=== PATIENT | male | born 1955 | race Caucasian/White ===

== ENCOUNTER 2016-06-08 21:14 | Emergency (ER) | payer OTHER ==
[2016-06-08 21:29] VITALS: BP 104/67; PULSE 98; TEMP 98; BMI 27.4
--- NOTE | 2016-06-08 21:52 | PDOC ---
History of Present Illness - History of Present Illness Initial Comments: 06/08/16 23:57 Patient is a 60 year old male with significant medical hx of alcoholism, alcohol liver disease, HTN, GERD and peripheral neuropathy who is presenting to the ED after recent admission discharge (06/08/16) who is presenting to the ED because he is unable to get his prescriptions for chronic neuropathic leg pain. The patient offers no complaints; his last drink was yesterday. The patient was discharged from the ED (approximately 15:00) for hyponatremia, alcohol withdrawal, fall and electrolyte imbalance. <Gracie Larson - Last Filed: 06/08/16 23:57> <Wendy Huddleston - Last Filed: 06/09/16 01:50> - General Chief Complaint: Alcohol intoxication Stated Complaint: PAIN Time Seen by Provider: 06/08/16 21:22 Past History <Gracie Larson - Last Filed: 06/08/16 23:57> - Past Medical History Anemia: No Asthma: No Cancer: No Cardiac Disorders: No CVA: No COPD: No CHF: No Dementia: No Diabetes: No GI Disorders: No Disorders: No HTN: No Hypercholesterolemia: No Kidney Stones: No Liver Disease: No (Pt. Denies.) Suicide Attempt (Hx): No Seizures: No Thyroid Disease: No - Surgical History Abdominal Surgery: No Appendectomy: No Cardiac Surgery: No Cholecystectomy: No Lung Surgery: No Neurologic Surgery: No Orthopedic Surgery: Yes (right 5th digit tendon repair 11/14/14) - Reproductive History Testicular Surgery: No - Psycho/Social/Smoking Cessation Hx Anxiety: No Suicidal Ideation: No Smoking Status: Yes Smoking History: Current some day smoker Have you smoked in the past 12 months: Yes Number of Cigarettes Smoked Daily: 5 If you are a former smoker, when did you quit?: 1 months Cigars Per Day: 0 Information on smoking cessation initiated: No 'Breaking Loose' booklet given: 05/04/16 Hx Alcohol Use: Yes Drug/Substance Use Hx: No Substance Use Type: Alcohol Hx Substance Use Treatment: Yes (5 previous inpt detox and 3 inpt rehab @ [facility]) <Wendy Huddleston - Last Filed: 06/09/16 01:50> - Past Medical History Allergies/Adverse Reactions: Allergies Allergy/AdvReac Type Severity Reaction Status Date / Time No Known Allergies Allergy Verified 06/03/16 18:26 Home Medications: Ambulatory Orders Gabapentin [Neurontin -] 400 mg PO TID #120 capsule 04/23/16 Review of Systems - Review of Systems Comments:: 06/08/16 23:58 CONSTITUTIONAL: Absent: fever, chills, diaphoresis, generalized weakness, malaise, loss of appetite HEENT: Absent: rhinorrhea, nasal congestion, throat pain, throat swelling, difficulty swallowing, mouth swelling, ear pain, eye pain, visual changes CARDIOVASCULAR: Absent: chest pain, syncope, palpitations, irregular heart rate, lightheadedness , peripheral edema RESPIRATORY: Absent: cough, shortness of breath, dyspnea with exertion, orthopnea, wheezing, stridor, hemoptysis GASTROINTESTINAL: Absent: abdominal pain, abdominal distension, nausea, vomiting, diarrhea, constipation, melena, hematochezia GENITOURINARY: Absent: dysuria, frequency, urgency, hesitancy, hematuria, flank pain, genital pain MUSCULOSKELETAL: Absent: myalgia, arthralgia, joint swelling SKIN: Absent: rash, itching, pallor HEMATOLOGIC/IMMUNOLOGIC: Absent: easy bleeding, easy bruising, lymphadenopathy, frequent infections ENDOCRINE: Absent: unexplained weight gain, unexplained weight loss, heat intolerance, cold intolerance NEUROLOGIC: Absent: headache, focal weakness or paresthesia, dizziness, unsteady gait, seizure, mental status changes, bladder or bowel incontinence. PSYCHIATRIC: Absent: anxiety, depression, suicidal or homicidal ideation, hallucinations <Marcus Larsona - Last Filed: 06/08/16 23:57> *Physical Exam - Vital Signs Last Vital Signs Temp Pulse Resp BP Pulse Ox 98 F 98 H 17 104/67 99 06/08/16 21:25 06/08/16 21:25 06/08/16 21:25 06/08/16 21:25 06/08/16 21:25 - Physical Exam Comments: 06/08/16 23:58 GENERAL: Well developed, well nourished. Awake and alert. No acute distress. HEENT: Normocephalic, atraumatic. PERRLA, EOMI. Injected eyes. No conjunctival pallor. Sclera are non-icteric. Moist mucous membranes. Oropharynx is clear. NECK: Supple. Full ROM. No JVD. Carotid pulses 2+ and symmetric, without bruits. No thyromegaly. No lymphadenopathy. CARDIOVASCULAR: Regular rate and rhythm. No murmurs, rubs, or gallops. Distal pulses are 2+ and symmetric. PULMONARY: No evidence of respiratory distress. Lungs clear to auscultation bilaterally. No wheezing, rales or rhonchi. ABDOMINAL: Reducible ventral hernia. Soft. Non-tender. No rebound or guarding. Normoactive bowel sounds. MUSCULOSKELETAL: Normal range of motion at all joints. No bony deformities or tenderness. No CVA tenderness. EXTREMITIES: No cyanosis. No clubbing. No edema. No calf tenderness. SKIN: Warm and dry. Normal capillary refill. No rashes. No jaundice. NEUROLOGICAL: Alert, awake, appropriate. Cranial nerves 2-12 intact. Normal speech. Gait is normal without ataxia. PSYCHIATRIC: Cooperative. Good eye contact. Appropriate mood and affect. <Gracie Larson - Last Filed: 06/08/16 23:57> - Vital Signs Last Vital Signs Temp Pulse Resp BP Pulse Ox 98 F 98 H 17 104/67 99 06/08/16 21:25 06/08/16 21:25 06/08/16 21:25 06/08/16 21:25 06/08/16 21:25 <Wendy Huddleston - Last Filed: 06/09/16 01:50> ED Treatment Course - Medications Given in the ED: ED Medications Discontinued Medications Generic Name Dose Route Start Last Admin Trade Name Freq PRN Reason Stop Dose Admin Gabapentin 400 mg 06/08/16 21:57 06/08/16 22:04 Neurontin - PO 06/08/16 21:58 400 mg ONCE ONE Administration <Gracie Larson - Last Filed: 06/08/16 23:57> Medical Decision Making - Medical Decision Making 06/08/16 23:25 60-year-old male brought in by ambulance for alcohol intox. He was just discharged from our facility at 3:30 in the afternoon. He was admitted to [facility] from June 03 to June 08 for alcohol withdrawal , a mechanical fall and he had electrolyte abnormalities. Mr. Batista is well known to our facility. Patient states he is here because he was not able to fill his gabapentin RX and now has leg pain -social history-non domiciled, alcoholism Pt is sl lethargic but able to participate in a simple interview -gabapentin given 06/09/16 01:44 discharge in am when safe and sober <Wendy Huddleston - Last Filed: 06/09/16 01:50> *DC/Admit/Observation/Transfer - Attestations Scribe Attestion: 06/09/16 00:00 Documentation prepared by Gracie Larson, acting as medical typist for Wendy Huddleston MD. <Gracie Larson - Last Filed: 06/08/16 23:57> <Wendy Huddleston - Last Filed: 06/09/16 01:50> Diagnosis at time of Disposition: Polyneuropathy Alcohol dependence syndrome Qualifiers: Substance use status: other alcohol-induced disorder Qualified Code(s): F10.288 - Alcohol dependence with other alcohol-induced disorder - Discharge Dispostion Condition at time of disposition: Stable - Referrals Referrals: Kyra Dahl [Primary Care Provider] - - Patient Instructions Printed Discharge Instructions: DI for Alcohol Abuse, Peripheral Neuropathy Additional Instructions: -please abstain from alcohol intoxication -take the medications prescribed to you by your physician
[2016-06-08] MEDS ORDERED: GABAPENTIN 400 MG CAPSULE (FP) PO ONE (21:57)
--- NOTE | 2016-06-09 06:21 | PDOC ---
*Physical Exam - Vital Signs Last Vital Signs Temp Pulse Resp BP Pulse Ox 98 F 98 H 17 104/67 99 06/08/16 21:25 06/08/16 21:25 06/08/16 21:25 06/08/16 21:25 06/08/16 21:25 ED Treatment Course - Medications Given in the ED: ED Medications Discontinued Medications Generic Name Dose Route Start Last Admin Trade Name Singh PRN Reason Stop Dose Admin Gabapentin 400 mg 06/08/16 21:57 06/08/16 22:04 Neurontin - PO 06/08/16 21:58 400 mg ONCE ONE Administration *DC/Admit/Observation/Transfer Diagnosis at time of Disposition: Polyneuropathy Alcohol dependence syndrome Qualifiers: Substance use status: other alcohol-induced disorder Qualified Code(s): F10.288 - Alcohol dependence with other alcohol-induced disorder - Discharge Dispostion Disposition: HOME Condition at time of disposition: Stable Admit: No - Referrals Referrals: Kyra Dahl [Primary Care Provider] - - Patient Instructions Printed Discharge Instructions: Peripheral Neuropathy, DI for Alcohol Abuse Additional Instructions: -please abstain from alcohol intoxication -take the medications prescribed to you by your physician - Post Discharge Activity
== END 2016-06-09 06:33 | disposition home or self-care (01) ==
LOC: JER 21:14
DX: F10.288 Alcohol dependence with other alcohol-induced disorder (principal); G62.1 Alcoholic polyneuropathy; I10 Essential (primary) hypertension; K70.9 Alcoholic liver disease, unspecified; Z76.0 Encounter for issue of repeat prescription; Z59.0 Homelessness; F17.210 Nicotine dependence, cigarettes, uncomplicated
CPT/HCPCS: 99281-25

== ENCOUNTER 2016-06-19 18:09 | Inpatient (IN) | payer OTHER ==
[2016-06-19 18:44] VITALS: BMI 29.3
--- NOTE | 2016-06-19 18:54 | HP ---
CIWA Score - CIWA Score Nausea/Vomitin Muscle Tremors: 2 Anxiety: 2 Agitation: 2 Paroxysmal Sweats: 2 Orientation: 0-Oriented Tacttile Disturbances: 1-Very Mild Itch/Numbness Auditory Disturbances: 0-None Visual Disturbances: 1-Very Mild Sensitivity Headache: 2-Mild CIWA-Ar Total Score: 14 Admission ROS BHS - HPI Chief Complaint: I'M HERE BECAUSE I DRINK TOO MUCH Allergies/Adverse Reactions: Allergies Allergy/AdvReac Type Severity Reaction Status Date / Time No Known Allergies Allergy Verified 06/19/16 18:18 History of Present Illness: 60 Y/O MALE WITH 45 Y/O ALCOHOLISM PRESENTS FOR DETOX. HIS LAST TREATMENT WAS A FEW MONTHS AGO AT [facility]. HE REPORTS NO SIGNIFICANT PERIODS OF SOBRIETY. Exam Limitations: No Limitations - Ebola screening Have you traveled outside of the country in the last 21 days: No Have you had contact with anyone from an Ebola affected area: No Have you been sick,other than usual withdrawal symptoms: No Do you have a fever: No - Review of Systems Constitutional: Loss of Appetite, Changes in sleep EENT: reports: Blurred Vision Respiratory: reports: Cough Cardiac: reports: No Symptoms Reported GI: reports: Poor Appetite : reports: No Symptoms Reported Musculoskeletal: reports: Muscle Pain Integumentary: reports: No Symptoms Reported Neuro: reports: No Symptoms reported Endocrine: reports: No Symptoms Reported Hematology: reports: No Symptoms Reported Psychiatric: reports: No Sypmtoms Reported Other Systems: Reviewed and Negative Patient History - Patient Medical History Hx Anemia: No Hx Asthma: No Hx Chronic Obstructive Pulmonary Disease (COPD): No Hx Cancer: No Hx Cardiac Disorders: No Hx Congestive Heart Failure: No Hx Hypertension: No Hx Hypercholesterolemia: No Hx Pacemaker: No HX Cerebrovascular Accident: No Hx Seizures: No Hx Dementia: No Hx Diabetes: No Hx Gastrointestinal Disorders: No Hx Liver Disease: Yes (cirrhosis - elevated ammonia levels) Hx Genitourinary Disorders: No Hx Sexually Transmitted Disorders: No Hx Renal Disease (ESRD): No Hx Thyroid Disease: No Hx Human Immunodeficiency Virus (HIV): No Hx Hepatitis C: No Hx Depression: No Hx Suicide Attempt: No Hx Bipolar Disorder: No Hx Schizophrenia: No - Patient Surgical History Past Surgical History: Yes Hx Neurologic Surgery: No Hx Cataract Extraction: No Hx Cardiac Surgery: No Hx Lung Surgery: No Hx Breast Surgery: No Hx Breast Biopsy: No Hx Abdominal Surgery: No Hx Appendectomy: No Hx Cholecystectomy: No Hx Genitourinary Surgery: No Hx Section: No Hx Orthopedic Surgery: Yes (right 5th digit tendon repair 11/14/14) Hx Hysterectomy: No Other Surgical History: Pt. fell down stairs face first, 23 sutures-removed already Anesthesia Reaction: No - PPD History Previous Implant?: Yes Documented Results: Negative w/proof Implanted On Prior [facility] Admission?: Yes Date: 07/14/15 Results: 0mm PPD to be Administered?: No - Smoking Cessation Smoking history: Current some day smoker Have you smoked in the past 12 months: Yes Aproximately how many cigarettes per day: 5 If you are a former smoker, when did you quit?: 1 months Cigars Per Day: 0 Hx Chewing Tobacco Use: No Initiated information on smoking cessation: Yes 'Breaking Loose' booklet given: 06/19/16 - Substances Abused Alcohol Route: Oral Frequency: Daily Amount used: BEER- 2 SIX PACK Age of first use: 17 Date of Last Use: 06/19/16 Family Disease History - Family Disease History Family Disease History: Other: Father (Uses Alcohol.), Mother (Uses Alcohol.), Brother (Uses Alcohol.), Sister (LSD related schizophrenia) Admission Physical Exam [facility] - Vital Signs Vital Signs: Vital Signs - 24 hr 06/19/16 06/19/16 18:12 18:43 Pulse Rate 95 H Respiratory 18 18 Rate Blood Pressure 119/71 - Physical General Appearance: Yes: Alcohol on Breath HEENTM: Yes: Within Normal Limits Respiratory: Yes: Chest Non-Tender, Lungs Clear, Normal Breath Sounds, No Respiratory Distress, No Accessory Muscle Use Neck: Yes: No masses,lesions,Nodules, Supple Breast: Yes: Breast Exam Deferred Cardiology: Yes: Regular Rhythm, Regular Rate, S1, S2 Abdominal: Yes: Normal Bowel Sounds, Soft Genitourinary: Yes: Within Normal Limits Back: Yes: Within Normal Limits Musculoskeletal: Yes: Muscle Pain Extremities: Yes: Pedal Edema 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, Fully Oriented, Alert Integumentary: Yes: Warm Lymphatic: Yes: Within Normal Limits - Diagnostic (1) Alcohol dependence with uncomplicated withdrawal Current Visit: Yes Status: Acute (2) Drug-induced mood disorder Current Visit: No Status: Acute (3) Neuropathy Current Visit: Yes Status: Chronic Cleared for Admission [facility] - Detox or Rehab [facility] Level of Care: Medically Managed Detox Regimen/Protocol: Librium [facility] Breath Alcohol Content Breath Alcohol Content: 0.271 Urine Drug Screen - Results Drug Screen Negative: No Urine Drug Screen Results: BZO-Benzodiazepines
[2016-06-19] MEDS ORDERED: IBUPROFEN 400 MG TABLET (FP) PO PRN (18:59)
[2016-06-19] MEDS ORDERED: MENTHOL/PHENOL 1 EACH UD MM PRN (18:59)
[2016-06-19] MEDS ORDERED: MAGNESIUM CITRATE 300 ML BOTTLE PO PRN (18:59)
[2016-06-19] MEDS ORDERED: chlordiazePOXIDE HCL 25 MG CAPSULE PO ONE (18:59)
[2016-06-19] MEDS ORDERED: guaiFENesin/D-METHORPHAN HB 10 ML UNIT-DOSE CUPS PO PRN (18:59)
[2016-06-19] MEDS ORDERED: ACETAMINOPHEN 325 MG TABLET (FP) PO PRN (18:59)
[2016-06-19] MEDS ORDERED: NICOTINE POLACRILEX 2 MG GUM BC PRN (18:59)
[2016-06-19] MEDS ORDERED: LOPERAMIDE HCL 2 MG CAPSULE PO PRN (18:59)
[2016-06-19] MEDS ORDERED: P-EPHED 60MG/TRIPROLIDI 2.5MG TABLET PO PRN (18:59)
[2016-06-19] MEDS ORDERED: MAGNESIUM HYDROX 2400MG/30ML ORAL SUSPENSION 30 ML CUP PO PRN (18:59)
[2016-06-19] MEDS ORDERED: hydrOXYzine PAMOATE 50 MG CAPSULE (FP) PO PRN (18:59)
[2016-06-19] MEDS: GABAPENTIN 400 MG CAPSULE (FP) PO SCH (22:11)
[2016-06-19] MEDS: chlordiazePOXIDE HCL 25 MG CAPSULE PO SCH (22:11)
[2016-06-19] MEDS: THIAMINE HCL 100 MG TABLET (FP) PO SCH (22:11)
[2016-06-20] MEDS: GABAPENTIN 400 MG CAPSULE (FP) PO SCH ×3 (05:46→22:01)
[2016-06-20] MEDS: chlordiazePOXIDE HCL 25 MG CAPSULE PO SCH ×4 (05:46→22:02)
[2016-06-20] MEDS: MAG HYDROX/AL HYDROX/SIMETH 30 ML UNIT-DOSE CUP PO PRN ×3 (05:48→18:38)
[2016-06-20 09:49] LABS: MCHC 33.6 g/dl (32.0-35.9); MEAN CELL VOLUME 97.9 fl (80-96); MEAN PLT VOLUME 9.9 fl (7.5-11.1); PLATELET COUNT 188 K/MM3 (134-434); RDW 17.4 % (11.9-15.9); WHITE BLOOD COUNT 8.1 K/mm3 (4.0-10.0)
[2016-06-20] MEDS: PRENATAL VITAMINS W/ FOLIC ACID TABLET (FP) PO SCH (10:49)
[2016-06-20 10:57] LABS: ALBUMIN 2.5 g/dl (3.4-5.0); ANION GAP 10 (8-16); CALCIUM 9.6 mg/dL (8.5-10.1); CO2 29 mmol/L (21-32); GLUCOSE,RANDOM 95 mg/dL (74-106); SGOT/AST 25 U/L (15-37)
[2016-06-20 10:59] LABS: ALK PHOS 169 U/L (45-117); BILIRUBIN,TOTAL 0.4 mg/dL (0.2-1.0); CREATININE 0.9 mg/dL (0.7-1.3); SGPT/ALT 21 U/L (12-78); TOT PROT 5.7 g/dl (6.4-8.2)
--- NOTE | 2016-06-20 11:09 | PN ---
S CIWA - CIWA Score Nausea/Vomitin Muscle Tremors: 3 Anxiety: 4-Mod. Anxious/Guarded Agitation: 4-Moderately Restless Paroxysmal Sweats: 3 Orientation: 0-Oriented Tacttile Disturbances: 2-Mild Itch/Numbness/Burn Auditory Disturbances: 0-None Visual Disturbances: 0-None Headache: 1-Very Mild CIWA-Ar Total Score: 20 BHS Progress Note (SOAP) Subjective: nausea, sweats, interrupted sleep, anxiety, tremors, peripheral neuropathy LE, requesting nicotine gum and cane Objective: 06/20/16 11:08 Vital Signs - 8 hr 06/20/16 06/20/16 06/20/16 03:30 06:00 10:56 Temperature 98.8 F 97.9 F Pulse Rate 114 H 83 Respiratory 18 18 16 Rate Blood Pressure 114/73 121/82 Laboratory Tests 06/20/16 06/20/16 07:45 07:45 WBC 8.1 D RBC 3.18 L Hgb 10.5 L Hct 31.1 L MCV 97.9 H MCHC 33.6 RDW 17.4 H Plt Count 188 MPV 9.9 D Sodium 140 Potassium 3.8 Chloride 101 Carbon Dioxide 29 Anion Gap 10 BUN 5 L D Creatinine 0.9 Creat Clearance w eGFR > 60 Random Glucose 95 Calcium 9.6 Total Bilirubin 0.4 D AST 25 ALT 21 Alkaline Phosphatase 169 H D Total Protein 5.7 L Albumin 2.5 L macrocytic anemia, hypoalbuminemia Assessment: 06/20/16 11:08 withdrawal sx, anemia, hypoalbuminemia, peripheral neuropathy Plan: cont detox, vitamins, cane and nicotien gum ordered as requested. fluids, encoruage ambulation
[2016-06-20] MEDS: NICOTINE 14 MG/24 HOURS TOPICAL PATCH TD SCH (13:49)
[2016-06-20 17:28] LABS: URINE APPEARANCE CLOUDY; URINE BILIRUBIN NEGATIVE (NEGATIVE); URINE COLOR STRAW; URINE GLUCOSE (UA) NEGATIVE (NEGATIVE); URINE KETONE NEGATIVE (NEGATIVE); URINE NITRITE NEGATIVE (NEGATIVE); URINE PROTEIN NEGATIVE (NEGATIVE); URINE UROBILINOGEN NEGATIVE E.U./dl (0.2-1.0)
[2016-06-20 17:29] LABS: URINE BLOOD 1+ (NEGATIVE); URINE LEUK ESTERASE 3+ (NEGATIVE)
[2016-06-20 17:37] LABS: URINE BACTERIA RARE /hpf (NONE SEEN); URINE RBC 164 /hpf (0-3); URINE WBC 365 /hpf (3-5)
[2016-06-20] MEDS: THIAMINE HCL 100 MG TABLET (FP) PO SCH (22:01)
[2016-06-20] MEDS: diphenhydrAMINE HCL 50 MG CAPSULE PO PRN (22:01)
--- NOTE | 2016-06-20 23:27 | EKG ---
Test Reason : Blood Pressure : / mmHG Vent. Rate : 099 BPM Atrial Rate : 099 BPM P-R Int : 206 ms QRS Dur : 084 ms QT Int : 334 ms P-R-T Axes : 056 012 055 degrees QTc Int : 428 ms SINUS RHYTHM WITH OCCASIONAL PREMATURE VENTRICULAR COMPLEXES OTHERWISE NORMAL ECG WHEN COMPARED WITH ECG OF 08-JUN-2016 11:14, PREMATURE VENTRICULAR COMPLEXES ARE NOW PRESENT VENT. RATE HAS INCREASED Confirmed by RUPINDER LR, KELSEY ([id number]) on 06/20/2016 11:26:36 PM Referred By: Confirmed By:KELSEY BUCIO MD
[2016-06-21] MEDS: chlordiazePOXIDE HCL 25 MG CAPSULE PO SCH ×3 (05:47→17:11)
[2016-06-21] MEDS: GABAPENTIN 400 MG CAPSULE (FP) PO SCH ×3 (05:47→22:11)
--- NOTE | 2016-06-21 09:38 | PN ---
S CIWA - CIWA Score Nausea/Vomitin-Mild Nausea/No Vomiting Muscle Tremors: 4-Moderate,w/Arms Extend Anxiety: 3 Agitation: 4-Moderately Restless Paroxysmal Sweats: 3 Orientation: 0-Oriented Tacttile Disturbances: 0-None Auditory Disturbances: 0-None Visual Disturbances: 0-None Headache: 1-Very Mild CIWA-Ar Total Score: 16 BHS Progress Note (SOAP) Subjective: shakes sweats interrupted sleep agitation indigestion headache insomnia Objective: 06/21/16 09:34 Vital Signs Temperature 97.9 F 06/21/16 06:00 Pulse Rate 89 06/21/16 06:00 Respiratory Rate 18 06/21/16 06:00 Blood Pressure 116/62 06/21/16 06:00 O2 Sat by Pulse Oximetry (%) Laboratory Tests 06/20/16 06/20/16 06/20/16 07:45 07:45 07:45 WBC 8.1 D RBC 3.18 L Hgb 10.5 L Hct 31.1 L MCV 97.9 H MCHC 33.6 RDW 17.4 H Plt Count 188 MPV 9.9 D Sodium 140 Potassium 3.8 Chloride 101 Carbon Dioxide 29 Anion Gap 10 BUN 5 L D Creatinine 0.9 Creat Clearance w eGFR > 60 Random Glucose 95 Calcium 9.6 Total Bilirubin 0.4 D AST 25 ALT 21 Alkaline Phosphatase 169 H D Total Protein 5.7 L Albumin 2.5 L Urine Color Urine Appearance Urine pH Ur Specific [place] Urine Protein Urine Glucose (UA) Urine Ketones Urine Blood Urine Nitrite Urine Bilirubin Urine Urobilinogen Ur Leukocyte Esterase Urine RBC Urine WBC Urine Bacteria RPR Titer Nonreactive 06/20/16 16:00 WBC RBC Hgb Hct MCV MCHC RDW Plt Count MPV Sodium Potassium Chloride Carbon Dioxide Anion Gap BUN Creatinine Creat Clearance w eGFR Random Glucose Calcium Total Bilirubin AST ALT Alkaline Phosphatase Total Protein Albumin Urine Color Straw Urine Appearance Cloudy Urine pH 9.0 H D Ur Specific [place] 1.004 Urine Protein Negative Urine Glucose (UA) Negative Urine Ketones Negative Urine Blood 1+ H Urine Nitrite Negative Urine Bilirubin Negative Urine Urobilinogen Negative Ur Leukocyte Esterase 3+ H Urine RBC 164 Urine WBC 365 Urine Bacteria Rare RPR Titer repeat u/a awake/alert ambulating no acute distress Assessment: 06/21/16 09:54 withdrawals sx Plan: continue detox increase fluids protonix 40mg daily psych ordered
[2016-06-21] MEDS: PRENATAL VITAMINS W/ FOLIC ACID TABLET (FP) PO SCH (10:18)
[2016-06-21] MEDS: PANTOPRAZOLE 40 MG TABLET (FP) PO SCH (10:19)
[2016-06-21] MEDS: NICOTINE 14 MG/24 HOURS TOPICAL PATCH TD SCH (10:19)
--- NOTE | 2016-06-21 13:06 | CONSULT ---
[facility] Psychiatric Consult - Data Date of interview: 06/21/16 Admission source: [facility] Identifying data: This is one of multiple admissions to [facility] for this 60 y/ o male seeking detox treatment on for alcohol dependence.Patient is single without children,homeless,unemployed and supported on [facility] benefits. Substance Abuse History: - Smoking Cessation. Smoking history: Current some day smoker. Have you smoked in the past 12 months: Yes. Aproximately how many cigarettes per day: 5. If you are a former smoker, when did you quit?: 1 months. Cigars Per Day: 0. Hx Chewing Tobacco Use: No. Initiated information on smoking cessation: Yes. 'Breaking Loose' booklet given: 06/19/16. - Substances Abused. Alcohol. Route: Oral. Frequency: Daily. Amount used: BEER- 2 SIX PACK. Age of first use: 17. Date of Last Use: 06/19/16. Confirmed by patient. Medical History: Consistent with a history of alcoholic peripheral neuropathy, GERD,HTN,hepatitis C,obesity,psoriasis,low back pain and cirrhosis of liver. Psychiatric History: Patient denies. Physical/Sexual Abuse/Trauma History: Patient denies. Mental Status Exam - Mental Status Exam Alert and Oriented to: Time, Place, Person Cognitive Function: Good Patient Appearance: Well Groomed Mood: Anxious, Apprehensive Affect: Mood Congruent Patient Behavior: Appropriate, Cooperative Speech Pattern: Clear Voice Loudness: Normal Thought Process: Goal Oriented Thought Disorder: Not Present Hallucinations: Denies Suicidal Ideation: Denies Homicidal Ideation: Denies Insight/Judgement: Poor Sleep: Poorly, Difficulty falling asleep (requests zolpidem) Appetite: Good Muscle strength/Tone: Normal Gait/Station: Other (walks with cane) Psychiatric Findings - Problem List ([place] 1, 2,3) (1) Alcohol dependence with uncomplicated withdrawal Current Visit: Yes Status: Acute (2) Nicotine dependence Current Visit: No Status: Chronic Qualifiers: Nicotine product type: cigarettes Substance use status: uncomplicated Qualified Code(s): F17.210 - Nicotine dependence, cigarettes, uncomplicated Comment: counseled cessation - not ready (3) Alcohol-induced anxiety disorder Current Visit: Yes Status: Acute (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 (5) Neuropathy Current Visit: Yes Status: Chronic (6) Cirrhosis of liver not due to alcohol Current Visit: Yes Status: Chronic Comment: encourage abstinence - seen by MAUDE raman and needs f/u (7) Psoriasis Current Visit: Yes Status: Chronic Comment: clobetisole oint, f/u with derm (8) Varicose veins Current Visit: Yes Status: Chronic Comment: does not like support stockings (too hot) but did see vascular re treatment and pending approval although now with insurance issues - Initial Treatment Plan Initial Treatment Plan: Psychoeducation.Detoxification.Zolpidem 5 mg po hs (no scripts at discharge;patient aware).Patient is made aware of risk of parasomnias.He agrees with this plan.Observation.
[2016-06-21] MEDS: chlordiazePOXIDE HCL 25 MG CAPSULE PO PRN (13:20)
[2016-06-21 15:46] LABS: URINE APPEARANCE CLOUDY; URINE BILIRUBIN NEGATIVE (NEGATIVE); URINE BLOOD NEGATIVE (NEGATIVE); URINE COLOR YELLOW; URINE GLUCOSE (UA) NEGATIVE (NEGATIVE); URINE KETONE NEGATIVE (NEGATIVE); URINE NITRITE NEGATIVE (NEGATIVE); URINE PROTEIN NEGATIVE (NEGATIVE); URINE UROBILINOGEN NEGATIVE E.U./dl (0.2-1.0)
[2016-06-21 15:51] LABS: URINE LEUK ESTERASE 3+ (NEGATIVE)
[2016-06-21 15:53] LABS: URINE RBC 16 /hpf (0-3); URINE WBC 1023 /hpf (3-5); YEAST FEW
[2016-06-21] MEDS: MAG HYDROX/AL HYDROX/SIMETH 30 ML UNIT-DOSE CUP PO PRN (18:41)
[2016-06-21] MEDS: ZOLPIDEM TARTRATE 5 MG TABLET PO PRN (22:11)
[2016-06-21] MEDS: THIAMINE HCL 100 MG TABLET (FP) PO SCH (22:11)
[2016-06-21] MEDS: chlordiazePOXIDE 5 MG CAPSULE PO SCH (22:11)
[2016-06-22] MEDS: chlordiazePOXIDE HCL 25 MG CAPSULE PO PRN ×2 (00:40→12:48)
[2016-06-22] MEDS: diphenhydrAMINE HCL 50 MG CAPSULE PO PRN (00:43)
[2016-06-22] MEDS: MAG HYDROX/AL HYDROX/SIMETH 30 ML UNIT-DOSE CUP PO PRN (03:35)
[2016-06-22] MEDS: chlordiazePOXIDE 5 MG CAPSULE PO SCH ×3 (05:03→17:14)
[2016-06-22] MEDS: GABAPENTIN 400 MG CAPSULE (FP) PO SCH ×3 (05:03→22:25)
--- NOTE | 2016-06-22 09:42 | PN ---
BHS Progress Note (SOAP) Subjective: interrupted sleep, neuropathy feet Objective: 06/22/16 09:41 Vital Signs Temperature 96.4 F L 06/22/16 09:36 Pulse Rate 100 H 06/22/16 09:36 Respiratory Rate 16 06/22/16 09:36 Blood Pressure 126/72 06/22/16 09:36 O2 Sat by Pulse Oximetry (%) Laboratory Tests 06/20/16 06/20/16 06/20/16 07:45 07:45 07:45 WBC 8.1 D RBC 3.18 L Hgb 10.5 L Hct 31.1 L MCV 97.9 H MCHC 33.6 RDW 17.4 H Plt Count 188 MPV 9.9 D Sodium 140 Potassium 3.8 Chloride 101 Carbon Dioxide 29 Anion Gap 10 BUN 5 L D Creatinine 0.9 Creat Clearance w eGFR > 60 Random Glucose 95 Calcium 9.6 Total Bilirubin 0.4 D AST 25 ALT 21 Alkaline Phosphatase 169 H D Total Protein 5.7 L Albumin 2.5 L Urine Color Urine Appearance Urine pH Ur Specific [place] Urine Protein Urine Glucose (UA) Urine Ketones Urine Blood Urine Nitrite Urine Bilirubin Urine Urobilinogen Ur Leukocyte Esterase Urine RBC Urine WBC Urine Bacteria Urine Yeast RPR Titer Nonreactive 06/20/16 06/21/16 16:00 13:40 WBC RBC Hgb Hct MCV MCHC RDW Plt Count MPV Sodium Potassium Chloride Carbon Dioxide Anion Gap BUN Creatinine Creat Clearance w eGFR Random Glucose Calcium Total Bilirubin AST ALT Alkaline Phosphatase Total Protein Albumin Urine Color Straw Yellow Urine Appearance Cloudy Cloudy Urine pH 9.0 H D 7.0 D Ur Specific [place] 1.004 1.012 Urine Protein Negative Negative Urine Glucose (UA) Negative Negative Urine Ketones Negative Negative Urine Blood 1+ H Negative Urine Nitrite Negative Negative Urine Bilirubin Negative Negative Urine Urobilinogen Negative Negative Ur Leukocyte Esterase 3+ H 3+ H Urine RBC 164 16 Urine WBC 365 1023 Urine Bacteria Rare Urine Yeast Few RPR Titer pt aox3 in nad ambulating Assessment: 06/22/16 09:41 withdrawl sx's neuropathy Plan: cont. detox increase fluids d/c in am
[2016-06-22] MEDS: PANTOPRAZOLE 40 MG TABLET (FP) PO SCH (10:32)
[2016-06-22] MEDS: NICOTINE 14 MG/24 HOURS TOPICAL PATCH TD SCH (10:32)
[2016-06-22] MEDS: PRENATAL VITAMINS W/ FOLIC ACID TABLET (FP) PO SCH (10:32)
[2016-06-22] MEDS: THIAMINE HCL 100 MG TABLET (FP) PO SCH (22:24)
[2016-06-22] MEDS: ZOLPIDEM TARTRATE 5 MG TABLET PO PRN (22:24)
[2016-06-22] MEDS: chlordiazePOXIDE HCL 10 MG CAPSULE PO SCH (22:25)
[2016-06-23] MEDS: GABAPENTIN 400 MG CAPSULE (FP) PO SCH (05:35)
[2016-06-23] MEDS: chlordiazePOXIDE HCL 10 MG CAPSULE PO SCH ×2 (05:35→10:25)
--- NOTE | 2016-06-23 08:23 | DS ---
[facility] Detox Discharge Summary Admission Date: 06/19/16 Discharge Date: 06/23/16 - History Present History: Alcohol Dependence - Physical Exam Results Vital Signs: Vital Signs Temperature 97.9 F 06/23/16 06:11 Pulse Rate 80 06/23/16 06:11 Respiratory Rate 16 06/23/16 06:11 Blood Pressure 112/67 06/23/16 06:11 O2 Sat by Pulse Oximetry (%) - Treatment Hospital Course: Detox Protocol Followed, Detoxed Safely, Responded well, Discharged Condition Good, Rehab Referral Accepted - Medication Discharge Medications: Ambulatory Orders Gabapentin [Neurontin -] 400 mg PO TID #120 capsule 04/23/16 - Diagnosis (1) Alcohol dependence with uncomplicated withdrawal Current Visit: Yes Status: Chronic (2) Alcohol-induced anxiety disorder Current Visit: Yes Status: Chronic (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 (4) Cirrhosis of liver not due to alcohol Current Visit: Yes Status: Chronic (5) Neuropathy Current Visit: Yes Status: Chronic (6) Psoriasis Current Visit: Yes Status: Chronic (7) Impaired memory Current Visit: No Status: Chronic (8) Nicotine dependence Current Visit: No Status: Chronic Qualifiers: Nicotine product type: cigarettes Substance use status: uncomplicated Qualified Code(s): F17.210 - Nicotine dependence, cigarettes, uncomplicated - AMA Did Patient Leave Against Medical Advice: No
[2016-06-23 09:35] VITALS: BP 124/75; PULSE 101; TEMP 96.6
[2016-06-23] MEDS: PANTOPRAZOLE 40 MG TABLET (FP) PO SCH (10:25)
[2016-06-23] MEDS: PRENATAL VITAMINS W/ FOLIC ACID TABLET (FP) PO SCH (10:25)
[2016-06-23] MEDS: NICOTINE 14 MG/24 HOURS TOPICAL PATCH TD SCH (10:26)
== END 2016-06-23 11:23 | disposition home or self-care (01) | DRG 775 ==
LOC: YASAS 18:09 → Y6N 18:48
PROVIDERS: ADMIT Internal Medicine; ATTEND Internal Medicine
PROC: HZ2ZZZZ Detoxification Services for Substance Abuse Treatment (ICD-10-PCS; principal; 2016-06-19)
DX: F10.230 Alcohol dependence with withdrawal, uncomplicated (principal); F10.280 Alcohol dependence with alcohol-induced anxiety disorder; F10.282 Alcohol dependence with alcohol-induced sleep disorder; F17.210 Nicotine dependence, cigarettes, uncomplicated; F19.24 Other psychoactive substance dependence with psychoactive substance-induced mood disorder; K74.60 Unspecified cirrhosis of liver; G62.9 Polyneuropathy, unspecified; L40.9 Psoriasis, unspecified; R41.3 Other amnesia; D53.9 Nutritional anemia, unspecified; E88.09 Other disorders of plasma-protein metabolism, not elsewhere classified; Z59.0 Homelessness
CPT/HCPCS: 36415; 80053; 81003; 81015; 85027; 86593; 93005; 93010

== ENCOUNTER 2016-07-26 19:03 | Inpatient (IN) | payer OTHER ==
[2016-07-26 19:35] VITALS: BMI 27.4
--- NOTE | 2016-07-26 19:44 | HP ---
CIWA Score - CIWA Score Nausea/Vomitin Muscle Tremors: 3 Anxiety: 4-Mod. Anxious/Guarded Agitation: 4-Moderately Restless Paroxysmal Sweats: 1-Minimal Palms Moist Orientation: 3-Disoriented Date>2 days Tacttile Disturbances: 0-None Auditory Disturbances: 0-None Visual Disturbances: 0-None Headache: 0-None Present CIWA-Ar Total Score: 17 Admission ROS BHS - HPI Chief Complaint: withdrawal sx Allergies/Adverse Reactions: Allergies Allergy/AdvReac Type Severity Reaction Status Date / Time No Known Allergies Allergy Verified 06/19/16 18:18 History of Present Illness: 60 years old male with long history of alcohol nicotine dependence, has gerd, neuropathy, and depression, longest sobriety 11 months is admitted to detox Exam Limitations: No Limitations - Ebola screening Have you traveled outside of the country in the last 21 days: No Have you had contact with anyone from an Ebola affected area: No Have you been sick,other than usual withdrawal symptoms: No Do you have a fever: No - Review of Systems Constitutional: Chills, Changes in sleep, Weight Stable EENT: reports: Dental Problems (left upper tooth cracked "weeks" ago), Other ( eye glasses) Respiratory: reports: No Symptoms reported Cardiac: reports: No Symptoms Reported GI: reports: Diarrhea, Nausea, Poor Fluid Intake, Vomiting, Indigestion, Abdominal cramping : reports: No Symptoms Reported Musculoskeletal: reports: Joint Pain, Muscle Pain, Muscle Weakness (left leg) Integumentary: reports: Dryness, Lesions Neuro: reports: Tremors Endocrine: reports: No Symptoms Reported Hematology: reports: No Symptoms Reported Psychiatric: reports: Judgement Intact, Anxious Other Systems: Reviewed and Negative Patient History - Patient Medical History Hx Anemia: No Hx Asthma: No Hx Chronic Obstructive Pulmonary Disease (COPD): No Hx Cancer: No Hx Cardiac Disorders: No Hx Congestive Heart Failure: No Hx Hypertension: No Hx Hypercholesterolemia: No Hx Pacemaker: No HX Cerebrovascular Accident: No Hx Seizures: No Hx Dementia: No Hx Diabetes: No Hx Gastrointestinal Disorders: Yes Hx Liver Disease: No (denies cirrhosis) Hx Genitourinary Disorders: No Hx Sexually Transmitted Disorders: No Hx Renal Disease (ESRD): No Hx Thyroid Disease: No Hx Human Immunodeficiency Virus (HIV): No Hx Hepatitis C: No Hx Depression: Yes Hx Suicide Attempt: No Hx Bipolar Disorder: No Hx Schizophrenia: No - Patient Surgical History Past Surgical History: Yes Hx Neurologic Surgery: No Hx Cataract Extraction: No Hx Cardiac Surgery: No Hx Lung Surgery: No Hx Breast Surgery: No Hx Breast Biopsy: No Hx Abdominal Surgery: No Hx Appendectomy: No Hx Cholecystectomy: No Hx Genitourinary Surgery: No Hx Orthopedic Surgery: Yes (right 5th digit tendon repair 11/14/14) Hx Hysterectomy: No Other Surgical History: Pt. fell down stairs face first, 23 sutures-removed already Anesthesia Reaction: No - PPD History Previous Implant?: Yes Documented Results: Negative w/proof Implanted On Prior [facility] Admission?: Yes Date: 07/14/15 Results: 0mm PPD to be Administered?: Yes - Smoking Cessation Smoking history: Current every day smoker Have you smoked in the past 12 months: Yes Aproximately how many cigarettes per day: 5 If you are a former smoker, when did you quit?: 1 months Cigars Per Day: 0 Hx Chewing Tobacco Use: No Initiated information on smoking cessation: Yes 'Breaking Loose' booklet given: 07/26/16 - Substance & Tx. History Hx Alcohol Use: Yes Hx Substance Use: No Substance Use Type: Alcohol Hx Substance Use Treatment: Yes - Substances Abused Alcohol Route: Oral Frequency: Daily Amount used: pint volka Age of first use: 16 Date of Last Use: 07/26/16 Family Disease History - Family Disease History Family Disease History: Other: Father (Uses Alcohol.), Mother (Uses Alcohol.), Brother (Uses Alcohol.), Sister (LSD related schizophrenia) Admission Physical Exam S - Vital Signs Vital Signs: Vital Signs - 24 hr 07/26/16 19:33 Temperature 96.6 F L Pulse Rate 105 H Respiratory 20 Rate Blood Pressure 133/76 - Physical General Appearance: Yes: Nourished, Appropriately Dressed, Moderate Distress, Tremorous, Irritable, Sweating, Anxious HEENTM: Yes: Hearing grossly Normal, Normal ENT Inspection, Normocephalic, Normal Voice Respiratory: Yes: Chest Non-Tender, Lungs Clear, Normal Breath Sounds, No Respiratory Distress, No Accessory Muscle Use Neck: Yes: Supple, Trachea in good position Breast: Yes: Breasts Symetrical Cardiology: Yes: Regular Rhythm, Regular Rate, S1, S2 Abdominal: Yes: Non Tender, Soft Genitourinary: Yes: Within Normal Limits Back: Yes: Normal Inspection Musculoskeletal: Yes: full range of Motion (free from gravity), Gait Steady ( cane), Muscle Pain, Muscle weakness (left leg) Extremities: Yes: Normal Range of Motion, Non-Tender, Tremors Neurological: Yes: Alert, Motor Strength 5/5, Normal Response, Depressed Affect Integumentary: Yes: Dry, Warm Lymphatic: Yes: Within Normal Limits - Diagnostic (1) Alcohol dependence with uncomplicated withdrawal Current Visit: Yes Status: Acute (2) Neuropathy Current Visit: Yes Status: Acute Comment: neurontine 400 mg bid (3) Nicotine dependence Current Visit: Yes Status: Acute Qualifiers: Nicotine product type: cigarettes Substance use status: in withdrawal Qualified Code(s): F17.213 - Nicotine dependence, cigarettes, with withdrawal Comment: counseled cessation - not ready (4) Psoriasis Current Visit: Yes Status: Acute Comment: clobetisole oint, f/u with derm (5) GERD (gastroesophageal reflux disease) Current Visit: Yes Status: Acute Qualifiers: Esophagitis presence: without esophagitis Qualified Code(s): K21.9 - Gastro-esophageal reflux disease without esophagitis (6) Use of cane as ambulatory aid Current Visit: Yes Status: Chronic Comment: x 2 years neuropathy related alcohol comsumption Cleared for Admission [facility] - Detox or Rehab [facility] Level of Care: Medically Managed Detox Regimen/Protocol: Librium [facility] Breath Alcohol Content Breath Alcohol Content: 0.123 Urine Drug Screen - Results Drug Screen Negative: No Urine Drug Screen Results: BZO-Benzodiazepines
[2016-07-26] MEDS ORDERED: ACETAMINOPHEN 325 MG TABLET (FP) PO PRN (19:54)
[2016-07-26] MEDS ORDERED: MENTHOL/PHENOL 1 EACH UD MM PRN (19:54)
[2016-07-26] MEDS ORDERED: MAG HYDROX/AL HYDROX/SIMETH 30 ML UNIT-DOSE CUP PO PRN (19:54)
[2016-07-26] MEDS ORDERED: chlordiazePOXIDE HCL 25 MG CAPSULE PO ONE (19:54)
[2016-07-26] MEDS ORDERED: MAGNESIUM HYDROX 2400MG/30ML ORAL SUSPENSION 30 ML CUP PO PRN (19:54)
[2016-07-26] MEDS ORDERED: NICOTINE POLACRILEX 2 MG GUM BC PRN (19:54)
[2016-07-26] MEDS ORDERED: MAGNESIUM CITRATE 300 ML BOTTLE PO PRN (19:54)
[2016-07-26] MEDS ORDERED: P-EPHED 60MG/TRIPROLIDI 2.5MG TABLET PO PRN (19:54)
[2016-07-26] MEDS ORDERED: LOPERAMIDE HCL 2 MG CAPSULE PO PRN (19:54)
[2016-07-26] MEDS ORDERED: hydrOXYzine PAMOATE 50 MG CAPSULE (FP) PO PRN (19:54)
[2016-07-26] MEDS ORDERED: guaiFENesin/D-METHORPHAN HB 10 ML UNIT-DOSE CUPS PO PRN (19:54)
[2016-07-26] MEDS ORDERED: COLLOIDAL OATMEAL 1 BAR EACH TP PRN (20:07)
[2016-07-26] MEDS: GABAPENTIN 400 MG CAPSULE (FP) PO SCH (21:20)
[2016-07-26] MEDS: RANITIDINE HCL 150 MG TABLET (FP) PO SCH (21:20)
[2016-07-26] MEDS: MINERAL OIL/PETROLAT/WATER TOPICAL CREAM 113 GM JAR TP SCH (21:27)
[2016-07-26] MEDS: chlordiazePOXIDE HCL 25 MG CAPSULE PO SCH (22:45)
[2016-07-26] MEDS: THIAMINE HCL 100 MG TABLET (FP) PO SCH (22:46)
[2016-07-26 23:13] LABS: URINE APPEARANCE CLEAR; URINE BILIRUBIN NEGATIVE (NEGATIVE); URINE BLOOD NEGATIVE (NEGATIVE); URINE COLOR YELLOW; URINE GLUCOSE (UA) NEGATIVE (NEGATIVE); URINE KETONE NEGATIVE (NEGATIVE); URINE LEUK ESTERASE NEGATIVE (NEGATIVE); URINE NITRITE NEGATIVE (NEGATIVE); URINE UROBILINOGEN NEGATIVE E.U./dl (0.2-1.0)
[2016-07-26 23:14] LABS: URINE PROTEIN 1+ (NEGATIVE)
[2016-07-26 23:17] LABS: URINE HYALINE CAST 11 /lpf; URINE MUCUS RARE; URINE RBC <1 /hpf (0-3); URINE WBC 1 /hpf (3-5)
[2016-07-27] MEDS: chlordiazePOXIDE HCL 25 MG CAPSULE PO SCH ×4 (04:30→22:21)
[2016-07-27] MEDS ORDERED: ONDANSETRON *ODT* 4 MG TABLET SL PRN (09:53)
--- NOTE | 2016-07-27 09:53 | PN ---
S CIWA - CIWA Score Nausea/Vomitin-Mild Nausea/No Vomiting Muscle Tremors: 4-Moderate,w/Arms Extend Anxiety: 3 Agitation: 4-Moderately Restless Paroxysmal Sweats: 3 Orientation: 0-Oriented Tacttile Disturbances: 0-None Auditory Disturbances: 0-None Visual Disturbances: 0-None Headache: 1-Very Mild CIWA-Ar Total Score: 16 BHS Progress Note (SOAP) Subjective: headache nausea sweats irritable interrupted sleep Objective: 07/27/16 09:52 Vital Signs Temperature 98.8 F 07/27/16 06:25 Pulse Rate 106 H 07/27/16 06:30 Respiratory Rate 20 07/27/16 06:25 Blood Pressure 132/83 07/27/16 06:25 O2 Sat by Pulse Oximetry (%) Laboratory Tests 07/26/16 23:00 Urine Color Yellow Urine Appearance Clear Urine pH 6.0 Ur Specific [place] 1.012 Urine Protein 1+ H Urine Glucose (UA) Negative Urine Ketones Negative Urine Blood Negative Urine Nitrite Negative Urine Bilirubin Negative Urine Urobilinogen Negative Ur Leukocyte Esterase Negative Urine RBC <1 Urine WBC 1 Ur Epithelial Cells Rare Hyaline Casts 11 Urine Mucus Rare labs pending awake/alert ambulating no acute distress Assessment: 07/27/16 09:52 withdrawal sx Plan: continue detox increase fluids zofran prn
[2016-07-27 09:55] LABS: MCH 33.1 pg (25.7-33.7); MCHC 33.7 g/dl (32.0-35.9); MEAN CELL VOLUME 98.2 fl (80-96); MEAN PLT VOLUME 11.7 fl (7.5-11.1); PLATELET COUNT 73 K/MM3 (134-434); WHITE BLOOD COUNT 10.8 K/mm3 (4.0-10.0)
[2016-07-27 10:24] LABS: ALBUMIN 3.2 g/dl (3.4-5.0); ALK PHOS 109 U/L (45-117); ANION GAP 12 (8-16); BILIRUBIN,TOTAL 1.4 mg/dL (0.2-1.0); CALCIUM 8.4 mg/dL (8.5-10.1); CO2 27 mmol/L (21-32); CREATININE 0.7 mg/dL (0.7-1.3); GLUCOSE,RANDOM 85 mg/dL (74-106); SGOT/AST 29 U/L (15-37); SGPT/ALT 26 U/L (12-78); TOT PROT 6.4 g/dl (6.4-8.2)
[2016-07-27] MEDS: PRENATAL VITAMINS W/ FOLIC ACID TABLET (FP) PO SCH (10:26)
[2016-07-27] MEDS: GABAPENTIN 400 MG CAPSULE (FP) PO SCH ×2 (10:27→22:21)
[2016-07-27] MEDS: RANITIDINE HCL 150 MG TABLET (FP) PO SCH ×2 (10:27→22:21)
[2016-07-27] MEDS: NICOTINE 14 MG/24 HOURS TOPICAL PATCH TD SCH (10:28)
[2016-07-27] MEDS: POTASSIUM CHLORIDE ORAL LIQUID 20 MEQ/15 ML PO SCH ×3 (12:00→20:23)
[2016-07-27] MEDS: chlordiazePOXIDE HCL 25 MG CAPSULE PO PRN ×2 (12:27→20:21)
--- NOTE | 2016-07-27 13:32 | CONSULT ---
[facility] Psych[facility] Consult - Data Date of interview: 07/27/16 [facility] Identifying data: Another admission to [facility] for this 60 y/o male seeking detox treatment on for alcohol dependence.Patient is single without children,homeless,unemployed and supported on [facility] benefits. Substance Abuse History: - Smoking Cessation. Smoking history: Current every day smoker. Have you smoked in the past 12 months: Yes. Aproximately how many cigarettes per day: 5. If you are a former smoker, when did you quit?: 1 months. Cigars Per Day: 0. Hx Chewing Tobacco Use: No. Initiated information on smoking cessation: Yes. 'Breaking Loose' booklet given: 07/26/16. - Substance & Tx. History. Hx Alcohol Use: Yes. Hx Substance Use: No. Substance Use Type: Alcohol. Hx Substance Use Treatment: Yes. - Substances Abused. Alcohol. Route: Oral. Frequency: Daily. Amount used: pint volka. Age of first use: 16. Date of Last Use: 07/26/16. Confirmed by the patient in this interview. Medical History: Alcoholic peripheral neuropathy,GERD,HTN,hepatitis C,obesity, psoriasis,low back pain and cirrhosis of liver.Noted history of orthosurgery for tendon repair (right 5th digit) in 2015 and recent surgical care (sutures) for facial lacerations sustained in an accidental fall at home. Psychiatric History: Patient denies. Physical/Sexual Abuse/Trauma History: Patient denies. Additional Comment: Urine Drug Screen Results: BZO-Benzodiazepines.Noted. Mental Status Exam - Mental Status Exam Alert and Oriented to: Time, Person Cognitive Function: Grossly Intact Patient Appearance: Disheveled (ture) Mood: Hopeful, Euthymic Affect: Appropriate, Normal Range Patient Behavior: Fatigued, Appropriate, Cooperative (well-mannered and friendly ) Speech Pattern: Clear Voice Loudness: Normal Thought Process: Goal Oriented Thought Disorder: Not Present Hallucinations: Denies Suicidal Ideation: Denies Homicidal Ideation: Denies Insight/Judgement: Poor Sleep: Poorly, Difficulty falling asleep Appetite: Good Muscle strength/Tone: Normal Gait/Station: Other (walks with cane) Psychiatric Findings - Problem List ([place] 1, 2,3) (1) Alcohol dependence with uncomplicated withdrawal Current Visit: Yes Status: Acute (2) Nicotine dependence Current Visit: Yes Status: Acute Qualifiers: Nicotine product type: cigarettes Substance use status: in withdrawal Qualified Code(s): F17.213 - Nicotine dependence, cigarettes, with withdrawal Comment: counseled cessation - not ready (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 (4) GERD (gastroesophageal reflux disease) Current Visit: Yes Status: Chronic Qualifiers: Esophagitis presence: without esophagitis Qualified Code(s): K21.9 - Gastro-esophageal reflux disease without esophagitis (5) Neuropathy Current Visit: Yes Status: Chronic Comment: neurontine 400 mg bid (6) Psoriasis Current Visit: Yes Status: Chronic Comment: clobetisole oint, f/u with derm (7) Use of cane as ambulatory aid Current Visit: Yes Status: Chronic Comment: x 2 years neuropathy related alcohol comsumption - Initial Treatment Plan Initial Treatment Plan: Psychoeducation.Detoxification.Insomnia is addressed with zoplidem 5 mg po hs prn.Patient is informed of the risk of parasomnias.He agrees with this careplan.Observation.
--- NOTE | 2016-07-27 15:33 | EKG ---
Test Reason : Blood Pressure : / mmHG Vent. Rate : 105 BPM Atrial Rate : 105 BPM P-R Int : 204 ms QRS Dur : 078 ms QT Int : 340 ms P-R-T Axes : 042 038 044 degrees QTc Int : 449 ms SINUS TACHYCARDIA CANNOT RULE OUT INFERIOR INFARCT WHEN COMPARED WITH ECG OF 26-JUL-2016 21:41, NO SIGNIFICANT CHANGE WAS FOUND Confirmed by KELSEY BUCIO MD ([id number]) on 07/27/2016 3:32:53 PM Referred By: Confirmed By:KELSEY BUCIO MD
--- NOTE | 2016-07-27 15:33 | EKG ---
Test Reason : Blood Pressure : / mmHG Vent. Rate : 107 BPM Atrial Rate : 107 BPM P-R Int : 196 ms QRS Dur : 082 ms QT Int : 322 ms P-R-T Axes : -06 022 042 degrees QTc Int : 429 ms SINUS TACHYCARDIA CANNOT RULE OUT INFERIOR INFARCT , AGE UNDETERMINED POOR R WAVE PROGRESSION ABNORMAL ECG WHEN COMPARED WITH ECG OF 19-JUN-2016 20:18, PREMATURE VENTRICULAR COMPLEXES ARE NO LONGER PRESENT T WAVE VARIATION Confirmed by RUPINDER LR, KELSEY ([id number]) on 07/27/2016 3:33:44 PM Referred By: Confirmed By:KELSEY BUCIO MD
[2016-07-27] MEDS: THIAMINE HCL 100 MG TABLET (FP) PO SCH (22:21)
[2016-07-27] MEDS: ZOLPIDEM TARTRATE 5 MG TABLET PO PRN (22:21)
[2016-07-27] MEDS: MINERAL OIL/PETROLAT/WATER TOPICAL CREAM 113 GM JAR TP SCH (22:22)
[2016-07-28] MEDS: diphenhydrAMINE HCL 50 MG CAPSULE PO PRN (02:40)
[2016-07-28] MEDS: chlordiazePOXIDE HCL 25 MG CAPSULE PO PRN ×2 (02:41→14:12)
[2016-07-28] MEDS: chlordiazePOXIDE HCL 25 MG CAPSULE PO SCH ×3 (06:30→17:15)
--- NOTE | 2016-07-28 10:01 | PN ---
[facility] CIWA - CIWA Score Nausea/Vomitin-Mild Nausea/No Vomiting Muscle Tremors: 2 Anxiety: 3 Agitation: 2 Paroxysmal Sweats: 2 Orientation: 0-Oriented Tacttile Disturbances: 2-Mild Itch/Numbness/Burn Auditory Disturbances: 0-None Visual Disturbances: 0-None Headache: 0-None Present CIWA-Ar Total Score: 12 S Progress Note (SOAP) Subjective: interrupted sleep, better but lle neuopathy Objective: 07/28/16 09:59 Vital Signs Temperature 98.3 F 07/28/16 06:24 Pulse Rate 88 07/28/16 06:24 Respiratory Rate 18 07/28/16 06:24 Blood Pressure 97/63 07/28/16 06:24 O2 Sat by Pulse Oximetry (%) Laboratory Tests 07/26/16 07/26/16 07/27/16 07:00 23:00 07:00 WBC 10.8 H D RBC 4.00 D Hgb 13.2 D Hct 39.2 D MCV 98.2 H MCHC 33.7 RDW 16.0 H Plt Count 73 L D MPV 11.7 H D Sodium Potassium Chloride Carbon Dioxide Anion Gap BUN Creatinine Creat Clearance w eGFR Random Glucose Calcium Total Bilirubin AST ALT Alkaline Phosphatase Total Protein Albumin Urine Color Yellow Urine Appearance Clear Urine pH 6.0 Ur Specific [place] 1.012 Urine Protein 1+ H Urine Glucose (UA) Negative Urine Ketones Negative Urine Blood Negative Urine Nitrite Negative Urine Bilirubin Negative Urine Urobilinogen Negative Ur Leukocyte Esterase Negative Urine RBC <1 Urine WBC 1 Ur Epithelial Cells Rare Hyaline Casts 11 Urine Mucus Rare RPR Titer Hepatitis C Antibody 9.5 H 07/27/16 07/27/16 07:00 07:00 WBC RBC Hgb Hct MCV MCHC RDW Plt Count MPV Sodium 141 Potassium 2.8 L* D Chloride 102 Carbon Dioxide 27 Anion Gap 12 BUN 4 L Creatinine 0.7 D Creat Clearance w eGFR > 60 Random Glucose 85 Calcium 8.4 L Total Bilirubin 1.4 H D AST 29 ALT 26 D Alkaline Phosphatase 109 D Total Protein 6.4 Albumin 3.2 L D Urine Color Urine Appearance Urine pH Ur Specific [place] Urine Protein Urine Glucose (UA) Urine Ketones Urine Blood Urine Nitrite Urine Bilirubin Urine Urobilinogen Ur Leukocyte Esterase Urine RBC Urine WBC Ur Epithelial Cells Hyaline Casts Urine Mucus RPR Titer Nonreactive Hepatitis C Antibody 07/28/16 12:28 pt aox3 in nad ambulating Assessment: 07/28/16 10:00 withdrawal sx;s 07/28/16 12:28 Plan: cont. detox increase fluids cont gabapentin
[2016-07-28 10:04] LABS: BASOPHIL 0.9 % (0-2.0); MCH 33.1 pg (25.7-33.7); MCHC 33.3 g/dl (32.0-35.9); MEAN CELL VOLUME 99.6 fl (80-96); MEAN PLT VOLUME 12.6 fl (7.5-11.1); NEUTROPHILS 51.3 % (42.8-82.8); PLATELET COUNT 62 K/MM3 (134-434); RDW 16.2 % (11.9-15.9); WHITE BLOOD COUNT 6.3 K/mm3 (4.0-10.0)
[2016-07-28] MEDS: RANITIDINE HCL 150 MG TABLET (FP) PO SCH ×2 (10:21→22:28)
[2016-07-28] MEDS: NICOTINE 14 MG/24 HOURS TOPICAL PATCH TD SCH (10:21)
[2016-07-28] MEDS: PRENATAL VITAMINS W/ FOLIC ACID TABLET (FP) PO SCH (10:21)
[2016-07-28] MEDS: GABAPENTIN 400 MG CAPSULE (FP) PO SCH ×2 (10:24→22:28)
[2016-07-28 11:12] LABS: ALBUMIN 3.1 g/dl (3.4-5.0); ALK PHOS 120 U/L (45-117); ANION GAP 11 (8-16); BILIRUBIN,TOTAL 0.7 mg/dL (0.2-1.0); CALCIUM 9.8 mg/dL (8.5-10.1); CO2 25 mmol/L (21-32); CREATININE 0.6 mg/dL (0.7-1.3); GLUCOSE,RANDOM 97 mg/dL (74-106); SGOT/AST 19 U/L (15-37); SGPT/ALT 18 U/L (12-78); TOT PROT 6.2 g/dl (6.4-8.2)
[2016-07-28] MEDS ORDERED: POTASSIUM CHLORIDE TABS 20 MEQ TABLET.ER (FP) PO ONE (12:27)
[2016-07-28] MEDS: THIAMINE HCL 100 MG TABLET (FP) PO SCH (22:28)
[2016-07-28] MEDS: MINERAL OIL/PETROLAT/WATER TOPICAL CREAM 113 GM JAR TP SCH (22:28)
[2016-07-28] MEDS: chlordiazePOXIDE 5 MG CAPSULE PO SCH (22:28)
[2016-07-28] MEDS: ZOLPIDEM TARTRATE 5 MG TABLET PO PRN (22:30)
[2016-07-29] MEDS: diphenhydrAMINE HCL 50 MG CAPSULE PO PRN (01:16)
[2016-07-29] MEDS: chlordiazePOXIDE 5 MG CAPSULE PO SCH ×3 (06:00→17:40)
[2016-07-29] MEDS: PRENATAL VITAMINS W/ FOLIC ACID TABLET (FP) PO SCH (10:31)
[2016-07-29] MEDS: GABAPENTIN 400 MG CAPSULE (FP) PO SCH ×2 (10:31→22:10)
--- NOTE | 2016-07-29 10:31 | PN ---
BHS Progress Note (SOAP) Subjective: feeling less sweats, but neuropathy persist Objective: 07/29/16 10:30 Vital Signs Temperature 97.7 F 07/29/16 09:45 Pulse Rate 96 H 07/29/16 09:45 Respiratory Rate 16 07/29/16 09:45 Blood Pressure 137/79 07/29/16 09:45 O2 Sat by Pulse Oximetry (%) Laboratory Tests 07/26/16 07/26/16 07/27/16 07:00 23:00 07:00 WBC 10.8 H D RBC 4.00 D Hgb 13.2 D Hct 39.2 D MCV 98.2 H MCHC 33.7 RDW 16.0 H Plt Count 73 L D MPV 11.7 H D Neutrophils % Lymphocytes % Monocytes % Eosinophils % Basophils % Sodium Potassium Chloride Carbon Dioxide Anion Gap BUN Creatinine Creat Clearance w eGFR POC Glucometer Random Glucose Calcium Total Bilirubin AST ALT Alkaline Phosphatase Total Protein Albumin Urine Color Yellow Urine Appearance Clear Urine pH 6.0 Ur Specific [place] 1.012 Urine Protein 1+ H Urine Glucose (UA) Negative Urine Ketones Negative Urine Blood Negative Urine Nitrite Negative Urine Bilirubin Negative Urine Urobilinogen Negative Ur Leukocyte Esterase Negative Urine RBC <1 Urine WBC 1 Ur Epithelial Cells Rare Hyaline Casts 11 Urine Mucus Rare RPR Titer Hepatitis C Antibody 9.5 H 07/27/16 07/27/16 07/28/16 07:00 07:00 07:00 WBC 6.3 D RBC 3.54 L Hgb 11.7 D Hct 35.3 L MCV 99.6 H MCHC 33.3 RDW 16.2 H Plt Count 62 L MPV 12.6 H Neutrophils % 51.3 Lymphocytes % 34.2 D Monocytes % 10.6 H Eosinophils % 3.0 D Basophils % 0.9 D Sodium 141 Potassium 2.8 L* D Chloride 102 Carbon Dioxide 27 Anion Gap 12 BUN 4 L Creatinine 0.7 D Creat Clearance w eGFR > 60 POC Glucometer Random Glucose 85 Calcium 8.4 L Total Bilirubin 1.4 H D AST 29 ALT 26 D Alkaline Phosphatase 109 D Total Protein 6.4 Albumin 3.2 L D Urine Color Urine Appearance Urine pH Ur Specific [place] Urine Protein Urine Glucose (UA) Urine Ketones Urine Blood Urine Nitrite Urine Bilirubin Urine Urobilinogen Ur Leukocyte Esterase Urine RBC Urine WBC Ur Epithelial Cells Hyaline Casts Urine Mucus RPR Titer Nonreactive Hepatitis C Antibody 07/28/16 07/29/16 07:00 05:58 WBC RBC Hgb Hct MCV MCHC RDW Plt Count MPV Neutrophils % Lymphocytes % Monocytes % Eosinophils % Basophils % Sodium 141 Potassium 3.4 L D Chloride 105 Carbon Dioxide 25 Anion Gap 11 BUN 10 D Creatinine 0.6 L Creat Clearance w eGFR > 60 POC Glucometer 99 Random Glucose 97 Calcium 9.8 Total Bilirubin 0.7 D AST 19 D ALT 18 D Alkaline Phosphatase 120 H Total Protein 6.2 L Albumin 3.1 L Urine Color Urine Appearance Urine pH Ur Specific [place] Urine Protein Urine Glucose (UA) Urine Ketones Urine Blood Urine Nitrite Urine Bilirubin Urine Urobilinogen Ur Leukocyte Esterase Urine RBC Urine WBC Ur Epithelial Cells Hyaline Casts Urine Mucus RPR Titer Hepatitis C Antibody pt aox3 in nad ambulating well Assessment: 07/29/16 10:30 withdrawal sx;s neuropathy Plan: cont. detox increase fluids d/c in am
[2016-07-29] MEDS: NICOTINE 14 MG/24 HOURS TOPICAL PATCH TD SCH (10:32)
[2016-07-29] MEDS: RANITIDINE HCL 150 MG TABLET (FP) PO SCH ×2 (10:33→22:10)
[2016-07-29] MEDS: THIAMINE HCL 100 MG TABLET (FP) PO SCH (22:10)
[2016-07-29] MEDS: chlordiazePOXIDE HCL 10 MG CAPSULE PO SCH (22:10)
[2016-07-29] MEDS: MINERAL OIL/PETROLAT/WATER TOPICAL CREAM 113 GM JAR TP SCH (22:11)
[2016-07-29] MEDS: ZOLPIDEM TARTRATE 5 MG TABLET PO PRN (22:13)
[2016-07-30] MEDS: chlordiazePOXIDE HCL 10 MG CAPSULE PO SCH (05:23)
--- NOTE | 2016-07-30 08:47 | PN ---
S Progress Note (SOAP) Subjective: alert,no complaint Objective: 07/30/16 08:40 07/30/16 08:40 Vital Signs Temperature 97.7 F 07/30/16 06:00 Pulse Rate 80 07/30/16 06:00 Respiratory Rate 18 07/30/16 06:00 Blood Pressure 121/77 07/30/16 06:00 O2 Sat by Pulse Oximetry (%) 07/30/16 08:42 Assessment: 07/30/16 08:42 detox completed,no i\withdrawal symptom Plan: discharge today,follow up with after care program as arrangement and pmd for medical problem
--- NOTE | 2016-07-30 08:52 | DS ---
[facility] Detox Discharge Summary Admission Date: 07/26/16 Discharge Date: 07/30/16 - History Present History: Alcohol Dependence Additional Comments: follow up with after [facility] program as arrangement and pmd for medical problem Pertinent Past History: neuropathy gerd proriasis hypokalemia hepatitis c - Physical Exam Results Vital Signs: Vital Signs Temperature 97.7 F 07/30/16 06:00 Pulse Rate 80 07/30/16 06:00 Respiratory Rate 18 07/30/16 06:00 Blood Pressure 121/77 07/30/16 06:00 O2 Sat by Pulse Oximetry (%) Pertinent Admission Physical Exam Findings: withdrawal symptom - Treatment Hospital Course: Detox Protocol Followed, Detoxed Safely, Responded well, Discharged Condition Good Patient has Accepted a Rehab Referral to: declined - Medication Discharge Medications: Ambulatory Orders Gabapentin [Neurontin -] 400 mg PO TID #120 capsule 04/23/16 Pantoprazole Sodium [Protonix -] 40 mg PO DAILY #30 tablet.ec 06/23/16 - Diagnosis (1) Alcohol dependence with uncomplicated withdrawal Current Visit: Yes Status: Acute (2) Nicotine dependence Current Visit: Yes Status: Acute Qualifiers: Nicotine product type: cigarettes Substance use status: in withdrawal Qualified Code(s): F17.213 - Nicotine dependence, cigarettes, with withdrawal (3) GERD (gastroesophageal reflux disease) Current Visit: Yes Status: Chronic Qualifiers: Esophagitis presence: without esophagitis Qualified Code(s): K21.9 - Gastro-esophageal reflux disease without esophagitis (4) Neuropathy Current Visit: Yes Status: Chronic (5) Psoriasis Current Visit: Yes Status: Chronic (6) Hypokalemia Current Visit: Yes Status: Acute (7) Hepatitis C Current Visit: Yes Status: Acute - AMA Did Patient Leave Against Medical Advice: No
[2016-07-30] MEDS: GABAPENTIN 400 MG CAPSULE (FP) PO SCH (09:46)
[2016-07-30] MEDS: RANITIDINE HCL 150 MG TABLET (FP) PO SCH (09:46)
[2016-07-30] MEDS: PRENATAL VITAMINS W/ FOLIC ACID TABLET (FP) PO SCH (09:50)
[2016-07-30] MEDS: NICOTINE 14 MG/24 HOURS TOPICAL PATCH TD SCH (09:50)
[2016-07-30] MEDS ORDERED: POTASSIUM CHLORIDE TABS 20 MEQ TABLET.ER (FP) PO SCH (10:00)
[2016-07-30 10:06] VITALS: BP 148/87; PULSE 90; TEMP 97.3
[2016-08-02] MEDS ORDERED: ERGOCALCIFEROL (VITAMIN D2) 50,000 UNIT CAPSULE (FP) PO SCH (10:00)
== END 2016-07-30 09:50 | disposition home or self-care (01) | DRG 775 ==
LOC: YASAS 19:03 → Y6N 20:02
PROVIDERS: ADMIT Internal Medicine Addiction Medicine; ATTEND Internal Medicine Addiction Medicine
PROC: HZ2ZZZZ Detoxification Services for Substance Abuse Treatment (ICD-10-PCS; principal; 2016-07-30)
DX: F10.230 Alcohol dependence with withdrawal, uncomplicated (principal); F17.213 Nicotine dependence, cigarettes, with withdrawal; F10.282 Alcohol dependence with alcohol-induced sleep disorder; K21.9 Gastro-esophageal reflux disease without esophagitis; L40.9 Psoriasis, unspecified; E87.6 Hypokalemia; B18.2 Chronic viral hepatitis C; R26.2 Difficulty in walking, not elsewhere classified; Z59.0 Homelessness
CPT/HCPCS: 36415; 80053; 81003; 81015; 85025; 85027; 86593; 87522; 93005; 93010

== ENCOUNTER 2016-09-25 14:03 | Inpatient (IN) | payer OTHER ==
[2016-09-25 14:46] VITALS: BMI 29.0
--- NOTE | 2016-09-25 16:39 | HP ---
CIWA Score - CIWA Score Nausea/Vomitin Muscle Tremors: 3 Anxiety: 3 Agitation: 3 Paroxysmal Sweats: 2 Orientation: 0-Oriented Tacttile Disturbances: 2-Mild Itch/Numbness/Burn Auditory Disturbances: 2-Mild Harshness/Frighten Visual Disturbances: 2-Mild Sensitivity Headache: 2-Mild CIWA-Ar Total Score: 22 Admission ROS [facility] - HPI Chief Complaint: i need help to stop drinking alcohol Allergies/Adverse Reactions: Allergies Allergy/AdvReac Type Severity Reaction Status Date / Time No Known Allergies Allergy Verified 06/19/16 18:18 History of Present Illness: this 60 years old male with alcohol dependence,withdrawal symptom,last detox to 07/30/16 [facility] 07/26/16 to 07/30/16 [facility] no med nicotine dependence injury to right 5th digit longest period of sobriety 10 months - Ebola screening Have you traveled outside of the country in the last 21 days: No Have you had contact with anyone from an Ebola affected area: No Have you been sick,other than usual withdrawal symptoms: No Do you have a fever: No - Review of Systems Constitutional: Malaise, Night Sweats, Changes in sleep, Weakness EENT: reports: Nose Congestion Respiratory: reports: No Symptoms reported Cardiac: reports: Palpitations GI: reports: Diarrhea, Nausea, Vomiting, Abdominal cramping : reports: No Symptoms Reported Musculoskeletal: reports: Back Pain, Muscle Pain Integumentary: reports: Dryness Neuro: reports: Headache, Tremors Endocrine: reports: No Symptoms Reported Hematology: reports: See HPI Psychiatric: reports: No Sypmtoms Reported Other Systems: Reviewed and Negative Patient History - Patient Medical History Hx Anemia: No Hx Asthma: No Hx Chronic Obstructive Pulmonary Disease (COPD): No Hx Cancer: No Hx Cardiac Disorders: No Hx Congestive Heart Failure: No Hx Hypertension: Yes (no med) Hx Hypercholesterolemia: No Hx Pacemaker: No HX Cerebrovascular Accident: No Hx Seizures: No Hx Dementia: No Hx Diabetes: No Hx Gastrointestinal Disorders: Yes Hx Liver Disease: No (denies cirrhosis) Hx Genitourinary Disorders: No Hx Sexually Transmitted Disorders: No Hx Renal Disease (ESRD): No Hx Thyroid Disease: No Hx Human Immunodeficiency Virus (HIV): No (last 2014 negative) Hx Hepatitis C: No Hx Depression: No Hx Suicide Attempt: No Hx Bipolar Disorder: No Hx Schizophrenia: No Other Medical History: no suicidal,no homicical - Patient Surgical History Past Surgical History: Yes Hx Neurologic Surgery: No Hx Cataract Extraction: No Hx Cardiac Surgery: No Hx Lung Surgery: No Hx Breast Surgery: No Hx Breast Biopsy: No Hx Abdominal Surgery: No Hx Appendectomy: No Hx Cholecystectomy: No Hx Genitourinary Surgery: No Hx Section: No Hx Orthopedic Surgery: Yes (right 5th digit tendon repair 11/14/14) Hx Hysterectomy: No Other Surgical History: Pt. fell down stairs face first, 23 sutures-removed already Anesthesia Reaction: No - PPD History Previous Implant?: Yes Documented Results: Negative w/proof Date: 07/28/16 Results: 0mm PPD to be Administered?: No - Smoking Cessation Smoking history: Current every day smoker Have you smoked in the past 12 months: Yes Aproximately how many cigarettes per day: 5 If you are a former smoker, when did you quit?: 1 months Cigars Per Day: 0 Hx Chewing Tobacco Use: No Initiated information on smoking cessation: Yes 'Breaking Loose' booklet given: 09/25/16 - Substance & Tx. History Hx Alcohol Use: Yes Hx Substance Use: No Substance Use Type: Alcohol Hx Substance Use Treatment: Yes ([facility] 07/26/16 to 07/30/16) - Substances Abused Alcohol Route: Oral Frequency: Daily Amount used: 4 of 25 ozs of wine/1 pint of vodka Age of first use: 17 Date of Last Use: 09/25/16 Family Disease History - Family Disease History Family Disease History: Other: Father (Uses Alcohol.), Mother (Uses Alcohol.), Brother (Uses Alcohol.), Sister (LSD related schizophrenia) Admission Physical Exam [facility] - Vital Signs Vital Signs: Vital Signs - 24 hr 09/25/16 14:39 Temperature 97 F L Pulse Rate 92 H Respiratory 19 Rate Blood Pressure 127/88 - Physical General Appearance: Yes: Moderate Distress, Tremorous, Irritable, Sweating, Anxious HEENTM: Yes: Hearing grossly Normal, Normal ENT Inspection, Pharynx Normal Respiratory: Yes: Lungs Clear, Normal Breath Sounds, No Respiratory Distress Neck: Yes: Within Normal Limits Breast: Yes: Within Normal Limits Cardiology: Yes: Within Normal Limits, Regular Rhythm, Regular Rate, S1, S2 Abdominal: Yes: Within Normal Limits, Normal Bowel Sounds, Non Tender, Flat, Soft Genitourinary: Yes: Within Normal Limits Back: Yes: Muscle Spasm Musculoskeletal: Yes: Back pain, Muscle Pain Extremities: Yes: Normal Range of Motion, Tremors, Other (pain in right 5th finger,unable to do flexion) Integumentary: Yes: Dry Lymphatic: Yes: Within Normal Limits - Diagnostic (1) Alcohol dependence with uncomplicated withdrawal Current Visit: No Status: Acute (2) Nicotine dependence Current Visit: No Status: Acute Qualifiers: Nicotine product type: cigarettes Substance use status: in withdrawal Qualified Code(s): F17.213 - Nicotine dependence, cigarettes, with withdrawal Comment: counseled cessation - not ready (3) Neuropathy Current Visit: No Status: Chronic Comment: neurontine 400 mg bid (4) Psoriasis Current Visit: No Status: Chronic Comment: clobetisole oint, f/u with derm Cleared for Admission [facility] - Detox or Rehab [facility] Level of Care: Medically Managed Detox Regimen/Protocol: Librium [facility] Breath Alcohol Content Breath Alcohol Content: 0.195 Urine Drug Screen - Results Drug Screen Negative: Yes
[2016-09-25] MEDS ORDERED: chlordiazePOXIDE HCL 25 MG CAPSULE PO ONE (17:08)
[2016-09-25] MEDS ORDERED: MAGNESIUM CITRATE 300 ML BOTTLE PO PRN (17:08)
[2016-09-25] MEDS ORDERED: MAG HYDROX/AL HYDROX/SIMETH 30 ML UNIT-DOSE CUP PO PRN (17:08)
[2016-09-25] MEDS ORDERED: IBUPROFEN 400 MG TABLET (FP) PO PRN (17:08)
[2016-09-25] MEDS ORDERED: LOPERAMIDE HCL 2 MG CAPSULE PO PRN (17:08)
[2016-09-25] MEDS ORDERED: MENTHOL/PHENOL 1 EACH UD MM PRN (17:08)
[2016-09-25] MEDS ORDERED: ACETAMINOPHEN 325 MG TABLET (FP) PO PRN (17:08)
[2016-09-25] MEDS ORDERED: guaiFENesin/D-METHORPHAN HB 10 ML UNIT-DOSE CUPS PO PRN (17:08)
[2016-09-25] MEDS ORDERED: hydrOXYzine PAMOATE 50 MG CAPSULE (FP) PO PRN (17:08)
[2016-09-25] MEDS ORDERED: chlordiazePOXIDE HCL 25 MG CAPSULE PO PRN (17:08)
[2016-09-25] MEDS ORDERED: P-EPHED 60MG/TRIPROLIDI 2.5MG TABLET PO PRN (17:08)
[2016-09-25] MEDS ORDERED: MAGNESIUM HYDROX 2400MG/30ML ORAL SUSPENSION 30 ML CUP PO PRN (17:08)
[2016-09-25] MEDS ORDERED: chlordiazePOXIDE HCL 25 MG CAPSULE ONE (19:34)
[2016-09-25] MEDS: chlordiazePOXIDE HCL 25 MG CAPSULE PO SCH (23:01)
[2016-09-25] MEDS: THIAMINE HCL 100 MG TABLET (FP) PO SCH (23:01)
[2016-09-25] MEDS: diphenhydrAMINE HCL 50 MG CAPSULE PO PRN (23:02)
[2016-09-26] MEDS: chlordiazePOXIDE HCL 25 MG CAPSULE PO SCH ×4 (06:27→22:47)
[2016-09-26 10:33] LABS: MCH 31.9 pg (25.7-33.7); MCHC 34.1 g/dl (32.0-35.9); MEAN CELL VOLUME 93.6 fl (80-96); MEAN PLT VOLUME 11.5 fl (7.5-11.1); PLATELET COUNT 175 K/MM3 (134-434); RDW 14.6 % (11.9-15.9); WHITE BLOOD COUNT 15.3 K/mm3 (4.0-10.0)
[2016-09-26 10:41] LABS: ALBUMIN 2.8 g/dl (3.4-5.0); ANION GAP 11 (8-16); CALCIUM 10.8 mg/dL (8.5-10.1); CO2 36 mmol/L (21-32); GLUCOSE,RANDOM 97 mg/dL (74-106)
[2016-09-26] MEDS: PRENATAL VITAMINS W/ FOLIC ACID TABLET (FP) PO SCH (10:42)
[2016-09-26] MEDS: NAPROXEN 500 MG TABLET (FP) PO SCH ×2 (10:43→22:48)
[2016-09-26 10:45] LABS: ALK PHOS 123 U/L (45-117); BILIRUBIN,TOTAL 0.3 mg/dL (0.2-1.0); COCKROFT - GAULT 84.53; CREATININE 1.1 mg/dL (0.7-1.3); SGOT/AST 25 U/L (15-37); SGPT/ALT 42 U/L (12-78); TOT PROT 5.9 g/dl (6.4-8.2)
[2016-09-26 11:30] LABS: URINE APPEARANCE CLEAR; URINE BILIRUBIN NEGATIVE (NEGATIVE); URINE BLOOD NEGATIVE (NEGATIVE); URINE COLOR STRAW; URINE GLUCOSE (UA) NEGATIVE (NEGATIVE); URINE KETONE NEGATIVE (NEGATIVE); URINE LEUK ESTERASE NEGATIVE (NEGATIVE); URINE NITRITE NEGATIVE (NEGATIVE); URINE PROTEIN NEGATIVE (NEGATIVE); URINE UROBILINOGEN NEGATIVE E.U./dl (0.2-1.0)
[2016-09-26] MEDS ORDERED: POTASSIUM CHLORIDE TABS 20 MEQ TABLET.ER (FP) PO ONE (11:51)
--- NOTE | 2016-09-26 12:49 | PN ---
S CIWA - CIWA Score Nausea/Vomitin Muscle Tremors: 3 Anxiety: 3 Agitation: 2 Paroxysmal Sweats: 1-Minimal Palms Moist Orientation: 0-Oriented Tacttile Disturbances: 1-Very Mild Itch/Numbness Auditory Disturbances: 1-Very Mild Visual Disturbances: 1-Very Mild Sensitivity Headache: 2-Mild CIWA-Ar Total Score: 17 B[facility] Progress Note (SOAP) Subjective: ALERT,IRRITABLE,ANXIOUS,INTERRUPTED SLEEP,TREMOR Objective: 09/26/16 12:44 Vital Signs Temperature 97.5 F L 09/26/16 10:12 Pulse Rate 98 H 09/26/16 10:12 Respiratory Rate 20 09/26/16 10:12 Blood Pressure 135/82 09/26/16 10:12 O2 Sat by Pulse Oximetry (%) EKG NSR Q IN 2,3 NO CHEST PAIN,NO SOB,NO DIZZINESS Laboratory Last Values WBC 15.3 K/mm3 (4.0-10.0) H D 09/26/16 07:50 RBC 3.98 M/mm3 (4.00-5.60) L 09/26/16 07:50 Hgb 12.7 GM/dL (11.7-16.9) 09/26/16 07:50 Hct 37.2 % (35.4-49) 09/26/16 07:50 MCV 93.6 fl (80-96) 09/26/16 07:50 MCHC 34.1 g/dl (32.0-35.9) 09/26/16 07:50 RDW 14.6 % (11.9-15.9) 09/26/16 07:50 Plt Count 175 K/MM3 (134-434) D 09/26/16 07:50 MPV 11.5 fl (7.5-11.1) H 09/26/16 07:50 Sodium 137 mmol/L (136-145) 09/26/16 07:50 Potassium 2.7 mmol/L (3.5-5.1) L* D 09/26/16 07:50 Chloride 90 mmol/L (98-107) L D 09/26/16 07:50 Carbon Dioxide 36 mmol/L (21-32) H D 09/26/16 07:50 Anion Gap 11 (8-16) 09/26/16 07:50 BUN 10 mg/dL (7-18) 09/26/16 07:50 Creatinine 1.1 mg/dL (0.7-1.3) D 09/26/16 07:50 Creat Clearance w eGFR > 60 (>60) 09/26/16 07:50 Random Glucose 97 mg/dL (74-106) 09/26/16 07:50 Calcium 10.8 mg/dL (8.5-10.1) H 09/26/16 07:50 Total Bilirubin 0.3 mg/dL (0.2-1.0) D 09/26/16 07:50 AST 25 U/L (15-37) D 09/26/16 07:50 ALT 42 U/L (12-78) D 09/26/16 07:50 Alkaline Phosphatase 123 U/L (45-117) H 09/26/16 07:50 Total Protein 5.9 g/dl (6.4-8.2) L 09/26/16 07:50 Albumin 2.8 g/dl (3.4-5.0) L 09/26/16 07:50 Urine Color Straw 09/26/16 09:00 Urine Appearance Clear 09/26/16 09:00 Urine pH 7.0 (5.0-8.0) 09/26/16 09:00 Ur Specific [place] 1.003 (1.001-1.035) 09/26/16 09:00 Urine Protein Negative (NEGATIVE) 09/26/16 09:00 Urine Glucose (UA) Negative (NEGATIVE) 09/26/16 09:00 Urine Ketones Negative (NEGATIVE) 09/26/16 09:00 Urine Blood Negative (NEGATIVE) 09/26/16 09:00 Urine Nitrite Negative (NEGATIVE) 09/26/16 09:00 Urine Bilirubin Negative (NEGATIVE) 09/26/16 09:00 Urine Urobilinogen Negative E.U./dl (0.2-1.0) 09/26/16 09:00 Ur Leukocyte Esterase Negative (NEGATIVE) 09/26/16 09:00 RPR Titer Nonreactive (NONREACTIVE) 09/26/16 07:50 Assessment: 09/26/16 12:47 WITHDRAWAL SYMPTOM Plan: CONTINUE DETOX,K IS 2.7,WBC IS 2700,CONTINUE DETOX,ENCOURAGE ORAL FLUID,K DUR 40 MEQ PO NOW THEN 20MEQ PO BID,REPEAT CBC AND CMP ON 09/28
--- NOTE | 2016-09-26 13:30 | PN ---
[facility] Progress Note Note: REPEAT EKG NSR,1ST DEGREE AV BLOCK,RATE 82/MIN NO CHEST PAIN,NO SOB,NO DIZZINESS
[2016-09-26] MEDS: GABAPENTIN 400 MG CAPSULE (FP) PO SCH ×2 (14:16→22:47)
[2016-09-26] MEDS: POTASSIUM CHLORIDE TABS 20 MEQ TABLET.ER (FP) PO SCH (22:47)
[2016-09-26] MEDS: THIAMINE HCL 100 MG TABLET (FP) PO SCH (22:48)
--- NOTE | 2016-09-27 00:15 | EKG ---
Test Reason : Blood Pressure : / mmHG Vent. Rate : 082 BPM Atrial Rate : 082 BPM P-R Int : 210 ms QRS Dur : 086 ms QT Int : 374 ms P-R-T Axes : 045 007 023 degrees QTc Int : 436 ms SINUS RHYTHM WITH 1ST DEGREE A-V BLOCK POSSIBLE INFERIOR INFARCT (CITED ON OR BEFORE 25-SEP-2016) ABNORMAL ECG WHEN COMPARED WITH ECG OF 25-SEP-2016 18:41, SERIAL CHANGES OF EVOLVING INFERIOR INFARCT PRESENT Confirmed by MARY CHENG MD ([id number]) on 09/27/2016 12:15:03 AM Referred By: Confirmed By:MARY CHENG MD
--- NOTE | 2016-09-27 00:16 | EKG ---
Test Reason : Blood Pressure : / mmHG Vent. Rate : 090 BPM Atrial Rate : 090 BPM P-R Int : 202 ms QRS Dur : 092 ms QT Int : 404 ms P-R-T Axes : -13 012 048 degrees QTc Int : 494 ms POOR DATA QUALITY, INTERPRETATION MAY BE ADVERSELY AFFECTED NORMAL SINUS RHYTHM INFERIOR INFARCT , AGE UNDETERMINED ABNORMAL ECG WHEN COMPARED WITH ECG OF 27-JUL-2016 06:02, INFERIOR INFARCT IS NOW PRESENT NONSPECIFIC T WAVE ABNORMALITY NOW EVIDENT IN LATERAL LEADS Confirmed by MARY CHENG MD ([id number]) on 09/27/2016 12:15:49 AM Referred By: Confirmed By:MARY CHENG MD
[2016-09-27] MEDS: chlordiazePOXIDE HCL 25 MG CAPSULE PO SCH ×3 (06:04→17:36)
[2016-09-27] MEDS: GABAPENTIN 400 MG CAPSULE (FP) PO SCH ×3 (06:04→22:42)
[2016-09-27] MEDS: PRENATAL VITAMINS W/ FOLIC ACID TABLET (FP) PO SCH (10:46)
[2016-09-27] MEDS: POTASSIUM CHLORIDE TABS 20 MEQ TABLET.ER (FP) PO SCH ×2 (10:47→22:42)
[2016-09-27] MEDS: NAPROXEN 500 MG TABLET (FP) PO SCH ×2 (10:47→22:42)
--- NOTE | 2016-09-27 11:42 | PN ---
S CIWA - CIWA Score Nausea/Vomitin Muscle Tremors: 2 Anxiety: 3 Agitation: 2 Paroxysmal Sweats: 3 Orientation: 0-Oriented Tacttile Disturbances: 1-Very Mild Itch/Numbness Auditory Disturbances: 0-None Visual Disturbances: 0-None Headache: 0-None Present CIWA-Ar Total Score: 14 [facility] Progress Note (SOAP) Subjective: interrupted sleep, nausea , no weaknesss Objective: 09/27/16 11:40 Vital Signs Temperature 97.1 F L 09/27/16 10:00 Pulse Rate 76 09/27/16 10:00 Respiratory Rate 18 09/27/16 10:00 Blood Pressure 134/76 09/27/16 10:00 O2 Sat by Pulse Oximetry (%) Laboratory Tests 09/26/16 09/26/16 09/26/16 07:50 07:50 07:50 WBC 15.3 H D RBC 3.98 L Hgb 12.7 Hct 37.2 MCV 93.6 MCHC 34.1 RDW 14.6 Plt Count 175 D MPV 11.5 H Sodium 137 Potassium 2.7 L* D Chloride 90 L D Carbon Dioxide 36 H D Anion Gap 11 BUN 10 Creatinine 1.1 D Creat Clearance w eGFR > 60 Random Glucose 97 Calcium 10.8 H Total Bilirubin 0.3 D AST 25 D ALT 42 D Alkaline Phosphatase 123 H Total Protein 5.9 L Albumin 2.8 L Urine Color Urine Appearance Urine pH Ur Specific [place] Urine Protein Urine Glucose (UA) Urine Ketones Urine Blood Urine Nitrite Urine Bilirubin Urine Urobilinogen Ur Leukocyte Esterase RPR Titer Nonreactive 09/26/16 09:00 WBC RBC Hgb Hct MCV MCHC RDW Plt Count MPV Sodium Potassium Chloride Carbon Dioxide Anion Gap BUN Creatinine Creat Clearance w eGFR Random Glucose Calcium Total Bilirubin AST ALT Alkaline Phosphatase Total Protein Albumin Urine Color Straw Urine Appearance Clear Urine pH 7.0 Ur Specific [place] 1.003 Urine Protein Negative Urine Glucose (UA) Negative Urine Ketones Negative Urine Blood Negative Urine Nitrite Negative Urine Bilirubin Negative Urine Urobilinogen Negative Ur Leukocyte Esterase Negative RPR Titer pt aox3 in nad ambulating Assessment: 09/27/16 11:40 withdrawal sx's hypokalemia elevated wbc 09/27/16 11:40 Plan: cont. detox increase fluids check repeat labs , K+, wbc #
[2016-09-27] MEDS: THIAMINE HCL 100 MG TABLET (FP) PO SCH (22:42)
[2016-09-27] MEDS: chlordiazePOXIDE 5 MG CAPSULE PO SCH (22:42)
[2016-09-27] MEDS: diphenhydrAMINE HCL 50 MG CAPSULE PO PRN (22:49)
[2016-09-28] MEDS: diphenhydrAMINE HCL 50 MG CAPSULE PO PRN (00:31)
[2016-09-28] MEDS: chlordiazePOXIDE 5 MG CAPSULE PO SCH ×3 (04:37→17:26)
[2016-09-28] MEDS: GABAPENTIN 400 MG CAPSULE (FP) PO SCH ×3 (06:07→22:50)
[2016-09-28 09:58] LABS: MCH 32.6 pg (25.7-33.7); MCHC 33.8 g/dl (32.0-35.9); MEAN CELL VOLUME 96.7 fl (80-96); PLATELET COUNT 167 K/MM3 (134-434); RDW 14.9 % (11.9-15.9); WHITE BLOOD COUNT 10.6 K/mm3 (4.0-10.0)
[2016-09-28 10:08] LABS: CALCIUM 9.1 mg/dL (8.5-10.1)
[2016-09-28 10:15] LABS: ALK PHOS 135 U/L (45-117); ANION GAP 8 (8-16); BILIRUBIN,TOTAL 0.3 mg/dL (0.2-1.0); CO2 29 mmol/L (21-32); COCKROFT - GAULT 84.53; CREATININE 1.1 mg/dL (0.7-1.3); GLUCOSE,RANDOM 96 mg/dL (74-106); SGOT/AST 30 U/L (15-37); SGPT/ALT 30 U/L (12-78); TOT PROT 5.9 g/dl (6.4-8.2)
[2016-09-28] MEDS: POTASSIUM CHLORIDE TABS 20 MEQ TABLET.ER (FP) PO SCH (10:33)
[2016-09-28] MEDS: PRENATAL VITAMINS W/ FOLIC ACID TABLET (FP) PO SCH (10:33)
[2016-09-28] MEDS: NAPROXEN 500 MG TABLET (FP) PO SCH ×2 (10:34→22:50)
--- NOTE | 2016-09-28 10:50 | PN ---
[facility] Progress Note (SOAP) Subjective: anxious sweats Objective: 09/28/16 10:49 Vital Signs Temperature 97.4 F L 09/28/16 09:42 Pulse Rate 82 09/28/16 09:42 Respiratory Rate 18 09/28/16 09:42 Blood Pressure 138/84 09/28/16 09:42 O2 Sat by Pulse Oximetry (%) Laboratory Tests 09/26/16 09/26/16 09/26/16 07:50 07:50 07:50 WBC 15.3 H D RBC 3.98 L Hgb 12.7 Hct 37.2 MCV 93.6 MCHC 34.1 RDW 14.6 Plt Count 175 D MPV 11.5 H Sodium 137 Potassium 2.7 L* D Chloride 90 L D Carbon Dioxide 36 H D Anion Gap 11 BUN 10 Creatinine 1.1 D Creat Clearance w eGFR > 60 Random Glucose 97 Calcium 10.8 H Total Bilirubin 0.3 D AST 25 D ALT 42 D Alkaline Phosphatase 123 H Total Protein 5.9 L Albumin 2.8 L Urine Color Urine Appearance Urine pH Ur Specific [place] Urine Protein Urine Glucose (UA) Urine Ketones Urine Blood Urine Nitrite Urine Bilirubin Urine Urobilinogen Ur Leukocyte Esterase RPR Titer Nonreactive 09/26/16 09/28/16 09/28/16 09:00 07:00 07:00 WBC 10.6 H D RBC 3.66 L Hgb 11.9 Hct 35.4 MCV 96.7 H MCHC 33.8 RDW 14.9 Plt Count 167 MPV 12.0 H Sodium 137 Potassium 5.2 H D Chloride 100 D Carbon Dioxide 29 Anion Gap 8 BUN 31 H D Creatinine 1.1 Creat Clearance w eGFR > 60 Random Glucose 96 Calcium 9.1 Total Bilirubin 0.3 AST 30 ALT 30 D Alkaline Phosphatase 135 H Total Protein 5.9 L Albumin 3.0 L Urine Color Straw Urine Appearance Clear Urine pH 7.0 Ur Specific [place] 1.003 Urine Protein Negative Urine Glucose (UA) Negative Urine Ketones Negative Urine Blood Negative Urine Nitrite Negative Urine Bilirubin Negative Urine Urobilinogen Negative Ur Leukocyte Esterase Negative RPR Titer awake/alert ambulating no acute distress k-dur d/c potassium is 5.2 Assessment: 09/28/16 10:50 withdrawal sx Plan: continue detox increase fluids d/c in am
[2016-09-28] MEDS: THIAMINE HCL 100 MG TABLET (FP) PO SCH (22:50)
[2016-09-28] MEDS: chlordiazePOXIDE HCL 10 MG CAPSULE PO SCH (22:50)
[2016-09-29] MEDS: diphenhydrAMINE HCL 50 MG CAPSULE PO PRN (01:47)
[2016-09-29] MEDS: chlordiazePOXIDE HCL 10 MG CAPSULE PO SCH ×2 (06:30→10:32)
[2016-09-29] MEDS: GABAPENTIN 400 MG CAPSULE (FP) PO SCH (06:30)
--- NOTE | 2016-09-29 09:01 | DS ---
[facility] Detox Discharge Summary Admission Date: 09/25/16 Discharge Date: 09/29/16 - History Present History: Alcohol Dependence - Physical Exam Results Vital Signs: Vital Signs Temperature 96.8 F L 09/29/16 06:33 Pulse Rate 80 09/29/16 06:33 Respiratory Rate 18 09/29/16 06:33 Blood Pressure 124/81 09/29/16 06:33 O2 Sat by Pulse Oximetry (%) - Treatment Hospital Course: Detox Protocol Followed, Detoxed Safely, Responded well, Discharged Condition Good - Medication Discharge Medications: Ambulatory Orders Gabapentin [Neurontin -] 400 mg PO TID #120 capsule 07/30/16 Pantoprazole Sodium [Protonix -] 40 mg PO DAILY #30 tablet.ec 07/30/16 Potassium Chloride [K-Dur -] 20 meq PO DAILY #7 tablet.er 07/30/16 - Diagnosis (1) Alcohol dependence with uncomplicated withdrawal Current Visit: Yes Status: Chronic (2) Hepatitis C Current Visit: Yes Status: Chronic Qualifiers: Hepatic coma status: without hepatic coma (3) Hypokalemia Current Visit: Yes Status: Acute (4) GERD (gastroesophageal reflux disease) Current Visit: Yes Status: Chronic Qualifiers: Esophagitis presence: without esophagitis Qualified Code(s): K21.9 - Gastro-esophageal reflux disease without esophagitis (5) Neuropathy Current Visit: Yes Status: Chronic (6) Psoriasis Current Visit: Yes Status: Chronic (7) Nicotine dependence Current Visit: Yes Status: Chronic Qualifiers: Nicotine product type: cigarettes Substance use status: in withdrawal Qualified Code(s): F17.213 - Nicotine dependence, cigarettes, with withdrawal - AMA Did Patient Leave Against Medical Advice: No
[2016-09-29 09:44] VITALS: BP 145/64; PULSE 89; TEMP 96.3
[2016-09-29] MEDS: NAPROXEN 500 MG TABLET (FP) PO SCH (10:32)
[2016-09-29] MEDS: PRENATAL VITAMINS W/ FOLIC ACID TABLET (FP) PO SCH (10:32)
== END 2016-09-29 11:25 | disposition home or self-care (01) | DRG 775 ==
LOC: YASAS 14:03 → Y6N 17:49 → Y3N 17:52 → Y6N 17:54
PROVIDERS: ADMIT Internal Medicine; ATTEND Internal Medicine Addiction Medicine
PROC: HZ2ZZZZ Detoxification Services for Substance Abuse Treatment (ICD-10-PCS; principal; 2016-09-25)
DX: F10.230 Alcohol dependence with withdrawal, uncomplicated (principal); F17.210 Nicotine dependence, cigarettes, uncomplicated; B18.2 Chronic viral hepatitis C; E87.6 Hypokalemia; K21.9 Gastro-esophageal reflux disease without esophagitis; G62.9 Polyneuropathy, unspecified; L40.9 Psoriasis, unspecified; D72.829 Elevated white blood cell count, unspecified; I44.0 Atrioventricular block, first degree
CPT/HCPCS: 36415; 80053; 81003; 85027; 86593; 93005; 93010

== ENCOUNTER 2016-10-11 00:52 | Emergency (ER) | payer OTHER ==
[2016-10-11 01:10] VITALS: BP 142/88; PULSE 90; TEMP 98; BMI 32.3
[2016-10-11] MEDS ORDERED: NAPROXEN 500 MG TABLET (FP) PO ONE (01:45)
--- NOTE | 2016-10-11 01:52 | PDOC ---
History of Present Illness - General Chief Complaint: Injury Stated Complaint: FALL Time Seen by Provider: 10/11/16 01:39 History Source: Patient Exam Limitations: No Limitations - History of Present Illness Initial Comments: 10/11/16 01:47 Patient is a 60 year old male with h/o neuropathy, etoh abuse, Hep C, GERD, cirrhosis, psoriasis, SARAH BIBA c/o fall POLISHER HAND. Patient states that he is homeless and has nowhere to go. He is looking to go into rehabilitation for 4 months and was on his [address] to [address] when fell because of his ambulatory issues and was unable to get up and so the ambulance brought him to the emergency room. States he does not want to be here, he requested of EMS to take him to [address] States he has completed detox 9 days ago and now just wants to be in rehabilitation. PMHX: as above PSocHX: (+) etoh all: NKDA GENERAL/CONSTITUTIONAL: [No fever or chills. No weakness. No weight change.] HEAD, EYES, EARS, NOSE AND THROAT: [No change in vision. No ear pain or discharge. No sore throat.] CARDIOVASCULAR: [No chest pain or shortness of breath.] RESPIRATORY: [No cough, wheezing, or hemoptysis.] GASTROINTESTINAL: [No nausea, vomiting, diarrhea or constipation. No rectal bleeding.] GENITOURINARY: [No dysuria, frequency, or change in urination.] MUSCULOSKELETAL: (+) joint or muscle swelling or pain. No neck or back pain.] SKIN AND BREASTS: [No rash or easy bruising.] NEUROLOGIC: [No headache, vertigo, loss of consciousness, or loss of sensation.] PSYCHIATRIC: [No depression or anxiety.] ENDOCRINE: [No increased thirst. No abnormal weight change.] HEMATOLOGIC/LYMPHATIC: [No anemia, easy bleeding, or history of blood clots.] ALLERGIC/IMMUNOLOGIC: [No hives or skin allergy. No latex allergy.] GENERAL: [The patient is awake, alert, and fully oriented, in no acute distress. ] HEAD: [Normal with no signs of trauma.] EYES: [Pupils equal, round and reactive to light, extraocular movements intact, sclera anicteric, conjunctiva clear.] ENT: [Ears normal, nares patent, oropharynx clear without exudates. Moist mucous membranes.] NECK: [Normal range of motion, supple without lymphadenopathy, JVD, or masses.] LUNGS: [Breath sounds equal, clear to auscultation bilaterally. No wheezes, and no crackles.] HEART: [Regular rate and rhythm, normal S1 and S2 without murmur, rub.] ABDOMEN: [Soft, nontender, normoactive bowel sounds. No guarding, no rebound. No masses.] EXTREMITIES: [Normal range of motion, no edema. No clubbing or cyanosis. No cords, erythema, or tenderness.] NEUROLOGICAL: [Cranial nerves II through XII grossly intact. Normal speech, normal gait, amublatory to the bathroom and to the nursing station.] PSYCH: [Normal mood, normal affect.] SKIN: [Warm, Dry, normal turgor, no rashes or lesions noted.] Lower Extremity Pain Location: bilateral: foot Past History - Past Medical History Allergies/Adverse Reactions: Allergies Allergy/AdvReac Type Severity Reaction Status Date / Time No Known Allergies Allergy Verified 06/19/16 18:18 Home Medications: Ambulatory Orders Gabapentin [Neurontin -] 400 mg PO TID #120 capsule 07/30/16 Potassium Chloride [K-Dur -] 20 meq PO DAILY #7 tablet.er 07/30/16 Gabapentin [Neurontin -] 400 mg PO TID #90 mg 09/29/16 Naproxen [Naprosyn -] 500 mg PO BID #60 tablet 09/29/16 Pantoprazole Sodium [Protonix -] 40 mg PO DAILY #30 tablet.ec 09/29/16 Anemia: No Asthma: No Cancer: No Cardiac Disorders: No CVA: No COPD: No CHF: No Dementia: No Diabetes: No GI Disorders: Yes Disorders: No HTN: Yes (no med) Hypercholesterolemia: No Kidney Stones: No Liver Disease: No (denies cirrhosis) Suicide Attempt (Hx): No Seizures: No Thyroid Disease: No - Surgical History Abdominal Surgery: No Appendectomy: No Cardiac Surgery: No Cholecystectomy: No Lung Surgery: No Neurologic Surgery: No Orthopedic Surgery: Yes (right 5th digit tendon repair 11/14/14) - Reproductive History Testicular Surgery: No - Psycho/Social/Smoking Cessation Hx Anxiety: No Suicidal Ideation: No Smoking Status: Yes Smoking History: Current every day smoker Have you smoked in the past 12 months: Yes Number of Cigarettes Smoked Daily: 5 If you are a former smoker, when did you quit?: 1 months Cigars Per Day: 0 Information on smoking cessation initiated: No 'Breaking Loose' booklet given: 09/25/16 Hx Alcohol Use: Yes Drug/Substance Use Hx: No Substance Use Type: Alcohol Hx Substance Use Treatment: Yes ([facility] 07/26/16 to 07/30/16) *Physical Exam - Vital Signs Last Vital Signs Temp Pulse Resp BP Pulse Ox 98 F 90 20 142/88 93 L 10/11/16 01:08 10/11/16 01:08 10/11/16 01:08 10/11/16 01:08 10/11/16 01:08 Medical Decision Making - Medical Decision Making 10/11/16 01:49 Patient is a 60 year old male with h/o neuropathy, etoh abuse, Hep C, GERD, cirrhosis, psoriasis, SARAH BIBA c/o fall POLISHER HAND. Patient states that he is homeless and has nowhere to go consistent with social issues. request naproxen of his neuropathy. will discharge. I discussed the physical exam findings, ancillary test results and final diagnoses with the patient. I answered all of the patient's questions. The patient was satisfied with the care received and felt comfortable with the discharge plan and treatment plan. The Patient agrees to follow up with the primary care physician within 24-72 hours. *DC/Admit/Observation/Transfer Diagnosis at time of Disposition: Peripheral neuropathy Qualifiers: Peripheral neuropathy type: polyneuropathy, unspecified Qualified Code(s): G62.9 - Polyneuropathy, unspecified - Discharge Dispostion Disposition: HOME - Referrals Referrals: Kyra Dahl [Primary Care Provider] - - Patient Instructions Printed Discharge Instructions: Peripheral Neuropathy Additional Instructions: Your Discharge Instructions: You must call primary care physician within 24 hours to arrange follow-up. Return to the Emergency Department with any new, persistent or worsening symptoms, for fever, chills, SOB, dizziness or any other concerning changes that may occur.
[2016-10-11] MEDS ORDERED: NAPROXEN 500 MG TABLET (FP) ONE (02:07)
== END 2016-10-11 03:17 | disposition home or self-care (01) ==
LOC: JER 00:52
DX: G62.9 Polyneuropathy, unspecified (principal); F10.10 Alcohol abuse, uncomplicated; B18.2 Chronic viral hepatitis C; L40.8 Other psoriasis; N17.9 Acute kidney failure, unspecified; Z59.0 Homelessness; W19.XXXA Unspecified fall, initial encounter; Y93.89 Activity, other specified; Y92.89 Other specified places as the place of occurrence of the external cause
CPT/HCPCS: 99281-25

== ENCOUNTER 2016-10-12 16:29 | Emergency (ER) | payer OTHER ==
[2016-10-12 16:55] VITALS: BP 131/68; PULSE 95; TEMP 98.5; BMI 29.0
--- NOTE | 2016-10-12 17:30 | PDOC ---
History of Present Illness - History of Present Illness Initial Comments: 10/12/16 17:33 Patient is a 60 year old male with significant medical hx of neuropathy, ETOH abuse, Hep C, GERD, liver cirrhosis, psoriasis who has been brought to the ED via EMS for public intoxication. Patient states that he was taken to the ED by a endoscopy specialty technician for public intoxication and that he does not need to be here. The patient wants to go to rehab but states that he needs to go back to the [facility] where he is staying. Patient is walking throughout the ED and speaking in clear sentences. He does not offer any complaints. Patient was seen in the ED last night requesting to go to [facility] detox. However by the end of his ED visit the patient wanted to go home. <Gracie Larson - Last Filed: 10/12/16 17:33> <Wendy Huddleston - Last Filed: 10/13/16 02:34> - General Chief Complaint: Alcohol intoxication Stated Complaint: INTOX Time Seen by Provider: 10/12/16 16:59 Past History <Gracie Larson - Last Filed: 10/12/16 17:33> - Past Medical History Anemia: No Asthma: No Cancer: No Cardiac Disorders: No CVA: No COPD: No CHF: No Dementia: No Diabetes: No GI Disorders: Yes Disorders: No HTN: Yes (no med) Hypercholesterolemia: No Kidney Stones: No Liver Disease: No (denies cirrhosis HEP C) Suicide Attempt (Hx): No Seizures: No Thyroid Disease: No Other medical history: NEUROPATHY - Surgical History Abdominal Surgery: No Appendectomy: No Cardiac Surgery: No Cholecystectomy: No Lung Surgery: No Neurologic Surgery: No Orthopedic Surgery: Yes (right 5th digit tendon repair 11/14/14) - Reproductive History Testicular Surgery: No - Psycho/Social/Smoking Cessation Hx Anxiety: No Suicidal Ideation: No Smoking Status: Yes Smoking History: Current every day smoker Have you smoked in the past 12 months: Yes Number of Cigarettes Smoked Daily: 4 If you are a former smoker, when did you quit?: 1 months Cigars Per Day: 0 Information on smoking cessation initiated: No 'Breaking Loose' booklet given: 09/25/16 Hx Alcohol Use: Yes Drug/Substance Use Hx: No Substance Use Type: Alcohol Hx Substance Use Treatment: Yes ([facility] 07/26/16 to 07/30/16) <Wendy Huddlestonh - Last Filed: 10/13/16 02:34> - Past Medical History Allergies/Adverse Reactions: Allergies Allergy/AdvReac Type Severity Reaction Status Date / Time No Known Allergies Allergy Verified 06/19/16 18:18 Home Medications: Ambulatory Orders Gabapentin [Neurontin -] 400 mg PO TID #120 capsule 07/30/16 Potassium Chloride [K-Dur -] 20 meq PO DAILY #7 tablet.er 07/30/16 Gabapentin [Neurontin -] 400 mg PO TID #90 mg 09/29/16 Naproxen [Naprosyn -] 500 mg PO BID #60 tablet 09/29/16 Pantoprazole Sodium [Protonix -] 40 mg PO DAILY #30 tablet.ec 09/29/16 Review of Systems - Review of Systems Comments:: 10/12/16 17:34 CONSTITUTIONAL: Absent: fever, no chills, no fatigue EYES: Absent: visual changes ENT: Absent: ear pain, no sore throat CARDIOVASCULAR: Absent: chest pain, no palpitations RESPIRATORY: Absent: cough, no SOB GI: Absent: abdominal pain, no nausea, no vomiting, no constipation, no diarrhea GENITOURINARY: Absent: dysuria, no frequency, no hematuria MUSKULOSKELETAL: Absent: back pain, no arthralgia, no myalgia SKIN: Absent: rash NEURO: Absent: headache <Gracie Larson - Last Filed: 10/12/16 17:33> *Physical Exam - Vital Signs Last Vital Signs Temp Pulse Resp BP Pulse Ox 98.5 F 95 H 20 131/68 95 10/12/16 16:41 10/12/16 16:41 10/12/16 16:41 10/12/16 16:41 10/12/16 16:41 - Physical Exam Comments: 10/12/16 17:35 GENERAL: Well-appearing, well-nourished. No apparent distress. Speaking in clear sentences. HEENT: Normocephalic. No obvious head trauma. PERRL, EOM intact. ABDOMEN: Protuberant abdomen. Soft, non-distended, non-tender. EXTREMITIES: Normal ROM in all four extremities. No gross deformities. SKIN: Warm, dry. No rash NEUROLOGICAL: No ataxia. No focal neurological deficits. <Gracie Larson - Last Filed: 10/12/16 17:33> - Vital Signs Last Vital Signs Temp Pulse Resp BP Pulse Ox 98.5 F 95 H 20 131/68 95 10/12/16 16:41 10/12/16 16:41 10/12/16 16:41 10/12/16 16:41 10/12/16 16:41 <Wendy Huddleston - Last Filed: 10/13/16 02:34> Medical Decision Making - Medical Decision Making 10/13/16 02:32 This 61-year-old male was brought in by ambulance for public intoxication. However, he was alert and oriented and ambulatory. He was quite annoyed that the police picked him up for public intoxication. He stated that he was staying at her mother and anyone to go back there. He had no ataxia. He had a steady gait. He had alcohol on breath, but was not somnolent or lethargic. Patient discharged home . Transportation was found for this patient to return home <Wendy Huddleston - Last Filed: 10/13/16 02:34> *DC/Admit/Observation/Transfer - Attestations Scribe Attestion: 10/12/16 17:36 Documentation prepared by Gracie Larson, acting as director biomedical engineering for Wendy Huddleston MD. <Gracie Larson - Last Filed: 10/12/16 17:33> <Wendy Huddleston - Last Filed: 10/13/16 02:34> Diagnosis at time of Disposition: Alcohol dependence Qualifiers: Substance use status: uncomplicated Qualified Code(s): F10.20 - Alcohol dependence, uncomplicated - Discharge Dispostion Disposition: HOME Condition at time of disposition: Stable - Patient Instructions Printed Discharge Instructions: DI for Alcohol Abuse Additional Instructions: please followup with your alcohol detox program
== END 2016-10-12 17:55 | disposition home or self-care (01) ==
LOC: JER 16:29
DX: F10.20 Alcohol dependence, uncomplicated (principal); G62.9 Polyneuropathy, unspecified; B19.20 Unspecified viral hepatitis C without hepatic coma; K21.9 Gastro-esophageal reflux disease without esophagitis; K74.60 Unspecified cirrhosis of liver; F17.210 Nicotine dependence, cigarettes, uncomplicated
CPT/HCPCS: 99282-25

== ENCOUNTER 2016-10-14 14:46 | Inpatient (IN) | payer OTHER ==
[2016-10-14 18:09] VITALS: BMI 29.0
--- NOTE | 2016-10-14 18:12 | HP ---
Admission ROS [facility] - HPI Allergies/Adverse Reactions: Allergies Allergy/AdvReac Type Severity Reaction Status Date / Time No Known Allergies Allergy Verified 06/19/16 18:18 - Ebola screening Have you traveled outside of the country in the last 21 days: No Have you had contact with anyone from an Ebola affected area: No Patient History - Patient Medical History Hx Anemia: No Hx Asthma: No Hx Chronic Obstructive Pulmonary Disease (COPD): No Hx Cancer: No Hx Cardiac Disorders: No Hx Congestive Heart Failure: No Hx Hypertension: Yes (no med) Hx Hypercholesterolemia: No Hx Pacemaker: No HX Cerebrovascular Accident: No Hx Seizures: No Hx Dementia: No Hx Diabetes: No Hx Gastrointestinal Disorders: Yes Hx Liver Disease: No (denies cirrhosis HEP C) Hx Genitourinary Disorders: No Hx Sexually Transmitted Disorders: No Hx Renal Disease (ESRD): No Hx Thyroid Disease: No Hx Human Immunodeficiency Virus (HIV): No (last 2014 negative) Hx Hepatitis C: No Hx Depression: No Hx Suicide Attempt: No Hx Bipolar Disorder: No Hx Schizophrenia: No - Patient Surgical History Past Surgical History: Yes Hx Neurologic Surgery: No Hx Cataract Extraction: No Hx Cardiac Surgery: No Hx Lung Surgery: No Hx Breast Surgery: No Hx Breast Biopsy: No Hx Abdominal Surgery: No Hx Appendectomy: No Hx Cholecystectomy: No Hx Genitourinary Surgery: No Hx Section: No Hx Orthopedic Surgery: Yes (right 5th digit tendon repair 11/14/14) Hx Hysterectomy: No Other Surgical History: Pt. fell down stairs face first, 23 sutures-removed already Anesthesia Reaction: No - PPD History Date: 07/28/16 Results: 0mm - Smoking Cessation Smoking history: Current every day smoker Have you smoked in the past 12 months: Yes Aproximately how many cigarettes per day: 4 If you are a former smoker, when did you quit?: 1 months Cigars Per Day: 0 Hx Chewing Tobacco Use: No Family Disease History - Family Disease History Family Disease History: Other: Father (Uses Alcohol.), Mother (Uses Alcohol.), Brother (Uses Alcohol.), Sister (LSD related schizophrenia) [facility] Breath Alcohol Content Breath Alcohol Content: 0.195
--- NOTE | 2016-10-14 20:11 | HP ---
Admission ROS [facility] Chief Complaint: Requesting rehab services for alcohol dependence. Allergies/Adverse Reactions: Allergies Allergy/AdvReac Type Severity Reaction Status Date / Time No Known Allergies Allergy Verified 06/19/16 18:18 History of Present Illness: 61 y.o. man with an extensive history of alcohol dependence is here seeking rehab. He has had multiple detox and rehab admissions. His last admission here for detox was on 09/25/16. He also has frequent ER visits related to intoxication. Exam Limitations: Intoxication - Ebola screening Have you traveled outside of the country in the last 21 days: No Have you had contact with anyone from an Ebola affected area: No Have you been sick,other than usual withdrawal symptoms: No - Review of Systems Constitutional: Loss of Appetite EENT: reports: No Symptoms Reported, Difficulty Swallowing Respiratory: reports: No Symptoms reported Cardiac: reports: No Symptoms Reported GI: reports: Poor Appetite : reports: No Symptoms Reported Musculoskeletal: reports: Back Pain Integumentary: reports: Other (B/L LE edema) Neuro: reports: Numbness (B/L LE h/o neuropathy), Tingling (B/L LE h/o neuropathy) Endocrine: reports: No Symptoms Reported Hematology: reports: No Symptoms Reported Psychiatric: reports: Orientated x3, Anxious Other Systems: Reviewed and Negative Patient History - Patient Medical History Hx Anemia: No Hx Asthma: No Hx Chronic Obstructive Pulmonary Disease (COPD): No Hx Cancer: No Hx Cardiac Disorders: No Hx Congestive Heart Failure: No Hx Hypertension: No Hx Hypercholesterolemia: No Hx Pacemaker: No HX Cerebrovascular Accident: No Hx Seizures: No Hx Dementia: No Hx Diabetes: No Hx Gastrointestinal Disorders: Yes (Dypepsia ) Hx Liver Disease: Yes (Reports recently being diagnosed with hep. C and cirrhosis ) Hx Genitourinary Disorders: No Hx Sexually Transmitted Disorders: No Hx Renal Disease (ESRD): No Hx Thyroid Disease: No Hx Human Immunodeficiency Virus (HIV): No (last 2014 negative) Hx Hepatitis C: Yes (Not treated ) Hx Depression: No Hx Suicide Attempt: No Hx Bipolar Disorder: No Hx Schizophrenia: No - Patient Surgical History Past Surgical History: Yes Hx Neurologic Surgery: No Hx Cataract Extraction: No Hx Cardiac Surgery: No Hx Lung Surgery: No Hx Breast Surgery: No Hx Breast Biopsy: No Hx Abdominal Surgery: No Hx Appendectomy: No Hx Cholecystectomy: No Hx Genitourinary Surgery: No Hx Section: No Hx Orthopedic Surgery: Yes (right 5th digit tendon repair 11/14/14) Hx Hysterectomy: No Other Surgical History: Pt. fell down stairs face first, 23 sutures-removed already Anesthesia Reaction: No - PPD History Previous Implant?: Yes Documented Results: Negative w/proof Implanted On Prior [facility] Admission?: Yes Date: 07/28/16 Results: 0mm PPD to be Administered?: No - Smoking Cessation Smoking history: Current every day smoker Have you smoked in the past 12 months: Yes Aproximately how many cigarettes per day: 5 Cigars Per Day: 0 Hx Chewing Tobacco Use: No Initiated information on smoking cessation: Yes 'Breaking Loose' booklet given: 10/14/16 - Substance & Tx. History Hx Alcohol Use: Yes Hx Substance Use: No Substance Use Type: Alcohol Hx Substance Use Treatment: Yes (Detox and rehab ) - Substances Abused Alcohol Route: Oral Frequency: Daily Amount used: 4-5 25oz cans of wine coolers Age of first use: 18 Date of Last Use: 10/14/16 Family Disease History - Family Disease History Family Disease History: Other: Father (Uses Alcohol.), Mother (Uses Alcohol.), Brother (Uses Alcohol.), Sister (LSD related schizophrenia) Admission Physical Exam S - Vital Signs Vital Signs: Vital Signs - 24 hr 10/14/16 17:53 Temperature 97.8 F Pulse Rate 114 H Respiratory 20 Rate Blood Pressure 112/66 - Physical General Appearance: Yes: Intoxicated, Anxious HEENTM: Yes: Hearing grossly Normal, Normocephalic, Normal Voice Respiratory: Yes: Chest Non-Tender, Lungs Clear, Normal Breath Sounds, No Respiratory Distress, No Accessory Muscle Use Neck: Yes: No masses,lesions,Nodules, Trachea in good position Breast: Yes: Breast Exam Deferred Cardiology: Yes: Regular Rhythm, S1, S2, Tachycardia Abdominal: Yes: Flat, Soft Genitourinary: Yes: Other (No complaints reported) Back: Yes: Normal Inspection Musculoskeletal: Yes: Other (Unsteady gait) Extremities: Yes: Pedal Edema (+3 Pitting edema to b/l le) Neurological: Yes: Alert, Normal Mood/Affect, Normal Response Integumentary: Yes: Pitting Edema (+3 b/l le) Lymphatic: Yes: Within Normal Limits - Diagnostic (1) Peripheral neuropathy Current Visit: Yes Status: Chronic Qualifiers: Peripheral neuropathy type: polyneuropathy, unspecified Qualified Code( s): G62.9 - Polyneuropathy, unspecified (2) Cirrhosis of liver not due to alcohol Current Visit: Yes Status: Chronic Comment: encourage abstinence - seen by MAUDE raman and needs f/u (3) GERD (gastroesophageal reflux disease) Current Visit: Yes Status: Chronic Qualifiers: Esophagitis presence: without esophagitis Qualified Code(s): K21.9 - Gastro-esophageal reflux disease without esophagitis (4) Hepatitis C Current Visit: Yes Status: Chronic Qualifiers: Hepatic coma status: without hepatic coma (5) Use of cane as ambulatory aid Current Visit: Yes Status: Chronic Comment: x 2 years neuropathy related alcohol comsumption (6) Alcohol dependence Current Visit: Yes Status: Chronic Qualifiers: Substance use status: uncomplicated Qualified Code(s): F10.20 - Alcohol dependence, uncomplicated (7) History of recent fall Current Visit: Yes Status: Chronic Cleared for Admission [facility] - Detox or Rehab [facility] Level of Care: Observation Bed Claeared for Rehab Admission: Yes [facility] Breath Alcohol Content Breath Alcohol Content: 0.195 Urine Drug Screen - Results Urine Drug Screen Results: BZO-Benzodiazepines
[2016-10-14] MEDS ORDERED: MAGNESIUM HYDROX 2400MG/30ML ORAL SUSPENSION 30 ML CUP PO PRN (20:38)
[2016-10-14] MEDS ORDERED: NICOTINE POLACRILEX 2 MG GUM BC PRN (20:38)
[2016-10-14] MEDS ORDERED: hydrOXYzine PAMOATE 50 MG CAPSULE (FP) PO PRN (20:38)
[2016-10-14] MEDS ORDERED: ACETAMINOPHEN 325 MG TABLET (FP) PO PRN (20:38)
[2016-10-14] MEDS ORDERED: IBUPROFEN 400 MG TABLET (FP) PO PRN (20:38)
[2016-10-14] MEDS ORDERED: guaiFENesin/D-METHORPHAN HB 10 ML UNIT-DOSE CUPS PO PRN (20:38)
[2016-10-14] MEDS ORDERED: diphenhydrAMINE HCL 50 MG CAPSULE PO PRN (20:38)
[2016-10-14] MEDS ORDERED: MAG HYDROX/AL HYDROX/SIMETH 30 ML UNIT-DOSE CUP PO PRN (20:38)
[2016-10-14] MEDS ORDERED: MAGNESIUM CITRATE 300 ML BOTTLE PO PRN (20:38)
[2016-10-14] MEDS ORDERED: LOPERAMIDE HCL 2 MG CAPSULE PO PRN (20:38)
[2016-10-14] MEDS ORDERED: P-EPHED 60MG/TRIPROLIDI 2.5MG TABLET PO PRN (20:38)
[2016-10-14 23:14] LABS: URINE APPEARANCE CLEAR; URINE BILIRUBIN NEGATIVE (NEGATIVE); URINE BLOOD NEGATIVE (NEGATIVE); URINE COLOR LTYELLOW; URINE GLUCOSE (UA) NEGATIVE (NEGATIVE); URINE KETONE NEGATIVE (NEGATIVE); URINE LEUK ESTERASE NEGATIVE (NEGATIVE); URINE NITRITE NEGATIVE (NEGATIVE); URINE PROTEIN NEGATIVE (NEGATIVE); URINE UROBILINOGEN NEGATIVE E.U./dl (0.2-1.0)
[2016-10-14] MEDS: THIAMINE HCL 100 MG TABLET (FP) PO SCH (23:47)
[2016-10-14] MEDS: GABAPENTIN 400 MG CAPSULE (FP) PO SCH (23:48)
[2016-10-14] MEDS: NAPROXEN 500 MG TABLET (FP) PO SCH (23:48)
[2016-10-15] MEDS: GABAPENTIN 400 MG CAPSULE (FP) PO SCH ×3 (06:43→21:23)
[2016-10-15] MEDS: NICOTINE 14 MG/24 HOURS TOPICAL PATCH TD SCH (09:59)
[2016-10-15] MEDS: NAPROXEN 500 MG TABLET (FP) PO SCH ×2 (09:59→21:23)
[2016-10-15] MEDS: PRENATAL VITAMINS W/ FOLIC ACID TABLET (FP) PO SCH (09:59)
[2016-10-15] MEDS: PANTOPRAZOLE 40 MG TABLET (FP) PO SCH (10:00)
[2016-10-15 10:19] LABS: MCH 32.3 pg (25.7-33.7); MCHC 33.6 g/dl (32.0-35.9); MEAN CELL VOLUME 96.2 fl (80-96); PLATELET COUNT 155 K/MM3 (134-434); RDW 15.7 % (11.9-15.9); WHITE BLOOD COUNT 7.4 K/mm3 (4.0-10.0)
--- NOTE | 2016-10-15 10:46 | EKG ---
Test Reason : Blood Pressure : / mmHG Vent. Rate : 096 BPM Atrial Rate : 096 BPM P-R Int : 188 ms QRS Dur : 084 ms QT Int : 334 ms P-R-T Axes : 037 041 059 degrees QTc Int : 421 ms NORMAL SINUS RHYTHM NORMAL ECG WHEN COMPARED WITH ECG OF 26-SEP-2016 12:21, BORDERLINE CRITERIA FOR INFERIOR INFARCT ARE NO LONGER PRESENT Confirmed by RUCHI LR, MARCO A ([id number]) on 10/15/2016 10:46:18 AM Referred By: Kayce Adame Confirmed By:MARCO A HOPPER MD
[2016-10-15 11:00] LABS: ALBUMIN 3.2 g/dl (3.4-5.0); ALK PHOS 125 U/L (45-117); ANION GAP 12 (8-16); BILIRUBIN,TOTAL 0.6 mg/dL (0.2-1.0); CALCIUM 9.1 mg/dL (8.5-10.1); CO2 25 mmol/L (21-32); COCKROFT - GAULT 76.54; CREATININE 1.2 mg/dL (0.7-1.3); GLUCOSE,RANDOM 105 mg/dL (74-106); SGOT/AST 18 U/L (15-37); SGPT/ALT 21 U/L (12-78); TOT PROT 6.1 g/dl (6.4-8.2)
[2016-10-15 11:17] LABS: HIV 1 & 2 AB NEGATIVE; HIV 1 AGp24 NEGATIVE
--- NOTE | 2016-10-15 12:16 | PN ---
[facility] Progress Note Note: EDEMA BOTH LEGS USED TO TAKE LASIX,NON COMPLIANCE,HISTORY OF NEUROPATHY, LASIX 40 MGS PO DAILY X 3 DAYS,FLEXERIL 10 MGS PO TID PRN CLOSE MONITORING
--- NOTE | 2016-10-15 13:52 | HP ---
Psychiatrist Admission - Data Date of interview: 10/15/16 Admission source: Self-referred Identifying data: This is one of the multiple [facility] admission for this 61 years old single male, unemployed on SSD, homeless Medical History: Significant for history of GERD, Hep C, Polyneuropath(alcoholic ), Chronic arthritis,Varicose vein, LBP with radiculopathy. Psychiatric History: Reports that he saw Dr Dolan in September [address] [facility] and was prescribed an antidepressant medication which he took only once due to adverse-effects. Besides that he has seen psychiatrist whenever he was admitted to inpt detox or rehab in this facility. At present, reports feeling mildly anxious and experiencing difficulty to sleep Physical/Sexual Abuse/Trauma History: Denies physical, sexual abuse as well as DV relationship Additional Comment: No criminal history Vital Signs: Vital Signs - 24 hr 10/14/16 10/14/16 10/15/16 17:53 22:24 03:30 Temperature 97.8 F 97.9 F Pulse Rate 114 H 86 Respiratory 20 18 18 Rate Blood Pressure 112/66 138/89 10/15/16 07:11 Temperature 97.8 F Pulse Rate 90 Respiratory 18 Rate Blood Pressure 147/95 Allergies/Adverse Reactions: Allergies Allergy/AdvReac Type Severity Reaction Status Date / Time No Known Allergies Allergy Verified 06/19/16 18:18 Date of last physical exam: 10/14/16 Concur with the findings of this exam: Yes - Substance Abuse/Tx History Hx Alcohol Use: Yes Hx Substance Use: No Substance Use Type: Alcohol (Started drinking alcohol at age 18, consumes 4-5x 25oz of wine coolers daily. Last drink on 10/14/16) Hx Substance Use Treatment: Yes (8 pevious inpt detox & 3 inpt rehab @ [facility]) - Admission Criteria Previous failed treatment: Yes Poor recovery environment: Yes Comorbidities: Yes Lacks judgement: Yes Mental Status Exam - Mental Status Exam Alert and Oriented to: Time, Place, Person Cognitive Function: Fair Patient Appearance: Well Groomed Mood: Anxious Affect: Appropriate Patient Behavior: Uncooperative Speech Pattern: Clear Voice Loudness: Normal Thought Process: Intact Thought Disorder: Not Present Hallucinations: Denies Suicidal Ideation: Denies Homicidal Ideation: Denies Insight/Judgement: Poor Sleep: Poorly Appetite: Good Muscle strength/Tone: Normal Gait/Station: Normal Psychiatric Findings - Problem List ([place] 1, 2,3) (1) Alcohol dependence Current Visit: Yes Status: Chronic Qualifiers: Substance use status: uncomplicated Qualified Code(s): F10.20 - Alcohol dependence, uncomplicated (2) Nicotine dependence Current Visit: No Status: Chronic Qualifiers: Nicotine product type: cigarettes Substance use status: in withdrawal Qualified Code(s): F17.213 - Nicotine dependence, cigarettes, with withdrawal Comment: counseled cessation - not ready (3) Alcohol-induced anxiety disorder Current Visit: No Status: Chronic (4) Alcohol-induced sleep disorder Current Visit: No Status: Chronic (5) GERD (gastroesophageal reflux disease) Current Visit: Yes Status: Chronic Qualifiers: Esophagitis presence: without esophagitis Qualified Code(s): K21.9 - Gastro-esophageal reflux disease without esophagitis (6) Hepatitis C Current Visit: Yes Status: Chronic Qualifiers: Hepatic coma status: without hepatic coma (7) Peripheral neuropathy Current Visit: Yes Status: Chronic Qualifiers: Peripheral neuropathy type: polyneuropathy, unspecified Qualified Code( s): G62.9 - Polyneuropathy, unspecified - Initial Treatment Plan Initial Treatment Plan: 1) Start Trazadone 100 mg po HS for insomnia. 2) Monitor progress
[2016-10-15] MEDS: FUROSEMIDE 40 MG TABLET (FP) PO SCH (14:25)
[2016-10-15] MEDS: CYCLOBENZAPRINE HCL 10 MG TABLET (FP) PO PRN (16:52)
[2016-10-15] MEDS: THIAMINE HCL 100 MG TABLET (FP) PO SCH (21:23)
[2016-10-16] MEDS: GABAPENTIN 400 MG CAPSULE (FP) PO SCH ×3 (06:11→21:28)
[2016-10-16] MEDS: CYCLOBENZAPRINE HCL 10 MG TABLET (FP) PO PRN ×3 (06:11→21:28)
[2016-10-16] MEDS: FUROSEMIDE 40 MG TABLET (FP) PO SCH (09:57)
[2016-10-16] MEDS: PANTOPRAZOLE 40 MG TABLET (FP) PO SCH (09:57)
[2016-10-16] MEDS: PRENATAL VITAMINS W/ FOLIC ACID TABLET (FP) PO SCH (09:57)
[2016-10-16] MEDS: NAPROXEN 500 MG TABLET (FP) PO SCH ×2 (09:57→21:28)
[2016-10-16] MEDS: NICOTINE 14 MG/24 HOURS TOPICAL PATCH TD SCH (09:58)
[2016-10-16] MEDS: THIAMINE HCL 100 MG TABLET (FP) PO SCH (21:28)
[2016-10-16] MEDS: traZODone HCL 50 MG TABLET (FP) PO SCH (21:28)
[2016-10-17] MEDS: CYCLOBENZAPRINE HCL 10 MG TABLET (FP) PO PRN ×2 (06:11→17:47)
[2016-10-17] MEDS: GABAPENTIN 400 MG CAPSULE (FP) PO SCH ×3 (06:11→21:28)
[2016-10-17] MEDS: FUROSEMIDE 40 MG TABLET (FP) PO SCH (10:07)
[2016-10-17] MEDS: NAPROXEN 500 MG TABLET (FP) PO SCH ×2 (10:07→21:28)
[2016-10-17] MEDS: PRENATAL VITAMINS W/ FOLIC ACID TABLET (FP) PO SCH (10:07)
[2016-10-17] MEDS: PANTOPRAZOLE 40 MG TABLET (FP) PO SCH (10:07)
[2016-10-17] MEDS: NICOTINE 14 MG/24 HOURS TOPICAL PATCH TD SCH (10:07)
[2016-10-17] MEDS: traZODone HCL 50 MG TABLET (FP) PO SCH (21:28)
[2016-10-17] MEDS: THIAMINE HCL 100 MG TABLET (FP) PO SCH (21:28)
[2016-10-18] MEDS: GABAPENTIN 400 MG CAPSULE (FP) PO SCH ×3 (06:31→21:33)
[2016-10-18] MEDS: CYCLOBENZAPRINE HCL 10 MG TABLET (FP) PO PRN ×3 (06:32→21:33)
[2016-10-18] MEDS: FUROSEMIDE 40 MG TABLET (FP) PO SCH (10:06)
[2016-10-18] MEDS: PRENATAL VITAMINS W/ FOLIC ACID TABLET (FP) PO SCH (10:06)
[2016-10-18] MEDS: NICOTINE 14 MG/24 HOURS TOPICAL PATCH TD SCH (10:06)
[2016-10-18] MEDS: PANTOPRAZOLE 40 MG TABLET (FP) PO SCH (10:06)
[2016-10-18] MEDS: NAPROXEN 500 MG TABLET (FP) PO SCH ×2 (10:06→21:33)
[2016-10-18] MEDS: MENTHOL/PHENOL 1 EACH UD MM PRN (11:32)
[2016-10-18] MEDS: traZODone HCL 50 MG TABLET (FP) PO SCH (21:33)
[2016-10-18] MEDS: THIAMINE HCL 100 MG TABLET (FP) PO SCH (21:33)
[2016-10-19] MEDS: GABAPENTIN 400 MG CAPSULE (FP) PO SCH ×3 (06:09→21:20)
[2016-10-19] MEDS: CYCLOBENZAPRINE HCL 10 MG TABLET (FP) PO PRN ×3 (06:10→21:21)
[2016-10-19] MEDS: PANTOPRAZOLE 40 MG TABLET (FP) PO SCH (10:03)
[2016-10-19] MEDS: PRENATAL VITAMINS W/ FOLIC ACID TABLET (FP) PO SCH (10:03)
[2016-10-19] MEDS: NICOTINE 14 MG/24 HOURS TOPICAL PATCH TD SCH (10:03)
[2016-10-19] MEDS: NAPROXEN 500 MG TABLET (FP) PO SCH ×2 (10:03→21:21)
[2016-10-19] MEDS: THIAMINE HCL 100 MG TABLET (FP) PO SCH (21:20)
[2016-10-19] MEDS: traZODone HCL 50 MG TABLET (FP) PO SCH (21:20)
[2016-10-20] MEDS: GABAPENTIN 400 MG CAPSULE (FP) PO SCH ×3 (06:11→21:21)
[2016-10-20] MEDS: CYCLOBENZAPRINE HCL 10 MG TABLET (FP) PO PRN ×3 (06:12→21:21)
[2016-10-20] MEDS: NICOTINE 14 MG/24 HOURS TOPICAL PATCH TD SCH (10:12)
[2016-10-20] MEDS: PRENATAL VITAMINS W/ FOLIC ACID TABLET (FP) PO SCH (10:12)
[2016-10-20] MEDS: NAPROXEN 500 MG TABLET (FP) PO SCH ×2 (10:12→21:21)
[2016-10-20] MEDS: PANTOPRAZOLE 40 MG TABLET (FP) PO SCH (10:12)
[2016-10-20] MEDS: FUROSEMIDE 40 MG TABLET (FP) PO SCH (10:12)
[2016-10-20] MEDS: THIAMINE HCL 100 MG TABLET (FP) PO SCH (21:21)
[2016-10-20] MEDS: traZODone HCL 50 MG TABLET (FP) PO SCH (21:21)
[2016-10-20] MEDS: HYDROCORTISONE 1% TOPICAL CREAM 30 GM TUBE TP PRN (21:22)
[2016-10-21] MEDS: CYCLOBENZAPRINE HCL 10 MG TABLET (FP) PO PRN ×3 (06:25→21:24)
[2016-10-21] MEDS: GABAPENTIN 400 MG CAPSULE (FP) PO SCH ×3 (06:25→21:25)
[2016-10-21] MEDS: HYDROCORTISONE 1% TOPICAL CREAM 30 GM TUBE TP PRN (07:10)
[2016-10-21] MEDS: PANTOPRAZOLE 40 MG TABLET (FP) PO SCH (09:55)
[2016-10-21] MEDS: FUROSEMIDE 40 MG TABLET (FP) PO SCH (09:55)
[2016-10-21] MEDS: NICOTINE 14 MG/24 HOURS TOPICAL PATCH TD SCH (09:55)
[2016-10-21] MEDS: PRENATAL VITAMINS W/ FOLIC ACID TABLET (FP) PO SCH (09:55)
[2016-10-21] MEDS: NAPROXEN 500 MG TABLET (FP) PO SCH ×2 (09:55→21:25)
[2016-10-21] MEDS: THIAMINE HCL 100 MG TABLET (FP) PO SCH (21:24)
[2016-10-21] MEDS: traZODone HCL 50 MG TABLET (FP) PO SCH (21:24)
[2016-10-22] MEDS: GABAPENTIN 400 MG CAPSULE (FP) PO SCH ×3 (06:15→21:30)
[2016-10-22] MEDS: HYDROCORTISONE 1% TOPICAL CREAM 30 GM TUBE TP PRN (06:16)
[2016-10-22] MEDS: CYCLOBENZAPRINE HCL 10 MG TABLET (FP) PO PRN ×3 (06:16→21:30)
[2016-10-22] MEDS: FUROSEMIDE 40 MG TABLET (FP) PO SCH (10:16)
[2016-10-22] MEDS: PANTOPRAZOLE 40 MG TABLET (FP) PO SCH (10:16)
[2016-10-22] MEDS: NAPROXEN 500 MG TABLET (FP) PO SCH ×2 (10:16→21:30)
[2016-10-22] MEDS: PRENATAL VITAMINS W/ FOLIC ACID TABLET (FP) PO SCH (10:16)
[2016-10-22] MEDS: NICOTINE 14 MG/24 HOURS TOPICAL PATCH TD SCH (10:16)
[2016-10-22] MEDS: THIAMINE HCL 100 MG TABLET (FP) PO SCH (21:30)
[2016-10-22] MEDS: traZODone HCL 50 MG TABLET (FP) PO SCH (21:30)
[2016-10-23] MEDS: GABAPENTIN 400 MG CAPSULE (FP) PO SCH ×3 (06:24→21:20)
[2016-10-23] MEDS: CYCLOBENZAPRINE HCL 10 MG TABLET (FP) PO PRN ×2 (06:24→13:01)
[2016-10-23] MEDS: HYDROCORTISONE 1% TOPICAL CREAM 30 GM TUBE TP PRN (06:56)
[2016-10-23] MEDS: NAPROXEN 500 MG TABLET (FP) PO SCH ×2 (09:51→21:20)
[2016-10-23] MEDS: PRENATAL VITAMINS W/ FOLIC ACID TABLET (FP) PO SCH (09:51)
[2016-10-23] MEDS: NICOTINE 14 MG/24 HOURS TOPICAL PATCH TD SCH (09:51)
[2016-10-23] MEDS: PANTOPRAZOLE 40 MG TABLET (FP) PO SCH (09:52)
[2016-10-23] MEDS: FUROSEMIDE 40 MG TABLET (FP) PO SCH (09:52)
[2016-10-23] MEDS: THIAMINE HCL 100 MG TABLET (FP) PO SCH (21:20)
[2016-10-23] MEDS: traZODone HCL 50 MG TABLET (FP) PO SCH (21:20)
[2016-10-24] MEDS: GABAPENTIN 400 MG CAPSULE (FP) PO SCH ×3 (06:51→21:24)
[2016-10-24] MEDS: CYCLOBENZAPRINE HCL 10 MG TABLET (FP) PO PRN ×3 (06:51→21:25)
[2016-10-24] MEDS: PRENATAL VITAMINS W/ FOLIC ACID TABLET (FP) PO SCH (10:00)
[2016-10-24] MEDS: FUROSEMIDE 40 MG TABLET (FP) PO SCH (10:00)
[2016-10-24] MEDS: NAPROXEN 500 MG TABLET (FP) PO SCH ×2 (10:00→21:24)
[2016-10-24] MEDS: PANTOPRAZOLE 40 MG TABLET (FP) PO SCH (10:00)
[2016-10-24] MEDS: NICOTINE 14 MG/24 HOURS TOPICAL PATCH TD SCH (10:00)
[2016-10-24] MEDS: HYDROCORTISONE 1% TOPICAL CREAM 30 GM TUBE TP PRN ×2 (15:37→21:25)
[2016-10-24] MEDS: traZODone HCL 50 MG TABLET (FP) PO SCH (21:24)
[2016-10-24] MEDS: THIAMINE HCL 100 MG TABLET (FP) PO SCH (21:24)
[2016-10-25] MEDS: GABAPENTIN 400 MG CAPSULE (FP) PO SCH ×3 (06:33→21:41)
[2016-10-25] MEDS: CYCLOBENZAPRINE HCL 10 MG TABLET (FP) PO PRN ×3 (06:34→21:41)
[2016-10-25] MEDS: PANTOPRAZOLE 40 MG TABLET (FP) PO SCH (09:59)
[2016-10-25] MEDS: NAPROXEN 500 MG TABLET (FP) PO SCH ×2 (09:59→21:41)
[2016-10-25] MEDS: HYDROCORTISONE 1% TOPICAL CREAM 30 GM TUBE TP PRN ×2 (09:59→14:34)
[2016-10-25] MEDS: FUROSEMIDE 40 MG TABLET (FP) PO SCH (09:59)
[2016-10-25] MEDS: PRENATAL VITAMINS W/ FOLIC ACID TABLET (FP) PO SCH (09:59)
[2016-10-25] MEDS: NICOTINE 14 MG/24 HOURS TOPICAL PATCH TD SCH (09:59)
[2016-10-25] MEDS: traZODone HCL 50 MG TABLET (FP) PO SCH (21:41)
[2016-10-25] MEDS: THIAMINE HCL 100 MG TABLET (FP) PO SCH (21:41)
[2016-10-26] MEDS: GABAPENTIN 400 MG CAPSULE (FP) PO SCH ×3 (06:07→21:30)
[2016-10-26] MEDS: CYCLOBENZAPRINE HCL 10 MG TABLET (FP) PO PRN ×3 (06:07→21:30)
[2016-10-26] MEDS: PANTOPRAZOLE 40 MG TABLET (FP) PO SCH (10:04)
[2016-10-26] MEDS: NAPROXEN 500 MG TABLET (FP) PO SCH ×2 (10:04→21:30)
[2016-10-26] MEDS: FUROSEMIDE 40 MG TABLET (FP) PO SCH (10:04)
[2016-10-26] MEDS: NICOTINE 14 MG/24 HOURS TOPICAL PATCH TD SCH (10:04)
[2016-10-26] MEDS: PRENATAL VITAMINS W/ FOLIC ACID TABLET (FP) PO SCH (10:04)
[2016-10-26] MEDS: THIAMINE HCL 100 MG TABLET (FP) PO SCH (21:30)
[2016-10-26] MEDS: traZODone HCL 50 MG TABLET (FP) PO SCH (21:30)
[2016-10-27] MEDS: GABAPENTIN 400 MG CAPSULE (FP) PO SCH ×3 (06:20→21:22)
[2016-10-27] MEDS: CYCLOBENZAPRINE HCL 10 MG TABLET (FP) PO PRN ×3 (06:20→21:22)
[2016-10-27] MEDS: HYDROCORTISONE 1% TOPICAL CREAM 30 GM TUBE TP PRN (06:35)
[2016-10-27] MEDS: FUROSEMIDE 40 MG TABLET (FP) PO SCH (09:58)
[2016-10-27] MEDS: PRENATAL VITAMINS W/ FOLIC ACID TABLET (FP) PO SCH (09:58)
[2016-10-27] MEDS: NAPROXEN 500 MG TABLET (FP) PO SCH ×2 (09:58→21:23)
[2016-10-27] MEDS: PANTOPRAZOLE 40 MG TABLET (FP) PO SCH (09:58)
[2016-10-27] MEDS: NICOTINE 14 MG/24 HOURS TOPICAL PATCH TD SCH (09:58)
[2016-10-27] MEDS: THIAMINE HCL 100 MG TABLET (FP) PO SCH (21:22)
[2016-10-27] MEDS: traZODone HCL 50 MG TABLET (FP) PO SCH (21:22)
[2016-10-28] MEDS: CYCLOBENZAPRINE HCL 10 MG TABLET (FP) PO PRN ×3 (06:18→21:24)
[2016-10-28] MEDS: GABAPENTIN 400 MG CAPSULE (FP) PO SCH ×3 (06:18→21:25)
[2016-10-28] MEDS: PRENATAL VITAMINS W/ FOLIC ACID TABLET (FP) PO SCH (09:52)
[2016-10-28] MEDS: PANTOPRAZOLE 40 MG TABLET (FP) PO SCH (09:52)
[2016-10-28] MEDS: FUROSEMIDE 40 MG TABLET (FP) PO SCH (09:52)
[2016-10-28] MEDS: NICOTINE 14 MG/24 HOURS TOPICAL PATCH TD SCH (09:53)
[2016-10-28] MEDS: NAPROXEN 500 MG TABLET (FP) PO SCH ×2 (09:53→21:24)
[2016-10-28] MEDS: TOLNAFTATE 1% CREAM 15 GM TUBE TP SCH ×2 (14:25→21:25)
[2016-10-28] MEDS: traZODone HCL 50 MG TABLET (FP) PO SCH (21:25)
[2016-10-28] MEDS: THIAMINE HCL 100 MG TABLET (FP) PO SCH (21:25)
[2016-10-28] MEDS: HYDROCORTISONE 1% TOPICAL CREAM 30 GM TUBE TP PRN (21:27)
[2016-10-29] MEDS: GABAPENTIN 400 MG CAPSULE (FP) PO SCH ×3 (06:15→21:20)
[2016-10-29] MEDS: CYCLOBENZAPRINE HCL 10 MG TABLET (FP) PO PRN ×3 (06:15→21:20)
[2016-10-29] MEDS: FUROSEMIDE 40 MG TABLET (FP) PO SCH (09:55)
[2016-10-29] MEDS: PRENATAL VITAMINS W/ FOLIC ACID TABLET (FP) PO SCH (09:55)
[2016-10-29] MEDS: NAPROXEN 500 MG TABLET (FP) PO SCH ×2 (09:55→21:20)
[2016-10-29] MEDS: TOLNAFTATE 1% CREAM 15 GM TUBE TP SCH ×2 (09:55→21:21)
[2016-10-29] MEDS: PANTOPRAZOLE 40 MG TABLET (FP) PO SCH (09:55)
[2016-10-29] MEDS: NICOTINE 14 MG/24 HOURS TOPICAL PATCH TD SCH (09:56)
--- NOTE | 2016-10-29 15:41 | PN ---
Psychiatric Progress Note Vital Signs: Vital Signs Period Temp Pulse Resp BP Sys/Haney Pulse Ox Last 24 Hr 97.3 F 73 18-18 133/82 Date of Session: 10/29/16 Chief Complaint:: "I need to talk to you" HPI: Patient is addresing alcohol, nicotine dependence comorbid alcohol induced sleep and anxiety disorder. ROS: GERD, Hep C, Polyneuropath(alcoholic), Chronic arthritis,Varicose vein, LBP with radiculopathy. Current Medications: Active Medications Generic Name Dose Route Start Last Admin Trade Name Freq PRN Reason Stop Dose Admin Al Hydroxide/Mg Hydroxide 30 ml 10/14/16 20:38 Mylanta Oral Suspension - PO Q6H PRN DYSPEPSIA Cyclobenzaprine HCl 10 mg 10/15/16 12:17 10/29/16 14:30 Flexeril - PO 10 mg TID PRN Administration MUSCLE SPASMS Diphenhydramine HCl 50 mg 10/14/16 20:38 10/14/16 23:49 Benadryl - PO 50 mg HSMR1 PRN Administration INSOMNIA Eucalyptus/Menthol/Phenol/Sorbitol 1 each 10/14/16 20:38 10/18/16 11:32 Cepastat Lozenge - MM 1 each Q4H PRN Administration SORE THROAT Furosemide 40 mg 10/20/16 10:00 10/29/16 09:55 Lasix - PO 40 mg DAILY POLO Administration Gabapentin 400 mg 10/14/16 22:00 10/29/16 14:30 Neurontin - PO 400 mg TID POLO Administration Guaifenesin 10 ml 10/14/16 20:38 Robitussin Dm - PO Q6H PRN COUGH Hydrocortisone 1 applic 10/19/16 11:29 10/28/16 21:27 Hytone 1% Cream - TP 1 applic BID PRN Administration DRY SKIN Hydroxyzine Pamoate 50 mg 10/14/16 20:38 Vistaril - PO Q4H PRN AGITATION Ibuprofen 400 mg 10/14/16 20:38 Motrin - PO Q6H PRN SEVERE PAIN Loperamide HCl 4 mg 10/14/16 20:38 Imodium - PO Q6H PRN DIARRHEA Magnesium Citrate 300 ml 10/14/16 20:38 Citroma - PO Q48H PRN CONSTIPATION Magnesium Hydroxide 30 ml 10/14/16 20:38 Milk Of Magnesia - PO DAILY PRN CONSTIPATION Naproxen 500 mg 10/14/16 22:00 10/29/16 09:55 Naprosyn - PO 500 mg BID POLO Administration Nicotine 14 mg 10/15/16 10:00 10/29/16 09:56 Nicoderm Patch - TD 14 mg DAILY POLO Administration Nicotine Polacrilex 2 mg 10/14/16 20:38 Nicorette Gum - BC Q2H PRN NICOTINE REPLACEMENT RX Pantoprazole Sodium 40 mg 10/15/16 10:00 10/29/16 09:55 Protonix - PO 40 mg DAILY POLO Administration Multivit/Folic Acid/Iron 1 tab 10/15/16 10:00 10/29/16 09:55 Vitamins (Sjr) - PO 1 tab DAILY POLO Administration Pseudoephedrine/Triprolidine 1 combo 10/14/16 20:38 Actifed - PO TID PRN NASAL CONGESTION Thiamine HCl 100 mg 10/14/16 22:00 10/28/16 21:25 Vitamin B1 - PO 100 mg HS POLO Administration Tolnaftate 1 applic 10/28/16 14:20 10/29/16 09:55 Tinactin 1% Cream - TP 1 applic BID POLO Administration Trazodone HCl 50 mg 10/16/16 22:00 10/28/16 21:25 Desyrel - PO 50 mg HS POLO Administration Current Side Effect: No Lab tests ordered: No Lab tests reviewed: Yes Provider note:: Reviewed the chart, admission note approciated, met with the patient. Patient focused on his past history of drug use, LSD about 30 years ago, states his sister became psychotic for the rest of her life following LSD use. Patient focused on his aftercare plans, medical appointment he needs to follow, he was asking to call his [employer] to make appoinment for the next week, patient wa recomended to discuss this issues with his primary conselor. Supportive therapy provided, continue to monitor progress. Mental Status Exam - Mental Status Exam Alert and Oriented to: Time, Place, Person Cognitive Function: Grossly Intact Patient Appearance: Well Groomed Mood: Anxious Affect: Mood Congruent, Constricted Patient Behavior: Talkative, Cooperative Speech Pattern: Rambling Voice Loudness: Normal Thought Process: Tangential Thought Disorder: Not Present Hallucinations: Denies Suicidal Ideation: Denies Homicidal Ideation: Denies Insight/Judgement: Fair Sleep: Fair Appetite: Fair Muscle strength/Tone: Normal Gait/Station: Normal Psychiatric Treatment Plan - Problem List (1) Alcohol dependence Current Visit: Yes Qualifiers: Substance use status: uncomplicated Qualified Code(s): F10.20 - Alcohol dependence, uncomplicated (2) Cirrhosis of liver not due to alcohol Current Visit: Yes Comment: encourage abstinence - seen by MAUDE arman and needs f/u (3) GERD (gastroesophageal reflux disease) Current Visit: Yes Qualifiers: Esophagitis presence: without esophagitis Qualified Code(s): K21.9 - Gastro-esophageal reflux disease without esophagitis (4) Hepatitis C Current Visit: Yes Qualifiers: Hepatic coma status: without hepatic coma (5) History of recent fall Current Visit: Yes (6) Peripheral neuropathy Current Visit: Yes Qualifiers: Peripheral neuropathy type: polyneuropathy, unspecified Qualified Code( s): G62.9 - Polyneuropathy, unspecified (7) Use of cane as ambulatory aid Current Visit: Yes Comment: x 2 years neuropathy related alcohol comsumption (8) Alcohol-induced anxiety disorder Current Visit: No (9) Alcohol-induced sleep disorder Current Visit: No (10) Neuropathy Current Visit: No Comment: neurontine 400 mg bid (11) Nicotine dependence Current Visit: No Qualifiers: Nicotine product type: cigarettes Substance use status: in withdrawal Qualified Code(s): F17.213 - Nicotine dependence, cigarettes, with withdrawal Comment: counseled cessation - not ready
[2016-10-29] MEDS: THIAMINE HCL 100 MG TABLET (FP) PO SCH (21:20)
[2016-10-29] MEDS: traZODone HCL 50 MG TABLET (FP) PO SCH (21:20)
[2016-10-30] MEDS: CYCLOBENZAPRINE HCL 10 MG TABLET (FP) PO PRN ×3 (06:15→21:21)
[2016-10-30] MEDS: GABAPENTIN 400 MG CAPSULE (FP) PO SCH ×3 (06:15→21:21)
[2016-10-30] MEDS: NAPROXEN 500 MG TABLET (FP) PO SCH ×2 (09:51→21:21)
[2016-10-30] MEDS: FUROSEMIDE 40 MG TABLET (FP) PO SCH (09:51)
[2016-10-30] MEDS: NICOTINE 14 MG/24 HOURS TOPICAL PATCH TD SCH (09:51)
[2016-10-30] MEDS: PRENATAL VITAMINS W/ FOLIC ACID TABLET (FP) PO SCH (09:51)
[2016-10-30] MEDS: PANTOPRAZOLE 40 MG TABLET (FP) PO SCH (09:51)
[2016-10-30] MEDS: TOLNAFTATE 1% CREAM 15 GM TUBE TP SCH ×2 (09:53→21:22)
[2016-10-30] MEDS: MENTHOL/PHENOL 1 EACH UD MM PRN (10:51)
[2016-10-30] MEDS: traZODone HCL 50 MG TABLET (FP) PO SCH (21:21)
[2016-10-30] MEDS: THIAMINE HCL 100 MG TABLET (FP) PO SCH (21:22)
[2016-10-31] MEDS: GABAPENTIN 400 MG CAPSULE (FP) PO SCH ×3 (06:05→21:20)
[2016-10-31] MEDS: CYCLOBENZAPRINE HCL 10 MG TABLET (FP) PO PRN ×3 (06:06→21:20)
[2016-10-31] MEDS: NICOTINE 14 MG/24 HOURS TOPICAL PATCH TD SCH (09:54)
[2016-10-31] MEDS: NAPROXEN 500 MG TABLET (FP) PO SCH ×2 (09:54→21:20)
[2016-10-31] MEDS: PANTOPRAZOLE 40 MG TABLET (FP) PO SCH (09:54)
[2016-10-31] MEDS: FUROSEMIDE 40 MG TABLET (FP) PO SCH (09:54)
[2016-10-31] MEDS: PRENATAL VITAMINS W/ FOLIC ACID TABLET (FP) PO SCH (09:54)
[2016-10-31] MEDS: TOLNAFTATE 1% CREAM 15 GM TUBE TP SCH ×2 (09:55→21:21)
[2016-10-31] MEDS: THIAMINE HCL 100 MG TABLET (FP) PO SCH (21:20)
[2016-10-31] MEDS: traZODone HCL 50 MG TABLET (FP) PO SCH (21:20)
[2016-11-01] MEDS: CYCLOBENZAPRINE HCL 10 MG TABLET (FP) PO PRN ×3 (06:24→18:26)
[2016-11-01] MEDS: GABAPENTIN 400 MG CAPSULE (FP) PO SCH ×3 (06:24→21:17)
[2016-11-01] MEDS: NICOTINE 14 MG/24 HOURS TOPICAL PATCH TD SCH (09:53)
[2016-11-01] MEDS: NAPROXEN 500 MG TABLET (FP) PO SCH ×2 (09:53→21:18)
[2016-11-01] MEDS: PANTOPRAZOLE 40 MG TABLET (FP) PO SCH (09:53)
[2016-11-01] MEDS: FUROSEMIDE 40 MG TABLET (FP) PO SCH (09:53)
[2016-11-01] MEDS: PRENATAL VITAMINS W/ FOLIC ACID TABLET (FP) PO SCH (09:53)
[2016-11-01] MEDS: TOLNAFTATE 1% CREAM 15 GM TUBE TP SCH ×2 (09:54→21:18)
[2016-11-01] MEDS: THIAMINE HCL 100 MG TABLET (FP) PO SCH (21:17)
[2016-11-01] MEDS: traZODone HCL 50 MG TABLET (FP) PO SCH (21:17)
[2016-11-02] MEDS: CYCLOBENZAPRINE HCL 10 MG TABLET (FP) PO PRN ×3 (06:24→21:16)
[2016-11-02] MEDS: GABAPENTIN 400 MG CAPSULE (FP) PO SCH ×3 (06:24→21:17)
[2016-11-02] MEDS: NAPROXEN 500 MG TABLET (FP) PO SCH ×2 (09:42→21:16)
[2016-11-02] MEDS: FUROSEMIDE 40 MG TABLET (FP) PO SCH (09:42)
[2016-11-02] MEDS: PRENATAL VITAMINS W/ FOLIC ACID TABLET (FP) PO SCH (09:43)
[2016-11-02] MEDS: PANTOPRAZOLE 40 MG TABLET (FP) PO SCH (09:43)
[2016-11-02] MEDS: NICOTINE 14 MG/24 HOURS TOPICAL PATCH TD SCH (09:43)
[2016-11-02] MEDS: TOLNAFTATE 1% CREAM 15 GM TUBE TP SCH ×2 (09:44→21:16)
[2016-11-02] MEDS: traZODone HCL 50 MG TABLET (FP) PO SCH (21:16)
[2016-11-02] MEDS: THIAMINE HCL 100 MG TABLET (FP) PO SCH (21:17)
[2016-11-03] MEDS: CYCLOBENZAPRINE HCL 10 MG TABLET (FP) PO PRN ×3 (06:15→21:14)
[2016-11-03] MEDS: GABAPENTIN 400 MG CAPSULE (FP) PO SCH ×3 (06:15→21:14)
[2016-11-03] MEDS: PRENATAL VITAMINS W/ FOLIC ACID TABLET (FP) PO SCH (10:12)
[2016-11-03] MEDS: PANTOPRAZOLE 40 MG TABLET (FP) PO SCH (10:12)
[2016-11-03] MEDS: NAPROXEN 500 MG TABLET (FP) PO SCH ×2 (10:12→21:14)
[2016-11-03] MEDS: FUROSEMIDE 40 MG TABLET (FP) PO SCH (10:12)
[2016-11-03] MEDS: NICOTINE 14 MG/24 HOURS TOPICAL PATCH TD SCH (10:13)
[2016-11-03] MEDS: HYDROCORTISONE 1% TOPICAL CREAM 30 GM TUBE TP PRN (10:14)
[2016-11-03] MEDS: TOLNAFTATE 1% CREAM 15 GM TUBE TP SCH ×2 (10:14→21:16)
[2016-11-03] MEDS: THIAMINE HCL 100 MG TABLET (FP) PO SCH (21:14)
[2016-11-03] MEDS: traZODone HCL 50 MG TABLET (FP) PO SCH (21:14)
[2016-11-04] MEDS: CYCLOBENZAPRINE HCL 10 MG TABLET (FP) PO PRN (06:17)
[2016-11-04] MEDS: GABAPENTIN 400 MG CAPSULE (FP) PO SCH (06:17)
[2016-11-04 06:42] VITALS: BP 115/70; PULSE 91; TEMP 97.4
[2016-11-04] MEDS: NICOTINE 14 MG/24 HOURS TOPICAL PATCH TD SCH (10:10)
[2016-11-04] MEDS: NAPROXEN 500 MG TABLET (FP) PO SCH (10:10)
[2016-11-04] MEDS: FUROSEMIDE 40 MG TABLET (FP) PO SCH (10:10)
[2016-11-04] MEDS: PANTOPRAZOLE 40 MG TABLET (FP) PO SCH (10:10)
[2016-11-04] MEDS: PRENATAL VITAMINS W/ FOLIC ACID TABLET (FP) PO SCH (10:10)
[2016-11-04] MEDS: HYDROCORTISONE 1% TOPICAL CREAM 30 GM TUBE TP PRN (10:11)
[2016-11-04] MEDS: TOLNAFTATE 1% CREAM 15 GM TUBE TP SCH (10:11)
--- NOTE | 2016-11-04 10:25 | PN ---
Psychiatric Progress Note Vital Signs: Vital Signs Period Temp Pulse Resp BP Sys/Haney Pulse Ox Last 24 Hr 97.4 F 91 18-20 115/70 Date of Session: 11/04/16 Chief Complaint:: discharge visit HPI: Patient is addresing alcohol, nicotine dependence comorbid alcohol induced sleep and anxiety disorder. ROS: GERD, Hep C, Polyneuropath(alcoholic), Chronic arthritis,Varicose vein, LBP with radiculopathy medically managed. Current Medications: Active Medications Generic Name Dose Route Start Last Admin Trade Name Freq PRN Reason Stop Dose Admin Al Hydroxide/Mg Hydroxide 30 ml 10/14/16 20:38 Mylanta Oral Suspension - PO Q6H PRN DYSPEPSIA Cyclobenzaprine HCl 10 mg 10/15/16 12:17 11/04/16 06:17 Flexeril - PO 10 mg TID PRN Administration MUSCLE SPASMS Diphenhydramine HCl 50 mg 10/14/16 20:38 10/14/16 23:49 Benadryl - PO 50 mg HSMR1 PRN Administration INSOMNIA Eucalyptus/Menthol/Phenol/Sorbitol 1 each 10/14/16 20:38 10/30/16 10:51 Cepastat Lozenge - MM 1 each Q4H PRN Administration SORE THROAT Furosemide 40 mg 10/20/16 10:00 11/04/16 10:10 Lasix - PO 40 mg DAILY POLO Administration Gabapentin 400 mg 10/14/16 22:00 11/04/16 06:17 Neurontin - PO 400 mg TID POLO Administration Guaifenesin 10 ml 10/14/16 20:38 11/02/16 06:24 Robitussin Dm - PO 10 ml Q6H PRN Administration COUGH Hydrocortisone 1 applic 10/19/16 11:29 11/04/16 10:11 Hytone 1% Cream - TP 1 applic BID PRN Administration DRY SKIN Hydroxyzine Pamoate 50 mg 10/14/16 20:38 Vistaril - PO Q4H PRN AGITATION Ibuprofen 400 mg 10/14/16 20:38 Motrin - PO Q6H PRN SEVERE PAIN Loperamide HCl 4 mg 10/14/16 20:38 Imodium - PO Q6H PRN DIARRHEA Magnesium Citrate 300 ml 10/14/16 20:38 Citroma - PO Q48H PRN CONSTIPATION Magnesium Hydroxide 30 ml 10/14/16 20:38 Milk Of Magnesia - PO DAILY PRN CONSTIPATION Naproxen 500 mg 10/14/16 22:00 11/04/16 10:10 Naprosyn - PO 500 mg BID POLO Administration Nicotine 14 mg 10/15/16 10:00 11/04/16 10:10 Nicoderm Patch - TD Not Given DAILY POLO Nicotine Polacrilex 2 mg 10/14/16 20:38 Nicorette Gum - BC Q2H PRN NICOTINE REPLACEMENT RX Pantoprazole Sodium 40 mg 10/15/16 10:00 11/04/16 10:10 Protonix - PO 40 mg DAILY POLO Administration Multivit/Folic Acid/Iron 1 tab 10/15/16 10:00 11/04/16 10:10 Vitamins (Sjr) - PO 1 tab DAILY POLO Administration Pseudoephedrine/Triprolidine 1 combo 10/14/16 20:38 Actifed - PO TID PRN NASAL CONGESTION Thiamine HCl 100 mg 10/14/16 22:00 11/03/16 21:14 Vitamin B1 - PO 100 mg HS POLO Administration Tolnaftate 1 applic 10/28/16 14:20 11/04/16 10:11 Tinactin 1% Cream - TP 1 applic BID POLO Administration Trazodone HCl 50 mg 10/16/16 22:00 11/03/16 21:14 Desyrel - PO 50 mg HS POLO Administration Current Side Effect: No Lab tests ordered: No Lab tests reviewed: Yes Provider note:: Patient has completed today his treatment and met his goals, will continue to address his issues at the next level of care. Patient gained insights into his addiction and motivated to continue maintain abstinence. Medications well tolerated, Gabapentin and Trazodone well tolerated, scripts provided, patient is stable for discharge today. Total face to face time:: 30 Mental Status Exam - Mental Status Exam Alert and Oriented to: Time, Place, Person Cognitive Function: Good Patient Appearance: Well Groomed Mood: Hopeful Affect: Appropriate, Mood Congruent Patient Behavior: Appropriate, Cooperative Speech Pattern: Clear, Appropriate Voice Loudness: Normal Thought Process: Intact, Goal Oriented Thought Disorder: Not Present Hallucinations: Denies Suicidal Ideation: Denies Homicidal Ideation: Denies Insight/Judgement: Fair Sleep: Fair Appetite: Good Muscle strength/Tone: Normal Gait/Station: Normal Psychiatric Treatment Plan - Problem List (1) Alcohol dependence Current Visit: Yes Qualifiers: Substance use status: uncomplicated Qualified Code(s): F10.20 - Alcohol dependence, uncomplicated (2) Cirrhosis of liver not due to alcohol Current Visit: Yes Comment: encourage abstinence - seen by MAUDE raman and lala f/u (3) GERD (gastroesophageal reflux disease) Current Visit: Yes Qualifiers: Esophagitis presence: without esophagitis Qualified Code(s): K21.9 - Gastro-esophageal reflux disease without esophagitis (4) Hepatitis C Current Visit: Yes Qualifiers: Hepatic coma status: without hepatic coma (5) History of recent fall Current Visit: Yes (6) Peripheral neuropathy Current Visit: Yes Qualifiers: Peripheral neuropathy type: polyneuropathy, unspecified Qualified Code( s): G62.9 - Polyneuropathy, unspecified (7) Use of cane as ambulatory aid Current Visit: Yes Comment: x 2 years neuropathy related alcohol comsumption (8) Alcohol-induced anxiety disorder Current Visit: No (9) Alcohol-induced sleep disorder Current Visit: No (10) Neuropathy Current Visit: No Comment: neurontine 400 mg bid (11) Nicotine dependence Current Visit: No Qualifiers: Nicotine product type: cigarettes Substance use status: in withdrawal Qualified Code(s): F17.213 - Nicotine dependence, cigarettes, with withdrawal Comment: counseled cessation - not ready
== END 2016-11-04 11:35 | disposition home or self-care (01) | DRG 772 ==
LOC: YASAS 14:46 → Y5N 21:04
PROVIDERS: ADMIT Psychiatry & Neurology Psychiatry; ATTEND Psychiatry & Neurology Psychiatry
PROC: HZ42ZZZ Group Counseling for Substance Abuse Treatment, Cognitive-Behavioral (ICD-10-PCS; principal; 2016-11-04)
DX: F10.230 Alcohol dependence with withdrawal, uncomplicated (principal); F17.213 Nicotine dependence, cigarettes, with withdrawal; F10.24 Alcohol dependence with alcohol-induced mood disorder; F10.282 Alcohol dependence with alcohol-induced sleep disorder; B18.2 Chronic viral hepatitis C; K21.9 Gastro-esophageal reflux disease without esophagitis; G62.9 Polyneuropathy, unspecified; K74.60 Unspecified cirrhosis of liver; R26.89 Other abnormalities of gait and mobility; Z99.89 Dependence on other enabling machines and devices
CPT/HCPCS: 36415; 80053; 81003; 85027; 86593; 87389; 93005; 93010

== ENCOUNTER 2016-12-25 13:58 | Emergency (ER) | payer OTHER ==
[2016-12-25 14:27] VITALS: BMI 29.0
[2016-12-25 14:51] LABS: BASOPHIL 0.8 % (0-2.0); EOSINOPHIL 0.3 % (0-4.5); MCH 32.3 pg (25.7-33.7); MCHC 34.1 g/dl (32.0-35.9); MEAN CELL VOLUME 94.9 fl (80-96); MEAN PLT VOLUME 10.5 fl (7.5-11.1); NEUTROPHILS 54.4 % (42.8-82.8); PLATELET COUNT 165 K/MM3 (134-434); RDW 16.2 % (11.9-15.9); WHITE BLOOD COUNT 5.5 K/mm3 (4.0-10.0)
[2016-12-25 15:22] LABS: ALBUMIN 2.8 g/dl (3.4-5.0); ANION GAP 15 (8-16); BILIRUBIN,TOTAL 0.1 mg/dL (0.2-1.0); CALCIUM 8.4 mg/dL (8.5-10.1); CO2 31 mmol/L (21-32); CREATININE 0.8 mg/dL (0.7-1.3); GLUCOSE,RANDOM 107 mg/dL (74-106); SGOT/AST 136 U/L (15-37); SGPT/ALT 65 U/L (12-78); TOT PROT 6.2 g/dl (6.4-8.2)
[2016-12-25 15:25] LABS: ALK PHOS 155 U/L (45-117); CPK 88 IU/L (39-308); TROPONIN I 0.02 ng/ml (0.00-0.05)
[2016-12-25] MEDS ORDERED: KCL 10 MEQ IVPB 100 ML IVPB ONE ×3 (15:38→18:54)
[2016-12-25] MEDS ORDERED: POTASSIUM CHLORIDE TABS 10 MEQ TABLET.ER (FP) ONE (15:38)
[2016-12-25] MEDS ORDERED: POTASSIUM CHLORIDE ORAL LIQUID 20 MEQ/15 ML PO ONE (15:43)
[2016-12-25 15:44] LABS: URINE APPEARANCE CLEAR; URINE BILIRUBIN NEGATIVE (NEGATIVE); URINE BLOOD NEGATIVE (NEGATIVE); URINE COLOR COLORLESS; URINE GLUCOSE (UA) NEGATIVE (NEGATIVE); URINE KETONE NEGATIVE (NEGATIVE); URINE LEUK ESTERASE NEGATIVE (NEGATIVE); URINE NITRITE NEGATIVE (NEGATIVE); URINE PROTEIN NEGATIVE (NEGATIVE); URINE UROBILINOGEN NEGATIVE mg/dL (0.2-1.0)
[2016-12-25] MEDS: KCL 10 MEQ IVPB 100 ML IVPB SCH ×3 (15:49→19:07)
[2016-12-25] MEDS ORDERED: SODIUM CHLORIDE 1,000 ML IV STA (15:52)
--- NOTE | 2016-12-25 15:58 | PDOC ---
History of Present Illness - General History Source: Patient - History of Present Illness Presenting Symptoms: Chest Pain Beta Halina Contraindications (Core Measure): Yes: Not Prescribed <Susana Gonzales - Last Filed: 12/25/16 18:56> <Alfred Ramirez - Last Filed: 12/26/16 06:53> - General Chief Complaint: Chest Pain Stated Complaint: CHEST DISCOMFORT Time Seen by Provider: 12/25/16 14:02 Past History - Past Medical History Anemia: No Asthma: No Cancer: No Cardiac Disorders: No CVA: No COPD: No CHF: No Dementia: No Diabetes: No GI Disorders: No Disorders: No HTN: No Hypercholesterolemia: No Kidney Stones: No Liver Disease: Yes (Reports recently being diagnosed with hep. C and cirrhosis ) Suicide Attempt (Hx): No Seizures: No Thyroid Disease: No Other medical history: h/o alcohol abuse - Surgical History Abdominal Surgery: No Appendectomy: No Cardiac Surgery: No Cholecystectomy: No Lung Surgery: No Neurologic Surgery: No Orthopedic Surgery: Yes (right 5th digit tendon repair 11/14/14) - Reproductive History Testicular Surgery: No - Psycho/Social/Smoking Cessation Hx Anxiety: Yes Suicidal Ideation: No Smoking Status: Yes Smoking History: Current every day smoker Have you smoked in the past 12 months: Yes Number of Cigarettes Smoked Daily: 5 If you are a former smoker, when did you quit?: 1 months Cigars Per Day: 0 Information on smoking cessation initiated: No 'Breaking Loose' booklet given: 10/14/16 Hx Alcohol Use: Yes (drinks everyday) Drug/Substance Use Hx: No Substance Use Type: Alcohol (Started drinking alcohol at age 18, consumes 4-5x 25oz of wine coolers daily. Last drink on 10/14/16) Hx Substance Use Treatment: Yes (8 pevious inpt detox & 3 inpt rehab @ [facility]) <Susana Gonzales - Last Filed: 12/25/16 18:56> <Alfred Ramirez - Last Filed: 12/26/16 06:53> - Past Medical History Allergies/Adverse Reactions: Allergies Allergy/AdvReac Type Severity Reaction Status Date / Time No Known Allergies Allergy Verified 12/25/16 14:10 Home Medications: Ambulatory Orders Gabapentin [Neurontin -] 400 mg PO TID #90 tab 11/18/16 Cardiac Specific PMH - Complaint Specific PMHX Pacemaker: No <Susana Gonzales - Last Filed: 12/25/16 18:56> - Vital Signs Last Vital Signs Temp Pulse Resp BP Pulse Ox 98.5 F 66 19 128/70 99 12/26/16 05:31 12/26/16 05:31 12/26/16 05:31 12/26/16 05:31 12/26/16 05:31 Heart Score/ECG Review - History History: Slightly suspicious - Electrocardiogram EKG: Normal - Age Age: 45-65 - Risk Factors Based on the list above the patient has:: 1-2 risk factors - Troponin Troponin: </= normal limit - Score Heart Score - Total: 2 <Susana Gonzales - Last Filed: 12/25/16 18:56> ED Treatment Course - LABORATORY CBC & Chemistry Diagram: 12/25/16 14:44 12/25/16 14:44 <Susana Gonzales - Last Filed: 12/25/16 18:56> - LABORATORY CBC & Chemistry Diagram: 12/25/16 14:44 12/26/16 00:26 <Alfred Ramirez - Last Filed: 12/26/16 06:53> - ADDITIONAL ORDERS Additional order review: Laboratory Results 12/26/16 12/25/16 12/25/16 00:26 21:10 15:37 Sodium 138 130 L Potassium 3.1 L 2.8 L* D Chloride 94 L 88 L Carbon Dioxide 35 H 32 Anion Gap 9 10 BUN 5 L 6 L D Creatinine 0.9 0.9 Creat Clearance w eGFR > 60 > 60 Random Glucose 89 92 Calcium 7.7 L 7.9 L Total Bilirubin 0.7 D 0.2 D AST 148 H 155 H ALT 66 65 Alkaline Phosphatase 166 H 153 H Total Protein 5.8 L 6.0 L Albumin 2.8 L 2.8 L Urine Color Colorless Urine Appearance Clear Urine pH 6.0 Ur Specific Ruston <= 1.005 Urine Protein Negative Urine Glucose (UA) Negative Urine Ketones Negative Urine Blood Negative Urine Nitrite Negative Urine Bilirubin Negative Urine Urobilinogen Negative Ur Leukocyte Esterase Negative 12/25/16 14:44 RBC 3.33 L MCV 94.9 MCHC 34.1 RDW 16.2 H MPV 10.5 Neutrophils % 54.4 Lymphocytes % 26.3 D Monocytes % 18.2 H Eosinophils % 0.3 D Basophils % 0.8 - Medications Given in the ED: ED Medications Discontinued Medications Generic Name Dose Route Start Last Admin Trade Name Singh PRN Reason Stop Dose Admin Gabapentin 400 mg 12/25/16 18:57 12/25/16 19:07 Neurontin - PO 12/25/16 18:58 400 mg ONCE ONE Administration Potassium Chloride 100 mls @ 100 mls/hr 12/25/16 15:45 12/25/16 19:07 Potassium Chloride 10 Meq Premix Ivpb - IVPB 12/25/16 18:44 100 mls/hr Q60M POLO Administration Sodium Chloride 1,000 mls @ 1,000 mls/hr 12/25/16 15:52 12/25/16 17:36 Normal Saline - IV 12/25/16 16:51 1,000 mls/hr ASDIR STA Administration Potassium Chloride 40 meq 12/25/16 15:43 12/25/16 15:49 Potassium Chloride Oral Liquid PO 12/25/16 15:44 40 meq ONCE ONE Administration Potassium Chloride 20 meq 12/25/16 22:14 12/25/16 22:44 Potassium Chloride 20 Meq Premix Ivpb - IVPB 12/25/16 22:15 20 meq ONCE ONE Administration Potassium Chloride 40 meq 12/26/16 02:17 12/26/16 02:27 K-Dur - PO 12/26/16 02:18 40 meq ONCE ONE Administration Medical Decision Making <Susana Gonzales - Last Filed: 12/25/16 18:56> <Alfred Ramirez - Last Filed: 12/26/16 06:53> - Medical Decision Making 12/25/16 15:53 61-year-old male history of alcohol abuse, hep C cirrhosis, GERD, presenting with chest pain. Patient reports diffuse chest pain x several days that feels like "regular pain" as per patient, unable to tell me intensity w/ no exacerbating or alleviating factors. Denies shortness of breath, diaphoresis, nausea, vomiting, palpitations, leg pain or swelling. Admits he has had similar pain in the past that usually self resolves. No known history of CAD, MT or CVA. No recent cardiac workup as per patient. Admits that he continues to drink alcohol and requesting detox today See exam CP Recurrent Poor story for ACS, less likely PE, dissection or PNA -ekg -cxr -labs -anticipate discha 12/25/16 16:15 12/25/16 16:15 Low heart score so most likely will not need admission. K currently being repleted, will rpt labs after. Regarding detox, patient has been admitted to 2 [facility] within the last 3 months, so facility will be unable to accept patient at this time. Patient aware. Upon discharge, will give list of detox facilities for patient to follow up with 12/25/16 18:56 Pt signed out to SANJIV Ramirez pending potassium repletion and rpt K. (Alexis Gonzales) *DC/Admit/Observation/Transfer <Susana Gonzales - Last Filed: 12/25/16 18:56> - Discharge Dispostion Admit: No <Alfred Ramirez - Last Filed: 12/26/16 06:53> Diagnosis at time of Disposition: Hypokalemia Alcohol dependence Qualifiers: Substance use status: unspecified alcohol-induced disorder Qualified Code(s): F10.29 - Alcohol dependence with unspecified alcohol-induced disorder - Discharge Dispostion Disposition: HOME Condition at time of disposition: Improved - Patient Instructions Printed Discharge Instructions: DI for Hypokalemia, DI for Alcohol Abuse Additional Instructions: Follow up with local shelters for placement. Stop drinking. Try entering rehab for alcoholism. Return if any concerns for further evaluation. Print Language: CAPE VERDEAN
[2016-12-25] MEDS ORDERED: GABAPENTIN 400 MG CAPSULE (FP) PO ONE (18:57)
[2016-12-25] MEDS ORDERED: GABAPENTIN 100 MG CAPSULE (FP) ONE (18:58)
[2016-12-25 21:46] LABS: ALBUMIN 2.8 g/dl (3.4-5.0); ANION GAP 10 (8-16); BILIRUBIN,TOTAL 0.2 mg/dL (0.2-1.0); CALCIUM 7.9 mg/dL (8.5-10.1); CO2 32 mmol/L (21-32); CREATININE 0.9 mg/dL (0.7-1.3); GLUCOSE,RANDOM 92 mg/dL (74-106); SGOT/AST 155 U/L (15-37); SGPT/ALT 65 U/L (12-78)
[2016-12-25 21:47] LABS: ALK PHOS 153 U/L (45-117)
[2016-12-25] MEDS ORDERED: POTASSIUM CHLORIDE 20 MEQ PREMIX IVPB 100 ML IVPB ONE (22:14)
[2016-12-26 00:54] LABS: ALBUMIN 2.8 g/dl (3.4-5.0); ANION GAP 9 (8-16); CALCIUM 7.7 mg/dL (8.5-10.1); CO2 35 mmol/L (21-32); CREATININE 0.9 mg/dL (0.7-1.3); GLUCOSE,RANDOM 89 mg/dL (74-106); SGOT/AST 148 U/L (15-37); SGPT/ALT 66 U/L (12-78)
[2016-12-26 00:56] LABS: ALK PHOS 166 U/L (45-117); BILIRUBIN,TOTAL 0.7 mg/dL (0.2-1.0); TOT PROT 5.8 g/dl (6.4-8.2)
[2016-12-26] MEDS ORDERED: POTASSIUM CHLORIDE TABS 20 MEQ TABLET.ER (FP) PO ONE ×2 (02:17→02:21)
[2016-12-26 05:32] VITALS: TEMP 98.5
[2016-12-26 07:21] VITALS: BP 128/76; PULSE 62
--- NOTE | 2016-12-26 17:54 | EKG ---
Test Reason : Blood Pressure : / mmHG Vent. Rate : 087 BPM Atrial Rate : 087 BPM P-R Int : 218 ms QRS Dur : 092 ms QT Int : 360 ms P-R-T Axes : 021 000 033 degrees QTc Int : 433 ms SINUS RHYTHM WITH 1ST DEGREE A-V BLOCK PROLONGATION OF QTc INTERVAL WHEN COMPARED WITH ECG OF 14-OCT-2016 22:56, OR INTERVAL HAS INCREASED CORELATE CLINICALLY Confirmed by MESERET NICHOLAS MD ([id number]) on 12/26/2016 5:53:48 PM Referred By: Confirmed By:MESERET NICHOLAS MD
== END 2016-12-26 07:17 | disposition home or self-care (01) ==
LOC: JER 13:58
PROC: 3E0337Z Introduction of Electrolytic and Water Balance Substance into Peripheral Vein, Percutaneous Approach (ICD-10-PCS; principal; 2016-12-25)
PROC: 3E0337Z Introduction of Electrolytic and Water Balance Substance into Peripheral Vein, Percutaneous Approach (ICD-10-PCS; 2016-12-25)
DX: R07.89 Other chest pain (principal); E87.6 Hypokalemia; F10.29 Alcohol dependence with unspecified alcohol-induced disorder; K74.69 Other cirrhosis of liver; B18.2 Chronic viral hepatitis C
CPT/HCPCS: 36415; 71010-TC; 80053; 81003; 83880; 84484; 85025; 93005; 93010; 96361; 96365; 96375; 99285-25

== ENCOUNTER 2017-01-02 16:22 | Emergency (ER) | payer OTHER ==
[2017-01-02 16:41] VITALS: BMI 29.0
--- NOTE | 2017-01-02 17:03 | PDOC ---
History of Present Illness <Jayce Morales - Last Filed: 01/02/17 17:02> - General History Source: Patient Exam Limitations: No Limitations - History of Present Illness Initial Comments: 01/02/17 17:44 The patient is a 61 year old male, with a significant past medical history of Hepatitis C, Liver Cirrhosis, who presents to the emergency department with alcohol intoxication. Patient requests alcohol detox and states he is homeless for the past week. Patient reports leg pain secondary to his neuropathy. Patients presents to the ED for further evaluation. He denies chest pain, headache or dizziness. He denies fever, chills, abdominal pain, nausea, vomit, diarrhea or constipation. He denies dysuria, frequency, urgency or hematuria. Allergies: NKA Past surgical history: No Social history: Alcohol abuse. Current everyday smoker PCP: None <Afshan Hargrove - Last Filed: 01/02/17 18:24> - General Chief Complaint: Alcohol intoxication Stated Complaint: ALCOHOL INTOXICATION Time Seen by Provider: 01/02/17 17:02 Past History - Past Medical History Anemia: No Asthma: No Cancer: No Cardiac Disorders: No CVA: No COPD: No CHF: No Dementia: No Diabetes: No GI Disorders: No Disorders: No HTN: No Hypercholesterolemia: No Kidney Stones: No Liver Disease: Yes (Reports recently being diagnosed with hep. C and cirrhosis ) Suicide Attempt (Hx): No Seizures: No Thyroid Disease: No - Surgical History Abdominal Surgery: No Appendectomy: No Cardiac Surgery: No Cholecystectomy: No Lung Surgery: No Neurologic Surgery: No Orthopedic Surgery: Yes (right 5th digit tendon repair 11/14/14) - Reproductive History Testicular Surgery: No - Psycho/Social/Smoking Cessation Hx Anxiety: Yes Suicidal Ideation: No Smoking Status: Yes Smoking History: Current every day smoker Have you smoked in the past 12 months: Yes Number of Cigarettes Smoked Daily: 5 If you are a former smoker, when did you quit?: 1 months Cigars Per Day: 0 Information on smoking cessation initiated: No 'Breaking Loose' booklet given: 10/14/16 Hx Alcohol Use: Yes (:"10 BEERS A DAY") Drug/Substance Use Hx: No Substance Use Type: Alcohol Hx Substance Use Treatment: Yes (8 pevious inpt detox & 3 inpt rehab @ [facility]) <Jayce Morales - Last Filed: 01/02/17 17:02> <DelvinAfshan - Last Filed: 01/02/17 18:24> - Past Medical History Allergies/Adverse Reactions: Allergies Allergy/AdvReac Type Severity Reaction Status Date / Time No Known Allergies Allergy Verified 12/25/16 14:10 Home Medications: Ambulatory Orders Gabapentin [Neurontin -] 400 mg PO TID #90 tab 11/18/16 Review of Systems - Review of Systems Able to Perform ROS?: Yes Comments:: 01/02/17 17:44 GENERAL/CONSTITUTIONAL: No fever or chills. No weakness. HEAD, EYES, EARS, NOSE AND THROAT: No change in vision. No ear pain or discharge. No sore throat. CARDIOVASCULAR: No chest pain or shortness of breath. RESPIRATORY: No cough, wheezing, or hemoptysis. GASTROINTESTINAL: No nausea, vomiting, diarrhea or constipation. GENITOURINARY: No dysuria, frequency, or change in urination. MUSCULOSKELETAL: No joint or muscle swelling or pain. No neck or back pain. SKIN: No rash NEUROLOGIC: No headache, vertigo, loss of consciousness, or change in strength/ sensation. ENDOCRINE: No increased thirst. No abnormal weight change. HEMATOLOGIC/LYMPHATIC: No anemia, easy bleeding, or history of blood clots. ALLERGIC/IMMUNOLOGIC: No hives or skin allergy. <Afshan Hargrove - Last Filed: 01/02/17 18:24> *Physical Exam - Vital Signs Last Vital Signs Temp Pulse Resp BP Pulse Ox 97.8 F 109 H 17 111/70 95 01/02/17 16:36 01/02/17 16:36 01/02/17 16:36 01/02/17 16:36 01/02/17 16:36 <Jayce Morales - Last Filed: 01/02/17 17:02> - Vital Signs Last Vital Signs Temp Pulse Resp BP Pulse Ox 97.8 F 109 H 17 111/70 95 01/02/17 16:36 01/02/17 16:36 01/02/17 16:36 01/02/17 16:36 01/02/17 16:36 - Physical Exam Comments: 01/02/17 17:44 GENERAL: Awake, alert, and fully oriented, in no acute distress. HEAD: No signs of trauma EYES: PERRLA, EOMI, sclera anicteric, conjunctiva clear ENT: Auricles normal inspection, hearing grossly normal, nares patent, oropharynx clear without exudates. Moist mucosa. +Alcohol on breath. NECK: Normal ROM, supple, no lymphadenopathy, JVD, or masses LUNGS: Breath sounds equal, clear to auscultation bilaterally. No wheezes, and no crackles HEART: Regular rate and rhythm, normal S1 and S2, no murmurs, rubs or gallops ABDOMEN: Soft, nontender, normoactive bowel sounds. No guarding, no rebound. No masses EXTREMITIES: Normal range of motion, no edema. No clubbing or cyanosis. No cords, erythema, or tenderness NEUROLOGICAL: Cranial nerves II through XII grossly intact. Normal speech, normal gait SKIN: Warm, Dry, normal turgor, no rashes or lesions noted <Afshan Hargrove - Last Filed: 01/02/17 18:24> ED Treatment Course - LABORATORY CBC & Chemistry Diagram: 01/02/17 17:45 01/02/17 17:45 <Afshan Hargrove - Last Filed: 01/02/17 18:24> Medical Decision Making - Medical Decision Making 01/02/17 18:20 Not forthcoming about why he is here. Homeless Wants detox. <Afshan Hargrove - Last Filed: 01/02/17 18:24> *DC/Admit/Observation/Transfer - Attestations Physician Attestion: 01/02/17 17:02 I, Dr. Jayce Morales, attest that this document has been prepared under my direction and personally reviewed by me in its entirety. I further attest, that it accurately reflects all work, treatment, procedures and medical decision -making performed by me. <Jayce Morales - Last Filed: 01/02/17 17:02> - Attestations Scribe Attestion: 01/02/17 17:44 Documentation prepared by Afshan Hargrove, acting as medical center director for Jayce Morales MD <Afshan Hargrove - Last Filed: 01/02/17 18:24>
[2017-01-02 17:56] LABS: EOSINOPHIL 0.1 % (0-4.5); MCH 31.8 pg (25.7-33.7); MCHC 33.3 g/dl (32.0-35.9); MEAN CELL VOLUME 95.4 fl (80-96); MEAN PLT VOLUME 9.8 fl (7.5-11.1); NEUTROPHILS 45.1 % (42.8-82.8); PLATELET COUNT 172 K/MM3 (134-434); RDW 16.5 % (11.9-15.9)
[2017-01-02 18:23] LABS: ALBUMIN 3.1 g/dl (3.4-5.0); ANION GAP 14 (8-16); BILIRUBIN,TOTAL 0.3 mg/dL (0.2-1.0); CALCIUM 8.4 mg/dL (8.5-10.1); CO2 25 mmol/L (21-32); GLUCOSE,RANDOM 121 mg/dL (74-106); SGOT/AST 62 U/L (15-37); SGPT/ALT 42 U/L (12-78); TOT PROT 6.7 g/dl (6.4-8.2)
[2017-01-02 18:24] LABS: ALK PHOS 145 U/L (45-117)
[2017-01-02 18:32] LABS: BILIRUBIN,DIRECT 0.2 mg/dL (0.0-0.2)
[2017-01-02] MEDS ORDERED: POTASSIUM CHLORIDE TABS 20 MEQ TABLET.ER (FP) PO ONE ×2 (18:32→18:46)
[2017-01-02] MEDS ORDERED: FOLIC ACID INJECTION - 1 MG, THIAMINE HCL 100 MG, MULTIVIT INJECTION ADULT 10 ML in SOD... IVPB ONE (18:34)
[2017-01-02 22:14] LABS: URINE APPEARANCE CLEAR; URINE BILIRUBIN NEGATIVE (NEGATIVE); URINE BLOOD NEGATIVE (NEGATIVE); URINE COLOR LTYELLOW; URINE GLUCOSE (UA) NEGATIVE (NEGATIVE); URINE KETONE NEGATIVE (NEGATIVE); URINE LEUK ESTERASE NEGATIVE (NEGATIVE); URINE NITRITE NEGATIVE (NEGATIVE); URINE UROBILINOGEN NEGATIVE mg/dL (0.2-1.0)
[2017-01-02 22:18] LABS: URINE PROTEIN 1+ (NEGATIVE)
[2017-01-02 22:20] LABS: URINE MUCUS RARE; URINE WBC <1 /hpf (3-5)
[2017-01-02 22:23] LABS: URINE MARIJUANA THC NEGATIVE ng/ml (CUTOFF=50)
[2017-01-03 03:20] VITALS: TEMP 98.3
[2017-01-03] MEDS ORDERED: POTASSIUM CHLORIDE ORAL LIQUID 20 MEQ/15 ML PO ONE (04:03)
[2017-01-03] MEDS ORDERED: POTASSIUM CHLORIDE ORAL LIQUID 20 MEQ/15 ML ONE (06:01)
--- NOTE | 2017-01-03 06:22 | PDOC ---
*Physical Exam - Vital Signs Last Vital Signs Temp Pulse Resp BP Pulse Ox 98.3 F 66 16 104/66 94 L 01/03/17 03:19 01/03/17 03:19 01/03/17 03:19 01/03/17 03:19 01/03/17 03:19 <Jay Smith - Last Filed: 01/03/17 06:19> - Vital Signs Last Vital Signs Temp Pulse Resp BP Pulse Ox 98.3 F 66 16 104/66 94 L 01/03/17 03:19 01/03/17 03:19 01/03/17 03:19 01/03/17 03:19 01/03/17 03:19 <Farhat Epps - Last Filed: 01/03/17 07:09> Heart Score/ECG Review #1 01/03/17 07:08 Sinus tachycardia at rate of 102 Normal axis QT interval decreased from 507 to 487 TV inversion from v2-v6 that are stable compared to ECG from earlier tonight No ST elevations Reported by: Dr. Smith <Farhat Epps - Last Filed: 01/03/17 07:09> ED Treatment Course - LABORATORY CBC & Chemistry Diagram: 01/02/17 17:45 01/02/17 17:45 - ADDITIONAL ORDERS Additional order review: Laboratory Results 01/02/17 01/02/17 01/02/17 21:50 21:50 17:45 Sodium Potassium Chloride Carbon Dioxide Anion Gap BUN Creatinine Creat Clearance w eGFR Random Glucose Calcium Total Bilirubin Cancelled Direct Bilirubin Cancelled AST Cancelled ALT Cancelled Alkaline Phosphatase Cancelled Total Protein Cancelled Albumin Cancelled Urine Color Ltyellow Urine Appearance Clear Urine pH 6.0 Urine Protein 1+ H Urine Glucose (UA) Negative Urine Ketones Negative Urine Blood Negative Urine Nitrite Negative Urine Bilirubin Negative Urine Urobilinogen Negative Ur Leukocyte Esterase Negative Urine RBC None Urine WBC <1 Urine Mucus Rare Opiates Screen Negative Methadone Screen Negative Barbiturate Screen Negative Phencyclidine Screen Negative Ur Amphetamines Screen Negative MDMA (Ecstasy) Screen Negative Benzodiazepines Screen Negative Cocaine Screen Negative U Marijuana (THC) Screen Negative Alcohol, Quantitative 01/02/17 01/02/17 17:45 17:45 Sodium 131 L Potassium 2.4 L* D Chloride 92 L Carbon Dioxide 25 D Anion Gap 14 BUN 7 D Creatinine 1.0 Creat Clearance w eGFR > 60 Random Glucose 121 H D Calcium 8.4 L Total Bilirubin 0.3 D Direct Bilirubin 0.2 AST 62 H D ALT 42 D Alkaline Phosphatase 145 H Total Protein 6.7 Albumin 3.1 L Urine Color Urine Appearance Urine pH Urine Protein Urine Glucose (UA) Urine Ketones Urine Blood Urine Nitrite Urine Bilirubin Urine Urobilinogen Ur Leukocyte Esterase Urine RBC Urine WBC Urine Mucus Opiates Screen Methadone Screen Barbiturate Screen Phencyclidine Screen Ur Amphetamines Screen MDMA (Ecstasy) Screen Benzodiazepines Screen Cocaine Screen U Marijuana (THC) Screen Alcohol, Quantitative 364.5 H* 01/02/17 17:45 RBC 3.61 L MCV 95.4 MCHC 33.3 RDW 16.5 H MPV 9.8 Neutrophils % 45.1 Lymphocytes % 42.6 H D Monocytes % 11.2 H Eosinophils % 0.1 Basophils % 1.0 - Medications Given in the ED: ED Medications Discontinued Medications Generic Name Dose Route Start Last Admin Trade Name Freq PRN Reason Stop Dose Admin Folic Acid 1 mg/ Thiamine HCl 1,000 mls @ 125 mls/hr 01/02/17 18:34 01/02/17 18 :55 100 mg/ Multivitamins/Minerals IVPB 01/03/17 02:33 125 mls/hr 10 ml/ Sodium Chloride ONCE ONE Administration Potassium Chloride 40 meq 01/02/17 18:32 01/02/17 18:49 K-Dur - PO 01/02/17 18:33 40 meq ONCE ONE Administration Potassium Chloride 40 meq 01/03/17 04:03 01/03/17 05:00 Potassium Chloride Oral Liquid PO 01/03/17 04:04 40 meq ONCE ONE Administration <Nassef,Yoroseya - Last Filed: 01/03/17 06:19> - LABORATORY CBC & Chemistry Diagram: 01/02/17 17:45 01/02/17 17:45 - ADDITIONAL ORDERS Additional order review: Laboratory Results 01/02/17 01/02/17 21:50 21:50 Urine Color Ltyellow Urine Appearance Clear Urine pH 6.0 Urine Protein 1+ H Urine Glucose (UA) Negative Urine Ketones Negative Urine Blood Negative Urine Nitrite Negative Urine Bilirubin Negative Urine Urobilinogen Negative Ur Leukocyte Esterase Negative Urine RBC None Urine WBC <1 Urine Mucus Rare Opiates Screen Negative Methadone Screen Negative Barbiturate Screen Negative Phencyclidine Screen Negative Ur Amphetamines Screen Negative MDMA (Ecstasy) Screen Negative Benzodiazepines Screen Negative Cocaine Screen Negative U Marijuana (THC) Screen Negative 01/02/17 17:45 RBC 3.61 L MCV 95.4 MCHC 33.3 RDW 16.5 H MPV 9.8 Neutrophils % 45.1 Lymphocytes % 42.6 H D Monocytes % 11.2 H Eosinophils % 0.1 Basophils % 1.0 - Medications Given in the ED: ED Medications Discontinued Medications Generic Name Dose Route Start Last Admin Trade Name Singh PRN Reason Stop Dose Admin Folic Acid 1 mg/ Thiamine HCl 1,000 mls @ 125 mls/hr 01/02/17 18:34 01/02/17 18 :55 100 mg/ Multivitamins/Minerals IVPB 01/03/17 02:33 125 mls/hr 10 ml/ Sodium Chloride ONCE ONE Administration Potassium Chloride 40 meq 01/02/17 18:32 01/02/17 18:49 K-Dur - PO 01/02/17 18:33 40 meq ONCE ONE Administration Potassium Chloride 40 meq 01/03/17 04:03 01/03/17 05:00 Potassium Chloride Oral Liquid PO 01/03/17 04:04 40 meq ONCE ONE Administration <Farhat Epps - Last Filed: 01/03/17 07:09> Medical Decision Making - Medical Decision Making 01/03/17 06:[address] Morales as etoh intoxication, found to be hypokalemic to 2.4 and repleted with PO KCl and also given banana bag. On my assessment, pt reports he has no where to go, is homeless, and requesting to speak with a caseworker protective services. He is currently clinically sober. Will observe until he can be see a caseworker protective services in the morning. <Jay Smith - Last Filed: 01/03/17 06:19>
--- NOTE | 2017-01-03 07:45 | PDOC ---
*Physical Exam - Vital Signs Last Vital Signs Temp Pulse Resp BP Pulse Ox 98.3 F 66 16 104/66 94 L 01/03/17 03:19 01/03/17 03:19 01/03/17 03:19 01/03/17 03:19 01/03/17 03:19 ED Treatment Course - LABORATORY CBC & Chemistry Diagram: 01/02/17 17:45 01/02/17 17:45 - ADDITIONAL ORDERS Additional order review: Laboratory Results 01/02/17 01/02/17 21:50 21:50 Urine Color Ltyellow Urine Appearance Clear Urine pH 6.0 Urine Protein 1+ H Urine Glucose (UA) Negative Urine Ketones Negative Urine Blood Negative Urine Nitrite Negative Urine Bilirubin Negative Urine Urobilinogen Negative Ur Leukocyte Esterase Negative Urine RBC None Urine WBC <1 Urine Mucus Rare Opiates Screen Negative Methadone Screen Negative Barbiturate Screen Negative Phencyclidine Screen Negative Ur Amphetamines Screen Negative MDMA (Ecstasy) Screen Negative Benzodiazepines Screen Negative Cocaine Screen Negative U Marijuana (THC) Screen Negative 01/02/17 17:45 RBC 3.61 L MCV 95.4 MCHC 33.3 RDW 16.5 H MPV 9.8 Neutrophils % 45.1 Lymphocytes % 42.6 H D Monocytes % 11.2 H Eosinophils % 0.1 Basophils % 1.0 - Medications Given in the ED: ED Medications Discontinued Medications Generic Name Dose Route Start Last Admin Trade Name Singh PRN Reason Stop Dose Admin Folic Acid 1 mg/ Thiamine HCl 1,000 mls @ 125 mls/hr 01/02/17 18:34 01/02/17 18 :55 100 mg/ Multivitamins/Minerals IVPB 01/03/17 02:33 125 mls/hr 10 ml/ Sodium Chloride ONCE ONE Administration Potassium Chloride 40 meq 01/02/17 18:32 01/02/17 18:49 K-Dur - PO 01/02/17 18:33 40 meq ONCE ONE Administration Potassium Chloride 40 meq 01/03/17 04:03 01/03/17 05:00 Potassium Chloride Oral Liquid PO 01/03/17 04:04 40 meq ONCE ONE Administration Medical Decision Making - Medical Decision Making 01/03/17 07:45 Pt received at 7am signout. Pending case management for dispo. 01/03/17 08:16 Patient with tremors in the hands, will give valium and librium. He initially refused to leave ED, was requesting detox, but then refused detox. He was given senior living information by case management. *DC/Admit/Observation/Transfer Diagnosis at time of Disposition: Alcohol intoxication Qualifiers: Complication of substance-induced condition: uncomplicated Qualified Code(s): F10.920 - Alcohol use, unspecified with intoxication, uncomplicated - Discharge Dispostion Disposition: HOME Condition at time of disposition: Stable Admit: No - Patient Instructions Printed Discharge Instructions: DI for Alcohol Abuse
[2017-01-03] MEDS ORDERED: chlordiazePOXIDE HCL 25 MG CAPSULE PO ONE (08:11)
[2017-01-03] MEDS ORDERED: diazePAM 5 MG TABLET PO ONE (08:13)
[2017-01-03] MEDS ORDERED: diazePAM 5 MG TABLET ONE (08:16)
[2017-01-03] MEDS ORDERED: chlordiazePOXIDE HCL 25 MG CAPSULE ONE (08:16)
[2017-01-03 08:27] VITALS: BP 137/73; PULSE 115
--- NOTE | 2017-01-03 13:34 | EKG ---
Test Reason : Blood Pressure : / mmHG Vent. Rate : 102 BPM Atrial Rate : 102 BPM P-R Int : 192 ms QRS Dur : 080 ms QT Int : 374 ms P-R-T Axes : 062 071 090 degrees QTc Int : 487 ms SINUS TACHYCARDIA ANTERIOR INFARCT , AGE UNDETERMINED T WAVE ABNORMALITY, CONSIDER LATERAL ISCHEMIA ABNORMAL ECG WHEN COMPARED WITH ECG OF 02-JAN-2017 18:55, T WAVE VARIATION Confirmed by KELSEY BUCIO MD ([id number]) on 01/03/2017 1:34:15 PM Referred By: Confirmed By:KELSEY BUCIO MD
--- NOTE | 2017-01-03 13:37 | EKG ---
Test Reason : Blood Pressure : / mmHG Vent. Rate : 104 BPM Atrial Rate : 104 BPM P-R Int : 000 ms QRS Dur : 096 ms QT Int : 386 ms P-R-T Axes : 002 053 086 degrees QTc Int : 507 ms SINUS TACHYCARDIA POSSIBLE INFERIOR INFARCT , AGE UNDETERMINED ABNORMAL ECG WHEN COMPARED WITH ECG OF 25-DEC-2016 14:13, SD INTERVAL HAS DECREASED QT HAS LENGTHENED T WAVE VARIATION Confirmed by KELSEY BUCIO MD ([id number]) on 01/03/2017 1:36:53 PM Referred By: Confirmed By:KELSEY BUCIO MD
== END 2017-01-03 08:30 | disposition home or self-care (01) ==
LOC: JER 16:22
PROC: 3E033GC Introduction of Other Therapeutic Substance into Peripheral Vein, Percutaneous Approach (ICD-10-PCS; principal; 2017-01-02)
DX: F10.120 Alcohol abuse with intoxication, uncomplicated (principal)
CPT/HCPCS: 36415; 80053; 80307; 81003; 81015; 82140; 82248; 85025; 93005; 93010; 96365; 99284-25

== ENCOUNTER 2017-01-10 16:20 | Emergency (ER) | payer OTHER ==
[2017-01-10 16:37] VITALS: BP 112/74; PULSE 89; TEMP 98; BMI 29.8
--- NOTE | 2017-01-10 16:38 | PDOC ---
History of Present Illness - General History Source: Patient Exam Limitations: No Limitations - History of Present Illness Initial Comments: The patient is a 61 yo M with a PMHx of Hep C and ETOH abuse who presents with c /o generalized weakness. The patient states he wants to go to detox. The patient states he has lessened his drinking. He reports he only drinks wine coolers and not hard liquor. The patient states his last drink was after noon today. The patient denies nausea, vomiting, diarrhea and abdominal pain. <Kyra Chandler - Last Filed: 01/10/17 19:44> <Jayce Morales - Last Filed: 01/10/17 20:55> - General Chief Complaint: Alcohol intoxication Stated Complaint: INTOX Time Seen by Provider: 01/10/17 16:37 Past History <Kyra Chandler - Last Filed: 01/10/17 19:44> - Past Medical History Anemia: No Asthma: No Cancer: No Cardiac Disorders: No CVA: No COPD: No CHF: No Dementia: No Diabetes: No GI Disorders: No Disorders: No HTN: No Hypercholesterolemia: No Kidney Stones: No Liver Disease: Yes (Reports recently being diagnosed with hep. C and cirrhosis ) Suicide Attempt (Hx): No Seizures: No Thyroid Disease: No Other medical history: alcoholism - Surgical History Abdominal Surgery: No Appendectomy: No Cardiac Surgery: No Cholecystectomy: No Lung Surgery: No Neurologic Surgery: No Orthopedic Surgery: Yes (right 5th digit tendon repair 11/14/14) - Reproductive History Testicular Surgery: No - Psycho/Social/Smoking Cessation Hx Anxiety: Yes Suicidal Ideation: No Smoking Status: Yes Smoking History: Current every day smoker Have you smoked in the past 12 months: Yes Number of Cigarettes Smoked Daily: 5 If you are a former smoker, when did you quit?: 1 months Cigars Per Day: 0 Information on smoking cessation initiated: No 'Breaking Loose' booklet given: 10/14/16 Hx Alcohol Use: Yes Drug/Substance Use Hx: No Substance Use Type: Alcohol Hx Substance Use Treatment: Yes (8 pevious inpt detox & 3 inpt rehab @ [facility]) <Jayce Morales - Last Filed: 01/10/17 20:55> - Past Medical History Allergies/Adverse Reactions: Allergies Allergy/AdvReac Type Severity Reaction Status Date / Time No Known Allergies Allergy Verified 01/10/17 16:37 Home Medications: Ambulatory Orders Gabapentin [Neurontin -] 400 mg PO BID 01/10/17 Review of Systems - Review of Systems Able to Perform ROS?: Yes Comments:: GENERAL/CONSTITUTIONAL: +generalized weakness No fever or chills. HEAD, EYES, EARS, NOSE AND THROAT: No change in vision. No ear pain or discharge. No sore throat. CARDIOVASCULAR: No chest pain or shortness of breath. RESPIRATORY: No cough, wheezing, or hemoptysis. GASTROINTESTINAL: No nausea, vomiting, diarrhea or constipation. GENITOURINARY: No dysuria, frequency, or change in urination. MUSCULOSKELETAL: No joint or muscle swelling or pain. No neck or back pain. SKIN: No rash NEUROLOGIC: No headache, vertigo, loss of consciousness, or change in strength/ sensation. ENDOCRINE: No increased thirst. No abnormal weight change. HEMATOLOGIC/LYMPHATIC: No anemia, easy bleeding, or history of blood clots. ALLERGIC/IMMUNOLOGIC: No hives or skin allergy. <Kyra Chandler - Last Filed: 01/10/17 19:44> *Physical Exam - Vital Signs Last Vital Signs Temp Pulse Resp BP Pulse Ox 98.0 F 89 18 112/74 100 01/10/17 16:20 01/10/17 16:20 01/10/17 16:20 01/10/17 16:20 01/10/17 16:20 - Physical Exam Comments: GENERAL: Awake, alert, and fully oriented. Not traumulus, speech is not slurred , admits to being homeless living at a assisted, last drink was after noon today. HEAD: No signs of trauma EYES: PERRLA, EOMI, sclera anicteric, conjunctiva clear ENT: Auricles normal inspection, hearing grossly normal, nares patent, oropharynx clear without exudates. Moist mucosa NECK: Normal ROM, supple, no lymphadenopathy, JVD, or masses LUNGS: Breath sounds equal, clear to auscultation bilaterally. No wheezes, and no crackles HEART: Regular rate and rhythm, normal S1 and S2, no murmurs, rubs or gallops ABDOMEN: Soft, nontender, normoactive bowel sounds. No guarding, no rebound. No masses EXTREMITIES: Normal range of motion, no edema. No clubbing or cyanosis. No cords, erythema, or tenderness NEUROLOGICAL: Cranial nerves II through XII grossly intact. Normal speech, gait not assessed SKIN: Warm, Dry, normal turgor, no rashes or lesions noted. <Kyra Chandler - Last Filed: 01/10/17 19:44> - Vital Signs Last Vital Signs Temp Pulse Resp BP Pulse Ox 98.0 F 89 18 112/74 100 01/10/17 16:20 01/10/17 16:20 01/10/17 16:20 01/10/17 16:20 01/10/17 16:20 <Jayce Morales - Last Filed: 01/10/17 20:55> Heart Score/ECG Review #1 NSR @ 96 bpm. Nonspecific T wave abnormality. <ShadjoseKyra decker - Last Filed: 01/10/17 19:44> ED Treatment Course - LABORATORY CBC & Chemistry Diagram: 01/10/17 17:00 01/10/17 17:00 <ShadlydiaKyra - Last Filed: 01/10/17 19:44> - LABORATORY CBC & Chemistry Diagram: 01/10/17 17:00 01/10/17 17:00 <Jayce Morales - Last Filed: 01/10/17 20:55> Medical Decision Making - Medical Decision Making Will obtain labs. Will call [facility]. Will reassess. <Kyra Chandler - Last Filed: 01/10/17 19:44> - Medical Decision Making 01/10/17 20:49 Patient was here a week ago and although we worked very hard to get detox for him...... in the end he refused to go. Today he presents with the same complaints...... His exam is unchanged, he is not tremulous and/or anxious. He ate well here and his potassium was once again very low. I worked to supplement his potassium orally along with multivitamins, thiamine and folic acid. We were waiting to redraw his potassium so that we could once again try to get detox for him and he eloped with his suitcase. He did tell me that he was living in the assisted and he felt safe there. <Jayce Morales - Last Filed: 01/10/17 20:55> *DC/Admit/Observation/Transfer - Attestations Scribe Attestion: Documentation prepared by Kyra Chandler, acting as medical equipment technician for Jayce Morales MD/DO. <Kyra Chandler - Last Filed: 01/10/17 19:44> - Attestations Physician Attestion: 01/10/17 16:37 I, Dr. Jayce Morales, attest that this document has been prepared under my direction and personally reviewed by me in its entirety. I further attest, that it accurately reflects all work, treatment, procedures and medical decision -making performed by me. <Jayce Morales - Last Filed: 01/10/17 20:55> Diagnosis at time of Disposition: Patient left before treatment completed, Alcoholism, Hypokalemia Cirrhosis of liver Qualifiers: Hepatic cirrhosis type: alcoholic cirrhosis Ascites presence: without ascites Qualified Code(s): K70.30 - Alcoholic cirrhosis of liver without ascites Hepatitis C Qualifiers: Viral hepatitis chronicity: chronic Hepatic coma status: without hepatic coma Qualified Code(s): B18.2 - Chronic viral hepatitis C - Discharge Dispostion Disposition: ELOPED Condition at time of disposition: Unchanged/Unknown
[2017-01-10] MEDS ORDERED: THIAMINE HCL 100 MG TABLET (FP) PO ONE (16:49)
[2017-01-10] MEDS ORDERED: FOLIC ACID 1 MG TABLET (FP) PO ONE (16:49)
[2017-01-10] MEDS ORDERED: PRENATAL VITAMINS W/ FOLIC ACID TABLET (FP) PO ONE (16:50)
[2017-01-10 17:15] LABS: MCH 31.6 pg (25.7-33.7); MCHC 33.1 g/dl (32.0-35.9); MEAN CELL VOLUME 95.5 fl (80-96); MEAN PLT VOLUME 10.4 fl (7.5-11.1); PLATELET COUNT 146 K/MM3 (134-434); RDW 17.2 % (11.9-15.9); WHITE BLOOD COUNT 5.3 K/mm3 (4.0-10.0)
[2017-01-10 17:18] LABS: URINE APPEARANCE CLEAR; URINE BILIRUBIN NEGATIVE (NEGATIVE); URINE BLOOD NEGATIVE (NEGATIVE); URINE COLOR LTYELLOW; URINE GLUCOSE (UA) NEGATIVE (NEGATIVE); URINE KETONE NEGATIVE (NEGATIVE); URINE LEUK ESTERASE NEGATIVE (NEGATIVE); URINE NITRITE NEGATIVE (NEGATIVE); URINE PROTEIN NEGATIVE (NEGATIVE); URINE UROBILINOGEN NEGATIVE mg/dL (0.2-1.0)
[2017-01-10] MEDS ORDERED: FOLIC ACID 1 MG TABLET (FP) ONE (17:19)
[2017-01-10] MEDS ORDERED: MULTIVITAMINS (DAILY MVI) TABLET (FP) PO ONE (17:20)
[2017-01-10 17:27] LABS: INR 1.03 (0.82-1.09); PROTHROMBIN TIME (PATIENT) 11.3 SEC (9.98-11.88)
[2017-01-10 17:39] LABS: ALBUMIN 3.1 g/dl (3.4-5.0); ANION GAP 13 (8-16); BILIRUBIN,TOTAL 0.4 mg/dL (0.2-1.0); CALCIUM 7.9 mg/dL (8.5-10.1); CO2 32 mmol/L (21-32); CREATININE 0.8 mg/dL (0.7-1.3); GLUCOSE,RANDOM 100 mg/dL (74-106); SGOT/AST 134 U/L (15-37); SGPT/ALT 65 U/L (12-78); TOT PROT 6.6 g/dl (6.4-8.2)
[2017-01-10 17:40] LABS: ALK PHOS 231 U/L (45-117)
[2017-01-10 17:44] LABS: URINE MARIJUANA THC NEGATIVE ng/ml (CUTOFF=50)
[2017-01-10] MEDS ORDERED: POTASSIUM CHLORIDE TABS 20 MEQ TABLET.ER (FP) PO ONE ×2 (18:21→18:28)
[2017-01-10] MEDS ORDERED: POTASSIUM CITRATE/CITRIC ACID 2 MEQ/ML ML PO ONE (18:22)
[2017-01-10] MEDS ORDERED: POTASSIUM CHLORIDE ORAL LIQUID 20 MEQ/15 ML ONE (18:43)
--- NOTE | 2017-01-12 16:46 | EKG ---
Test Reason : Blood Pressure : / mmHG Vent. Rate : 096 BPM Atrial Rate : 096 BPM P-R Int : 190 ms QRS Dur : 074 ms QT Int : 352 ms P-R-T Axes : 050 049 067 degrees QTc Int : 444 ms NORMAL SINUS RHYTHM NONSPECIFIC T WAVE ABNORMALITY ABNORMAL ECG WHEN COMPARED WITH ECG OF 03-JAN-2017 06:53, T WAVE INVERSION LESS EVIDENT IN ANTEROLATERAL LEADS Confirmed by MESERET NICHOLAS MD ([id number]) on 01/12/2017 4:45:54 PM Referred By: Confirmed By:MESERET NICHOLAS MD
== END 2017-01-10 21:14 | disposition left against medical advice (07) ==
LOC: JER 16:20
DX: Z53.21 Procedure and treatment not carried out due to patient leaving prior to being seen by health care provider (principal); K70.30 Alcoholic cirrhosis of liver without ascites; B18.2 Chronic viral hepatitis C
CPT/HCPCS: 36415; 80053; 80307; 81003; 82140; 85027; 85610; 93005; 93010; 99283-25

== ENCOUNTER 2017-01-11 16:04 | Inpatient (IN) | payer OTHER ==
[2017-01-11 16:21] VITALS: BMI 29.0
--- NOTE | 2017-01-11 16:29 | PDOC ---
History of Present Illness <Alexandr Lane - Last Filed: 01/11/17 22:48> - General History Source: Patient Exam Limitations: No Limitations - History of Present Illness Initial Comments: 01/11/17 16:29 Patient is a 61 year old male with medical history significant for hepatitis C, chronic hypokalemia and a long history of alcohol abuse with numerous visits to the emergency department who presents with a chief complaint of weakness. The patient states he has been feeling very tired and nauseous recently and also states his desire to go to rehab to detox. The patient was seen in this ED yesterday with an identical complaint. During that visit, and several previous visits, the patient was found to have electrolyte abnormalities, most concerning for hypokalemia, and either refused potassium repletion or absconded after eating and sleeping off the alcohol and prior to completing treatment. Thiamine, oral potassium, folic acid and multivitamins were given yesterday. Patient endorses being homeless and wanted something to eat. He states that he is cutting back on his drinking and only drinks wine coolers now, no longer vodka. His last drink was a 24 oz wine cooler just prior to coming to the emergency department. Endorses drinking 5-6 x per day on average, history of numerous LOC but not recently, denies ever having seizures or tremors. <Derek Covington - Last Filed: 01/12/17 07:42> - General Chief Complaint: Alcohol intoxication Stated Complaint: INTOX Time Seen by Provider: 01/11/17 16:17 Past History <Alexandr Lane - Last Filed: 01/11/17 22:48> - Past Medical History Anemia: No Asthma: No Cancer: No Cardiac Disorders: No CVA: No COPD: No CHF: No Dementia: No Diabetes: No GI Disorders: No Disorders: No HTN: No Hypercholesterolemia: No Kidney Stones: No Liver Disease: Yes (Reports recently being diagnosed with hep. C and cirrhosis ) Suicide Attempt (Hx): No Seizures: No Thyroid Disease: No - Surgical History Abdominal Surgery: No Appendectomy: No Cardiac Surgery: No Cholecystectomy: No Lung Surgery: No Neurologic Surgery: No Orthopedic Surgery: Yes (right 5th digit tendon repair 11/14/14) - Reproductive History Testicular Surgery: No - Psycho/Social/Smoking Cessation Hx Anxiety: Yes Suicidal Ideation: No Smoking Status: Yes Smoking History: Unknown if ever smoked Have you smoked in the past 12 months: Yes Number of Cigarettes Smoked Daily: 5 If you are a former smoker, when did you quit?: 1 months Cigars Per Day: 0 Information on smoking cessation initiated: No 'Breaking Loose' booklet given: 10/14/16 Hx Alcohol Use: Yes (:"10 BEERS A DAY") Drug/Substance Use Hx: No Substance Use Type: Alcohol Hx Substance Use Treatment: Yes (8 pevious inpt detox & 3 inpt rehab @ [facility]) <Derek Covington - Last Filed: 01/12/17 07:42> - Past Medical History Allergies/Adverse Reactions: Allergies Allergy/AdvReac Type Severity Reaction Status Date / Time No Known Allergies Allergy Verified 01/10/17 16:37 Home Medications: Ambulatory Orders Gabapentin [Neurontin -] 400 mg PO BID 01/10/17 Review of Systems - Review of Systems Able to Perform ROS?: Yes Comments:: 01/12/17 07:05 Patient is a poor historian and appears to answer ROS questions in a manner consistent with what will allow him to stay in the ED. Is the patient limited Frisian proficient: No Constitutional: Yes: Chills, Malaise, Weakness, Other (General fatigue). No: Diaphoresis, Fever HEENTM: Yes: Blurred Vision. No: Nose Bleeding Respiratory: Yes: Cough, Shortness of Breath, SOB with Exertion, Other (Denied recent illness) Cardiac (ROS): Yes: Chest Pain (Vague and diffuse). No: Syncope ABD/GI: Yes: Diarrhea (Green), Nausea, Vomiting (Green). No: Abdominal Distended, Blood Streaked Bowels, Constipated, Rectal Bleeding, Tarry Stools Musculoskeletal: Yes: Muscle Pain Integumentary: No: Bruising, Rash Neurological: Yes: Weakness, Unsteady Gait, Dizziness. No: Seizure, Tremors <Derek Covington - Last Filed: 01/12/17 07:42> *Physical Exam - Vital Signs Last Vital Signs Temp Pulse Resp BP Pulse Ox 97.9 F 118 H 20 111/58 89 L 01/11/17 16:13 01/11/17 22:46 01/11/17 22:46 01/11/17 21:47 01/11/17 22:46 <Alex[address]r Lane - Last Filed: 01/11/17 22:48> - Vital Signs Last Vital Signs Temp Pulse Resp BP Pulse Ox 97.9 F 89 18 105/76 93 L 01/11/17 16:13 01/11/17 16:13 01/11/17 16:13 01/11/17 16:13 01/11/17 16:13 - Physical Exam General Appearance: Yes: Nourished, Disheveled, Alcohol on Breath, Intoxicated ( Mildly), Obese. No: Apparent Distress HEENT: positive: EOMI, YESSENIA, Normal ENT Inspection, Normal Voice, Other (Mild slurring of words). negative: Scleral Icterus (R), Scleral Icterus (L) Respiratory/Chest: positive: Lungs Clear, Normal Breath Sounds. negative: Chest Tender, Respiratory Distress Cardiovascular: positive: Regular Rhythm, Regular Rate. negative: Murmur Gastrointestinal/Abdominal: positive: Normal Bowel Sounds (x4), Soft, Protuberent. negative: Distended, Guarding, Rebound, Tenderness, Mass Musculoskeletal: positive: Normal Inspection Extremity: positive: Pedal Edema (1+ at ankles b/l), Other (No asterixis, no tremors) Integumentary: positive: Normal Color, Dry, Warm. negative: Jaundice, Diaphoresis, Rash, Ecchymosis Neurologic: positive: pneumatic drum sander II-XII NML intact, Fully Oriented, Alert, Normal Mood/ Affect, Motor Strength 5/5, Other (Wide based gait w/o ataxia). negative: Confused, Disoriented <Derek Covington - Last Filed: 01/12/17 07:42> ED Treatment Course - LABORATORY CBC & Chemistry Diagram: 01/11/17 17:40 01/11/17 17:40 - ADDITIONAL ORDERS Additional order review: Laboratory Results 01/11/17 01/11/17 17:40 17:40 Sodium 138 Potassium 2.5 L* Chloride 93 L Carbon Dioxide 28 Anion Gap 17 H BUN 4 L D Creatinine 0.8 Creat Clearance w eGFR > 60 Random Glucose 99 Calcium 7.7 L Magnesium 1.3 L D Total Bilirubin 0.3 D AST 118 H ALT 60 Alkaline Phosphatase 238 H Total Protein 6.3 L Albumin 2.9 L 01/11/17 17:40 RBC 3.93 L MCV 94.2 MCHC 33.8 RDW 17.3 H MPV 10.5 Neutrophils % 37.9 L Lymphocytes % 48.7 H Monocytes % 11.2 H Eosinophils % 1.0 D Basophils % 1.2 - Medications Given in the ED: ED Medications Discontinued Medications Generic Name Dose Route Start Last Admin Trade Name Singh PRN Reason Stop Dose Admin Lorazepam 2 mg 01/11/17 21:46 01/11/17 21:54 Ativan Injection - IVPUSH 01/11/17 21:47 2 mg ONCE ONE Administration Magnesium Sulfate 2 gm 01/11/17 18:46 01/11/17 19:00 Magnesium Sulfate IVPB 01/11/17 18:47 2 gm ONCE ONE Administration Ondansetron HCl 8 mg 01/11/17 21:46 01/11/17 21:54 Zofran Injection IVPB 01/11/17 21:47 8 mg ONCE ONE Administration Potassium Chloride 40 meq 01/11/17 18:13 01/11/17 18:19 K-Dur - PO 01/11/17 18:14 40 meq ONCE ONE Administration <Alexandr Lane - Last Filed: 01/11/17 22:48> - LABORATORY CBC & Chemistry Diagram: 01/11/17 17:40 01/11/17 22:06 <Derek Covington - Last Filed: 01/12/17 07:42> Medical Decision Making - Medical Decision Making 01/11/17 16:29 61 year old male with history of alcohol abuse presents to the ER for the second time in two days with suspected alcohol intoxication, significant electrolyte abnormalities, and a stated desire to get help for his alcohol abuse. Patient has history of leaving after sleeping and eating without completing completing treatment. Ddx includes but is not limited to acute alcohol intoxication, chronic alcohol abuse, hypokalcemia, hypomagnesemia, other electrolyte and nutritional deficiences. Basic blood chemistries Fluids Electrolyte replacement Provide food and sleep in exchange for compliance with treatment Monitor for signs of withdrawal, reassess 01/11/17 18:04 CBC WBC 6.0 K/mm3 (4.0-10.0) 01/11/17 17:40 RBC 3.93 M/mm3 (4.00-5.60) L 01/11/17 17:40 Hgb 12.5 GM/dL (11.7-16.9) 01/11/17 17:40 Hct 37.0 % (35.4-49) 01/11/17 17:40 MCV 94.2 fl (80-96) 01/11/17 17:40 MCH 31.8 pg (25.7-33.7) 01/11/17 17:40 MCHC 33.8 g/dl (32.0-35.9) 01/11/17 17:40 RDW 17.3 % (11.9-15.9) H 01/11/17 17:40 Plt Count 141 K/MM3 (134-434) 01/11/17 17:40 MPV 10.5 fl (7.5-11.1) 01/11/17 17:40 Neutrophils % 37.9 % (42.8-82.8) L 01/11/17 17:40 Lymphocytes % 48.7 % (8-40) H 01/11/17 17:40 Monocytes % 11.2 % (3.8-10.2) H 01/11/17 17:40 Eosinophils % 1.0 % (0-4.5) D 01/11/17 17:40 Basophils % 1.2 % (0-2.0) 01/11/17 17:40 Grossly the same or better than the patient's baseline. Patient given oral K-Dur 40mg in exchange for receiving a hot meal. 01/11/17 18:32 CMP Sodium 138 mmol/L (136-145) 01/11/17 17:40 Potassium 2.5 mmol/L (3.5-5.1) L* 01/11/17 17:40 Chloride 93 mmol/L (98-107) L 01/11/17 17:40 Carbon Dioxide 28 mmol/L (21-32) 01/11/17 17:40 Anion Gap 17 (8-16) H 01/11/17 17:40 BUN 4 mg/dL (7-18) L D 01/11/17 17:40 Creatinine 0.8 mg/dL (0.7-1.3) 01/11/17 17:40 Creat Clearance w eGFR > 60 (>60) 01/11/17 17:40 Random Glucose 99 mg/dL (74-106) 01/11/17 17:40 Calcium 7.7 mg/dL (8.5-10.1) L 01/11/17 17:40 Total Bilirubin 0.3 mg/dL (0.2-1.0) D 01/11/17 17:40 AST 118 U/L (15-37) H 01/11/17 17:40 ALT 60 U/L (12-78) 01/11/17 17:40 Alkaline Phosphatase 238 U/L (45-117) H 01/11/17 17:40 Total Protein 6.3 g/dl (6.4-8.2) L 01/11/17 17:40 Albumin 2.9 g/dl (3.4-5.0) L 01/11/17 17:40 Potassium still at 2.5, waiting Mg, attempt to get patient to accept additional K and Mg (if necessary) before leaving. 01/11/17 19:02 Patient care signed over to Dr. Lane. <Derek Covington - Last Filed: 01/12/17 07:42> *DC/Admit/Observation/Transfer - Discharge Dispostion Admit: Yes <Alexandr Lane - Last Filed: 01/11/17 22:48> <Derek Covington - Last Filed: 01/12/17 07:42> Diagnosis at time of Disposition: Hypokalemia, Hypomagnesemia Alcohol intoxication Qualifiers: Complication of substance-induced condition: uncomplicated Qualified Code(s): F10.920 - Alcohol use, unspecified with intoxication, uncomplicated
[2017-01-11 17:52] LABS: BASOPHIL 1.2 % (0-2.0); MCH 31.8 pg (25.7-33.7); MCHC 33.8 g/dl (32.0-35.9); MEAN CELL VOLUME 94.2 fl (80-96); MEAN PLT VOLUME 10.5 fl (7.5-11.1); NEUTROPHILS 37.9 % (42.8-82.8); PLATELET COUNT 141 K/MM3 (134-434); RDW 17.3 % (11.9-15.9)
[2017-01-11] MEDS ORDERED: POTASSIUM CHLORIDE TABS 20 MEQ TABLET.ER (FP) PO ONE ×2 (18:13→18:14)
[2017-01-11 18:27] LABS: ALBUMIN 2.9 g/dl (3.4-5.0); ANION GAP 17 (8-16); BILIRUBIN,TOTAL 0.3 mg/dL (0.2-1.0); CALCIUM 7.7 mg/dL (8.5-10.1); CO2 28 mmol/L (21-32); CREATININE 0.8 mg/dL (0.7-1.3); GLUCOSE,RANDOM 99 mg/dL (74-106); SGOT/AST 118 U/L (15-37); SGPT/ALT 60 U/L (12-78)
[2017-01-11 18:28] LABS: ALK PHOS 238 U/L (45-117); TOT PROT 6.3 g/dl (6.4-8.2)
[2017-01-11] MEDS ORDERED: MAGNESIUM SULF 50% (8.12 MEQ/2 ML-1 GM VIAL) IVPB ONE (18:46)
[2017-01-11] MEDS ORDERED: MAGNESIUM SULF 50% (8.12 MEQ/2 ML-1 GM VIAL) ONE (18:53)
[2017-01-11] MEDS: D5-1/2NS+40 MEQ KCL - 1,000 ML IV SCH (19:29)
[2017-01-11] MEDS ORDERED: ONDANSETRON 4 MG/2 ML VIAL IVPB ONE (21:46)
[2017-01-11] MEDS ORDERED: ONDANSETRON 4 MG/2 ML VIAL ONE (21:49)
[2017-01-11] MEDS ORDERED: LORazepam 2 MG/ML SDV VIAL ONE (21:49)
[2017-01-11] MEDS ORDERED: FOLIC ACID INJECTION - 1 MG, THIAMINE HCL 100 MG, MULTIVIT INJECTION ADULT 10 ML in SOD... IVPB ONE (22:02)
[2017-01-11] MEDS ORDERED: LORazepam 2 MG/ML SDV VIAL IVPUSH PRN (22:05)
--- NOTE | 2017-01-11 22:06 | PN ---
Teaching Attending Note Name of Resident: Evelin Webster ATTENDING PHYSICIAN STATEMENT I saw and evaluated the patient. I reviewed the resident's note and discussed the case with the resident. I agree with the resident's findings and plan as documented. SUBJECTIVE: 61 yo M with pmhx significant for Hep.C, Hypokalemia, ETOH abuse, who presents with weakness. Was here yesterday with same complaint, but eloped, Notes he feels more fatigued. States he would like Detox. States he has been more short of breath recently, in the past he used to be able to walk a half marathon, but he gets short of breath with a few feet. Denies any chest pain or pressure. OBJECTIVE: Physical: VS: Vital Signs Period Temp Pulse Resp BP Sys/Haney Pulse Ox Last 24 Hr 97.9 F 89-122 18-20 105-111/58-76 93 GEN: NAD, resting in bed HEENT: NCAT, PERRL CARD: RRR S1, S2 RESP: CTAB ABD: BS X4, NTD to palpation EXT: LLE +1 pitting edema >RLE no edema, No cyanosis or clubbing CBCD WBC 6.0 K/mm3 (4.0-10.0) 01/11/17 17:40 RBC 3.93 M/mm3 (4.00-5.60) L 01/11/17 17:40 Hgb 12.5 GM/dL (11.7-16.9) 01/11/17 17:40 Hct 37.0 % (35.4-49) 01/11/17 17:40 MCV 94.2 fl (80-96) 01/11/17 17:40 MCHC 33.8 g/dl (32.0-35.9) 01/11/17 17:40 RDW 17.3 % (11.9-15.9) H 01/11/17 17:40 Plt Count 141 K/MM3 (134-434) 01/11/17 17:40 MPV 10.5 fl (7.5-11.1) 01/11/17 17:40 CMP Sodium 138 mmol/L (136-145) 01/11/17 17:40 Potassium 2.5 mmol/L (3.5-5.1) L* 01/11/17 17:40 Chloride 93 mmol/L (98-107) L 01/11/17 17:40 Carbon Dioxide 28 mmol/L (21-32) 01/11/17 17:40 Anion Gap 17 (8-16) H 01/11/17 17:40 BUN 4 mg/dL (7-18) L D 01/11/17 17:40 Creatinine 0.8 mg/dL (0.7-1.3) 01/11/17 17:40 Creat Clearance w eGFR > 60 (>60) 01/11/17 17:40 Random Glucose 99 mg/dL (74-106) 01/11/17 17:40 Calcium 7.7 mg/dL (8.5-10.1) L 01/11/17 17:40 Total Bilirubin 0.3 mg/dL (0.2-1.0) D 01/11/17 17:40 AST 118 U/L (15-37) H 01/11/17 17:40 ALT 60 U/L (12-78) 01/11/17 17:40 Alkaline Phosphatase 238 U/L (45-117) H 01/11/17 17:40 Total Protein 6.3 g/dl (6.4-8.2) L 01/11/17 17:40 Albumin 2.9 g/dl (3.4-5.0) L 01/11/17 17:40 CXR:Pending EKG: NSR, no acute ST-T changes ASSESSMENT AND PLAN: 61 yo M with hx. of ETOH abuse who presents with weakness, found to be have electrolyte abnormalities 1.) WEAKNESS - Most Likely due to electrolyte abnomalities - Hypokalemia/Hypomagnesemia - Replete, Keep K>4.0, Mg2+>2.0 2.) ETOH Abuse - Chk. Level - [facility] protocol - Detox consult - Banana Bag - Thiamine and Folic A 3.) Shortness of Breath/LE edema - Wells Score 4.5 - CTA stat - ABG 3.) Hep. C - Monitor 4.) Transaminits - Follow - Liver US - Hep C. + , Chk. VL 5.) Dvt Ppx - Heparin [address] [place]
[2017-01-11] MEDS ORDERED: ONDANSETRON *ODT* 4 MG TABLET SL PRN (22:09)
--- NOTE | 2017-01-11 22:48 | PDOC ---
Attending Attestation - Resident Resident Name: Derek Covington - ED Attending Attestation I have performed the following: I have examined & evaluated the patient, The case was reviewed & discussed with the resident, I agree w/resident's findings & plan, Exceptions are as noted - HPI HPI: 01/11/17 22:44 61-year-old male with history of alcohol abuse presented to the ER by EMS for acute alcohol intoxication as well as several episodes of what he describes as bilious vomiting and loose stools shortly prior to arrival. Patient denies abdominal pain, complains of intermittent chest burning that is exacerbated after - Physicial Exam PE: 01/11/17 22:44 Patient is awake and alert, there is alcohol on breath; cranial nerves II through XII grossly intact; motor is 5 of 54; gait is ataxic. Lungs are clear to auscultation; abdomen is soft and non-tender to palpation; bowel sounds are present in all 4 quadrants; there is no lower extremity edema. - Medical Decision Making 01/11/17 22:45 Patient's 61-year-old male with history of alcohol abuse presents to the ER with acute alcohol intoxication and significant electrolyte abnormalities. Patient is noted to be hypokalemic and hypomagnesemic. EKG reveals no evidence of QTC prolongation. Patient has received 2 g of magnesium sulfate. 40 mg once of here by mouth as well as KCl IV along with D5 half-normal or 125 mL an hour. On reassessment, patient noted to be mildly tremulous and tachycardic. I suspect acute alcohol withdrawal. We'll administer Ativan. Will place patient in observation further electrolyte replenishment and treatment of alcohol withdrawal.
[2017-01-11] MEDS ORDERED: chlordiazePOXIDE HCL 25 MG CAPSULE ONE (22:49)
[2017-01-11] MEDS: chlordiazePOXIDE HCL 25 MG CAPSULE PO SCH (22:52)
--- NOTE | 2017-01-11 23:32 | MSN ---
Admitting History and Physical - Admission Chief Complaint: Nausea, bad balance and weakness History of Present Illness: Mr. Schroeder is a 61 yo man with a past medical history of alcohol abuse, hypokalemia and hepatitis C who presented to the emergency department complaining of weakness, bad balance and nausea. Patient was admitted to telemetry for electrolyte imbalance. He stated that his weakness, bad balance and nausea started 2 weeks ago, while drinking a wine cooler. Drinking alcohol exacerbates the symptoms, while sitting down relieves them. Complained that over the past 2-3 days he has been having billous, blood tinged emesis and billous soft stools. He also stated that he has had a cold for the past few days , where he has been coughing up green phlem. States that he has headaches, throat pain, chest discomfort (which started a few weeks ago) and SOB. Patient denies fevers, chills, sweats, abdominal pain. Patient's last drink was yesterday. ED placed patient on banana bag and started librium protocol for alcohol withdrawal (CIWA score of 10). History Source: Patient Limitations to Obtaining History: No Limitations - Past Medical History TEXTILE ARTIST: Yes: Peripheral Neuropathy (numbness in feet), Other (hx of ETOH use, possible abuse). No: Alzheimer's, CVA, Dementia, Migraine, Multiple Sclerosis, Parkinson's, Seizure, Syncope, TIA, Vertigo Cardiovascular: No: AFIB, Aneurysm, Aortic Insufficiency, Aortic Stenosis, CAD, CHF, Deep Vein Thrombosis, HTN, Hyperlipdemia, NC, Mitral Insufficiency, Mitral Stenosis, Murmur, Pulmonary Hypertension, Other Pulmonary: No: Asthma, Bronchitis, Cancer, COPD, O2 Dependent, Pneumonia, Previously Intubated, Pulmonary Embolus, Pulmonary Fibrosis, Sleep Apnea, Other Gastrointestinal: No: Ascites, Cancer, Constipation, Crohn's Disease, Diverticulitis, Diverticulosis, Esophageal Varices, Gastritis, GERD, GI Bleed, Hemorrhoids, Hiatal Hernia, Inflamatory Bowel Disease, Irritable Bowel Disease, Pancreatitis, Peptic Ulcer Disease, Ulcerative Colitis, Other Hepatobiliary: Yes: Cirrhosis, Hepatitis C. No: Cholelithiasis, Cholecystitis, Choledocholithiasis, Hepatitis A, Hepatitis B, Other Renal/: No: Renal Failure, Renal Inusuff, BPH, Cancer, Hematuria, Hemodialysis , Neurogenic Bladder, Renal Calculi, UTI, Other Heme/Onc: No: Anemia, B12 Deficiency, Bleeding Disorder, Cancer, Current Chemotherapy, Current Radiation Therapy, Hemochromatosis, Hypercoaguable State, Myeloproliferative Synd, Sickle Cell Disease, Sickle Cell Trait, Thrombocytopenia, Other Infectious Disease: No: AIDS, C-Diff, Herpes Zoster, HIV, MRSA, STD's, Tuberculosis, VREF, Other Psych: Yes: Addictions (drinks "heavy" alcohol at times, states last was 2 months ago drinks 8 12oz wine coolers every day. last drink was yesterday), Other (stated that he has been anxious). No: Anxiety, Bipolar, Depression, Panic, Psychosis, Schizophrenia Musculoskeletal: Yes: Other (slight loss of sensation in both feet) Rheumatology: No: Fibromyalgia, Gout, Lupus, Rheumatoid Arthritis, Sarcoidosis, Vasculitis, Other ENT: Yes: Other (complains of a cold for the past few days. Has a cough, brings up green phlem). No: Allergic Rhinitis, Sinusitis Endocrine: No: [place]'s Disease, [place]'s Disease, Diabetes Insipidus, Diabetes Mellitus, Hyperparathyroidism, Hyperthyroidism, Hypothyroidism, Osteopenia, SIADH, Other Dermatology: No: Basal Cell, Cellulitis, Eczema, Melanoma, Psoriasis, Squamous Cell, Other - Past Surgical History Past Surgical History: No: None, AAA Repair, AICD, Amputation, Appendectomy, Arthrosocopy, AV Fistula/Graft, Bariatric Surgery, Breast Biopsy, Bypass, CABG, Carotid Endarterectomy, Cataract Removal, Cholecystectomy, Colectomy, Colonoscopy, Colostomy, Craniotomy, , Cystectomy, Hernia Repair, Hysterectomy, Ileal Conduit, Ileosotomy, Joint Replacement, Kidney Transplant, Laminectomy, Liver Transplant, Mastectomy, Nephrectomy, Oopherectomy, Orchiectomy, Permanent Pacemaker, Prostatectomy, Splenectomy, Stent, Thoracotomy , TURP, Tonsillectomy, Tubal Ligation, Upper Endoscopy, Valve Replacement, Vasectomy, Vein Stripping/Ligation - Smoking History Smoking history: Current every day smoker (states that he smokes 3-4 cigarettes every day since high school.) Have you smoked in the past 12 months: Yes Aproximately how many cigarettes per day: 5 If you are a former smoker, when did you quit?: 1 months - Alcohol/Substance Use Hx Alcohol Use: Yes (:"10 BEERS A DAY" "8 12oz wine coolers a day") Number of Drinks Daily: 8 (has been drinking since high school) History of Substance Use: denies: None, Cocaine, Heroin, Marijuana, Prescription , Tranquilizers - Social History Usual Living Arrangement: Yes: Other (homeless) ADL: Independent History of Recent Travel: No Home Medications - Allergies Allergies/Adverse Reactions: Allergies Allergy/AdvReac Type Severity Reaction Status Date / Time No Known Allergies Allergy Verified 01/10/17 16:37 - Home Medications Home Medications: Ambulatory Orders Gabapentin [Neurontin -] 400 mg PO BID 01/10/17 Family Disease History - Family Disease History Family Disease History: Other: Father (Uses Alcohol.), Mother (Uses Alcohol.), Brother (Uses Alcohol.), Sister (LSD related schizophrenia) Review of Systems - Review of Systems Constitutional: reports: Weakness (generalized weakness and tiredness for the past two weeks). denies: No Symptoms, Chills, Diaphoresis, Fever, Lethargy, Loss of Appetite, Malaise, Night Sweats, Unintentional Wgt. Loss, Other Eyes: reports: No Symptoms. denies: Blind Spots, Blurred Vision, Double Vision , Eye Pain, Floaters, Photophobia, Recent Change in Vision, Other HENT: reports: Throat Pain (states he has had a cold for the past few days, coughing up green phlem). denies: No Symptoms, Difficult Swallowing, Ear Discharge, Ear Pain, Epistaxis, Gingival Bleeding, Hearing Loss, Mouth Swelling , Nasal Congestion, Ocular Prosthesis, Toothache, Ringing in Ears, Other Neck: reports: No Symptoms. denies: Decreased ROM, Lumps, Pain on Movement, Stiffness, Swollen Glands, Tenderness, Other Cardiovascular: reports: Chest Pain (stated he has diffuse chest tightness. Started a few weeks ago, hurts when he takes a deep breath), Edema (slight edema in the left lower extremity), Shortness of Breath (complains of exertional shortness of breath for the past few weeks.) Respiratory: reports: Cough (cough from cold.), SOB on Exertion (complains of SOB on exertion for the past few weeks). denies: No Symptoms, Exercise Intolerance, Hemoptysis, Orthopnea, PND, Snoring, SOB, Wheezing, Other Gastrointestinal: reports: Vomiting (complains of bilious and bloody emesis for the past few days. stated he has vomited 6 times in the last 3 days), Other ( green soft stool for the past few days). denies: No Symptoms, Abdominal Pain, Bloating, Constipation, Diarrhea, Dysphagia, Indigestion, Melena, Nausea, Rectal Bleeding, Vomiting Blood Genitourinary: denies: No Symptoms, Burning, Discharge, Dysuria, Flank Pain, Frequency, Hematuria, Incontinence, Lesions, Menses, Pain, Testicular Mass, Testicular Pain, Testicular Swelling, Urgency, Vaginal Bleeding, Other Breasts: denies: No Symptoms Reported, See HPI, Breast Implants, Discharge from Nipple, Lumps, Pain, Skin Changes, Other Musculoskeletal: reports: Muscle Weakness (he complains of fatigue and weakness) . denies: No Symptoms, Back Pain, Crepitus, Decreased ROM, Extremity Pain, Joint Pain, Joint Swelling, Muscle Pain, Muscle Cramps, Other Integumentary: denies: No Symptoms, Blister, Bruising, Change in Color, Eczema, Erythema, Incision, Lesions, Lump, Pallor, Pruritis, Rash, Wound, Other Neurological: reports: Headache, Unsteady Gait (complains that he has not been able to walk as well as normal for the past few weeks), Weakness. denies: No Symptoms, Change in LOC, Change in Speech, Confusion, Dizziness, Incoordination , Numbness, Parasthesia, Pre-Existing Deficit, Seizure, Syncope, Tremors, Other Endocrine: denies: No Symptoms, Excessive Sweating, Flushing, Increased Hunger, Increased Thirst, Intolerance to Cold, Intolerance to Heat, Unexplained Weight Gain, Unexplained Weight Loss, Other Hematology/Lymphatic: denies: No Symptoms, Easily Bruised, Excessive Bleeding, Swollen Glands, Other Psychiatric: denies: No Symptoms, Altered Sleep Pattern, Anxiety, Depression, Hallucinations, Panic, Paranoia, Suicidal, Other Physical Examination Vital Signs: Vital Signs Temperature 97.9 F 01/11/17 16:13 Pulse Rate 118 H 01/11/17 22:46 Respiratory Rate 20 01/11/17 22:46 Blood Pressure 111/58 01/11/17 21:47 O2 Sat by Pulse Oximetry (%) 89 L 01/11/17 22:46 Findings/Remarks: Patient was alert and oriented X 3, in no acute distress. Constitutional: Yes: Anxious (patient stated he was slightly anxious) Eyes: Yes: WNL, Conjunctiva Clear, EOM Intact HENT: Yes: WNL, Atraumatic, Normocephalic Neck: Yes: WNL, Supple, Trachea Midline Cardiovascular: Yes: Tachycardia Respiratory: Yes: WNL, Regular, CTA Bilaterally Gastrointestinal: Yes: WNL, Normal Bowel Sounds, Soft Musculoskeletal: Yes: WNL Extremities: Yes: WNL Edema: No Peripheral Pulses WNL: Yes Integumentary: Yes: WNL Neurological: Yes: WNL, Alert, Oriented ...Motor Strength: WNL Psychiatric: Yes: WNL Imaging - Results Chest X-ray: Pending Problem List - Problems (1) Alcohol intoxication Code(s): F10.929 - ALCOHOL USE, UNSPECIFIED WITH INTOXICATION, UNSPECIFIED Qualifiers: Complication of substance-induced condition: uncomplicated Qualified Code(s): F10.920 - Alcohol use, unspecified with intoxication, uncomplicated (2) Hypokalemia Code(s): E87.6 - HYPOKALEMIA (3) Hypomagnesemia Code(s): E83.42 - HYPOMAGNESEMIA Assessment/Plan Patient is a 61 yo male with past medical history of alcohol abuse, hepatitis C and hypokalemia, who presented to the ED complaining of nausea, bad balance and weakness. Patient was admitted for alcohol detoxification and electrolyte disturbances. #weakness secondary to electrolyte disturbances -K 2.5, magnesium 1.3 -given Kdur 40 meq PO and magnesium sulfate 2 gm IVPB -fluids Dextrose/NaCl 1000ml -continue to monitor #nausea -patient complained of billous vomiting for the past few days -likely due to alcohol withdrawal -given Zofran 8 mg IVPB #alcohol withdrawal -CIWA score of 10 -started protocol -receiving Librium PO Q6H -received thiamine 100mg PO, Folic acid 1 mg PO, banana bag -continue thiamine 100mg PO and folic acid 1mg PO #dispo -telemetry
[2017-01-11 23:58] LABS: ANION GAP 12 (8-16); CALCIUM 8.1 mg/dL (8.5-10.1); CO2 31 mmol/L (21-32); CREATININE 0.9 mg/dL (0.7-1.3); GLUCOSE,RANDOM 128 mg/dL (74-106)
--- NOTE | 2017-01-12 00:04 | HP ---
CHIEF COMPLAINT: weakness HISTORY OF PRESENT ILLNESS: 61yo M with PMH of hepatitis C, chronic hypokalemia, ETOH abuse presents c/o weakness x 2 weeks. Last drink was yesterday morning. Pt was in ER yesterday with same complaints, he eloped. Pt reports he wants to stay for detox now. Today he reports several episodes of bilious vomiting and green stool. Pt reports headache, mild chest "discomfort", SOB with exertion, and fatigue. ER course was notable for: (1) K+ 2.5, Mg 1.3 (2) Magnesium Sulfate, K-Dur, Zofran, Librium protocol initiated, Ativan (3) CXR, CTA stat, Duplex U/S Left LE stat all pending PAST MEDICAL HISTORY: hepatitis C cirrhosis ETOH abuse neuropathy PAST SURGICAL HISTORY: Right 5th digit tendon repair 10/2014 Social History: Smokin-4 cigarettes/day x 40 yrs Alcohol: 8 12oz wine coolers/day x 40 yrs Drugs: none Allergies No Known Allergies Allergy (Verified 01/10/17 16:37) HOME MEDICATIONS: Home Medications Medication Instructions Recorded Gabapentin [Neurontin -] 400 mg PO BID 01/10/17 REVIEW OF SYSTEMS CONSTITUTIONAL: Present: generalized weakness Absent: fever, chills, loss of appetite, weight change HEENT: Absent: rhinorrhea, nasal congestion, throat pain, throat swelling, difficulty swallowing, mouth swelling, ear pain, eye pain, visual changes CARDIOVASCULAR: Present: chest pain Absent: palpitations, irregular heart rate, lightheadedness, peripheral edema RESPIRATORY: Present: SOB with exertion Absent: orthopnea, wheezing, stridor, hemoptysis GASTROINTESTINAL: Present: nausea/vomiting Absent: abdominal pain, abdominal distension, diarrhea, constipation, melena, hematochezia GENITOURINARY: Absent: dysuria, frequency, urgency, hesitancy, hematuria, flank pain, genital pain MUSCULOSKELETAL: Absent: myalgia, arthralgia, joint swelling, back pain, neck pain SKIN: Absent: rash, itching, pallor HEMATOLOGIC/IMMUNOLOGIC: Absent: easy bleeding, easy bruising, lymphadenopathy, frequent infections ENDOCRINE: Absent: unexplained weight gain, unexplained weight loss, heat intolerance, cold intolerance NEUROLOGIC: Present: headache, unsteady gait, numbness to rut feet Absent: dizziness PHYSICAL EXAMINATION Last Vital Signs Temp Pulse Resp BP Pulse Ox 98 F 112 H 20 123/72 92 L 01/12/17 01:15 01/12/17 01:15 01/12/17 04:09 01/12/17 01:15 01/12/17 04:09 GENERAL: Awake, alert, and fully oriented, in no acute distress. HEAD: Normal with no signs of trauma. EYES: Extraocular movements intact, sclera anicteric, conjunctiva clear. No lid lag. EARS, NOSE, THROAT: Moist mucous membranes. NECK: Supple, trachea midline. LUNGS: Breath sounds equal, clear to auscultation bilaterally. No wheezes, and no crackles. No accessory muscle use. HEART: Regular rate and rhythm, normal S1 and S2 without murmur, rub or gallop. ABDOMEN: Soft, nontender, not distended, normoactive bowel sounds, no guarding, no rebound, no masses. No hepatomegaly or splenomegaly. LOWER EXTREMITIES: Left LE +1 pitting edema. NEUROLOGICAL: CNormal speech. PSYCHIATRIC: Cooperative. Good eye contact. Appropriate mood and affect. SKIN: Warm, dry, normal turgor, no rashes or lesions noted. Laboratory Last Values WBC 6.0 K/mm3 (4.0-10.0) 01/11/17 17:40 RBC 3.93 M/mm3 (4.00-5.60) L 01/11/17 17:40 Hgb 12.5 GM/dL (11.7-16.9) 01/11/17 17:40 Hct 37.0 % (35.4-49) 01/11/17 17:40 MCV 94.2 fl (80-96) 01/11/17 17:40 MCH 31.8 pg (25.7-33.7) 01/11/17 17:40 MCHC 33.8 g/dl (32.0-35.9) 01/11/17 17:40 RDW 17.3 % (11.9-15.9) H 01/11/17 17:40 Plt Count 141 K/MM3 (134-434) 01/11/17 17:40 MPV 10.5 fl (7.5-11.1) 01/11/17 17:40 Neutrophils % 37.9 % (42.8-82.8) L 01/11/17 17:40 Lymphocytes % 48.7 % (8-40) H 01/11/17 17:40 Monocytes % 11.2 % (3.8-10.2) H 01/11/17 17:40 Eosinophils % 1.0 % (0-4.5) D 01/11/17 17:40 Basophils % 1.2 % (0-2.0) 01/11/17 17:40 Sodium 140 mmol/L (136-145) 01/11/17 22:06 Potassium 3.5 mmol/L (3.5-5.1) D 01/11/17 22:06 Chloride 97 mmol/L (98-107) L 01/11/17 22:06 Carbon Dioxide 31 mmol/L (21-32) 01/11/17 22:06 Anion Gap 12 (8-16) 01/11/17 22:06 BUN 6 mg/dL (7-18) L D 01/11/17 22:06 Creatinine 0.9 mg/dL (0.7-1.3) 01/11/17 22:06 Creat Clearance w eGFR > 60 (>60) 01/11/17 17:40 Random Glucose 128 mg/dL (74-106) H D 01/11/17 22:06 Calcium 8.1 mg/dL (8.5-10.1) L 01/11/17 22:06 Magnesium 1.7 mg/dL (1.8-2.4) L D 01/11/17 22:47 Total Bilirubin 0.3 mg/dL (0.2-1.0) D 01/11/17 17:40 AST 118 U/L (15-37) H 01/11/17 17:40 ALT 60 U/L (12-78) 01/11/17 17:40 Alkaline Phosphatase 238 U/L (45-117) H 01/11/17 17:40 Troponin I 0.11 ng/ml (0.00-0.05) H D 01/11/17 23:13 Total Protein 6.3 g/dl (6.4-8.2) L 01/11/17 17:40 Albumin 2.9 g/dl (3.4-5.0) L 01/11/17 17:40 Alcohol, Quantitative 114.5 mg/dl (0-5) H* 01/11/17 22:06 IMAGIN01/11/17 CXR: pending 01/11/17 EKG: NSR 01/12/17 Chest CTA: pending 01/12/17 Left LE Duplex U/S: pending ASSESSMENT/PLAN: 61yo M with PMH of hepatitis C, chronic hypokalemia, ETOH abuse presents c/o weakness x 2 weeks, admitted to Telemetry for electrolyte abnormalities and detox. 1) weakness - likely 2/2 electrolyte abnormalities (likely 2/2 vomiting/withdrawal) -> hypokalemia, hypomagnesemia - replete with 40mg K-dur and 2g Magnesium Sulfate 2) ETOH abuse - CIWA: 10 - initiate Librium protocol - Detox Consult - thiamine HCl 100mg PO HS - folic acid 1mg PO daily - Zofran 8mg SL prn for nausea/vomiting 3) SOB/chest discomfort/Left LE edema - Wells score: 4.5 - tachycardia and hypoxia noted - f/u CTA - f/u Left LE Duplex U/S - f/u ABG 4) Transaminitis/Hepatitis C - f/u Liver U/S - cont. to monitor AST/ALT, and f/u hcv quant level 5) neuropathy - cont. home med of neurontin - f/u vitamin B12 6) FEN - Fluids: banana bag - Electrolytes: cont. to monitor - Nutrition: Regular diet 7) Prophylaxis - Heparin 5000U SQ TID for DVT prophylaxis Visit type - Emergency Visit Emergency Visit: Yes ED Registration Date: 01/11/17 Care time: The patient presented to the Emergency Department on the above date and was hospitalized for further evaluation of their emergent condition. - New Patient This patient is new to me today: Yes Date on this admission: 01/12/17 - Critical Care Critical Care patient: No
[2017-01-12] MEDS ORDERED: MAGNESIUM SULF 50% (8.12 MEQ/2 ML-1 GM VIAL) IVPB ONE (03:52)
[2017-01-12] MEDS ORDERED: POTASSIUM CHLORIDE TABS 20 MEQ TABLET.ER (FP) PO ONE (03:54)
[2017-01-12] MEDS: chlordiazePOXIDE HCL 25 MG CAPSULE PO SCH ×5 (04:55→22:27)
[2017-01-12] MEDS ORDERED: HEPARIN NA (PORCINE) 5,000 UNITS/ML 1ML VIAL SQ SCH (06:00)
[2017-01-12] MEDS ORDERED: HEPARIN NA (PORCINE) 5,000 UNITS/ML 1ML VIAL IVPUSH PRN ×2 (06:48)
[2017-01-12] MEDS: HEPARIN INFUSION - 500 ML IVPB SCH (07:14)
[2017-01-12 07:23] LABS: ARTERIAL BLD GAS O2 SATURATION 95.4 % (90-98.9); ARTERIAL BLOOD GAS BASE EXCESS 6.4 meq/l (-2-2); ARTERIAL BLOOD GAS HCO3 29.6 meq/L (22-26); ARTERIAL BLOOD GAS PO2 74.9 mmHg (80-100); ARTERIAL BLOOD GAS pH 7.51 (7.35-7.45)
[2017-01-12 07:28] LABS: ALLENS TEST POSITIVE; ART PUNCT SITE RIGHT BRACHIAL; LPM/O2% 40%; PT. ON O2? YES; TYPE OF O2 VENTIMASK
[2017-01-12 08:02] LABS: MCH 31.4 pg (25.7-33.7); MCHC 33.2 g/dl (32.0-35.9); MEAN CELL VOLUME 94.6 fl (80-96); MEAN PLT VOLUME 10.5 fl (7.5-11.1); PLATELET COUNT 110 K/MM3 (134-434); RDW 17.3 % (11.9-15.9); WHITE BLOOD COUNT 6.6 K/mm3 (4.0-10.0)
[2017-01-12 08:21] LABS: INR 1.04 (0.82-1.09); PROTHROMBIN TIME (PATIENT) 11.4 SEC (9.98-11.88)
[2017-01-12 08:24] LABS: ACTIVATED PTT 26.5 SECONDS (26.9-34.4)
[2017-01-12 08:48] LABS: ALBUMIN 2.6 g/dl (3.4-5.0); ALK PHOS 250 U/L (45-117); ANION GAP 11 (8-16); BILIRUBIN,TOTAL 0.8 mg/dL (0.2-1.0); CALCIUM 7.3 mg/dL (8.5-10.1); CO2 29 mmol/L (21-32); CREATININE 0.9 mg/dL (0.7-1.3); GLUCOSE,RANDOM 102 mg/dL (74-106); MAGNESIUM 2.1 mg/dL (1.8-2.4); SGOT/AST 151 U/L (15-37); SGPT/ALT 64 U/L (12-78); TOT PROT 5.8 g/dl (6.4-8.2)
[2017-01-12 08:55] LABS: TROPONIN I 0.17 ng/ml (0.00-0.05)
[2017-01-12] MEDS ORDERED: LOPERAMIDE HCL 2 MG CAPSULE PO ONE (09:18)
[2017-01-12] MEDS: FOLIC ACID 1 MG TABLET (FP) PO SCH (09:45)
[2017-01-12] MEDS ORDERED: GABAPENTIN 400 MG CAPSULE (FP) PO SCH ×2 (10:00→22:00)
--- NOTE | 2017-01-12 10:26 | PN ---
Physical Exam: SUBJECTIVE: Patient seen and examined Patient feeling SOB and nauseous. Patient has history of hepatitis C. Patient agreeable to inpatient detox. OBJECTIVE: Vital Signs Period Temp Pulse Resp BP Sys/Haney Pulse Ox Last 24 Hr 98 F-98 F 112-120 20-20 123-123/72-78 92 GENERAL: The patient is awake, alert, and fully oriented, in no acute distress. HEAD: Normal with no signs of trauma. EYES: PERRL, extraocular movements intact, sclera anicteric, conjunctiva clear. No ptosis. ENT: Ears normal, nares patent, oropharynx clear without exudates, moist mucous membranes. NECK: Trachea midline, full range of motion, supple. LUNGS: Breath sounds equal, clear to auscultation bilaterally, no wheezes, no crackles, no accessory muscle use. HEART: Tachycardic, S1, S2 without murmur, rub or gallop. ABDOMEN: Soft, nontender, nondistended, normoactive bowel sounds, no guarding, no rebound, no hepatosplenomegaly, no masses. EXTREMITIES: 2+ pulses, warm, well-perfused, no edema, RESTING TREMOR NEUROLOGICAL: Cranial nerves II through XII grossly intact. Normal speech, gait not observed. PSYCH: Normal mood, normal affect. SKIN: Warm, dry, normal turgor, no rashes or lesions noted Laboratory Results - last 24 hr 01/11/17 01/12/17 01/12/17 23:13 06:00 06:00 WBC 6.6 RBC 3.53 L Hgb 11.1 L D Hct 33.4 L MCV 94.6 MCH 31.4 MCHC 33.2 RDW 17.3 H Plt Count 110 L D MPV 10.5 INR 1.04 PTT (Actin FS) 26.5 L Puncture Site ABG pH ABG pCO2 at Pt Temp ABG pO2 at Pt Temp ABG HCO3 ABG O2 Sat (Measured) ABG O2 Content ABG Base Excess Carlos Test O2 Delivery Device Oxygen Flow Rate PEEP Sodium Potassium Chloride Carbon Dioxide Anion Gap BUN Creatinine Creat Clearance w eGFR Random Glucose Calcium Magnesium Total Bilirubin AST ALT Alkaline Phosphatase Troponin I 0.11 H D Total Protein Albumin Vitamin B12 01/12/17 01/12/17 01/12/17 06:00 06:00 07:15 WBC RBC Hgb Hct MCV MCH MCHC RDW Plt Count MPV INR PTT (Actin FS) Puncture Site Right brachial ABG pH 7.51 H ABG pCO2 at Pt Temp 37.6 ABG pO2 at Pt Temp 74.9 L ABG HCO3 29.6 H ABG O2 Sat (Measured) 95.4 ABG O2 Content 14.3 L ABG Base Excess 6.4 H Carlos Test Positive O2 Delivery Device Ventimask Oxygen Flow Rate 40% PEEP 0.0 Sodium 140 Potassium 3.5 Chloride 100 Carbon Dioxide 29 Anion Gap 11 BUN 5 L Creatinine 0.9 Creat Clearance w eGFR > 60 Random Glucose 102 D Calcium 7.3 L Magnesium 2.1 D Total Bilirubin 0.8 D AST 151 H D ALT 64 Alkaline Phosphatase 250 H Troponin I 0.17 H D Total Protein 5.8 L Albumin 2.6 L Vitamin B12 687 Active Medications Generic Name Dose Route Start Last Admin Trade Name Freq PRN Reason Stop Dose Admin Chlordiazepoxide HCl 25 mg 01/11/17 22:04 Librium - PO 01/14/17 22:03 Q4H PRN WITHDRAWAL(CONT SUBST) Chlordiazepoxide HCl 50 mg 01/11/17 23:00 01/12/17 04:55 Librium - PO 01/12/17 17:01 50 mg [id number] POLO Administration Chlordiazepoxide HCl 25 mg 01/12/17 23:00 Librium - PO 01/13/17 17:01 [id number] POLO Chlordiazepoxide HCl 15 mg 01/13/17 23:00 Librium - PO 01/14/17 17:01 [id number] POLO Folic Acid 1 mg 01/12/17 10:00 01/12/17 09:45 Folic Acid - PO 1 mg DAILY POLO Administration Gabapentin 400 mg 01/12/17 10:00 01/12/17 09:46 Neurontin - PO 400 mg BID POLO Administration Heparin Sodium (Porcine) 1,000 unit 01/12/17 06:48 Heparin - IVPUSH PRN PRN Heparin Heparin Sodium (Porcine) 5,000 unit 01/12/17 06:48 Heparin - IVPUSH PRN PRN Heparin Dextrose/Sodium Chloride 1,000 mls @ 125 mls/hr 01/11/17 19:15 01/11/17 19:29 D5-1/2ns+40 Meq Kcl - IV 125 mls/hr ASDIR POLO Administration Heparin Sodium/Dextrose 500 mls @ 20 mls/hr 01/12/17 07:00 01/12/17 07:14 Heparin Infusion - IVPB 20 mls/hr TITR POLO Administration Protocol 1,000 UNITS/HR Lorazepam 2 mg 01/11/17 22:05 Ativan Injection - IVPUSH PRN PRN AGITATION Ondansetron HCl 8 mg 01/11/17 22:09 Zofran Odt - SL Q6H PRN NAUSEA Thiamine HCl 100 mg 01/12/17 22:00 Vitamin B1 - PO HS [facility] ASSESSMENT/PLAN: 61yo M with PMH of hepatitis C, chronic hypokalemia, ETOH abuse presents c/o weakness x 2 weeks, admitted to Telemetry for electrolyte abnormalities and detox. #Bilateral pulmonary embolus with saddle embolus -Elevated troponins likely 2/2 to heart strain, downtrending -F/u Echocardiogram looking for right heart strain -IR does not believe patient needs procedure at this time. -Cardiology consulted, Dr. Orozco -Continue Heparin drip -LLE duplex negative #EtOH Abuse -CIWA 10 this am -Continue librium protocol -Detox consult, Dr. Goodson -Nicotine patch -Continue thiamine 100 mg PO hs, Folic acid 1 mg po daily, and zofran 8mg sl prn for nausea #Cirrhosis 2/2 to etoh vs hepatitis c -F/u liver us -PCP states patient was told to f/u with Dr. Butler outpatient, but never did. Patient's HCV viral load was previously undetectable -HCV labs pending #neuropathy -cont. home med of neurontin -B12 normal #Hypokalemia, hypomagnesiemia -resolved -continue to monitor #FEN - Fluids: banana bag - Electrolytes: cont. to monitor - Nutrition: Regular diet #Prophylaxis - Heparin 5000U SQ TID for DVT prophylaxis Visit type - Emergency Visit Emergency Visit: Yes ED Registration Date: 01/11/17 Care time: The patient presented to the Emergency Department on the above date and was hospitalized for further evaluation of their emergent condition. - New Patient This patient is new to me today: Yes Date on this admission: 01/12/17 - Critical Care Critical Care patient: No
--- NOTE | 2017-01-12 11:31 | PN ---
Teaching Attending Note Name of Resident: Rey Sutherland ATTENDING PHYSICIAN STATEMENT I saw and evaluated the patient. I reviewed the resident's note and discussed the case with the resident. I agree with the resident's findings and plan as documented. SUBJECTIVE:continues to feel hypoxic with nausea but no vomiting. admits to hemoptysis intermittently over the past few weeks. no cough or recent travel. was recently diagnosed with cirrhosis but does not know cause but contributes to his drinking was +HCV in the past never treated. denies CP, hemoptysis, palpitations, V/C/D, auditory/visual hallucinations. last drink wine cooler 2 days ago (does not contribute to drinking issue states well at least is not hard liquor) no family hx of bleeding/clotting disorders, no hx of CVA OBJECTIVE: Last Vital Signs Temp Pulse Resp BP Pulse Ox 98 F 120 H 20 123/78 92 L 01/12/17 04:57 01/12/17 04:57 01/12/17 04:57 01/12/17 04:57 01/12/17 04:09 General NAD CV S1 S2 tachycardic Lungs CTA B/L no wheezing/rales/rhonchi Abdomen soft NT/ND obese extremities +tremor at rest ASSESSMENT AND PLAN: 61yo M with PMH continuous polysubstance abuse (EOTH and nicotine), HTN and recently diagnosed cirrhosis presented to the ER with weakness for 2 weeks 1. B/L PE with saddle embolus- currently more hemodynamically stabllized. saturating 97% on 4L NC and less tachycardic (HR 105 during my exam). elevated troponin. spoke with IR (Dr Hutchinson) who evaluated the images. moderate sized saddle embolus. since pt is hemodynamically stable will f/u on echo for heart strain if there is significant strain will go for catheter directed TPA. at this time will continue to treat with heparin ggt. will need hypercoagability workup as outpatient. (risk factors obesity and smoking) will need anticoagulation for 3-6months 2. Continuous ETOH depedence- CIWA 7. on librium protocol. nicotine patch. thiamine/folate/MVI. desires inpatient rehab. detox consult. counseled on risks of continued drinking including risk factors. verbalized understanding 3. Cirrhosis- likely due to ETOH and possible HCV. will place call to PMD for reports of workup done. cirrhosis seen on CT here. HCV viral load pending. 4. Hypokalemia- resolved 5. hypomagnesemia- resolved 6. elevated troponin-likley demand ischemia due to tachycardia vs heart strain from saddle PE. echo pending. trend tropinins. no events on diagnostic cardiac sonographer
[2017-01-12] MEDS: chlordiazePOXIDE HCL 25 MG CAPSULE PO PRN ×2 (13:24→20:27)
[2017-01-12] MEDS: NICOTINE 14 MG/24 HOURS TOPICAL PATCH TD SCH (14:08)
--- NOTE | 2017-01-12 16:34 | CONSULT ---
Consult Detox [facility] Reason for Current Admission/Consult: alcohol withdrawal symptoms Referred by:: dennise Castro res - History History of Present Illness: 61 yo m with h/o polysubstance use and chronic alcoholism, hep c+, liver cirrhosis, untreated htn now admitted s/p saddle embolus c/o weakness, SOB, tremors, anxiety, Patient [facility] to [facility]. last visit 09/13 - History Source History Provided By: Patient, Medical Record Limitations to Obtaining History: No Limitations - Alcohol/Substance Use Hx Alcohol Use: Yes Hx Substance Use: Yes Hx Substance Use Treatment: Yes - Current Drug/Alcohol Use Alcohol Route: Oral Frequency: Daily Amount used: wine collers + 1 1/2 6 pack daily Age of first use: 19 Date of Last Use: 01/11/17 - Past Medical History SUPERVISOR HEADING: Yes: Peripheral Neuropathy (numbness in feet), Other (hx of ETOH use, possible abuse). No: Alzheimer's, CVA, Dementia, Migraine, Multiple Sclerosis, Parkinson's, Seizure, Syncope, TIA, Vertigo Cardio/Vascular: No: AFIB, Aneurysm, Aortic Insufficiency, Aortic Stenosis, CAD , CHF, Deep Vein Thrombosis, HTN, Hyperlipdemia, [place], Mitral Insufficiency, Mitral Stenosis, Murmur, Pulmonary Hypertension, Other Pulmonary: No: Asthma, Bronchitis, Cancer, COPD, O2 Dependent, Pneumonia, Previously Intubated, Pulmonary Embolus, Pulmonary Fibrosis, Sleep Apnea, Other Gastrointestinal: No: Ascites, Cancer, Constipation, Crohn's Disease, Diverticulitis, Diverticulosis, Esophageal Varices, Gastritis, GERD, GI Bleed, Hemorrhoids, Hiatal Hernia, Inflamatory Bowel Disease, Irritable Bowel Disease, Pancreatitis, Peptic Ulcer Disease, Ulcerative Colitis, Other Hepatobiliary: Yes: Cirrhosis, Hepatitis C. No: Cholelithiasis, Cholecystitis, Choledocholithiasis, Hepatitis A, Hepatitis B, Other Renal/: No: Renal Failure, Renal Inusuff, BPH, Cancer, Hematuria, Hemodialysis , Neurogenic Bladder, Renal Calculi, UTI, Other Heme/Onc: Yes: Anemia Infectious Disease: No: AIDS, C-Diff, Herpes Zoster, HIV, MRSA, STD's, Tuberculosis, VREF, Other Psych: Yes: Addictions (drinks "heavy" alcohol at times, states last was 2 months ago drinks 8 12oz wine coolers every day. last drink was yesterday), Other (stated that he has been anxious). No: Anxiety, Bipolar, Depression, Panic, Psychosis, Schizophrenia Musculoskeletal: Yes: Other (slight loss of sensation in both feet) Rheumatology: No: Fibromyalgia, Gout, Lupus, Rheumatoid Arthritis, Sarcoidosis, Vasculitis, Other ENT: Yes: Other (complains of a cold for the past few days. Has a cough, brings up green phlem). No: Allergic Rhinitis, Sinusitis Endocrine: No: [place]'s Disease, Brody's Disease, Diabetes Insipidus, Diabetes Mellitus, Hyperparathyroidism, Hyperthyroidism, Hypothyroidism, Osteopenia, SIADH, Other Dermatology: No: Basal Cell, Cellulitis, Eczema, Melanoma, Psoriasis, Squamous Cell, Other Additional Medical History: Patient admits to periods of heavy ETOH abuse. Smokes several cigarettes per day; less than one pack - Past Surgical History Past Surgical History: No: None, AAA Repair, AICD, Amputation, Appendectomy, Arthrosocopy, AV Fistula/Graft, Bariatric Surgery, Breast Biopsy, Bypass, CABG, Carotid Endarterectomy, Cataract Removal, Cholecystectomy, Colectomy, Colonoscopy, Colostomy, Craniotomy, , Cystectomy, Hernia Repair, Hysterectomy, Ileal Conduit, Ileosotomy, Joint Replacement, Kidney Transplant, Laminectomy, Liver Transplant, Mastectomy, Nephrectomy, Oopherectomy, Orchiectomy, Permanent Pacemaker, Prostatectomy, Splenectomy, Stent, Thoracotomy , TURP, Tonsillectomy, Tubal Ligation, Upper Endoscopy, Valve Replacement, Vasectomy, Vein Stripping/Ligation - Significant Medical Findings: Laboratory Last Values WBC 6.6 K/mm3 (4.0-10.0) 01/12/17 06:00 RBC 3.53 M/mm3 (4.00-5.60) L 01/12/17 06:00 Hgb 11.1 GM/dL (11.7-16.9) L D 01/12/17 06:00 Hct 33.4 % (35.4-49) L 01/12/17 06:00 MCV 94.6 fl (80-96) 01/12/17 06:00 MCH 31.4 pg (25.7-33.7) 01/12/17 06:00 MCHC 33.2 g/dl (32.0-35.9) 01/12/17 06:00 RDW 17.3 % (11.9-15.9) H 01/12/17 06:00 Plt Count 110 K/MM3 (134-434) L D 01/12/17 06:00 MPV 10.5 fl (7.5-11.1) 01/12/17 06:00 Neutrophils % 37.9 % (42.8-82.8) L 01/11/17 17:40 Lymphocytes % 48.7 % (8-40) H 01/11/17 17:40 Monocytes % 11.2 % (3.8-10.2) H 01/11/17 17:40 Eosinophils % 1.0 % (0-4.5) D 01/11/17 17:40 Basophils % 1.2 % (0-2.0) 01/11/17 17:40 INR 1.04 (0.82-1.09) 01/12/17 06:00 PTT (Actin FS) 60.1 SECONDS (26.9-34.4) H D 01/12/17 13:45 Puncture Site Right brachial 01/12/17 07:15 ABG pH 7.51 (7.35-7.45) H 01/12/17 07:15 ABG pCO2 at Pt Temp 37.6 mmHg (35-45) 01/12/17 07:15 ABG pO2 at Pt Temp 74.9 mmHg (80-100) L 01/12/17 07:15 ABG HCO3 29.6 meq/L (22-26) H 01/12/17 07:15 ABG O2 Sat (Measured) 95.4 % (90-98.9) 01/12/17 07:15 ABG O2 Content 14.3 % vol (15-22) L 01/12/17 07:15 ABG Base Excess 6.4 meq/l (-2-2) H 01/12/17 07:15 Carlos Test Positive 01/12/17 07:15 O2 Delivery Device Ventimask 01/12/17 07:15 Oxygen Flow Rate 40% 01/12/17 07:15 PEEP 0.0 cmH2O 01/12/17 07:15 Sodium 140 mmol/L (136-145) 01/12/17 06:00 Potassium 3.5 mmol/L (3.5-5.1) 01/12/17 06:00 Chloride 100 mmol/L (98-107) 01/12/17 06:00 Carbon Dioxide 29 mmol/L (21-32) 01/12/17 06:00 Anion Gap 11 (8-16) 01/12/17 06:00 BUN 5 mg/dL (7-18) L 01/12/17 06:00 Creatinine 0.9 mg/dL (0.7-1.3) 01/12/17 06:00 Creat Clearance w eGFR > 60 (>60) 01/12/17 06:00 Random Glucose 102 mg/dL (74-106) D 01/12/17 06:00 Calcium 7.3 mg/dL (8.5-10.1) L 01/12/17 06:00 Magnesium 2.1 mg/dL (1.8-2.4) D 01/12/17 06:00 Total Bilirubin 0.8 mg/dL (0.2-1.0) D 01/12/17 06:00 AST 151 U/L (15-37) H D 01/12/17 06:00 ALT 64 U/L (12-78) 01/12/17 06:00 Alkaline Phosphatase 250 U/L (45-117) H 01/12/17 06:00 Troponin I 0.11 ng/ml (0.00-0.05) H D 01/12/17 11:47 Total Protein 5.8 g/dl (6.4-8.2) L 01/12/17 06:00 Albumin 2.6 g/dl (3.4-5.0) L 01/12/17 06:00 Vitamin B12 687 pg/ml (180-914) 01/12/17 06:00 Alcohol, Quantitative 114.5 mg/dl (0-5) H* 01/11/17 22:06 labs noted, elevated alcohol level on admission CIWA Score - CIWA Score Nausea/Vomitin-Mild Nausea/No Vomiting Muscle Tremors: 4-Moderate,w/Arms Extend Anxiety: 4-Mod. Anxious/Guarded Agitation: 4-Moderately Restless Paroxysmal Sweats: 3 Orientation: 0-Oriented Tacttile Disturbances: 0-None Auditory Disturbances: 0-None Visual Disturbances: 0-None Headache: 0-None Present CIWA-Ar Total Score: 16 Assessment Plan - Diagnosis (1) Hypomagnesemia Status: Acute (2) Alcohol dependence with uncomplicated withdrawal Status: Chronic (3) Hepatitis C Status: Chronic Qualifiers: Viral hepatitis chronicity: chronic Hepatic coma status: without hepatic coma Qualified Code(s): B18.2 - Chronic viral hepatitis C (4) Pulmonary embolism Status: Acute Qualifiers: Pulmonary embolism type: saddle Chronicity: acute Acute cor pulmonale presence: without acute cor pulmonale Qualified Code(s): I26.92 - Saddle embolus of pulmonary artery without acute cor pulmonale (5) Neuropathy Status: Chronic Comment: neurontine 400 mg bid (6) Nicotine dependence Status: Chronic Qualifiers: Nicotine product type: cigarettes Substance use status: in withdrawal Qualified Code(s): F17.213 - Nicotine dependence, cigarettes, with withdrawal Comment: counseled cessation - not ready - Plan Plan: complete detox and medical treatment, recommend prn medications be utilized as needed, refer to innpatient rehab when discharged - Medication Detox Regimen/Protocol: Librium
--- NOTE | 2017-01-12 16:41 | EKG ---
Test Reason : Blood Pressure : / mmHG Vent. Rate : 120 BPM Atrial Rate : 120 BPM P-R Int : 168 ms QRS Dur : 076 ms QT Int : 312 ms P-R-T Axes : 038 070 074 degrees QTc Int : 440 ms SINUS TACHYCARDIA CANNOT RULE OUT ANTERIOR INFARCT , AGE UNDETERMINED ABNORMAL ECG WHEN COMPARED WITH ECG OF 10-JAN-2017 19:37, NO SIGNIFICANT CHANGE WAS FOUND Confirmed by MESERET NICHOLAS MD ([id number]) on 01/12/2017 4:40:45 PM Referred By: Confirmed By:MESERET NICHOLAS MD
--- NOTE | 2017-01-12 16:59 | CON.CARD ---
Consult Consult Specialty:: Cardiology Referred by:: Dr. Broussard Reason for Consultation:: Acute PE with mild RV dilatation and dysfunction. - History of Present Illness Chief Complaint: Weakness. History of Present Illness: 61 year-old man with a PMHx of HTN, polysubstance abuse, chronic alcoholism, Hep C, liver cirrhosis admitted 01/11/2017 with weakness, chest pain and SOB with decreased exercise tolerance. The patient has been experiencing exertional shortness of breath and chest pain with markedly decreased exercise tolerance of nearly 10 days. He has no palpitation, syncope or near syncope. No edema, orthopnea or PND. No recent travel history. He was found to have extensive bilateral PE with saddle embolus. His troponin is mildly elevated. Echo 01/12/2017 revealed mild RV dilatation with mild to moderate hypokinesis. Normal LV size and systolic function. No significant valvular abnormalities. He has been treated with IV heparin. - History Source History Provided By: Patient Limitations to Obtaining History: No Limitations - Past Medical History SAFETY ENGINEER: Yes: Peripheral Neuropathy (numbness in feet), Other (hx of ETOH use, possible abuse). No: Alzheimer's, CVA, Dementia, Migraine, Multiple Sclerosis, Parkinson's, Seizure, Syncope, TIA, Vertigo Cardio/Vascular: No: AFIB, Aneurysm, Aortic Insufficiency, Aortic Stenosis, CAD , CHF, Deep Vein Thrombosis, HTN, Hyperlipdemia, [place], Mitral Insufficiency, Mitral Stenosis, Murmur, Pulmonary Hypertension, Other Pulmonary: No: Asthma, Bronchitis, Cancer, COPD, O2 Dependent, Pneumonia, Previously Intubated, Pulmonary Embolus, Pulmonary Fibrosis, Sleep Apnea, Other Gastrointestinal: No: Ascites, Cancer, Constipation, Crohn's Disease, Diverticulitis, Diverticulosis, Esophageal Varices, Gastritis, GERD, GI Bleed, Hemorrhoids, Hiatal Hernia, Inflamatory Bowel Disease, Irritable Bowel Disease, Pancreatitis, Peptic Ulcer Disease, Ulcerative Colitis, Other Hepatobiliary: Yes: Cirrhosis, Hepatitis C. No: Cholelithiasis, Cholecystitis, Choledocholithiasis, Hepatitis A, Hepatitis B, Other Renal/: No: Renal Failure, Renal Inusuff, BPH, Cancer, Hematuria, Hemodialysis , Neurogenic Bladder, Renal Calculi, UTI, Other Infectious Disease: No: AIDS, C-Diff, Herpes Zoster, HIV, MRSA, STD's, Tuberculosis, VREF, Other Psych: Yes: Addictions (drinks "heavy" alcohol at times, states last was 2 months ago drinks 8 12oz wine coolers every day. last drink was yesterday), Other (stated that he has been anxious). No: Anxiety, Bipolar, Depression, Panic, Psychosis, Schizophrenia Musculoskeletal: Yes: Other (slight loss of sensation in both feet) Rheumatology: No: Fibromyalgia, Gout, Lupus, Rheumatoid Arthritis, Sarcoidosis, Vasculitis, Other ENT: Yes: Other (complains of a cold for the past few days. Has a cough, brings up green phlem). No: Allergic Rhinitis, Sinusitis Endocrine: No: [place]'s Disease, Brody's Disease, Diabetes Insipidus, Diabetes Mellitus, Hyperparathyroidism, Hyperthyroidism, Hypothyroidism, Osteopenia, SIADH, Other Dermatology: No: Basal Cell, Cellulitis, Eczema, Melanoma, Psoriasis, Squamous Cell, Other Additional Medical History: Patient admits to periods of heavy ETOH abuse. Smokes several cigarettes per day; less than one pack - Past Surgical History Past Surgical History: No: None, AAA Repair, AICD, Amputation, Appendectomy, Arthrosocopy, AV Fistula/Graft, Bariatric Surgery, Breast Biopsy, Bypass, CABG, Carotid Endarterectomy, Cataract Removal, Cholecystectomy, Colectomy, Colonoscopy, Colostomy, Craniotomy, , Cystectomy, Hernia Repair, Hysterectomy, Ileal Conduit, Ileosotomy, Joint Replacement, Kidney Transplant, Laminectomy, Liver Transplant, Mastectomy, Nephrectomy, Oopherectomy, Orchiectomy, Permanent Pacemaker, Prostatectomy, Splenectomy, Stent, Thoracotomy , TURP, Tonsillectomy, Tubal Ligation, Upper Endoscopy, Valve Replacement, Vasectomy, Vein Stripping/Ligation - Alcohol/Substance Use Hx Alcohol Use: Yes Number of Drinks Daily: 8 (has been drinking since high school) History of Substance Use: denies: None, Cocaine, Heroin, Marijuana, Prescription , Tranquilizers - Smoking History Smoking history: Unknown if ever smoked Have you smoked in the past 12 months: Yes Aproximately how many cigarettes per day: 5 If you are a former smoker, when did you quit?: 1 months - Social History Usual Living Arrangement: Alone (States he has no family nearby; says he has a brother in [place]) ADL: Independent History of Recent Travel: No Home Medications - Allergies Allergies/Adverse Reactions: Allergies Allergy/AdvReac Type Severity Reaction Status Date / Time No Known Allergies Allergy Verified 01/10/17 16:37 - Home Medications Home Medications: Ambulatory Orders Gabapentin [Neurontin -] 400 mg PO BID 01/10/17 Family Disease History - Family Disease History Family Disease History: Other: Father (Uses Alcohol.), Mother (Uses Alcohol.), Brother (Uses Alcohol.), Sister (LSD related schizophrenia) Review of Systems - Review of Systems Constitutional: reports: Malaise, Weakness Eyes: reports: No Symptoms HENT: reports: No Symptoms Neck: reports: No Symptoms, Decreased ROM Cardiovascular: reports: Chest Pain, Palpitations, Shortness of Breath Respiratory: reports: Exercise Intolerance, SOB, SOB on Exertion Gastrointestinal: reports: Bloating Genitourinary: reports: No Symptoms Neurological: reports: No Symptoms Hematology/Lymphatic: reports: Easily Bruised Vital Signs: Vital Signs Temperature 98.4 F 01/12/17 14:33 Pulse Rate 108 H 01/12/17 14:33 Respiratory Rate 18 01/12/17 14:33 Blood Pressure 106/73 01/12/17 14:33 O2 Sat by Pulse Oximetry (%) 98 01/12/17 10:00 Constitutional: Yes: Well Nourished, Poor Hygeine Eyes: Yes: WNL, Conjunctiva Clear HENT: Yes: Atraumatic, Normocephalic Neck: Yes: Supple, Trachea Midline Respiratory: Yes: Regular, CTA Bilaterally Gastrointestinal: Yes: Normal Bowel Sounds, Soft, Ascites, Distention Renal/: Yes: WNL Cardiovascular: Yes: Regular Rate and Rhythm, Tachycardia JVD: No Carotid Bruit: No PMI: Non-Displaced Heart Sounds: Yes: S1, S2 Extremities: Yes: Other (varicose veins) Edema: No Peripheral Pulses WNL: Yes Neurological: Yes: Alert, Oriented - Other Data Labs, Other Data: CBC, BMP 01/12/17 06:00 01/12/17 06:00 INR, PTT INR 1.04 (0.82-1.09) 01/12/17 06:00 Troponin, BNP 01/11/17 01/12/17 01/12/17 23:13 06:00 11:47 Troponin I 0.11 H D 0.17 H D 0.11 H D Troponin, BNP 01/11/17 01/12/17 01/12/17 23:13 06:00 11:47 Troponin I 0.11 H D 0.17 H D 0.11 H D Sinus tachycardia at 120 BPM. Normal axis. No significant ST-T abnormalities. Echo: Report Reviewed (Echo 01/12/2017 revealed mild RV dilatation with mild to moderate hypokinesis. Normal LV size and systolic function. No significant valvular abnormalities.), Image Reviewed Assessment/Plan 61 year-old man with a PMHx of HTN, polysubstance abuse, chronic alcoholism, Hep C, liver cirrhosis admitted 01/11/2017 with weakness, chest pain and SOB with decreased exercise tolerance. He was found to have extensive bilateral PE with saddle embolus. His troponin is mildly elevated. Echo 01/12/2017 revealed mild RV dilatation with mild to moderate hypokinesis. Normal LV size and systolic function. No significant valvular abnormalities. He has been treated with IV heparin. 1) Acute PE with mild to moderate RV dilatation and dysfunction. Continue IV heparin to keep aPTT 50-70. Long-term anticoagulation with Warfarin, Xarelto or Eliquis. He has high riks of bleeding due to alcoholism. 2) Mildly elevated troponin is due to RV strain in the setting of large PE. No further cardiac test recommended at this time.
[2017-01-12] MEDS: GABAPENTIN 400 MG CAPSULE (FP) PO SCH ×2 (17:28→22:24)
[2017-01-12] MEDS: THIAMINE HCL 100 MG TABLET (FP) PO SCH (22:22)
[2017-01-12] MEDS: D5-1/2NS+40 MEQ KCL - 1,000 ML IV SCH (22:23)
[2017-01-13] MEDS: chlordiazePOXIDE HCL 25 MG CAPSULE PO SCH ×3 (06:12→16:50)
[2017-01-13] MEDS: GABAPENTIN 400 MG CAPSULE (FP) PO SCH ×4 (06:12→22:21)
[2017-01-13] MEDS: HEPARIN INFUSION - 500 ML IVPB SCH (07:10)
[2017-01-13 08:21] LABS: BASOPHIL 0.8 % (0-2.0); EOSINOPHIL 1.7 % (0-4.5); MCHC 33.2 g/dl (32.0-35.9); MEAN CELL VOLUME 96.3 fl (80-96); MEAN PLT VOLUME 11.9 fl (7.5-11.1); NEUTROPHILS 46.5 % (42.8-82.8); PLATELET COUNT 115 K/MM3 (134-434); RDW 17.9 % (11.9-15.9); WHITE BLOOD COUNT 5.6 K/mm3 (4.0-10.0)
[2017-01-13 08:25] LABS: ALBUMIN 2.5 g/dl (3.4-5.0); ALK PHOS 232 U/L (45-117); ANION GAP 8 (8-16); BILIRUBIN,TOTAL 0.6 mg/dL (0.2-1.0); CALCIUM 7.2 mg/dL (8.5-10.1); CO2 26 mmol/L (21-32); CREATININE 0.8 mg/dL (0.7-1.3); GLUCOSE,RANDOM 86 mg/dL (74-106); MAGNESIUM 1.5 mg/dL (1.8-2.4); PHOSPHOROUS 2.5 mg/dL (2.5-4.9); SGOT/AST 95 U/L (15-37); SGPT/ALT 51 U/L (12-78); TOT PROT 5.8 g/dl (6.4-8.2)
[2017-01-13 09:05] LABS: INR 1.04 (0.82-1.09); PROTHROMBIN TIME (PATIENT) 11.4 SEC (9.98-11.88)
[2017-01-13] MEDS: FOLIC ACID 1 MG TABLET (FP) PO SCH (10:08)
[2017-01-13] MEDS: NICOTINE 14 MG/24 HOURS TOPICAL PATCH TD SCH (10:08)
[2017-01-13] MEDS ORDERED: MAGNESIUM SULF 50% (8.12 MEQ/2 ML-1 GM VIAL) IVPB ONE (12:45)
[2017-01-13 14:07] LABS: MCH 31.2 pg (25.7-33.7); MCHC 32.3 g/dl (32.0-35.9); MEAN CELL VOLUME 96.6 fl (80-96); MEAN PLT VOLUME 11.4 fl (7.5-11.1); PLATELET COUNT 106 K/MM3 (134-434); RDW 17.8 % (11.9-15.9); WHITE BLOOD COUNT 6.9 K/mm3 (4.0-10.0)
--- NOTE | 2017-01-13 14:32 | PN ---
Teaching Attending Note Name of Resident: Rey Sutherland ATTENDING PHYSICIAN STATEMENT I saw and evaluated the patient. I reviewed the resident's note and discussed the case with the resident. I agree with the resident's findings and plan as documented. SUBJECTIVE:continues to have chest discomfort worse on deep inspiration. feels a lil unstable but improved since yesterday. denies SOB, fever, chills, cough, N /V/C/D, auditory/visual hallucinations. denies hemoptysis, melena or BRBPR OBJECTIVE: Last Vital Signs Temp Pulse Resp BP Pulse Ox 98.3 F 100 H 19 123/86 99 01/13/17 10:00 01/13/17 10:00 01/13/17 10:00 01/13/17 10:00 01/13/17 10:00 General NAD CV S1 S2 RRR no murmur/rub/gallop Lungs CTA B/L no wheezing/rales/rhonchi Abdomen soft NT/ND obese extremities +tremor at rest ASSESSMENT AND PLAN: 61yo M with PMH continuous polysubstance abuse (EOTH and nicotine), HTN and recently diagnosed cirrhosis presented to the ER with weakness for 2 weeks 1. B/L PE with saddle embolus-hemodynamically stable. mild heart strain seen on echo. cardio consulted. not candidate for TPA at this time as he is hemodynamically stable. on hep ggt. will convert to eliquis. will need 10mg BID x7 days and then 5mg BID for 3-6months. will need outpatient workup for etiology of hypercoaguble workup. careful being on NOAC given thrombocytopenia 2. Continuous ETOH depedence- CIWA 4. on librium protocol. nicotine patch. thiamine/folate/MVI. desires inpatient rehab. detox consult. counseled on risks of continued drinking including risk factors. verbalized understanding 3. Macrocyctic anemia-mild trend down. no signs of bleeding. repeat Hgb in evening prior to initiaion of NOAC. no indication for transfusion. 4. Cirrhosis- likely due to ETOH and possible HCV. will place call to PMD for reports of workup done. cirrhosis seen on CT here. HCV viral load pending. 5. Hypokalemia- resolved 6. hypomagnesemia-Mg po 7. elevated troponin-likley demand ischemia due to tachycardia vs heart strain from saddle PE. 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 thrombocytopenia- platelet count stable. likely due to liver disease. monitor 9. no beds available at [facility] for detox. will continue to complete detox here and then will go for inpatient rehab. PT melinda
--- NOTE | 2017-01-13 14:45 | PN ---
Progress Note, Physician Chief Complaint: Patient has pleuritic chest pain. He has no SOB at rest. Tele shows sinus rhythm with improved sinus tachycardia. History of Present Illness: 61 year-old man with a PMHx of HTN, polysubstance abuse, chronic alcoholism, Hep C, liver cirrhosis admitted 01/11/2017 with weakness, chest pain and SOB with decreased exercise tolerance. The patient has been experiencing exertional shortness of breath and chest pain with markedly decreased exercise tolerance of nearly 10 days. He has no palpitation, syncope or near syncope. No edema, orthopnea or PND. No recent travel history. He was found to have extensive bilateral PE with saddle embolus. His troponin is mildly elevated. Echo 01/12/2017 revealed mild RV dilatation with mild to moderate hypokinesis. Normal LV size and systolic function. No significant valvular abnormalities. He has been treated with IV heparin. - Current Medication List Current Medications: Active Medications Chlordiazepoxide HCl (Librium -) 25 mg PO Q4H PRN PRN Reason: WITHDRAWAL(CONT SUBST) Stop: 01/14/17 22:03 Last Admin: 01/12/17 20:27 Dose: 25 mg Chlordiazepoxide HCl (Librium -) 25 mg PO [id number] [facility] Stop: 01/13/17 17:01 Last Admin: 01/13/17 10:08 Dose: 25 mg Chlordiazepoxide HCl (Librium -) 15 mg PO [id number] [facility] Stop: 01/14/17 17:01 Folic Acid (Folic Acid -) 1 mg PO DAILY [facility] Last Admin: 01/13/17 10:08 Dose: 1 mg Gabapentin (Neurontin -) 400 mg PO TID [facility] Last Admin: 01/13/17 10:16 Dose: 400 mg Heparin Sodium (Porcine) (Heparin -) 1,000 unit IVPUSH PRN PRN PRN Reason: Heparin Heparin Sodium (Porcine) (Heparin -) 5,000 unit IVPUSH PRN PRN PRN Reason: Heparin Heparin Sodium/Dextrose (Heparin Infusion -) 500 mls @ 20 mls/hr IVPB TITR POLO ; 1,000 UNITS/HR PRN Reason: Protocol Last Admin: 01/13/17 07:10 Dose: 20 mls/hr Lorazepam (Ativan Injection -) 2 mg IVPUSH Q8H PRN PRN Reason: AGITATION Last Admin: 01/12/17 22:21 Dose: 2 mg Nicotine (Nicoderm Patch -) 14 mg TD DAILY [facility] Last Admin: 01/13/17 10:08 Dose: 14 mg Ondansetron HCl (Zofran Odt -) 8 mg SL Q6H PRN PRN Reason: NAUSEA Thiamine HCl (Vitamin B1 -) 100 mg PO HS [facility] Last Admin: 01/12/17 22:22 Dose: 100 mg - Objective Vital Signs: Vital Signs Temperature 98.4 F 01/13/17 14:00 Pulse Rate 99 H 01/13/17 14:00 Respiratory Rate 20 01/13/17 14:00 Blood Pressure 119/75 01/13/17 14:00 O2 Sat by Pulse Oximetry (%) 99 01/13/17 10:00 Constitutional: Yes: Well Nourished, No Distress Eyes: Yes: WNL HENT: Yes: Atraumatic, Normocephalic Neck: Yes: Supple Cardiovascular: Yes: Regular Rate and Rhythm, Tachycardia Respiratory: Yes: Regular, CTA Bilaterally Gastrointestinal: Yes: Normal Bowel Sounds, Soft, Ascites, Distention ...Rectal Exam: Yes: Deferred Extremities: Yes: WNL Edema: No Peripheral Pulses WNL: Yes Neurological: Yes: Alert, Oriented Labs: CBC, BMP 01/13/17 13:15 01/13/17 05:35 INR, PTT INR 1.04 (0.82-1.09) 01/13/17 05:35 Assessment/Plan 61 year-old man with a PMHx of HTN, polysubstance abuse, chronic alcoholism, Hep C, liver cirrhosis admitted 01/11/2017 with weakness, chest pain and SOB with decreased exercise tolerance. He was found to have extensive bilateral PE with saddle embolus. His troponin is mildly elevated. Echo 01/12/2017 revealed mild RV dilatation with mild to moderate hypokinesis. Normal LV size and systolic function. No significant valvular abnormalities. He has been treated with IV heparin. 1) Acute PE with mild to moderate RV dilatation and dysfunction. Continue IV heparin to keep aPTT 50-70. Long-term anticoagulation with Warfarin, Xarelto or Eliquis. He has high riks of bleeding due to alcoholism. Hematology evaluation for the etiology of hypercoagulable workup. 2) Mildly elevated troponin is due to RV strain in the setting of large PE. No further cardiac test recommended at this time.
--- NOTE | 2017-01-13 14:48 | PN ---
Physical Exam: SUBJECTIVE: Patient seen and examined No acute events overnight. Patient still complaining of chest pain. Agreeable to inpatient detox. OBJECTIVE: Vital Signs Period Temp Pulse Resp BP Sys/Haney Pulse Ox Last 24 Hr 98.2 F-100.0 F 98-109 19-20 102-123/61-86 96-99 GENERAL: The patient is awake, alert, and fully oriented, in no acute distress. HEAD: Normal with no signs of trauma. EYES: PERRL, extraocular movements intact, sclera anicteric, conjunctiva clear. No ptosis. ENT: Ears normal, nares patent, oropharynx clear without exudates, moist mucous membranes. NECK: Trachea midline, full range of motion, supple. LUNGS: Breath sounds equal, clear to auscultation bilaterally, no wheezes, no crackles, no accessory muscle use. HEART: Tachycardic, S1, S2 without murmur, rub or gallop. ABDOMEN: Soft, nontender, nondistended, normoactive bowel sounds, no guarding, no rebound, no hepatosplenomegaly, no masses. EXTREMITIES: 2+ pulses, warm, well-perfused, no edema, RESTING TREMOR NEUROLOGICAL: Cranial nerves II through XII grossly intact. Normal speech, gait not observed. PSYCH: Normal mood, normal affect. SKIN: Warm, dry, normal turgor, no rashes or lesions noted Laboratory Results - last 24 hr 01/12/17 01/13/17 01/13/17 13:45 05:35 05:35 WBC 5.6 RBC 3.38 L Hgb 10.8 L Hct 32.6 L MCV 96.3 H MCH 32.0 MCHC 33.2 RDW 17.9 H Plt Count 115 L MPV 11.9 H D Neutrophils % 46.5 D Lymphocytes % 42.1 H Monocytes % 8.9 Eosinophils % 1.7 Basophils % 0.8 INR 1.04 PTT (Actin FS) 60.1 H D 54.0 H Sodium Potassium Chloride Carbon Dioxide Anion Gap BUN Creatinine Creat Clearance w eGFR Random Glucose Calcium Phosphorus Magnesium Total Bilirubin AST ALT Alkaline Phosphatase Total Protein Albumin 01/13/17 01/13/17 05:35 13:15 WBC 6.9 RBC 3.68 L Hgb 11.5 L Hct 35.5 MCV 96.6 H MCH 31.2 MCHC 32.3 RDW 17.8 H Plt Count 106 L MPV 11.4 H Neutrophils % Lymphocytes % Monocytes % Eosinophils % Basophils % INR PTT (Actin FS) Sodium 138 Potassium 4.1 Chloride 104 Carbon Dioxide 26 Anion Gap 8 BUN 5 L Creatinine 0.8 Creat Clearance w eGFR > 60 Random Glucose 86 Calcium 7.2 L Phosphorus 2.5 D Magnesium 1.5 L D Total Bilirubin 0.6 D AST 95 H D ALT 51 D Alkaline Phosphatase 232 H Total Protein 5.8 L Albumin 2.5 L Active Medications Generic Name Dose Route Start Last Admin Trade Name Freq PRN Reason Stop Dose Admin Apixaban 10 mg 01/13/17 22:00 Eliquis - PO BID KIM Chlordiazepoxide HCl 25 mg 01/11/17 22:04 01/12/17 20:27 Librium - PO 01/14/17 22:03 25 mg Q4H PRN Administration WITHDRAWAL(CONT SUBST) Chlordiazepoxide HCl 25 mg 01/12/17 23:00 01/13/17 10:08 Librium - PO 01/13/17 17:01 25 mg [id number] KIM Administration Chlordiazepoxide HCl 15 mg 01/13/17 23:00 Librium - PO 01/14/17 17:01 [id number] KIM Folic Acid 1 mg 01/12/17 10:00 01/13/17 10:08 Folic Acid - PO 1 mg DAILY KIM Administration Gabapentin 400 mg 01/12/17 16:15 01/13/17 14:42 Neurontin - PO 400 mg TID KIM Administration Heparin Sodium (Porcine) 1,000 unit 01/12/17 06:48 Heparin - IVPUSH PRN PRN Heparin Heparin Sodium (Porcine) 5,000 unit 01/12/17 06:48 Heparin - IVPUSH PRN PRN Heparin Heparin Sodium/Dextrose 500 mls @ 20 mls/hr 01/12/17 07:00 01/13/17 07:10 Heparin Infusion - IVPB 01/13/17 18:00 20 mls/hr TITR KIM Administration Protocol 1,000 UNITS/HR Lorazepam 2 mg 01/12/17 21:54 01/12/17 22:21 Ativan Injection - IVPUSH 2 mg Q8H PRN Administration AGITATION Nicotine 14 mg 01/12/17 11:30 01/13/17 10:08 Nicoderm Patch - TD 14 mg DAILY KIM Administration Ondansetron HCl 8 mg 01/11/17 22:09 Zofran Odt - SL Q6H PRN NAUSEA Thiamine HCl 100 mg 01/12/17 22:00 01/12/17 22:22 Vitamin B1 - PO 100 mg HS KIM Administration ASSESSMENT/PLAN: 61yo M with PMH of hepatitis C, chronic hypokalemia, ETOH abuse presents c/o weakness x 2 weeks, admitted to Telemetry for electrolyte abnormalities and detox. #Bilateral pulmonary embolus with saddle embolus -Elevated troponins likely 2/2 to heart strain, downtrending -Echo shows mild right heart strain -IR does not believe patient needs procedure -Cardiology consulted -Continue Heparin drip. Will stop drip at 18:00 and Start Eliquis 10 mg BID @ 22 :00 for 1 week and then 5 mg bid -LLE duplex negative #EtOH Abuse -CIWA 2 this am -Continue librium protocol 25 mg q6 kim -Detox consult, Dr. Goodson -Nicotine patch -Continue thiamine 100 mg PO hs, Folic acid 1 mg po daily, and zofran 8mg sl prn for nausea #Cirrhosis 2/2 to etoh vs hepatitis c -Liver u/s shows cholelithiasis, hepatomegaly, and diffuse fatty infiltration. -PCP states patient was told to f/u with Dr. Butler outpatient, but never did. Patient's HCV viral load was previously undetectable -HCV labs pending #neuropathy -cont. home med of neurontin -B12 normal #Hypokalemia, hypomagnesiemia -resolved -Will replete magnesium -continue to monitor #FEN - Fluids: banana bag - Electrolytes: Mg given - Nutrition: Regular diet #Prophylaxis - Heparin 5000U SQ TID for DVT prophylaxis Visit type - Emergency Visit Emergency Visit: Yes ED Registration Date: 01/11/17 Care time: The patient presented to the Emergency Department on the above date and was hospitalized for further evaluation of their emergent condition. - New Patient This patient is new to me today: No - Critical Care Critical Care patient: No
[2017-01-13] MEDS ORDERED: PT OWN MED DRAWER 7, Y5N ONE (17:41)
[2017-01-13] MEDS: chlordiazePOXIDE 5 MG CAPSULE PO SCH ×2 (18:31→22:21)
[2017-01-13] MEDS: THIAMINE HCL 100 MG TABLET (FP) PO SCH (22:20)
[2017-01-13] MEDS: APIXABAN 5 MG TABLET PO SCH (22:20)
[2017-01-14] MEDS: chlordiazePOXIDE 5 MG CAPSULE PO SCH ×2 (05:40→11:59)
[2017-01-14] MEDS: GABAPENTIN 400 MG CAPSULE (FP) PO SCH ×3 (05:41→21:05)
[2017-01-14 08:10] LABS: BASOPHIL 0.8 % (0-2.0); EOSINOPHIL 1.4 % (0-4.5); MCH 30.9 pg (25.7-33.7); MCHC 32.3 g/dl (32.0-35.9); MEAN CELL VOLUME 95.6 fl (80-96); MEAN PLT VOLUME 10.8 fl (7.5-11.1); NEUTROPHILS 69.1 % (42.8-82.8); PLATELET COUNT 99 K/MM3 (134-434); RDW 17.4 % (11.9-15.9)
--- NOTE | 2017-01-14 08:11 | PN ---
Teaching Attending Note Name of Resident: Rey Sutherland ATTENDING PHYSICIAN STATEMENT I saw and evaluated the patient. I reviewed the resident's note and discussed the case with the resident. I agree with the resident's findings and plan as documented. SUBJECTIVE: No specific complaints He is walking the floors and looks very well OBJECTIVE: Vitals noted He does get slightly tachycardic after ambulating ASSESSMENT AND PLAN: He remains stable Continue Eliquis Await [facility] placement Anticipate discharge later today See resident note for full details
[2017-01-14 08:47] LABS: ALBUMIN 2.7 g/dl (3.4-5.0); ANION GAP 11 (8-16); CALCIUM 7.7 mg/dL (8.5-10.1); CO2 23 mmol/L (21-32); GLUCOSE,RANDOM 89 mg/dL (74-106); MAGNESIUM 1.9 mg/dL (1.8-2.4)
[2017-01-14 08:51] LABS: ALK PHOS 208 U/L (45-117); BILIRUBIN,TOTAL 0.9 mg/dL (0.2-1.0); CREATININE 0.9 mg/dL (0.7-1.3); PHOSPHOROUS 2.4 mg/dL (2.5-4.9); SGOT/AST 110 U/L (15-37); SGPT/ALT 54 U/L (12-78)
[2017-01-14] MEDS ORDERED: PT OWN MED DRAWER 7, Y5N ONE (08:58)
[2017-01-14] MEDS: NICOTINE 14 MG/24 HOURS TOPICAL PATCH TD SCH (10:40)
[2017-01-14] MEDS: FOLIC ACID 1 MG TABLET (FP) PO SCH (10:40)
[2017-01-14] MEDS: APIXABAN 5 MG TABLET PO SCH ×2 (10:40→21:05)
[2017-01-14] MEDS ORDERED: NAPH,MB-DB/K PH,MBDB POWDER PACKET PO ONE (11:00)
--- NOTE | 2017-01-14 13:52 | PN ---
Progress Note, Physician Chief Complaint: SOB and pleuritic pain is improving History of Present Illness: 61 year-old man with a PMHx of HTN, polysubstance abuse, chronic alcoholism, Hep C, liver cirrhosis admitted 01/11/2017 with weakness, chest pain and SOB with decreased exercise tolerance. He was found to have extensive bilateral PE with saddle embolus. His troponin is mildly elevated. Echo 01/12/2017 revealed mild RV dilatation with mild to moderate hypokinesis. Normal LV size and systolic function. No significant valvular abnormalities. He has been treated with IV heparin. - Current Medication List Current Medications: Active Medications Apixaban (Eliquis -) 10 mg PO BID [facility] Last Admin: 01/14/17 10:40 Dose: 10 mg Chlordiazepoxide HCl (Librium -) 25 mg PO Q4H PRN PRN Reason: WITHDRAWAL(CONT SUBST) Stop: 01/14/17 22:03 Last Admin: 01/12/17 20:27 Dose: 25 mg Chlordiazepoxide HCl (Librium -) 15 mg PO [id number] [facility] Stop: 01/14/17 17:01 Last Admin: 01/14/17 11:59 Dose: 15 mg Folic Acid (Folic Acid -) 1 mg PO DAILY [facility] Last Admin: 01/14/17 10:40 Dose: 1 mg Gabapentin (Neurontin -) 400 mg PO TID [facility] Last Admin: 01/14/17 05:41 Dose: 400 mg Lorazepam (Ativan Injection -) 2 mg IVPUSH Q8H PRN PRN Reason: AGITATION Last Admin: 01/13/17 17:42 Dose: 2 mg Nicotine (Nicoderm Patch -) 14 mg TD DAILY [facility] Last Admin: 01/14/17 10:40 Dose: 14 mg Thiamine HCl (Vitamin B1 -) 100 mg PO HS [facility] Last Admin: 01/13/17 22:20 Dose: 100 mg - Objective Vital Signs: Vital Signs Temperature 97.9 F 01/14/17 12:09 Pulse Rate 88 01/14/17 12:09 Respiratory Rate 20 01/14/17 12:09 Blood Pressure 134/68 01/14/17 12:09 O2 Sat by Pulse Oximetry (%) 96 01/14/17 09:00 Constitutional: Yes: No Distress Neck: Yes: WNL Cardiovascular: Yes: Regular Rate and Rhythm, Tachycardia, S1, S2. No: JVD, Murmur Respiratory: Yes: CTA Bilaterally Gastrointestinal: Yes: WNL Edema: LLE: Trace, RLE: Trace Labs: CBC, BMP 01/14/17 05:35 01/14/17 05:35 INR, PTT INR 1.04 (0.82-1.09) 01/13/17 05:35 Problem List - Problems (1) Pulmonary embolism Code(s): I26.99 - OTHER PULMONARY EMBOLISM WITHOUT ACUTE COR PULMONALE Qualifiers: Pulmonary embolism type: saddle Chronicity: acute Acute cor pulmonale presence: without acute cor pulmonale Qualified Code(s): I26.92 - Saddle embolus of pulmonary artery without acute cor pulmonale Assessment/Plan 61 year-old man with a PMHx of HTN, polysubstance abuse, chronic alcoholism, Hep C, liver cirrhosis admitted 01/11/2017 with weakness, chest pain and SOB with decreased exercise tolerance. He was found to have extensive bilateral PE with saddle embolus. His troponin is mildly elevated. Echo 01/12/2017 revealed mild RV dilatation with mild to moderate hypokinesis. Normal LV size and systolic function. No significant valvular abnormalities. 1) Acute PE with mild to moderate RV dilatation and dysfunction. Long-term anticoagulation. Being treated now with apixaban. He has high risk of bleeding due to alcoholism. Hematology follow up for etiology of hypercoagulable workup. 2) Mildly elevated troponin is due to RV strain in the setting of large PE. No further cardiac test recommended at this time.
--- NOTE | 2017-01-14 15:19 | PN ---
Physical Exam: SUBJECTIVE: Patient seen and examined No acute events overnight. Patient has no complaints this morning. He is walking up down the halls OBJECTIVE: Vital Signs Period Temp Pulse Resp BP Sys/Haney Pulse Ox Last 24 Hr 97.4 F-98.6 F 88-112 18-20 122-151/58-84 95-96 GENERAL: The patient is awake, alert, and fully oriented, in no acute distress. HEAD: Normal with no signs of trauma. EYES: PERRL, extraocular movements intact, sclera anicteric, conjunctiva clear. No ptosis. ENT: Ears normal, nares patent, oropharynx clear without exudates, moist mucous membranes. NECK: Trachea midline, full range of motion, supple. LUNGS: Breath sounds equal, clear to auscultation bilaterally, no wheezes, no crackles, no accessory muscle use. HEART: Tachycardic, S1, S2 without murmur, rub or gallop. ABDOMEN: Soft, nontender, nondistended, normoactive bowel sounds, no guarding, no rebound, no hepatosplenomegaly, no masses. EXTREMITIES: 2+ pulses, warm, well-perfused, no edema, NEUROLOGICAL: Cranial nerves II through XII grossly intact. Normal speech, gait not observed. PSYCH: Normal mood, normal affect. SKIN: Warm, dry, normal turgor, no rashes or lesions noted Laboratory Results - last 24 hr 01/12/17 01/14/17 01/14/17 06:00 05:35 05:35 WBC 8.0 RBC 3.39 L Hgb 10.5 L Hct 32.4 L MCV 95.6 MCH 30.9 MCHC 32.3 RDW 17.4 H Plt Count 99 L MPV 10.8 Neutrophils % 69.1 D Lymphocytes % 20.1 D Monocytes % 8.6 Eosinophils % 1.4 Basophils % 0.8 PTT (Actin FS) 30.1 D Sodium Potassium Chloride Carbon Dioxide Anion Gap BUN Creatinine Creat Clearance w eGFR Random Glucose Calcium Phosphorus Magnesium Total Bilirubin AST ALT Alkaline Phosphatase Total Protein Albumin HCV Quantitation Hcv not detected HCV RNA PCR log helicopter specialist/ml TNP 01/14/17 05:35 WBC RBC Hgb Hct MCV MCH MCHC RDW Plt Count MPV Neutrophils % Lymphocytes % Monocytes % Eosinophils % Basophils % PTT (Actin FS) Sodium 138 Potassium 4.5 Chloride 104 Carbon Dioxide 23 Anion Gap 11 BUN 9 D Creatinine 0.9 Creat Clearance w eGFR > 60 Random Glucose 89 Calcium 7.7 L Phosphorus 2.4 L Magnesium 1.9 D Total Bilirubin 0.9 D AST 110 H ALT 54 Alkaline Phosphatase 208 H Total Protein 6.0 L Albumin 2.7 L HCV Quantitation HCV RNA PCR log helicopter specialist/ml Active Medications Generic Name Dose Route Start Last Admin Trade Name Freq PRN Reason Stop Dose Admin Apixaban 10 mg 01/13/17 22:00 01/14/17 10:40 Eliquis - PO 10 mg BID POLO Administration Chlordiazepoxide HCl 25 mg 01/11/17 22:04 01/12/17 20:27 Librium - PO 01/14/17 22:03 25 mg Q4H PRN Administration WITHDRAWAL(CONT SUBST) Chlordiazepoxide HCl 15 mg 01/13/17 23:00 01/14/17 11:59 Librium - PO 01/14/17 17:01 15 mg [id number] POLO Administration Folic Acid 1 mg 01/12/17 10:00 01/14/17 10:40 Folic Acid - PO 1 mg DAILY POLO Administration Gabapentin 400 mg 01/12/17 16:15 01/14/17 14:27 Neurontin - PO 400 mg TID POLO Administration Lorazepam 2 mg 01/12/17 21:54 01/13/17 17:42 Ativan Injection - IVPUSH 2 mg Q8H PRN Administration AGITATION Nicotine 14 mg 01/12/17 11:30 01/14/17 10:40 Nicoderm Patch - TD 14 mg DAILY [facility]O Administration Thiamine HCl 100 mg 01/12/17 22:00 01/13/17 22:20 Vitamin B1 - PO 100 mg HS POLO Administration ASSESSMENT/PLAN: 61yo M with PMH of hepatitis C, chronic hypokalemia, ETOH abuse presents c/o weakness x 2 weeks, admitted to Telemetry for electrolyte abnormalities and detox. #Bilateral pulmonary embolus with saddle embolus -Elevated troponins likely 2/2 to heart strain, downtrending -Echo shows mild right heart strain -IR does not believe patient needs procedure -Cardiology consulted -Continue Eliquis 10 mg BID for 1 week. Switch to 5 mg bid for 3-6 months after -LLE duplex negative #EtOH Abuse -Continue librium protocol -Detox consult, Dr. Goodson -Nicotine patch -Continue thiamine 100 mg PO hs, Folic acid 1 mg po daily, and zofran 8mg sl prn for nausea #Cirrhosis 2/2 to etoh vs hepatitis c -Liver u/s shows cholelithiasis, hepatomegaly, and diffuse fatty infiltration. -PCP states patient was told to f/u with Dr. Butler outpatient, but never did. Patient's HCV viral load was previously undetectable -HCV not detected #neuropathy -cont. home med of neurontin -B12 normal #Hypokalemia, hypomagnesiemia -resolved -Will replete magnesium -continue to monitor #FEN - Fluids: - Electrolytes: phos given - Nutrition: Regular diet #Prophylaxis - Heparin 5000U SQ TID for DVT prophylaxis Dispo: patient was scheduled to go to [facility], cannot go due to insurance reasons. Will touch base with sw regarding placement. Visit type - Emergency Visit Emergency Visit: Yes ED Registration Date: 01/11/17 Care time: The patient presented to the Emergency Department on the above date and was hospitalized for further evaluation of their emergent condition. - New Patient This patient is new to me today: No - Critical Care Critical Care patient: No
[2017-01-14] MEDS ORDERED: LORazepam 2 MG/ML SDV VIAL IVPUSH PRN (20:17)
[2017-01-14] MEDS ORDERED: LORazepam 2 MG/ML SDV VIAL ONE (20:21)
[2017-01-14] MEDS: THIAMINE HCL 100 MG TABLET (FP) PO SCH (21:05)
[2017-01-15] MEDS: GABAPENTIN 400 MG CAPSULE (FP) PO SCH ×3 (06:00→21:01)
--- NOTE | 2017-01-15 08:10 | PN ---
Physical Exam: SUBJECTIVE: Patient seen and examined He states that he feels better. OBJECTIVE: Vital Signs Period Temp Pulse Resp BP Sys/Haney Pulse Ox Last 24 Hr 97.9 F-99.3 F 81-104 18-20 106-151/52-84 95-96 GEN: Awake, alert, NAD PULM: CTAB CVS: RRR ABD: Soft, NT/ND, NABS EXTREM: Warm, well perfused Laboratory Results - last 24 hr 01/14/17 01/14/17 01/14/17 05:35 05:35 05:35 WBC 8.0 RBC 3.39 L Hgb 10.5 L Hct 32.4 L MCV 95.6 MCH 30.9 MCHC 32.3 RDW 17.4 H Plt Count 99 L MPV 10.8 Neutrophils % 69.1 D Lymphocytes % 20.1 D Monocytes % 8.6 Eosinophils % 1.4 Basophils % 0.8 PTT (Actin FS) 30.1 D Sodium 138 Potassium 4.5 Chloride 104 Carbon Dioxide 23 Anion Gap 11 BUN 9 D Creatinine 0.9 Creat Clearance w eGFR > 60 Random Glucose 89 Calcium 7.7 L Phosphorus 2.4 L Magnesium 1.9 D Total Bilirubin 0.9 D AST 110 H ALT 54 Alkaline Phosphatase 208 H Total Protein 6.0 L Albumin 2.7 L Active Medications Generic Name Dose Route Start Last Admin Trade Name Freq PRN Reason Stop Dose Admin Apixaban 10 mg 01/13/17 22:00 01/14/17 21:05 Eliquis - PO 10 mg BID POLO Administration Folic Acid 1 mg 01/12/17 10:00 01/14/17 10:40 Folic Acid - PO 1 mg DAILY POLO Administration Gabapentin 400 mg 01/12/17 16:15 01/15/17 06:00 Neurontin - PO 400 mg TID POLO Administration Lorazepam 2 mg 01/14/17 20:17 01/14/17 20:24 Ativan Injection - IVPUSH 2 mg Q8H PRN Administration AGITATION Nicotine 14 mg 01/12/17 11:30 01/14/17 10:40 Nicoderm Patch - TD 14 mg DAILY POLO Administration Thiamine HCl 100 mg 01/12/17 22:00 01/14/17 21:05 Vitamin B1 - PO 100 mg HS POLO Administration ASSESSMENT/PLAN: The patient is a 61 year old male with a significant past medical history of chronic EToH abuse, hepatitis C and Cirrhosis who is now HD#4 with bilateral PE. #PULM/CVS Bilateral pulmonary embolus with saddle embolus, elevated troponin and right heart strain BBLE US were negative He is clinically improved He continues to get slightly tachycardic when he ambulates Continue Eliquis 10 mg BID for 1 week. Switch to 5 mg bid for 3-6 months after #EtOH Abuse / Nicoteine dependence Librium 5mg TID Detox consult, Dr. Goodson Nicotine patch Continue Thiamine, Folic acid #GI Fatty liver on US Lively alcohol related HCV viral load was undetectable #NEURO Peripheral neuropathy Continue neurontin B12 was normal #FEN Replete lytes prn Regular diet Thiamine and Folate as above #PROPHYLAXIS Heparin TID DISPO He wants inpatient detox at [facility] due to insurance issues SW / Case management is involved Visit type - Emergency Visit Emergency Visit: Yes ED Registration Date: 01/11/17 Care time: The patient presented to the Emergency Department on the above date and was hospitalized for further evaluation of their emergent condition. - New Patient This patient is new to me today: No - Critical Care Critical Care patient: No
[2017-01-15 08:13] LABS: BASOPHIL 0.7 % (0-2.0); EOSINOPHIL 2.1 % (0-4.5); MCH 31.4 pg (25.7-33.7); MCHC 32.7 g/dl (32.0-35.9); MEAN CELL VOLUME 96.2 fl (80-96); MEAN PLT VOLUME 12.3 fl (7.5-11.1); NEUTROPHILS 67.4 % (42.8-82.8); PLATELET COUNT 120 K/MM3 (134-434); RDW 17.4 % (11.9-15.9); WHITE BLOOD COUNT 7.4 K/mm3 (4.0-10.0)
[2017-01-15 08:30] LABS: ALBUMIN 2.8 g/dl (3.4-5.0); ANION GAP 10 (8-16); BILIRUBIN,TOTAL 0.4 mg/dL (0.2-1.0); CALCIUM 9.6 mg/dL (8.5-10.1); CO2 19 mmol/L (21-32); GLUCOSE,RANDOM 92 mg/dL (74-106); MAGNESIUM 1.6 mg/dL (1.8-2.4); SGOT/AST 69 U/L (15-37); SGPT/ALT 45 U/L (12-78); TOT PROT 6.3 g/dl (6.4-8.2)
[2017-01-15 08:31] LABS: ALK PHOS 197 U/L (45-117)
[2017-01-15] MEDS: NICOTINE 14 MG/24 HOURS TOPICAL PATCH TD SCH (09:22)
[2017-01-15] MEDS: APIXABAN 5 MG TABLET PO SCH ×2 (09:22→21:01)
[2017-01-15] MEDS: FOLIC ACID 1 MG TABLET (FP) PO SCH (09:22)
[2017-01-15] MEDS ORDERED: MAGNESIUM SULFATE 2 GM in SODIUM CHLORIDE 100 ML IVPB ONE (09:41)
[2017-01-15] MEDS ORDERED: MAGNESIUM SULF 50% (8.12 MEQ/2 ML-1 GM VIAL) IVPB ONE (10:45)
[2017-01-15] MEDS: chlordiazePOXIDE 5 MG CAPSULE PO SCH ×2 (13:17→21:01)
--- NOTE | 2017-01-15 13:26 | PN ---
Progress Note, Physician Chief Complaint: Patient has pleuritic chest pain. He has no SOB at rest. Tele shows sinus rhythm with improved sinus tachycardia. History of Present Illness: 61 year-old man with a PMHx of HTN, polysubstance abuse, chronic alcoholism, Hep C, liver cirrhosis admitted 01/11/2017 with weakness, chest pain and SOB with decreased exercise tolerance. The patient has been experiencing exertional shortness of breath and chest pain with markedly decreased exercise tolerance of nearly 10 days. He has no palpitation, syncope or near syncope. No edema, orthopnea or PND. No recent travel history. He was found to have extensive bilateral PE with saddle embolus. His troponin is mildly elevated. Echo 01/12/2017 revealed mild RV dilatation with mild to moderate hypokinesis. Normal LV size and systolic function. No significant valvular abnormalities. He has been treated with IV heparin and changed to Eliquis. - Current Medication List Current Medications: Active Medications Apixaban (Eliquis -) 10 mg PO BID [facility] Last Admin: 01/15/17 09:22 Dose: 10 mg Chlordiazepoxide HCl (Librium -) 5 mg PO TID [facility] Last Admin: 01/15/17 13:17 Dose: 5 mg Folic Acid (Folic Acid -) 1 mg PO DAILY [facility] Last Admin: 01/15/17 09:22 Dose: 1 mg Gabapentin (Neurontin -) 400 mg PO TID [facility] Last Admin: 01/15/17 13:16 Dose: 400 mg Nicotine (Nicoderm Patch -) 14 mg TD DAILY [facility] Last Admin: 01/15/17 09:22 Dose: 14 mg Thiamine HCl (Vitamin B1 -) 100 mg PO HS [facility] Last Admin: 01/14/17 21:05 Dose: 100 mg - Objective Vital Signs: Vital Signs Temperature 97.5 F L 01/15/17 10:04 Pulse Rate 97 H 01/15/17 10:04 Respiratory Rate 20 01/15/17 10:04 Blood Pressure 123/82 01/15/17 10:04 O2 Sat by Pulse Oximetry (%) 95 01/15/17 09:00 Constitutional: Yes: Well Nourished, No Distress Eyes: Yes: WNL, Conjunctiva Clear, EOM Intact HENT: Yes: WNL, Atraumatic, Normocephalic Neck: Yes: WNL, Supple, Trachea Midline Cardiovascular: Yes: Regular Rate and Rhythm, Tachycardia Respiratory: Yes: Regular, CTA Bilaterally Gastrointestinal: Yes: Normal Bowel Sounds, Soft, Distention ...Rectal Exam: Yes: Deferred Musculoskeletal: Yes: WNL Extremities: Yes: WNL Edema: No Peripheral Pulses WNL: Yes Labs: CBC, BMP 01/15/17 06:05 01/15/17 06:05 INR, PTT INR 1.04 (0.82-1.09) 01/13/17 05:35 Assessment/Plan 61 year-old man with a PMHx of HTN, polysubstance abuse, chronic alcoholism, Hep C, liver cirrhosis admitted 01/11/2017 with weakness, chest pain and SOB with decreased exercise tolerance. He was found to have extensive bilateral PE with saddle embolus. His troponin is mildly elevated. Echo 01/12/2017 revealed mild RV dilatation with mild to moderate hypokinesis. Normal LV size and systolic function. No significant valvular abnormalities. He has been treated with IV heparin. 1) Acute PE with mild to moderate RV dilatation and dysfunction. Continue Eliquis 10 mg BID for 7 days and decrease to 5 mg BID He has high riks of bleeding due to alcoholism. Hematology evaluation for the etiology of hypercoagulable workup. 2) Mildly elevated troponin is due to RV strain in the setting of large PE. No further cardiac test recommended at this time. May d/c tele. Please call us for reconsult as needed.
[2017-01-15] MEDS: THIAMINE HCL 100 MG TABLET (FP) PO SCH (21:01)
[2017-01-15] MEDS ORDERED: guaiFENesin 200 MG/10 ML 10 ML UNIT-DOSE CUPS PO ONE (22:16)
[2017-01-16] MEDS: chlordiazePOXIDE 5 MG CAPSULE PO SCH ×3 (06:50→21:08)
[2017-01-16] MEDS: GABAPENTIN 400 MG CAPSULE (FP) PO SCH ×3 (06:50→21:08)
[2017-01-16 08:06] LABS: BASOPHIL 1.1 % (0-2.0); EOSINOPHIL 2.7 % (0-4.5); MCH 32.1 pg (25.7-33.7); MCHC 32.9 g/dl (32.0-35.9); MEAN CELL VOLUME 97.5 fl (80-96); MEAN PLT VOLUME 12.5 fl (7.5-11.1); NEUTROPHILS 62.3 % (42.8-82.8); PLATELET COUNT 121 K/MM3 (134-434); RDW 18.6 % (11.9-15.9)
[2017-01-16 08:27] LABS: ALBUMIN 2.6 g/dl (3.4-5.0)
[2017-01-16 08:33] LABS: ALK PHOS 157 U/L (45-117); ANION GAP 8 (8-16); BILIRUBIN,TOTAL 0.5 mg/dL (0.2-1.0); CALCIUM 9.1 mg/dL (8.5-10.1); CO2 23 mmol/L (21-32); CREATININE 0.9 mg/dL (0.7-1.3); GLUCOSE,RANDOM 99 mg/dL (74-106); MAGNESIUM 1.8 mg/dL (1.8-2.4); SGOT/AST 43 U/L (15-37); SGPT/ALT 34 U/L (12-78); TOT PROT 5.8 g/dl (6.4-8.2)
[2017-01-16] MEDS: NICOTINE 14 MG/24 HOURS TOPICAL PATCH TD SCH (09:58)
[2017-01-16] MEDS: APIXABAN 5 MG TABLET PO SCH ×2 (09:58→21:08)
[2017-01-16] MEDS: FOLIC ACID 1 MG TABLET (FP) PO SCH (09:58)
--- NOTE | 2017-01-16 09:58 | PN ---
Physical Exam: SUBJECTIVE: Patient seen and examined He continues to complain of a racing heart and dyspnea when he ambulates and he adamantly feels that he is not ready to leave the hospital. He reports that he is homeless and will not be able to care for himself. He says that his neuropathic pain continues and that he takes Neurontin 400mg TID and Tramadol prn for it. OBJECTIVE: Vital Signs Period Temp Pulse Resp BP Sys/Haney Pulse Ox Last 24 Hr 97.5 F-98.5 F 89-97 18-20 111-132/72-82 95 GEN: Awake, alert CVS: RRR PULM: CTAB ABD: soft, NT/ND, NABS EXTREM: warm ,well perfused Laboratory Results - last 24 hr 01/16/17 01/16/17 01/16/17 05:42 05:42 05:42 WBC 6.0 RBC 3.04 L Hgb 9.8 L Hct 29.6 L MCV 97.5 H MCH 32.1 MCHC 32.9 RDW 18.6 H Plt Count 121 L MPV 12.5 H Neutrophils % 62.3 Lymphocytes % 20.2 Monocytes % 13.7 H Eosinophils % 2.7 Basophils % 1.1 PTT (Actin FS) 29.4 Sodium 137 Potassium 5.0 Chloride 106 Carbon Dioxide 23 D Anion Gap 8 BUN 13 Creatinine 0.9 Creat Clearance w eGFR > 60 Random Glucose 99 Calcium 9.1 Phosphorus 6.0 H Magnesium 1.8 Total Bilirubin 0.5 D AST 43 H D ALT 34 D Alkaline Phosphatase 157 H D Total Protein 5.8 L Albumin 2.6 L Active Medications Generic Name Dose Route Start Last Admin Trade Name Singh PRN Reason Stop Dose Admin Apixaban 10 mg 01/13/17 22:00 01/15/17 21:01 Eliquis - PO 10 mg BID POLO Administration Chlordiazepoxide HCl 5 mg 01/15/17 14:00 01/16/17 06:50 Librium - PO 5 mg TID POLO Administration Folic Acid 1 mg 01/12/17 10:00 01/15/17 09:22 Folic Acid - PO 1 mg DAILY POLO Administration Gabapentin 400 mg 01/12/17 16:15 01/16/17 06:50 Neurontin - PO 400 mg TID POLO Administration Nicotine 14 mg 01/12/17 11:30 01/15/17 09:22 Nicoderm Patch - TD 14 mg DAILY POLO Administration Thiamine HCl 100 mg 01/12/17 22:00 01/15/17 21:01 Vitamin B1 - PO 100 mg HS POLO Administration ASSESSMENT/PLAN: The patient is a 61 year old male with a significant past medical history of chronic EToH abuse, hepatitis C and Cirrhosis who is now HD#5 with bilateral PE. #PULM/CVS Bilateral pulmonary embolus with saddle embolus, elevated troponin and right heart strain BBLE US were negative He does seem clinically improved He continues to report exertional dyspnea and tachycardia I do not see the tachycardia reflected in the vital signs, whereas I did yesterday, though he states that they have been taken at rest recently Continue Eliquis 10 mg BID for 1 week. Switch to 5 mg bid for 3-6 months after #EtOH Abuse / Nicoteine dependence Librium 5mg TID Detox consult, Dr. Goodson Nicotine patch Continue Thiamine, Folic acid #GI Fatty liver on US Lively alcohol related HCV viral load was undetectable #NEURO Peripheral neuropathy Continue neurontin Add Tramadol prn B12 was normal #FEN Hyperphosphatemia, uptrending noted Will repeat in am Regular diet Thiamine and Folate as above #PROPHYLAXIS Heparin TID DISPO He wants inpatient detox at [facility] but was not accepted as an inpatient Given his recent submassive PE and his ongoing exertional symptoms, in conjunction with his homeless status, will continue hospitalization Social work to assist He will likely be mediclaly stable for discharge tomorrow morning Visit type - Emergency Visit Emergency Visit: Yes ED Registration Date: 01/11/17 Care time: The patient presented to the Emergency Department on the above date and was hospitalized for further evaluation of their emergent condition. - New Patient This patient is new to me today: No - Critical Care Critical Care patient: No
[2017-01-16] MEDS: traMADol HCL 50 MG TABLET PO PRN ×2 (14:26→21:08)
[2017-01-16] MEDS ORDERED: PT OWN MED DRAWER 7, Y5N ONE (21:01)
[2017-01-16] MEDS: THIAMINE HCL 100 MG TABLET (FP) PO SCH (21:08)
[2017-01-17] MEDS: traMADol HCL 50 MG TABLET PO PRN ×3 (06:26→21:50)
[2017-01-17] MEDS: chlordiazePOXIDE 5 MG CAPSULE PO SCH ×2 (06:26→13:05)
[2017-01-17] MEDS: GABAPENTIN 400 MG CAPSULE (FP) PO SCH ×3 (06:26→21:49)
[2017-01-17] MEDS: APIXABAN 5 MG TABLET PO SCH ×2 (09:08→21:49)
[2017-01-17] MEDS: NICOTINE 14 MG/24 HOURS TOPICAL PATCH TD SCH (09:08)
[2017-01-17] MEDS: FOLIC ACID 1 MG TABLET (FP) PO SCH (09:08)
[2017-01-17 09:19] LABS: MCH 31.6 pg (25.7-33.7); MCHC 32.6 g/dl (32.0-35.9); MEAN CELL VOLUME 96.9 fl (80-96); MEAN PLT VOLUME 12.7 fl (7.5-11.1); PLATELET COUNT 154 K/MM3 (134-434); RDW 18.6 % (11.9-15.9); WHITE BLOOD COUNT 7.2 K/mm3 (4.0-10.0)
[2017-01-17 10:05] LABS: ALBUMIN 3.3 g/dl (3.4-5.0); ANION GAP 10 (8-16); BILIRUBIN,TOTAL 0.5 mg/dL (0.2-1.0); CO2 21 mmol/L (21-32); CREATININE 1.1 mg/dL (0.7-1.3); GLUCOSE,RANDOM 85 mg/dL (74-106); MAGNESIUM 1.7 mg/dL (1.8-2.4); PHOSPHOROUS 4.7 mg/dL (2.5-4.9); SGOT/AST 52 U/L (15-37); SGPT/ALT 41 U/L (12-78)
[2017-01-17 10:06] LABS: ALK PHOS 178 U/L (45-117); TOT PROT 7.3 g/dl (6.4-8.2)
[2017-01-17] MEDS ORDERED: MAGNESIUM OXIDE 400 MG TABLET (FP) PO ONE (11:42)
--- NOTE | 2017-01-17 12:56 | PN ---
Teaching Attending Note Name of Resident: Rey Sutherland ATTENDING PHYSICIAN STATEMENT I saw and evaluated the patient. I reviewed the resident's note and discussed the case with the resident. I agree with the resident's findings and plan as documented. SUBJECTIVE: Patient says he feels weak and sluggish. He has been ambulating with a cane without difficulty. OBJECTIVE: Vital Signs Period Temp Pulse Resp BP Sys/Haney Pulse Ox Last 24 Hr 97.8 F-98.9 F 84-99 20-24 106-133/62-79 97 HEART: S1S2, RRR LUNGS: Clear ABDOMEN: Soft, non-tender, non-distended, normal BS EXTREMITIES: No edema Current Medications Generic Name Dose Route Start Last Admin Trade Name Freq PRN Reason Stop Dose Admin Apixaban 10 mg 01/17/17 10:00 01/17/17 09:08 Eliquis - PO 10 mg BID POLO Administration Folic Acid 1 mg 01/17/17 10:00 01/17/17 09:08 Folic Acid - PO 1 mg DAILY POLO Administration Gabapentin 400 mg 01/17/17 06:00 01/17/17 13:05 Neurontin - PO 400 mg TID POLO Administration Nicotine 14 mg 01/17/17 10:00 01/17/17 09:08 Nicoderm Patch - TD 14 mg DAILY POLO Administration Thiamine HCl 100 mg 01/17/17 22:00 Vitamin B1 - PO HS POLO Tramadol HCl 50 mg 01/16/17 10:52 01/17/17 11:21 Ultram - PO 50 mg Q4H PRN Administration PAIN ASSESSMENT AND PLAN: This is a 61 year old man with a history of alcohol abuse, hepatitis C, cirrhosis who presented to the ER weakness. 1. Acute bilateral pulmonary emboli with right ventricular dysfunction - BLE venous dopplers negative for DVT - Continue Eliquis - Cardiology input appreciated - Pulmonary consult 2. Continuous alcohol dependence - Completed Librium detox - Continue thiamine, folic acid 3. Nicotine dependence - Continue nicotine patch 4. Peripheral neuropathy - Continue Neurontin
--- NOTE | 2017-01-17 16:44 | PN ---
Physical Exam: SUBJECTIVE: Patient seen and examined No acute events overnight. Patient feels nauseous and tired. Patient has been walking up and down the [place] with his cane. OBJECTIVE: Vital Signs Period Temp Pulse Resp BP Sys/Haney Pulse Ox Last 24 Hr 97.8 F-98.9 F 79-99 20-20 106-133/62-79 95-97 GENERAL: The patient is awake, alert, and fully oriented, in no acute distress. HEAD: Normal with no signs of trauma. EYES: PERRL, extraocular movements intact, sclera anicteric, conjunctiva clear. No ptosis. ENT: Ears normal, nares patent, oropharynx clear without exudates, moist mucous membranes. NECK: Trachea midline, full range of motion, supple. LUNGS: Breath sounds equal, clear to auscultation bilaterally, no wheezes, no crackles, no accessory muscle use. HEART: Regular rate and rhythm, S1, S2 without murmur, rub or gallop. ABDOMEN: Soft, nontender, nondistended, normoactive bowel sounds, no guarding, no rebound, no hepatosplenomegaly, no masses. EXTREMITIES: 2+ pulses, warm, well-perfused, no edema, NEUROLOGICAL: Cranial nerves II through XII grossly intact. Normal speech, gait not observed. PSYCH: Normal mood, normal affect. SKIN: Warm, dry, normal turgor, no rashes or lesions noted Laboratory Results - last 24 hr 01/17/17 01/17/17 01/17/17 08:50 08:50 08:50 WBC 7.2 RBC 3.50 L Hgb 11.0 L D Hct 33.9 L MCV 96.9 H MCH 31.6 MCHC 32.6 RDW 18.6 H Plt Count 154 D MPV 12.7 H PTT (Actin FS) 31.6 Sodium 134 L Potassium 4.8 Chloride 103 Carbon Dioxide 21 Anion Gap 10 BUN 12 Creatinine 1.1 D Creat Clearance w eGFR > 60 Random Glucose 85 Calcium 10.0 Phosphorus 4.7 D Magnesium 1.7 L Total Bilirubin 0.5 AST 52 H D ALT 41 D Alkaline Phosphatase 178 H Total Protein 7.3 D Albumin 3.3 L D Active Medications Generic Name Dose Route Start Last Admin Trade Name Freq PRN Reason Stop Dose Admin Apixaban 10 mg 01/17/17 10:00 01/17/17 09:08 Eliquis - PO 10 mg BID POLO Administration Folic Acid 1 mg 01/17/17 10:00 01/17/17 09:08 Folic Acid - PO 1 mg DAILY POLO Administration Gabapentin 400 mg 01/17/17 06:00 01/17/17 13:05 Neurontin - PO 400 mg TID POLO Administration Nicotine 14 mg 01/17/17 10:00 01/17/17 09:08 Nicoderm Patch - TD 14 mg DAILY POLO Administration Thiamine HCl 100 mg 01/17/17 22:00 Vitamin B1 - PO HS POLO Tramadol HCl 50 mg 01/16/17 10:52 01/17/17 11:21 Ultram - PO 50 mg Q4H PRN Administration PAIN ASSESSMENT/PLAN: 61yo M with PMH of hepatitis C, chronic hypokalemia, ETOH abuse presents c/o weakness x 2 weeks, admitted to Telemetry for electrolyte abnormalities and detox. #Bilateral pulmonary embolus with saddle embolus -Elevated troponins likely 2/2 to heart strain, downtrending -Echo shows mild right heart strain -IR does not believe patient needs procedure -Cardiology consulted -Continue Eliquis 10 mg BID for 1 week. Switch to 5 mg bid for 3-6 months after -LLE duplex negative -Pulmonary on board #EtOH Abuse -Finished librium protocol -Detox consult, Dr. Goodson -Nicotine patch -Continue thiamine 100 mg PO hs, Folic acid 1 mg po daily, and zofran 8mg sl prn for nausea #Cirrhosis 2/2 to etoh vs hepatitis c -Liver u/s shows cholelithiasis, hepatomegaly, and diffuse fatty infiltration. -PCP states patient was told to f/u with Dr. Butler outpatient, but never did. Patient's HCV viral load was previously undetectable -HCV not detected #neuropathy -cont. home med of neurontin -B12 normal #Hypokalemia, hypomagnesiemia -resolved -Will replete magnesium -continue to monitor #FEN - Fluids: None - Electrolytes: wnl - Nutrition: Regular diet #Prophylaxis - Heparin 5000U SQ TID for DVT prophylaxis Dispo: patient was scheduled to go to [facility], cannot go due to insurance reasons. Patient likely to be dc in am Visit type - Emergency Visit Emergency Visit: Yes ED Registration Date: 01/11/17 Care time: The patient presented to the Emergency Department on the above date and was hospitalized for further evaluation of their emergent condition. - New Patient This patient is new to me today: No - Critical Care Critical Care patient: No
--- NOTE | 2017-01-17 17:08 | PN ---
Progress Note (short form) - Note Progress Note: PULMONARY CONSULTATION DICTATED 01/18/16 IMP SUB-MASSIVE PE ? UNPROVOKED BILATERAL PULMONARY EMBOLI WITH SADDLE EMBOLUS ETOH ABUSE H/O HEP C PLAN AC W/U FOR HYPER-COAGULABLE STATE AGE APPROPRIATE CANCER SCREENING DETOX F/U ECHO CONSIDER IVC FILTER DR MCDONNELL Problem List - Problems (1) Alcohol intoxication Code(s): F10.929 - ALCOHOL USE, UNSPECIFIED WITH INTOXICATION, UNSPECIFIED Qualifiers: Complication of substance-induced condition: uncomplicated Qualified Code(s): F10.920 - Alcohol use, unspecified with intoxication, uncomplicated (2) Pulmonary embolism Code(s): I26.99 - OTHER PULMONARY EMBOLISM WITHOUT ACUTE COR PULMONALE Qualifiers: Pulmonary embolism type: saddle Chronicity: acute Acute cor pulmonale presence: without acute cor pulmonale Qualified Code(s): I26.92 - Saddle embolus of pulmonary artery without acute cor pulmonale (3) Alcoholism Code(s): F10.20 - ALCOHOL DEPENDENCE, UNCOMPLICATED (4) Alcohol dependence Code(s): F10.20 - ALCOHOL DEPENDENCE, UNCOMPLICATED Qualifiers: Substance use status: unspecified alcohol-induced disorder Qualified Code(s): F10.29 - Alcohol dependence with unspecified alcohol-induced disorder (5) GERD (gastroesophageal reflux disease) Code(s): K21.9 - GASTRO-ESOPHAGEAL REFLUX DISEASE WITHOUT ESOPHAGITIS Qualifiers: Esophagitis presence: without esophagitis Qualified Code(s): K21.9 - Gastro-esophageal reflux disease without esophagitis (6) Hepatitis C Code(s): B19.20 - UNSPECIFIED VIRAL HEPATITIS C WITHOUT HEPATIC COMA Qualifiers: Viral hepatitis chronicity: chronic Hepatic coma status: without hepatic coma Qualified Code(s): B18.2 - Chronic viral hepatitis C
[2017-01-17] MEDS ORDERED: PT OWN MED DRAWER 7, Y5N ONE (20:35)
--- NOTE | 2017-01-17 20:43 | CONSULT ---
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 No: Alzheimer's, CVA, Dementia, Migraine, Multiple Sclerosis, Parkinson's, Seizure, Syncope, TIA, Vertigo Cardio/Vascular: No: AFIB, Aneurysm, Aortic Insufficiency, Aortic Stenosis, CAD , CHF, Deep Vein Thrombosis, HTN, Hyperlipdemia, UT, Mitral Insufficiency, Mitral Stenosis, Murmur, Pulmonary Hypertension, Other Pulmonary: No: Asthma, Bronchitis, Cancer, COPD, O2 Dependent, Pneumonia, Previously Intubated, Pulmonary Embolus, Pulmonary Fibrosis, Sleep Apnea, Other Gastrointestinal: No: Ascites, Cancer, Constipation, Crohn's Disease, Diverticulitis, Diverticulosis, Esophageal Varices, Gastritis, GERD, GI Bleed, Hemorrhoids, Hiatal Hernia, Inflamatory Bowel Disease, Irritable Bowel Disease, Pancreatitis, Peptic Ulcer Disease, Ulcerative Colitis, Other Hepatobiliary: Yes: Cirrhosis, Hepatitis C. No: Cholelithiasis, Cholecystitis, Choledocholithiasis, Hepatitis A, Hepatitis B, Other Renal/: No: Renal Failure, Renal Inusuff, BPH, Cancer, Hematuria, Hemodialysis , Neurogenic Bladder, Renal Calculi, UTI, Other Infectious Disease: No: AIDS, C-Diff, Herpes Zoster, HIV, MRSA, STD's, Tuberculosis, VREF, Other Psych: Yes: Addictions (drinks "heavy" alcohol at times, states last was 2 months ago drinks 8 12oz wine coolers every day. last drink was yesterday), Other (stated that he has been anxious). No: Anxiety, Bipolar, Depression, Panic, Psychosis, Schizophrenia Musculoskeletal: Yes: Other (slight loss of sensation in both feet) Rheumatology: No: Fibromyalgia, Gout, Lupus, Rheumatoid Arthritis, Sarcoidosis, Vasculitis, Other ENT: Yes: Other (complains of a cold for the past few days. Has a cough, brings up green phlem). No: Allergic Rhinitis, Sinusitis Endocrine: No: Olyphant's Disease, Dorset's Disease, Diabetes Insipidus, Diabetes Mellitus, Hyperparathyroidism, Hyperthyroidism, Hypothyroidism, Osteopenia, SIADH, Other Dermatology: No: Basal Cell, Cellulitis, Eczema, Melanoma, Psoriasis, Squamous Cell, Other Additional Medical History: Patient admits to periods of heavy ETOH abuse. Smokes several cigarettes per day; less than one pack - Past Surgical History Past Surgical History: No: None, AAA Repair, AICD, Amputation, Appendectomy, Arthrosocopy, AV Fistula/Graft, Bariatric Surgery, Breast Biopsy, Bypass, CABG, Carotid Endarterectomy, Cataract Removal, Cholecystectomy, Colectomy, Colonoscopy, Colostomy, Craniotomy, , Cystectomy, Hernia Repair, Hysterectomy, Ileal Conduit, Ileosotomy, Joint Replacement, Kidney Transplant, Laminectomy, Liver Transplant, Mastectomy, Nephrectomy, Oopherectomy, Orchiectomy, Permanent Pacemaker, Prostatectomy, Splenectomy, Stent, Thoracotomy , TURP, Tonsillectomy, Tubal Ligation, Upper Endoscopy, Valve Replacement, Vasectomy, Vein Stripping/Ligation - Alcohol/Substance Use Hx Alcohol Use: Yes Number of Drinks Daily: 8 (has been drinking since high school) History of Substance Use: denies: None, Cocaine, Heroin, Marijuana, Prescription , Tranquilizers - Smoking History Smoking history: Unknown if ever smoked Have you smoked in the past 12 months: Yes Aproximately how many cigarettes per day: 5 If you are a former smoker, when did you quit?: 1 months - Social History Usual Living Arrangement: Alone (States he has no family nearby; says he has a brother in [place]) ADL: Independent History of Recent Travel: No Home Medications - Allergies Allergies/Adverse Reactions: Allergies Allergy/AdvReac Type Severity Reaction Status Date / Time No Known Allergies Allergy Verified 01/10/17 16:37 - Home Medications Home Medications: Ambulatory Orders Gabapentin [Neurontin -] 400 mg PO BID 01/10/17 Family Disease History - Family Disease History Family Disease History: Other: Father (Uses Alcohol.), Mother (Uses Alcohol.), Brother (Uses Alcohol.), Sister (LSD related schizophrenia) Physical Exam Vital Signs: Vital Signs Temperature 97.8 F 01/17/17 15:16 Pulse Rate 79 01/17/17 15:16 Respiratory Rate 20 01/17/17 15:16 Blood Pressure 120/75 01/17/17 15:16 O2 Sat by Pulse Oximetry (%) 95 01/17/17 09:00 Labs: CBC, BMP 01/17/17 08:50 01/17/17 08:50 Assessment/Plan Vascular Surgery Patient is a 61 year old male with medical history significant for hepatitis C, chronic hypokalemia and a long history of alcohol abuse with numerous visits to the emergency department who presents with a chief complaint of weakness. The patient states he has been feeling very tired and nauseous recently and also states his desire to go to rehab to detox. The patient was seen in this ED yesterday with an identical complaint. During that visit, and several previous visits, the patient was found to have electrolyte abnormalities, most concerning for hypokalemia, and either refused potassium repletion or absconded after eating and sleeping off the alcohol and prior to completing treatment. Thiamine, oral potassium, folic acid and multivitamins were given yesterday. Patient endorses being homeless and wanted something to eat. He states that he is cutting back on his drinking and only drinks wine coolers now, no longer vodka. His last drink was a 24 oz wine cooler just prior to coming to the emergency department. Endorses drinking 5-6 x per day on average, history of numerous LOC but not recently, denies ever having seizures or tremors. PE head - NC/at Lung - cTA Heart - rRR abd - soft,nt,nd ext - warm, pink A/P Bl PE with saddle embolus. Clot could have come from legs, even though venous duplex is negative. With pt's social situation, of being homeless, and with ETOH abuse, -- not sure if he is going to be compliant to take coumadin. If that is the case, will be on standby for IVC filter placement. Marco Crowder dO
--- NOTE | 2017-01-17 21:09 | CONSULT ---
Consult - text type - Consultation Consultation Note: Patient seen and examined 61 y/o patient with h/o Hep. C/alcoholism/ /reports falls, homeless, comes in with chest pain, shortness of breath of few weeks duration. CTA --b/l PE/saddle embolus venous duplex neg. 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
[2017-01-17] MEDS: THIAMINE HCL 100 MG TABLET (FP) PO SCH (21:49)
[2017-01-17] MEDS ORDERED: MELATONIN 1 MG TABLET PO ONE (22:11)
[2017-01-18 07:49] LABS: MCHC 31.8 g/dl (32.0-35.9); MEAN CELL VOLUME 97.2 fl (80-96); MEAN PLT VOLUME 12.2 fl (7.5-11.1); PLATELET COUNT 129 K/MM3 (134-434); RDW 17.9 % (11.9-15.9); WHITE BLOOD COUNT 5.5 K/mm3 (4.0-10.0)
[2017-01-18 07:52] LABS: BASOPHIL 1.5 % (0-2.0); EOSINOPHIL 2.5 % (0-4.5); MCH 31.1 pg (25.7-33.7); MCHC 32.1 g/dl (32.0-35.9); MEAN CELL VOLUME 96.8 fl (80-96); MEAN PLT VOLUME 12.2 fl (7.5-11.1); NEUTROPHILS 50.3 % (42.8-82.8); PLATELET COUNT 131 K/MM3 (134-434); RDW 18.3 % (11.9-15.9); WHITE BLOOD COUNT 5.6 K/mm3 (4.0-10.0)
--- NOTE | 2017-01-18 08:00 | CONS ---
PULMONARY CONSULTATION DATE OF CONSULTATION: 01/17/2017 REFERRING PHYSICIAN: Petros Lloyd MD HISTORY OF PRESENT ILLNESS: The patient is a 61-year-old white male with past medical history of EtOH abuse, hyperkalemia, hepatitis C, a history of tobacco use since age 19, admitted to [facility] with complaint of generalized weakness, poor balance, and nausea. Patient was admitted with the above. On admission, he also complained of a 2-week history of increasing shortness of breath and dyspnea on exertion. The patient underwent a chest CTA which revealed saddle embolism and extensive bilateral pulmonary emboli. He was started on IV heparin. He had an echocardiogram performed which revealed evidence of RV dysfunction, [id number] globally decreased RV ejection fraction as compared to a previous exam in 2013, and mildly elevated systolic pressure of 29. Patient denies any previous history of DVT or PE in the past. Denies any family history of DVT or PE. He states he ambulates all the time. Denies any prolonged sedentary lifestyle. He denies any history of occupational exposure to chemicals or fumes. Currently, patient is homeless. PAST MEDICAL HISTORY: Again includes EtOH, history of hepatitis C. SOCIAL HISTORY: Homeless. Previously employed as a commercial painter, as well as a longtime smoker since age 19. REVIEW OF SYSTEMS: No orthopnea. No PND. Positive dyspnea on exertion. Positive mild chest pain. Positive occasional cough. No fevers. No chills. NO weight loss. No night sweats. No abdominal pain. No hemoptysis. CURRENT MEDICATIONS: Include Eliquis, Neurontin, NicoDerm, Ultram, folic acid, and vitamin D1. PHYSICAL EXAMINATION: General: The patient is a well-developed, well-nourished male, awake, alert, in no acute distress. Vital Signs: He is currently afebrile. Blood pressure 120/75, respiratory rate is 20, O2 saturation 95%, temperature is 98, and heart rate is 79. HEENT: Normocephalic, atraumatic. Neck: Supple. Heart: Regular. S1, S2. Chest: Clear. Abdomen: Soft. Bowel sounds are positive. Extremities: Lower extremity edema bilaterally. LABORATORY DATA: WBC is 7.2, hemoglobin 11, hematocrit 33.9, with a platelet count of 154,000. INR is 1.04. Blood gas shows pH of 7.51, pCO2 of 37, pO2 of 74, bicarbonate 29, and a saturation of 95; that is on 40% Ventimask on the 16th. BUN 12, creatinine 1.1. Alkaline phosphatase of 178, AST is 52. Chest CT reveals extensive bilateral pulmonary emboli with saddle embolism. IMPRESSION: 1. Submassive pulmonary emboli.? unprovoked 2. Moderate right ventricular dysfunction. 3. Pulmonary hypertension. 4. History of EtOH. 5. History of tobacco use. PLAN: 1. Anticoagulation. 2. Will need workup for hypercoagulable state as well as routine age- appropriate cancer screening. 3. Need to follow up echo as outpatient. 4. EtOH counseling as well as detoxification. 5. Consider IVC filter FERNANDA MCDONNELL M.D. VINOD/[id number] MTDD
[2017-01-18] MEDS: traMADol HCL 50 MG TABLET PO PRN ×4 (08:25→22:41)
[2017-01-18] MEDS: GABAPENTIN 400 MG CAPSULE (FP) PO SCH ×3 (08:25→21:33)
[2017-01-18 08:26] LABS: ALBUMIN 2.6 g/dl (3.4-5.0); ALK PHOS 135 U/L (45-117); ANION GAP 10 (8-16); BILIRUBIN,TOTAL 0.4 mg/dL (0.2-1.0); CALCIUM 9.2 mg/dL (8.5-10.1); CO2 23 mmol/L (21-32); CREATININE 0.9 mg/dL (0.7-1.3); GLUCOSE,RANDOM 103 mg/dL (74-106); MAGNESIUM 1.8 mg/dL (1.8-2.4); PHOSPHOROUS 4.4 mg/dL (2.5-4.9); SGOT/AST 31 U/L (15-37); SGPT/ALT 28 U/L (12-78); TOT PROT 5.7 g/dl (6.4-8.2)
[2017-01-18] MEDS ORDERED: PT OWN MED DRAWER 7, Y5N ONE ×2 (09:13→20:06)
[2017-01-18] MEDS: APIXABAN 5 MG TABLET PO SCH ×2 (09:14→21:33)
[2017-01-18] MEDS: NICOTINE 14 MG/24 HOURS TOPICAL PATCH TD SCH (09:15)
[2017-01-18] MEDS: FOLIC ACID 1 MG TABLET (FP) PO SCH (09:15)
--- NOTE | 2017-01-18 13:05 | PN ---
Physical Exam: SUBJECTIVE: Patient seen and examined No acute events overnight. Patient states he still has intermittent chest pain and has trouble walking. He has been doing exercises without any sob. OBJECTIVE: Vital Signs Period Temp Pulse Resp BP Sys/Haney Pulse Ox Last 24 Hr 97.7 F-98.4 F 79-105 18-20 105-134/59-85 92-96 GENERAL: The patient is awake, alert, and fully oriented, in no acute distress. HEAD: Normal with no signs of trauma. EYES: PERRL, extraocular movements intact, sclera anicteric, conjunctiva clear. No ptosis. ENT: Ears normal, nares patent, oropharynx clear without exudates, moist mucous membranes. NECK: Trachea midline, full range of motion, supple. LUNGS: Breath sounds equal, clear to auscultation bilaterally, no wheezes, no crackles, no accessory muscle use. HEART: Regular rate and rhythm, S1, S2 without murmur, rub or gallop. ABDOMEN: Soft, nontender, nondistended, normoactive bowel sounds, no guarding, no rebound, no hepatosplenomegaly, no masses. EXTREMITIES: 2+ pulses, warm, well-perfused, no edema, NEUROLOGICAL: Cranial nerves II through XII grossly intact. Normal speech, gait not observed. PSYCH: Normal mood, normal affect. SKIN: Warm, dry, normal turgor, no rashes or lesions noted Laboratory Results - last 24 hr 01/18/17 01/18/17 01/18/17 06:00 06:00 06:00 WBC 5.5 5.6 RBC 3.15 L 3.13 L Hgb 9.7 L D 9.7 L Hct 30.6 L 30.3 L MCV 97.2 H 96.8 H MCH 31.0 31.1 MCHC 31.8 L 32.1 RDW 17.9 H 18.3 H Plt Count 129 L 131 L MPV 12.2 H 12.2 H Neutrophils % 50.3 Lymphocytes % 27.1 D Monocytes % 18.6 H Eosinophils % 2.5 Basophils % 1.5 PTT (Actin FS) 29.7 Sodium Potassium Chloride Carbon Dioxide Anion Gap BUN Creatinine Creat Clearance w eGFR Random Glucose Calcium Phosphorus Magnesium Total Bilirubin AST ALT Alkaline Phosphatase Total Protein Albumin 01/18/17 06:00 WBC RBC Hgb Hct MCV MCH MCHC RDW Plt Count MPV Neutrophils % Lymphocytes % Monocytes % Eosinophils % Basophils % PTT (Actin FS) Sodium 139 Potassium 4.3 Chloride 106 Carbon Dioxide 23 Anion Gap 10 BUN 15 D Creatinine 0.9 Creat Clearance w eGFR > 60 Random Glucose 103 D Calcium 9.2 Phosphorus 4.4 Magnesium 1.8 Total Bilirubin 0.4 AST 31 D ALT 28 D Alkaline Phosphatase 135 H D Total Protein 5.7 L D Albumin 2.6 L D Active Medications Generic Name Dose Route Start Last Admin Trade Name Vasileq PRN Reason Stop Dose Admin Apixaban 10 mg 01/17/17 10:00 01/18/17 09:14 Eliquis - PO 10 mg BID POLO Administration Folic Acid 1 mg 01/17/17 10:00 01/18/17 09:15 Folic Acid - PO 1 mg DAILY POLO Administration Gabapentin 400 mg 01/17/17 06:00 01/18/17 08:25 Neurontin - PO 400 mg TID POLO Administration Nicotine 14 mg 01/17/17 10:00 01/18/17 09:15 Nicoderm Patch - TD 14 mg DAILY POLO Administration Thiamine HCl 100 mg 01/17/17 22:00 01/17/17 21:49 Vitamin B1 - PO 100 mg HS POLO Administration Tramadol HCl 50 mg 01/16/17 10:52 01/18/17 08:25 Ultram - PO 50 mg Q4H PRN Administration PAIN ASSESSMENT/PLAN: 61yo M with PMH of hepatitis C, chronic hypokalemia, ETOH abuse presents c/o weakness x 2 weeks, admitted to Telemetry for electrolyte abnormalities and detox. #Bilateral pulmonary embolus with saddle embolus -Elevated troponins likely 2/2 to heart strain, downtrending -Echo shows mild right heart strain -IR does not believe patient needs procedure -Cardiology consulted -Continue Eliquis 10 mg BID for 1 week -Pt will be d/c on 20 mg xarelto -Hypercoagulable workup outpt -LLE duplex negative -Pulmonary on board #EtOH Abuse -Finished librium protocol -Detox consult, Dr. Goodson -Nicotine patch -Continue thiamine 100 mg PO hs, Folic acid 1 mg po daily, and zofran 8mg sl prn for nausea #Cirrhosis 2/2 to etoh vs hepatitis c -Liver u/s shows cholelithiasis, hepatomegaly, and diffuse fatty infiltration. -PCP states patient was told to f/u with Dr. Butler outpatient, but never did. Patient's HCV viral load was previously undetectable -HCV not detected #neuropathy -cont. home med of neurontin -B12 normal #Hypokalemia, hypomagnesiemia -resolved -Will replete magnesium -continue to monitor #FEN - Fluids: None - Electrolytes: wnl - Nutrition: Regular diet #Prophylaxis - Heparin 5000U SQ TID for DVT prophylaxis Dispo: DC in am Visit type - Emergency Visit Emergency Visit: Yes ED Registration Date: 01/11/17 Care time: The patient presented to the Emergency Department on the above date and was hospitalized for further evaluation of their emergent condition. - New Patient This patient is new to me today: No - Critical Care Critical Care patient: No
--- NOTE | 2017-01-18 15:01 | PN ---
Teaching Attending Note Name of Resident: Rey Sutherland ATTENDING PHYSICIAN STATEMENT I saw and evaluated the patient. I reviewed the resident's note and discussed the case with the resident. I agree with the resident's findings and plan as documented. SUBJECTIVE:states has intermittent CP whenever he takes a deep breath. does not experience any CP when exerting himself doing "wall pushups". that hes been doing many "wall pushups" to prevent him from becoming too weak. denies cough, hemoyptsis, fever, chills, palpitations OBJECTIVE: Last Vital Signs Temp Pulse Resp BP Pulse Ox 97.9 F 87 18 113/75 96 01/18/17 14:33 01/18/17 14:33 01/18/17 14:33 01/18/17 14:33 01/18/17 09:00 General NAD CV S1 S2 RRR no murmur/rub/gallop Lungs CTA B/L no wheezing/rales/rhonchi Abdomen soft NT/ND obese extremities +tremor at rest ASSESSMENT AND PLAN: 61yo M with PMH continuous polysubstance abuse (EOTH and nicotine), HTN and recently diagnosed cirrhosis presented to the ER with weakness for 2 weeks 1. B/L PE with saddle embolus-hemodynamically stable. mild heart strain seen on echo. cardio consulted. on eliquis. will confirm to see if NOAC covered under insurance. consider switching to pradaxa as once a day dosing and likely to be more compliant than twice a day. will need hypercoagable workup as outpatinet. will need follow up echo in 2-3 months. 2. Continuous ETOH dependence- CIWA 0. completed librium protocol in hospital. does not meet criteria for inpatient rehab as recently completed per detox specialist. was counseled on risks of drinking and its impact on his overall health as well as being on blood thinner will increase risk of bleeding significantly. verbalized understanding and his desire to no longer drink ETOH. cont nicotine patch. thiamine/folate/MVI. 3. Macrocyctic anemia-Hgb stable. no signs of bleeding. cont monitoring 4. Cirrhosis- likely due to ETOH and possible HCV. f/u with Dr Moore as outpatient for further workup 5. Hypokalemia- resolved 6. hypomagnesemia-resolved 7. elevated troponin-likley demand ischemia due to tachycardia vs heart strain from saddle PE. 8. thrombocytopenia- platelet count stable. likely due to liver disease. monitor 9. d/c planning
--- NOTE | 2017-01-18 15:29 | PN ---
Progress Note, Physician History of Present Illness: pulmonary alert,feeling better,less dyspneic,ambulating - Current Medication List Current Medications: Active Medications Apixaban (Eliquis -) 10 mg PO BID [facility] Last Admin: 01/18/17 09:14 Dose: 10 mg Folic Acid (Folic Acid -) 1 mg PO DAILY [facility] Last Admin: 01/18/17 09:15 Dose: 1 mg Gabapentin (Neurontin -) 400 mg PO TID [facility] Last Admin: 01/18/17 14:38 Dose: 400 mg Nicotine (Nicoderm Patch -) 14 mg TD DAILY [facility] Last Admin: 01/18/17 09:15 Dose: 14 mg Thiamine HCl (Vitamin B1 -) 100 mg PO HS [facility] Last Admin: 01/17/17 21:49 Dose: 100 mg Tramadol HCl (Ultram -) 50 mg PO Q4H PRN PRN Reason: PAIN Last Admin: 01/18/17 14:40 Dose: 50 mg - Objective Vital Signs: Vital Signs Temperature 97.9 F 01/18/17 14:33 Pulse Rate 87 01/18/17 14:33 Respiratory Rate 18 01/18/17 14:33 Blood Pressure 113/75 01/18/17 14:33 O2 Sat by Pulse Oximetry (%) 96 01/18/17 09:00 Constitutional: Yes: Well Nourished, Calm Eyes: Yes: WNL HENT: Yes: WNL Neck: Yes: WNL Cardiovascular: Yes: Regular Rate and Rhythm, S1, S2 Respiratory: Yes: CTA Bilaterally Gastrointestinal: Yes: Normal Bowel Sounds, Soft Extremities: Yes: WNL Edema: No Labs: CBC, BMP 01/18/17 06:00 01/18/17 06:00 INR, PTT INR 1.04 (0.82-1.09) 01/13/17 05:35 Problem List - Problems (1) Alcohol intoxication Code(s): F10.929 - ALCOHOL USE, UNSPECIFIED WITH INTOXICATION, UNSPECIFIED Qualifiers: Complication of substance-induced condition: uncomplicated Qualified Code(s): F10.920 - Alcohol use, unspecified with intoxication, uncomplicated (2) Pulmonary embolism Code(s): I26.99 - OTHER PULMONARY EMBOLISM WITHOUT ACUTE COR PULMONALE Qualifiers: Pulmonary embolism type: saddle Chronicity: acute Acute cor pulmonale presence: without acute cor pulmonale Qualified Code(s): I26.92 - Saddle embolus of pulmonary artery without acute cor pulmonale (3) Alcoholism Code(s): F10.20 - ALCOHOL DEPENDENCE, UNCOMPLICATED (4) Alcohol dependence Code(s): F10.20 - ALCOHOL DEPENDENCE, UNCOMPLICATED Qualifiers: Substance use status: unspecified alcohol-induced disorder Qualified Code(s): F10.29 - Alcohol dependence with unspecified alcohol-induced disorder (5) GERD (gastroesophageal reflux disease) Code(s): K21.9 - GASTRO-ESOPHAGEAL REFLUX DISEASE WITHOUT ESOPHAGITIS Qualifiers: Esophagitis presence: without esophagitis Qualified Code(s): K21.9 - Gastro-esophageal reflux disease without esophagitis (6) Hepatitis C Code(s): B19.20 - UNSPECIFIED VIRAL HEPATITIS C WITHOUT HEPATIC COMA Qualifiers: Viral hepatitis chronicity: chronic Hepatic coma status: without hepatic coma Qualified Code(s): B18.2 - Chronic viral hepatitis C Assessment/Plan IMP SUB-MASSIVE PE ? UNPROVOKED BILATERAL PULMONARY EMBOLI WITH SADDLE EMBOLUS ETOH ABUSE H/O HEP C PLAN CONTINUE AC PT ADVISED OF RISK OF CONTINUED DRINKING WHILE ON AC (BABY SITTER BLEED) RISK OF FALL.PT ALSO COUNSELED ON IMPORTANCE OF COMPLIANCE WITH TAKING ANTICOAGULANTS W/U FOR HYPER-COAGULABLE STATE AGE APPROPRIATE CANCER SCREENING DETOX F/U ECHO OUTPATIENT CONSIDER IVC FILTER DR MCDONNELL Problem List - Problems (1) Alcohol intoxication Code(s): F10.929 - ALCOHOL USE, UNSPECIFIED WITH INTOXICATION, UNSPECIFIED Qualifiers: Complication of substance-induced condition: uncomplicated Qualified Code(s): F10.920 - Alcohol use, unspecified with intoxication, uncomplicated (2) Pulmonary embolism Code(s): I26.99 - OTHER PULMONARY EMBOLISM WITHOUT ACUTE COR PULMONALE Qualifiers: Pulmonary embolism type: saddle Chronicity: acute Acute cor pulmonale presence: without acute cor pulmonale Qualified Code(s): I26.92 - Saddle embolus of pulmonary artery without acute cor pulmonale (3) Alcoholism Code(s): F10.20 - ALCOHOL DEPENDENCE, UNCOMPLICATED (4) Alcohol dependence Code(s): F10.20 - ALCOHOL DEPENDENCE, UNCOMPLICATED Qualifiers: Substance use status: unspecified alcohol-induced disorder Qualified Code(s): F10.29 - Alcohol dependence with unspecified alcohol-induced disorder (5) GERD (gastroesophageal reflux disease) Code(s): K21.9 - GASTRO-ESOPHAGEAL REFLUX DISEASE WITHOUT ESOPHAGITIS Qualifiers: Esophagitis presence: without esophagitis Qualified Code(s): K21.9 - Gastro-esophageal reflux disease without esophagitis (6) Hepatitis C Code(s): B19.20 - UNSPECIFIED VIRAL HEPATITIS C WITHOUT HEPATIC COMA Qualifiers: Viral hepatitis chronicity: chronic Hepatic coma status: without hepatic coma Qualified Code(s): B18.2 - Chronic viral hepatitis C
[2017-01-18] MEDS: THIAMINE HCL 100 MG TABLET (FP) PO SCH (21:33)
[2017-01-18] MEDS ORDERED: MELATONIN 1 MG TABLET PO ONE (22:05)
[2017-01-19] MEDS: GABAPENTIN 400 MG CAPSULE (FP) PO SCH (07:40)
[2017-01-19] MEDS: traMADol HCL 50 MG TABLET PO PRN (07:40)
[2017-01-19] MEDS ORDERED: RIVAROXABAN 20 MG TABLET PO STA (10:19)
[2017-01-19] MEDS: FOLIC ACID 1 MG TABLET (FP) PO SCH (10:24)
[2017-01-19] MEDS: NICOTINE 14 MG/24 HOURS TOPICAL PATCH TD SCH (10:26)
[2017-01-19] MEDS: APIXABAN 5 MG TABLET PO SCH (10:44)
[2017-01-19 11:02] VITALS: BP 100/58; PULSE 96; TEMP 98.6
--- NOTE | 2017-01-19 12:38 | PN ---
Teaching Attending Note Name of Resident: Rey Sutherland ATTENDING PHYSICIAN STATEMENT I saw and evaluated the patient. I reviewed the resident's note and discussed the case with the resident. I agree with the resident's findings and plan as documented. SUBJECTIVE:currently asymptomatic. states chest discomfort is improving and only when takes deep breath. does not have it on exertion denies fever, chills, hemoptysis, N/V/C/D OBJECTIVE: Last Vital Signs Temp Pulse Resp BP Pulse Ox 98.6 F 96 H 18 100/58 95 01/19/17 11:01 01/19/17 11:01 01/19/17 11:01 01/19/17 11:01 01/18/17 20:38 General NAD CV S1 S2 RRR no murmur/rub/gallop Lungs CTA B/L no wheezing/rales/rhonchi ASSESSMENT AND PLAN: 61yo M with PMH continuous polysubstance abuse (EOTH and nicotine), HTN and recently diagnosed cirrhosis presented to the ER with weakness for 2 weeks 1. B/L PE with saddle embolus-hemodynamically stable. mild heart strain seen on echo. will switch xarelto for better medication compliance since its once a day dosing. informed need for pt to be complaint with medications, will need to see PMD in 1 week and will need repeat echo to evaluate heart strain. verbalized understanding and agreement. 2. Continuous ETOH dependence- CIWA 0. completed librium protocol in hospital. does not meet criteria for inpatient rehab as recently completed per detox specialist. was counseled on risks of drinking and its impact on his overall health as well as being on blood thinner will increase risk of bleeding significantly. verbalized understanding and his desire to no longer drink ETOH. cont nicotine patch. thiamine/folate/MVI. 3. Macrocyctic anemia-Hgb stable. no signs of bleeding. cont monitoring 4. Cirrhosis- likely due to ETOH and possible HCV. f/u with Dr Moore as outpatient for further workup. informed him of necessity to f/u with appt 5. Hypokalemia- resolved 6. hypomagnesemia-resolved 7. elevated troponin-likley demand ischemia due to tachycardia vs heart strain from saddle PE. 8. thrombocytopenia- platelet count stable. likely due to liver disease. monitor 9. d/c to DSS. explained risks to pt if he continues to drink and the effect it will have on his health especially as he is on blood thinner at this time. expressed need to f/u with doctors for monitoring and further workup.
--- NOTE | 2017-01-19 14:24 | DS ---
Physical Exam: LABS Selected Entries 01/11/17 01/12/17 01/12/17 16:13 01:15 04:57 Temperature 97.9 F Pulse Rate 89 112 H 120 H Blood Pressure 105/76 01/12/17 01/12/17 01/12/17 10:00 14:33 17:00 Temperature Pulse Rate 101 H 108 H 109 H Blood Pressure 01/12/17 01/13/17 01/13/17 22:00 02:00 06:00 Temperature 100.0 F H Pulse Rate 105 H 98 H 98 H Blood Pressure 01/13/17 01/13/17 01/13/17 10:00 14:00 17:00 Temperature Pulse Rate 100 H 99 H 104 H Blood Pressure 01/13/17 01/14/17 01/14/17 21:00 01:00 14:10 Temperature Pulse Rate 112 H 98 H 95 H Blood Pressure 01/14/17 01/15/17 01/15/17 20:53 00:55 10:04 Temperature Pulse Rate 87 104 H 97 H Blood Pressure 01/15/17 01/15/17 01/16/17 17:00 22:00 21:10 Temperature Pulse Rate 94 H 95 H 99 H Blood Pressure 01/17/17 01/17/17 01/17/17 09:00 18:00 23:42 Temperature Pulse Rate 98 H 100 H 105 H Blood Pressure 01/18/17 01/18/17 01/19/17 09:00 18:15 11:01 Temperature 98.6 F Pulse Rate 92 H 93 H 96 H Blood Pressure 100/58 Laboratory Tests 01/11/17 01/11/17 01/11/17 17:40 17:40 17:40 WBC Hgb 12.5 Plt Count 141 ABG pH ABG pCO2 at Pt Temp ABG pO2 at Pt Temp ABG HCO3 ABG O2 Content Sodium Potassium 2.5 L* Chloride Carbon Dioxide Anion Gap BUN Phosphorus Magnesium 1.3 L D Troponin I 01/11/17 01/11/17 01/11/17 22:06 22:47 23:13 WBC Hgb Plt Count ABG pH ABG pCO2 at Pt Temp ABG pO2 at Pt Temp ABG HCO3 ABG O2 Content Sodium Potassium 3.5 D Chloride Carbon Dioxide Anion Gap BUN Phosphorus Magnesium 1.7 L D Troponin I 0.11 H D 08/01/12/17 01/12/17 06:00 07:15 11:47 WBC Hgb Plt Count ABG pH 7.51 H ABG pCO2 at Pt Temp 37.6 ABG pO2 at Pt Temp 74.9 L ABG HCO3 29.6 H ABG O2 Content 14.3 L Sodium Potassium Chloride Carbon Dioxide Anion Gap BUN Phosphorus Magnesium Troponin I 0.17 H D 0.11 H D 01/13/17 01/15/17 01/17/17 05:35 06:05 08:50 WBC Hgb 11.0 L D Plt Count ABG pH ABG pCO2 at Pt Temp ABG pO2 at Pt Temp ABG HCO3 ABG O2 Content Sodium Potassium Chloride Carbon Dioxide Anion Gap BUN Phosphorus Magnesium 1.5 L D 1.6 L Troponin I 01/17/17 01/18/17 01/18/17 08:50 06:00 06:00 WBC 5.6 Hgb 9.7 L Plt Count 131 L ABG pH ABG pCO2 at Pt Temp ABG pO2 at Pt Temp ABG HCO3 ABG O2 Content Sodium 139 Potassium 4.3 Chloride 106 Carbon Dioxide 23 Anion Gap 10 BUN 15 D Phosphorus 4.4 Magnesium 1.7 L 1.8 Troponin I Imagin/[id number] 12/25/2016 at 1606 hours, again noted is a deformed left ribs but there may be a superimposed pulmonary process in the same area. For clarification, further imaging with CT may be of help. There is a large heart, degenerative changes and mamillation of the right hemidiaphragm. The right lung appears clear. Correlation recommended. 01/11-Duplex u/s- 1. No evidence of deep venous thrombosis. 2. Mcnair's cyst cyst. 01/12-Chest cta- Extensive bilateral PE with saddle embolus as described above. 2. Mild chronic lung disease. Please see above discussion. 01/13-abdomen u/s- Cholelithiasis, hepatomegaly and diffuse fatty infiltration of the liver. 01/12- Echo- elevated rv systolic pressure HOSPITAL COURSE: Date of Admission:01/11/17 Date of Discharge: 01/19/17 61yo M with PMH of hepatitis C, chronic hypokalemia, ETOH abuse presented to the ED c/o weakness x 2 weeks. Last drink was 1 day prior to admission. Pt was in ER 1 day prior to admission with same complaints, he eloped. Pt reports he wants to stay for inpatient detox now. He reported several episodes of bilious vomiting and green stool. Pt reported headache, mild chest "discomfort", SOB with exertion, and fatigue. ER course was notable for K+ 2.5, Mg 1.3, Magnesium Sulfate, K-Dur, Zofran, Librium protocol initiated, Ativan, CXR, CTA stat, Duplex U/S Left LE CTA: Positive for Bilateral PE, involving ALL lobes, and Saddle Embolus up to 9mm thick, No CT evidence if R. Heart strain B/L PE and saddle embolus: Patient admitted and started on heparin drip. Patient was found to have an elevated troponin, which downtrended. IR was consulted, who believed patient was hemodynamically stable and clot load was not large enough to do the procedure. Patient was converted to eliquis 10 mg bid from heparin. Patent slowly improved over the course of his stay. He was discharged on xarelto due to compliance concerns. He was told to have close follow up. Patient was counseled on risks of drinking and its impact on his overall health as well as being on blood thinner will increase risk of bleeding significantly. verbalized understanding and his desire to no longer drink ETOH. In addition, patient will go for hypercoaguability workup as an outpatient. EtOH withdrawal- Patient completed librium protocol during his hospitalization. He verbalized his desire to never drink again and was initially scheduled to go to inpatient detox however was told he would not be able to due to insurance reasons. Cirrhosis- Likely due to ETOH and possible HCV. He was told to f/u with Dr Moore as outpatient for further workup by pcp. We informed him of necessity to f/u with appt. Minutes to complete discharge: 45 Discharge Summary Reason For Visit: ALCOHOL INTOXICATION, HYPOKALEMIA, HYPOMAG Condition: Improved - Instructions Diet, Activity, Other Instructions: You were in the hospital due to a blood clot in your lungs.You are now on a blood thinner to help dissolve this clot and prevent further clotting. This puts you at higher risk of bleeding, if you continue to drink alcohol this will continue to increase your risks. You need to be evaluated to determine why you developed this clot. please follow up with hematology in the next month. referral has been provided. You also will need to have the echocardiogram repeated to evaluate the strain on your heart due to the clot in your lungs. Please follow up with your primary care provider within 1-2 weeks. Please follow up with the head usher within 1-2 weeks. A referral has been provided for you. Please follow up with the airworthiness inspector in 1 -2 weeks. to further workup your cirrhosis. Continue your home medications. Start taking the following medication: -Xarelto 20 mg by mouth daily Do not drink anymore alcohol. If you do and you fall, you have an increased risk of bleeding. Drinking alcohol will worsen your liver condition and puts you for increased risk of heart disease. Please abstain from drinking. consider going to Alcohol Anonymous for support. If you have any new chest pain, shortness of breath, or any new symptoms please come back to the hospital tomorrow. Referrals: Mike Julian MD [Staff Physician] - (pulmonary (lungs)) Ángel Moore MD [Staff Physician] - (GI (for your liver)) Mono Quinonez MD [Staff Physician] - (cardiology (heart)) Michael Lester MD [Staff Physician] - 1 Week (hematology) Sari Rich NP [Nurse Practitioner] - Disposition: HOME - Home Medications Comprehensive Discharge Medication List: Ambulatory Orders Rivaroxaban [Xarelto -] 20 mg PO DAILY #30 tablet 01/18/17 Gabapentin [Neurontin -] 400 mg PO BID #60 cap 01/19/17 Tramadol HCl [Ultram -] 50 mg PO TID PRN #21 tablet MDD 150 mg 01/19/17 This patient is new to me today: No Emergency Visit: Yes ED Registration Date: 01/11/17 Care time: The patient presented to the Emergency Department on the above date and was hospitalized for further evaluation of their emergent condition. Critical Care patient: No - Discharge Referral Referred to [facility] Med [facility] No
== END 2017-01-19 10:43 | disposition home or self-care (01) | DRG 134 ==
LOC: JER 16:04 → JERBED 22:06 → OBSVTOIN 22:55 → JERBED 22:55 → UNDOADMOB 22:55 → INTOOBSV 22:55 → J4W 01-12 00:54 → JERBED 01-12 00:54 → J5S 01-16 10:20
PROVIDERS: ADMIT Internal Medicine; ATTEND Internal Medicine
DX: I26.92 Saddle embolus of pulmonary artery without acute cor pulmonale (principal); F10.220 Alcohol dependence with intoxication, uncomplicated; F10.230 Alcohol dependence with withdrawal, uncomplicated; D69.6 Thrombocytopenia, unspecified; I24.8 Other forms of acute ischemic heart disease; E83.42 Hypomagnesemia; E83.39 Other disorders of phosphorus metabolism; G62.9 Polyneuropathy, unspecified; K70.30 Alcoholic cirrhosis of liver without ascites; Y90.5 Blood alcohol level of 100-119 mg/100 ml; E87.6 Hypokalemia; B19.20 Unspecified viral hepatitis C without hepatic coma; Z59.0 Homelessness; E66.9 Obesity, unspecified; Z68.29 Body mass index [BMI] 29.0-29.9, adult; R74.0 Nonspecific elevation of levels of transaminase and lactic acid dehydrogenase [LDH]; D53.9 Nutritional anemia, unspecified; K70.0 Alcoholic fatty liver; F17.210 Nicotine dependence, cigarettes, uncomplicated; Z91.81 History of falling
CPT/HCPCS: 36415; 36600; 71010-TC; 71275-TC; 76705-TC; 80048; 80053; 80307; 82607; 82803; 83735; 84100; 84484; 85025; 85027; 85610; 85730; 87522; 93005; 93010; 93306-TC; 93971-TC; 97116-GP; 97161-GP; 99283-25; G0378; J1644

== ENCOUNTER 2017-01-26 01:11 | Emergency (ER) | payer OTHER ==
[2017-01-26 01:36] VITALS: BP 118/70; PULSE 81; BMI 29.9
--- NOTE | 2017-01-26 01:46 | PDOC ---
History of Present Illness - General Chief Complaint: Alcohol intoxication Stated Complaint: FALL Time Seen by Provider: 01/26/17 01:46 - History of Present Illness Initial Comments: 01/26/17 02:44 61 year old male several previous ED visit for alcohol intoxication. patient noted with dried blood to face. breath smelling of alcohol. patient alert to tactule stimuli Past History - Past Medical History Allergies/Adverse Reactions: Allergies Allergy/AdvReac Type Severity Reaction Status Date / Time No Known Allergies Allergy Verified 01/26/17 01:25 Home Medications: Ambulatory Orders Rivaroxaban [Xarelto -] 20 mg PO DAILY #30 tablet 01/18/17 Gabapentin [Neurontin -] 400 mg PO BID #60 cap 01/19/17 Tramadol HCl [Ultram -] 50 mg PO TID PRN #21 tablet MDD 150 mg 01/19/17 Anemia: No Asthma: No Cancer: No Cardiac Disorders: No CVA: No COPD: No CHF: No Dementia: No Diabetes: No GI Disorders: No Disorders: No HTN: No Hypercholesterolemia: No Kidney Stones: No Liver Disease: Yes (Reports recently being diagnosed with hep. C and cirrhosis ) Suicide Attempt (Hx): No Seizures: No Thyroid Disease: No - Surgical History Abdominal Surgery: No Appendectomy: No Cardiac Surgery: No Cholecystectomy: No Lung Surgery: No Neurologic Surgery: No Orthopedic Surgery: Yes (right 5th digit tendon repair 11/14/14) - Reproductive History Testicular Surgery: No - Psycho/Social/Smoking Cessation Hx Anxiety: Yes Suicidal Ideation: No Smoking Status: Yes Smoking History: Unknown if ever smoked Have you smoked in the past 12 months: Yes Number of Cigarettes Smoked Daily: 5 If you are a former smoker, when did you quit?: 1 months Cigars Per Day: 0 'Breaking Loose' booklet given: 10/14/16 Hx Alcohol Use: Yes Drug/Substance Use Hx: Yes Substance Use Type: Alcohol Hx Substance Use Treatment: Yes *Physical Exam - Vital Signs Last Vital Signs Temp Pulse Resp BP Pulse Ox 81 20 118/70 99 01/26/17 01:23 01/26/17 01:23 01/26/17 01:23 01/26/17 01:23 - Physical Exam General Appearance: Yes: Appropriately Dressed, Disheveled HEENT: positive: Other (+ dried blood to nose. no heamtoma to scalp noted) Respiratory/Chest: positive: Lungs Clear, Normal Breath Sounds Musculoskeletal: positive: Normal Inspection Extremity: positive: Normal Capillary Refill, Normal Inspection, Normal Range of Motion Integumentary: positive: Normal Color, Dry, Warm Neurologic: positive: Fully Oriented, Normal Mood/Affect ED Treatment Course - RADIOLOGY Radiograph Interpretation: 01/26/17 04:45 ct head: no acute finding Medical Decision Making - Medical Decision Making 01/26/17 04:51 A: etoh abuse P: ct head: negative BGM librium for withdrawal symptoms. d/c when sober. *DC/Admit/Observation/Transfer Diagnosis at time of Disposition: ETOH abuse - Discharge Dispostion Disposition: HOME - Referrals Referrals: Kyra Dahl [Primary Care Provider] - - Patient Instructions Printed Discharge Instructions: DI for Alcohol Abuse
[2017-01-26] MEDS ORDERED: chlordiazePOXIDE HCL 25 MG CAPSULE PO ONE (04:03)
[2017-01-26] MEDS ORDERED: chlordiazePOXIDE HCL 25 MG CAPSULE ONE (04:18)
== END 2017-01-26 07:15 | disposition home or self-care (01) ==
LOC: JER 01:11
DX: F10.10 Alcohol abuse, uncomplicated (principal); B19.20 Unspecified viral hepatitis C without hepatic coma; K74.69 Other cirrhosis of liver
CPT/HCPCS: 70450-TC; 99282-25

== ENCOUNTER 2017-01-31 14:31 | Inpatient (IN) | payer OTHER ==
--- NOTE | 2017-01-31 15:23 | PDOC ---
History of Present Illness - General Stated Complaint: CHEST PAIN Time Seen by Provider: 01/31/17 14:44 History Source: Patient Exam Limitations: No Limitations - History of Present Illness Initial Comments: This is a 61 yo male with h/o saddle pulmonary embolism (diagnosed within the past few weeks), cirrhosis, possible HCV, and alcoholism (drinks five 24 oz wine coolers/day) who presents c/o episodic chest pain for the past 2 weeks. He has been having 4 episodes/day of sharp stabbing 9/10 left chest pain which is non-radiating, occurs at rest, and lasts only minutes at a time. He has not taken medications for the pain, and does not take aspirin. He has additionally been feeling more short of breath than normal, he notes left>right foot/leg swelling, and has numbness and tingling in both feet. He denies any nausea, sweats, dizziness, vomiting, headache, or abdominal pain. He cannot remember his medical history. He knows he is supposed to be on medications, but does not take them. Beta Halina Contraindications (Core Measure): Yes: Not Prescribed Past History - Past Medical History Allergies/Adverse Reactions: Allergies Allergy/AdvReac Type Severity Reaction Status Date / Time No Known Allergies Allergy Verified 01/26/17 01:25 Anemia: No Asthma: No Cancer: No Cardiac Disorders: No CVA: No COPD: No CHF: No Dementia: No Diabetes: No GI Disorders: No Disorders: No HTN: No Hypercholesterolemia: No Kidney Stones: No Liver Disease: Yes (Reports recently being diagnosed with hep. C and cirrhosis ) Suicide Attempt (Hx): No Seizures: No Thyroid Disease: No - Surgical History Abdominal Surgery: No Appendectomy: No Cardiac Surgery: No Cholecystectomy: No Lung Surgery: No Neurologic Surgery: No Orthopedic Surgery: Yes (right 5th digit tendon repair 11/14/14) - Reproductive History Testicular Surgery: No - Psycho/Social/Smoking Cessation Hx Anxiety: Yes Suicidal Ideation: No Smoking Status: Yes Smoking History: Current every day smoker Have you smoked in the past 12 months: Yes Number of Cigarettes Smoked Daily: 5 If you are a former smoker, when did you quit?: 1 months Cigars Per Day: 0 Information on smoking cessation initiated: No 'Breaking Loose' booklet given: 10/14/16 Hx Alcohol Use: Yes Drug/Substance Use Hx: No Substance Use Type: Alcohol Hx Substance Use Treatment: Yes Cardiac Specific PMH - Complaint Specific PMHX Pacemaker: No Review of Systems - Review of Systems Constitutional: No: Chills, Fever, Unexplained wgt Loss HEENTM: No: Nose Congestion, Throat Pain Respiratory: Yes: Shortness of Breath. No: Cough Cardiac (ROS): Yes: Chest Pain, Edema. No: Palpitations, Syncope ABD/GI: No: Constipated, Diarrhea, Nausea, Vomiting : No: Burning, Dysuria Musculoskeletal: No: Back Pain, Neck Pain Integumentary: No: Bruising, Rash Neurological: Yes: Numbness, Tingling. No: Headache, Weakness, Dizziness Endocrine: No: Unexplained Weight Gain, Unexplained Weight Loss *Physical Exam - Vital Signs Last Vital Signs Temp Pulse Resp BP Pulse Ox 98.7 F 91 H 20 104/83 94 L 01/31/17 14:49 01/31/17 14:49 01/31/17 14:49 01/31/17 14:49 01/31/17 14:54 - Physical Exam General Appearance: Yes: Nourished, Disheveled, Alcohol on Breath, Other ( appears anxious, pacing the room and later seen pacing the department, answers half of questions appropriatey and is not able to give direct answers for the other half). No: Apparent Distress HEENT: positive: EOMI, Normal Voice, Hearing Grossly Normal. negative: Scleral Icterus (R), Scleral Icterus (L), Nasal Congestion Neck: positive: Trachea midline, Supple. negative: Tender, Rigid Respiratory/Chest: positive: Normal Breath Sounds, Other (low-pitch inspiratory wheezes to bilateral bases). negative: Chest Tender, Respiratory Distress, Stridor Cardiovascular: positive: Regular Rhythm, Regular Rate, Edema. negative: Murmur Gastrointestinal/Abdominal: positive: Normal Bowel Sounds, Soft, Protuberent. negative: Tender, Organomegaly, Pulsatile Mass, Guarding Musculoskeletal: positive: Normal Inspection. negative: Decreased Range of Motion, Vertebral Tenderness Extremity: positive: Normal Capillary Refill, Normal Inspection, Normal Range of Motion. negative: Tender, Cyanosis Integumentary: positive: Normal Color, Dry, Warm. negative: Erythema, Rash, Bruising Neurologic: positive: creative art director II-XII NML intact, Fully Oriented, Alert, Normal Mood/ Affect, Normal Response, Motor Strength 5/5 Heart Score/ECG Review - History History: Moderately suspicious - Electrocardiogram EKG: Non specific repolarization disturbance - Age Age: 45-65 - Risk Factors Risk Factors Heart Score: Yes Smoking History, Yes Hx Obesity Based on the list above the patient has:: 1-2 risk factors - Troponin Troponin: </= normal limit - Score Heart Score - Total: 4 #1 ECG reviewed & interpreted by me at: 15:20 NSR, rate 85, 4-box q-waves in lead III, t-wave inversions in V2-V4, normal axis and intervals ED Treatment Course - LABORATORY CBC & Chemistry Diagram: 01/31/17 16:30 01/31/17 16:30 - ADDITIONAL ORDERS Additional order review: Laboratory Results 01/31/17 01/31/17 01/31/17 17:02 17:02 16:30 INR Sodium 140 Potassium 2.9 L* D Chloride 101 Carbon Dioxide 28 D Anion Gap 11 BUN 2 L* D Creatinine 0.8 Creat Clearance w eGFR > 60 Random Glucose 116 H Calcium 8.2 L Magnesium 1.7 L Total Bilirubin 0.3 D AST 67 H D ALT 45 D Alkaline Phosphatase 138 H Creatine Kinase 97 Troponin I < 0.02 D B-Natriuretic Peptide 294.14 H Total Protein 6.8 Albumin 3.2 L D Lipase 147 01/31/17 16:30 INR 1.00 Sodium Potassium Chloride Carbon Dioxide Anion Gap BUN Creatinine Creat Clearance w eGFR Random Glucose Calcium Magnesium Total Bilirubin AST ALT Alkaline Phosphatase Creatine Kinase Troponin I B-Natriuretic Peptide Total Protein Albumin Lipase 01/31/17 16:30 RBC 3.50 L MCV 92.3 MCHC 33.0 RDW 17.8 H MPV 10.6 D Neutrophils % 57.0 Lymphocytes % 34.5 D Monocytes % 6.4 Eosinophils % 0.7 Basophils % 1.4 - Medications Given in the ED: ED Medications Discontinued Medications Generic Name Dose Route Start Last Admin Trade Name Freq PRN Reason Stop Dose Admin Aspirin 162 mg 01/31/17 15:41 01/31/17 16:35 Asa - PO 01/31/17 15:42 162 mg ONCE ONE Administration Gabapentin 300 mg 01/31/17 18:19 01/31/17 18:44 Neurontin - PO 01/31/17 18:20 300 mg ONCE ONE Administration Magnesium Sulfate 2 gm 01/31/17 17:21 01/31/17 17:40 Magnesium Sulfate IVPB 01/31/17 17:22 2 gm ONCE ONE Administration Potassium Chloride 40 meq 01/31/17 17:22 01/31/17 17:40 K-Dur - PO 01/31/17 17:23 40 meq ONCE ONE Administration Medical Decision Making - Medical Decision Making 61 yo male with recently diagnosed saddle embolism, nonadherence to meds, alcoholism p/w chest pain. On exam his vitals are wnl, he appears anxious, pacing the department, bilateral low-pitched wheezes, otherwise wnl. Pt has been seen here in the ED frequently per Case Management flag. They are notified of his arrival. 01/31/17 15:30 Dr. Ortiz speaks with ED Director Dr. Warner regarding the patient. We will do full cardiac workup given his recent h/o saddle PE. 01/31/17 18:21 Cardiac workup negative for acute ACS based on first set troponins. CXR with LLL opacity and loss of the costophrenic angle. Mg and K are low and are repleted here in the ED. Interestingly BUN is 2. Pt notes neuropathic pain and gabapentin is ordered. Admitting is microblogged and graciously agrees to admit to Obs. Please discuss case with IR in the morning. Case Management is following the patient this ED visit and admission. *DC/Admit/Observation/Transfer Diagnosis at time of Disposition: Alcoholism, Hypomagnesemia, Hypokalemia, Nonadherence to medical treatment Pulmonary embolism Qualifiers: Pulmonary embolism type: saddle Chronicity: unspecified Acute cor pulmonale presence: without acute cor pulmonale Qualified Code(s): I26.92 - Saddle embolus of pulmonary artery without acute cor pulmonale - Discharge Dispostion Condition at time of disposition: Guarded Admit: Yes Decision to Admit order Date/Time: Decision to Admit Order Category Date Time Status Decision to Admit to Hospital Routine Admission 01/31/17 18:40 Active - Referrals Referrals: Kyra Dahl [Primary Care Provider] -
--- NOTE | 2017-01-31 15:26 | PDOC ---
Attending Attestation - HPI HPI: 01/31/17 15:34 Patient is a 61 year old male with PMH of hepatitis C, chronic hypokalemia, ETOH abuse presents to the ED with intermittent chest pain for 2 weeks. Patient was recently admitted to [facility] and was dx with saddle embolus and patient states that he has not been taking any of his medication. He now reports increased SOB. He also reports numbness and tingling of the bilateral lower extremities. He also notes he has been having bilateral swelling left worse than right. SH - smokes 5 cigarettes a day, EtOH abuse - Medical Decision Making 01/31/17 15:34 Documentation prepared by KUSHAL Panda, acting as medical biller/coder for Deyanira Ortiz MD. <Yamel Sloan - Last Filed: 01/31/17 16:37> - Resident Resident Name: SolaresKaty - ED Attending Attestation I have performed the following: I have examined & evaluated the patient, The case was reviewed & discussed with the resident, I agree w/resident's findings & plan, Exceptions are as noted - Physicial Exam PE: GENERAL: Awake, alert, and fully oriented, in no acute distress HEAD: No signs of trauma EYES: PERRLA, EOMI, sclera anicteric, conjunctiva clear ENT: Auricles normal inspection, hearing grossly normal, nares patent, oropharynx clear without exudates. Moist mucosa NECK: Normal ROM, supple, no lymphadenopathy, JVD, or masses LUNGS: Breath sounds equal, clear to auscultation bilaterally. No wheezes, and no crackles HEART: Regular rate and rhythm, normal S1 and S2, no murmurs, rubs or gallops ABDOMEN: Soft, nontender, normoactive bowel sounds. No guarding, no rebound. No masses EXTREMITIES: No tremors. Normal range of motion, no edema. No clubbing or cyanosis. No cords, erythema, or tenderness NEUROLOGICAL: Cranial nerves II through XII grossly intact. Normal speech, normal gait. Motor and sensation intact. SKIN: Warm, Dry, normal turgor, no rashes or lesions noted. - Medical Decision Making Pt with history of PE, EtOH abuse, presenting with chest pain. Will obtain CXR, labs. Likely admission due to saddle embolus with medication nonadherence. Case management contacted on patient arrival. <Deyanira Ortiz - Last Filed: 02/01/17 09:45>
[2017-01-31] MEDS ORDERED: ASPIRIN 81 MG CHEWABLE TABLETS PO ONE (15:41)
[2017-01-31] MEDS ORDERED: ASPIRIN 81 MG CHEWABLE TABLETS ONE (15:45)
[2017-01-31 16:50] LABS: BASOPHIL 1.4 % (0-2.0); EOSINOPHIL 0.7 % (0-4.5); MCH 30.4 pg (25.7-33.7); MEAN CELL VOLUME 92.3 fl (80-96); MEAN PLT VOLUME 10.6 fl (7.5-11.1); PLATELET COUNT 231 K/MM3 (134-434); RDW 17.8 % (11.9-15.9); WHITE BLOOD COUNT 6.5 K/mm3 (4.0-10.0)
[2017-01-31 17:11] LABS: ALBUMIN 3.2 g/dl (3.4-5.0); ANION GAP 11 (8-16); BILIRUBIN,TOTAL 0.3 mg/dL (0.2-1.0); CALCIUM 8.2 mg/dL (8.5-10.1); CO2 28 mmol/L (21-32); CREATININE 0.8 mg/dL (0.7-1.3); GLUCOSE,RANDOM 116 mg/dL (74-106); MAGNESIUM 1.7 mg/dL (1.8-2.4); SGOT/AST 67 U/L (15-37); SGPT/ALT 45 U/L (12-78); TOT PROT 6.8 g/dl (6.4-8.2)
[2017-01-31 17:14] LABS: ALK PHOS 138 U/L (45-117); CPK 97 IU/L (39-308); TROPONIN I < 0.02 ng/ml (0.00-0.05)
[2017-01-31] MEDS ORDERED: MAGNESIUM SULF 50% (8.12 MEQ/2 ML-1 GM VIAL) IVPB ONE (17:21)
[2017-01-31] MEDS ORDERED: POTASSIUM CHLORIDE TABS 20 MEQ TABLET.ER (FP) PO ONE ×2 (17:22→17:30)
[2017-01-31] MEDS ORDERED: MAGNESIUM SULF 50% (8.12 MEQ/2 ML-1 GM VIAL) ONE (17:30)
[2017-01-31] MEDS ORDERED: GABAPENTIN 300 MG CAPSULE (FP) PO ONE (18:19)
[2017-01-31 18:30] LABS: PLATELET COMMENT2 FEW GIANT PLTS; PLATELET ESTIMATE ADEQUATE (NORMAL)
[2017-01-31] MEDS ORDERED: GABAPENTIN 100 MG CAPSULE (FP) ONE (18:33)
[2017-01-31] MEDS ORDERED: KCL 10 MEQ IVPB 100 ML IVPB SCH (19:15)
[2017-01-31] MEDS ORDERED: KCL 10 MEQ IVPB 100 ML IVPB ONE (19:29)
--- NOTE | 2017-01-31 19:48 | HP ---
CHIEF COMPLAINT: Chest Pain PCP: Dr. Kyra Dahl HISTORY OF PRESENT ILLNESS: This is a 61 y/o male with a past medical history of Hypertension, Chronic Alcoholism, Hepatitis C, Saddle PE (01/18/17, non complaint with ACs), Neuropathy. Who presents to the ED with intermittent chest pain x 2 weeks. Patient reports the quality as sharp and stabbing from midsternum. Patient reports having episodes of SOB and bilateral foot, and left leg pain. Patient reports not taking the Xarelto because he was not given a prescription on discharge. Patient reports drinking only one wine cooler 24oz today. Patient denies fever, chills, cough, dizziness, AP, N/V/D, constipation, dysuria. ER course was notable for: (1) K 2.9 (2) BNP 294 (3) Recent Travel: None PAST MEDICAL HISTORY: Hypertension Chronic Alcoholism Hepatitis C Saddle PE Neuropathy PAST SURGICAL HISTORY: R- fifth digit tendon 10/2014 Social History: Smokin-5 cigarettes daily Alcohol: Wine Cooler 24oz 4-8/day Drugs: Denies Family History: Father- Lung Ca, ?Heart Disease Allergies No Known Allergies Allergy (Verified 01/26/17 01:25) HOME MEDICATIONS: REVIEW OF SYSTEMS CONSTITUTIONAL: Absent: fever, chills, diaphoresis, generalized weakness, malaise, loss of appetite, weight change HEENT: Absent: rhinorrhea, nasal congestion, throat pain, throat swelling, difficulty swallowing, mouth swelling, ear pain, eye pain, visual changes CARDIOVASCULAR: chest pain Absent: syncope, palpitations, irregular heart rate, lightheadedness, peripheral edema RESPIRATORY: shortness of breath Absent: cough, dyspnea with exertion, orthopnea, wheezing, stridor, hemoptysis GASTROINTESTINAL: Absent: abdominal pain, abdominal distension, nausea, vomiting, diarrhea, constipation, melena, hematochezia GENITOURINARY: Absent: dysuria, frequency, urgency, hesitancy, hematuria, flank pain, genital pain MUSCULOSKELETAL: Absent: myalgia, arthralgia, joint swelling, back pain, neck pain SKIN: Absent: rash, itching, pallor HEMATOLOGIC/IMMUNOLOGIC: Absent: easy bleeding, easy bruising, lymphadenopathy, frequent infections ENDOCRINE: Absent: unexplained weight gain, unexplained weight loss, heat intolerance, cold intolerance NEUROLOGIC: Absent: headache, focal weakness or paresthesias, dizziness, unsteady gait, seizure, mental status changes, bladder or bowel incontinence PSYCHIATRIC: Absent: anxiety, depression, suicidal or homicidal ideation, hallucinations. PHYSICAL EXAMINATION Vital Signs - 24 hr 01/31/17 19:03 Temperature 98.7 F Pulse Rate [ 88 Right Radial] Respiratory 18 Rate Blood Pressure 112/82 [Left Arm] O2 Sat by Pulse 95 Oximetry (%) GENERAL: Awake, alert, and fully oriented, in no acute distress. HEAD: Normal with no signs of trauma. EYES: Pupils equal, round and reactive to light, extraocular movements intact, sclera anicteric, conjunctiva clear. No lid lag. EARS, NOSE, THROAT: Ears normal, nares patent, oropharynx clear without exudates. Moist mucous membranes. NECK: Normal range of motion, supple without lymphadenopathy, JVD, or masses. LUNGS: Breath sounds equal, clear to auscultation bilaterally. No wheezes, and no crackles. No accessory muscle use. HEART: Regular rate and rhythm, normal S1 and S2 without murmur, rub or gallop. ABDOMEN: Soft, nontender, not distended, normoactive bowel sounds, no guarding, no rebound, no masses. No hepatomegaly or splenomegaly. MUSCULOSKELETAL: Normal range of motion at all joints. No bony deformities or tenderness. No CVA tenderness. UPPER EXTREMITIES: 2+ pulses, warm, well-perfused. No cyanosis. No clubbing. No peripheral edema. LOWER EXTREMITIES: 2+ pulses, warm, well-perfused. No calf tenderness. Bilateral +2 pitting peripheral edema. NEUROLOGICAL: Cranial nerves II-XII intact. Normal speech. Gait not observed. PSYCHIATRIC: Cooperative. Good eye contact. Appropriate mood and affect. SKIN: Warm, dry, normal turgor, no rashes or lesions noted, normal capillary refill. Laboratory Results - last 24 hr 01/31/17 01/31/17 01/31/17 16:30 16:30 16:30 WBC 6.5 RBC 3.50 L Hgb 10.7 L D Hct 32.3 L MCV 92.3 MCH 30.4 MCHC 33.0 RDW 17.8 H Plt Count 231 D MPV 10.6 D Neutrophils % 57.0 Lymphocytes % 34.5 D Monocytes % 6.4 Eosinophils % 0.7 Basophils % 1.4 Platelet Estimate Adequate Platelet Comment Few giant plts RBC Morphology INR 1.00 PTT (Actin FS) Sodium 140 Potassium 2.9 L* D Chloride 101 Carbon Dioxide 28 D Anion Gap 11 BUN 2 L* D Creatinine 0.8 Creat Clearance w eGFR > 60 Random Glucose 116 H Calcium 8.2 L Magnesium 1.7 L Total Bilirubin 0.3 D AST 67 H D ALT 45 D Alkaline Phosphatase 138 H Creatine Kinase 97 Troponin I < 0.02 D B-Natriuretic Peptide Total Protein 6.8 Albumin 3.2 L D Lipase 01/31/17 01/31/17 01/31/17 16:30 17:02 17:02 WBC RBC Hgb Hct MCV MCH MCHC RDW Plt Count MPV Neutrophils % Lymphocytes % Monocytes % Eosinophils % Basophils % Platelet Estimate Platelet Comment RBC Morphology INR PTT (Actin FS) 29.3 Sodium Potassium Chloride Carbon Dioxide Anion Gap BUN Creatinine Creat Clearance w eGFR Random Glucose Calcium Magnesium Total Bilirubin AST ALT Alkaline Phosphatase Creatine Kinase Troponin I B-Natriuretic Peptide 294.14 H Total Protein Albumin Lipase 147 ASSESSMENT/PLAN: This is a 61 y/o male with a PMHx of: HTN, Chronic Alcoholism, Hepatitis C, Saddle PE, Neuropathy. Placed on Tele Observation for Chest Pain, Electrolyte Imbalances for further evaluation of their emergent condition. Problem List - Problem (1) Chest pain Assessment/Plan: - Likely due to ACS vs PE - Patient diagnosed with saddle PE 01/18, non-complaint with ACs - Continue cardiac monitoring - HEART Score 3 - Serial Enzymes - Appreciate Cardiology Consult - EKG-reviewed - Chest Xray image reviewed-pending report - Asa given in ED, will continue - Heparin Protocol for PE - HgbA1C, Lipid Panel in am Code(s): R07.9 - CHEST PAIN, UNSPECIFIED (2) Hypomagnesemia Assessment/Plan: - Likely due to Chronic Alcoholism - Repleted in ED - BMP in am Code(s): E83.42 - HYPOMAGNESEMIA (3) Hypokalemia Assessment/Plan: - Likely secondary to Chronic Alcoholism - KCL given in ED - K- rider x2 now - Repeat BMP in am Code(s): E87.6 - HYPOKALEMIA (4) Pulmonary embolism Assessment/Plan: - Non- complaint secondary to Chronic Alcoholism - Will start on Heparin Protocol w/bolus, consider bridge when INR is therapeutic - Stool occult - Series INR/PTT - Wells Score 4.5 - Continue cardiac monitoring Code(s): I26.99 - OTHER PULMONARY EMBOLISM WITHOUT ACUTE COR PULMONALE Qualifiers: Pulmonary embolism type: saddle Chronicity: unspecified Acute cor pulmonale presence: without acute cor pulmonale Qualified Code(s): I26.92 - Saddle embolus of pulmonary artery without acute cor pulmonale (5) Alcoholism Assessment/Plan: - CIWA 2 - Counseled patient on alcohol cessation - Ativan prn - f/u outpatient Detox Code(s): F10.20 - ALCOHOL DEPENDENCE, UNCOMPLICATED (6) Neuropathy Assessment/Plan: - Continue Gabapentin - Tramadol x1 ordered for breakthrough pain Code(s): G62.9 - POLYNEUROPATHY, UNSPECIFIED (7) Hepatitis C Assessment/Plan: - f/u with GI in outpatient as needed Code(s): B19.20 - UNSPECIFIED VIRAL HEPATITIS C WITHOUT HEPATIC COMA Qualifiers: (8) DVT prophylaxis Assessment/Plan: - OOB - Heparin Drip Code(s): [id number] - Visit type - Emergency Visit Emergency Visit: Yes ED Registration Date: 01/31/17 Care time: The patient presented to the Emergency Department on the above date and was hospitalized for further evaluation of their emergent condition. - New Patient This patient is new to me today: Yes Date on this admission: 01/31/17 - Critical Care Critical Care patient: No
[2017-01-31] MEDS ORDERED: traMADol HCL 50 MG TABLET PO ONE (20:28)
[2017-01-31] MEDS ORDERED: HEPARIN NA (PORCINE) 5,000 UNITS/ML 1ML VIAL IVPUSH PRN ×2 (21:37→22:05)
[2017-01-31] MEDS ORDERED: HEPARIN NA (PORCINE) 5,000 UNITS/ML 1ML VIAL IVPUSH ONE (22:15)
[2017-01-31] MEDS: HEPARIN INFUSION - 500 ML IVPB SCH (22:38)
[2017-01-31 23:12] VITALS: BMI 29.8
[2017-01-31 23:57] LABS: URINE MARIJUANA THC NEGATIVE ng/ml (CUTOFF=50)
[2017-02-01 00:16] LABS: ANION GAP 9 (8-16); CALCIUM 8.1 mg/dL (8.5-10.1); CO2 29 mmol/L (21-32); CREATININE 0.8 mg/dL (0.7-1.3); GLUCOSE,RANDOM 97 mg/dL (74-106)
[2017-02-01] MEDS ORDERED: KCL 10 MEQ IVPB 100 ML IVPB SCH (00:45)
[2017-02-01 00:57] LABS: CPK 82 IU/L (39-308); TROPONIN I < 0.02 ng/ml (0.00-0.05)
[2017-02-01] MEDS: GABAPENTIN 400 MG CAPSULE (FP) PO SCH ×3 (06:13→18:03)
[2017-02-01 06:52] LABS: CPK 53 IU/L (39-308); TROPONIN I < 0.02 ng/ml (0.00-0.05)
--- NOTE | 2017-02-01 09:59 | PN ---
Progress Note (short form) - Note Progress Note: Chief Complaint: Events noted, notes reviewed, complaining of persistent chest discomfort which is exacerbated by respiration and movement, in addition reports exertional dyspnea History of Present Illness: Seen and examined on telemetry. Full consult dictated Echocardiography dated 01/12/2017 revealed normal LV size and function, normal RV size and function, mild TR with RVSP of 26.5 - Current Medication List Current Medications Aspirin (Asa -) 81 mg PO DAILY POLO Gabapentin (Neurontin -) 400 mg PO TID POLO Last Admin: 02/01/17 06:13 Dose: 400 mg Heparin Sodium (Porcine) (Heparin -) 5,000 unit IVPUSH PRN PRN PRN Reason: Heparin Heparin Sodium (Porcine) (Heparin -) 1,000 unit IVPUSH PRN PRN PRN Reason: Heparin Heparin Sodium/Dextrose (Heparin Infusion -) 500 mls @ 20 mls/hr IVPB TITR POLO ; 1,000 UNITS/HR PRN Reason: Protocol Last Admin: 01/31/17 22:38 Dose: 20 mls/hr Potassium Chloride (Potassium Chloride Oral Liquid) 40 meq PO ONCE ONE Stop: 02/01/17 10:01 Thiamine HCl (Vitamin B1 -) 100 mg PO DAILY [facility] Review of Systems Constitutional: denies: Chills Cardiovascular: As noted above Respiratory: denies: Cough or Sputum Production Gastrointestinal: denies: Nausea, Vomiting, Diarrhea, Constipation or Abdominal Pain Musculoskeletal: No symptoms Reported Neurological: denies: Dizziness or Headache - Objective Vital Signs: Last Vital Signs Temp Pulse Resp BP Pulse Ox 98.4 F 79 18 126/84 96 02/01/17 02:00 02/01/17 04:06 02/01/17 04:06 02/01/17 04:06 01/31/17 23:04 Intake & Output 01/29/17 01/30/17 01/31/17 02/01/17 23:59 23:59 23:59 23:59 Intake Total 220 1040 Output Total 800 Balance -580 1040 Weight 185 lb 1 oz Neck: Supple Negative JVD No Bruit Cardiovascular: S1 S2 Regular Rate Rhythm No Murmurs Chest: Clear to A&P Bilaterally Gastrointestinal: Soft Benign Normal Bowel Sounds Ext: No Edema Labs: CBC, BMP 01/31/17 16:30 02/01/17 00:00 Troponin, BNP 01/31/17 01/31/17 01/31/17 16:30 17:02 23:50 Troponin I < 0.02 D < 0.02 B-Natriuretic Peptide 294.14 H Hepatic Panel Total Bilirubin 0.3 mg/dL (0.2-1.0) D 01/31/17 16:30 AST 67 U/L (15-37) H D 01/31/17 16:30 ALT 45 U/L (12-78) D 01/31/17 16:30 Alkaline Phosphatase 138 U/L (45-117) H 01/31/17 16:30 Albumin 3.2 g/dl (3.4-5.0) L D 01/31/17 16:30 Assessment/Plan ASSESSMENT: 1. Chest pain syndrome atypical for CAD angina pectoris, pleuretic vs. musculo- skeletal 2. CAD with history of demand ischemic injury related to PTE, angina pectoris 3. Probable diastolic LV dysfunction with chronic class 0-I NYHA classification LV congestive heart failure, compensated/euvolemic 4. HTN 5. History of recent PTE/saddle embolus 6. History of hepatic cirrhosis/alcoholism/hepatitis C 7. Poor compliance with medical therapy administration 8. Tobacco abuse PLAN: 1. Continue A/C with Heparin and intermediate designer A/C is recommended unless it is absolutely contraindicated, Coumadin vs. NOAC's (issue is patient compliance and underlying chronic liver disease) 2. No clear indications for ASA therapy considering demand ischemia was in conjunction with PTE 3. Add B-Blockers, Nadolol 4. Counselled smoking cessation and abstinence Discussed in detail with the patient Alexa Gunter MD
[2017-02-01] MEDS ORDERED: POTASSIUM CHLORIDE ORAL LIQUID 20 MEQ/15 ML PO ONE (10:00)
[2017-02-01] MEDS: ASPIRIN 81 MG CHEWABLE TABLETS PO SCH (10:11)
[2017-02-01] MEDS: THIAMINE HCL 100 MG TABLET (FP) PO SCH (10:11)
--- NOTE | 2017-02-01 11:49 | CONS ---
REQUESTING PHYSICIAN: Hospitalist. DATE OF CONSULTATION: 02/01/2017 CHIEF COMPLAINT: Chest discomfort and dyspnea. HISTORY OF PRESENT ILLNESS: This is a 61-year-old obese male with known history of recent pulmonary thromboembolism, saddle embolus, unprovoked, probable coronary artery disease with recent demand ischemic injury in conjunction with the above-noted pulmonary embolism, diastolic left ventricular dysfunction, with chronic with class 0-1 [place] [employer] classification left ventricular failure, hypertensive cardiovascular disease, hepatic cirrhosis (probably alcohol related, cannot exclude hepatitis C), tobacco abuse, poor compliance with medical therapy administration, who presented to [facility] with recurrent episodes of chest discomfort and in addition progressive exertional dyspnea. Chest discomfort is described as sharp pain which is exacerbated by certain movement and deep inspiration. Patient did not report any exacerbation with physical exertion. Patient denied any associated symptomatology, i.e. diaphoresis. Patient has been reported exertional dyspnea predominantly noted with mild to moderate physical exertion. Patient denies any orthopnea or paroxysmal nocturnal dyspnea. The patient reports intermittent bilateral lower extremity edema left greater than right, which worsens in the latter part of the day. PAST MEDICAL HISTORY: Recent pulmonary thromboembolism unprovoked, coronary artery disease with evidence of demand ischemic injury in conjunction with the above-noted saddle embolus, angina pectoris, diastolic left ventricular dysfunction with class 0-1 [place] [employer] classification left ventricular failure, hypertensive cardiovascular disease, hepatic cirrhosis, alcoholism, hepatitis C, finger surgery. SOCIAL HISTORY: A smoker and admits to daily alcohol intake. FAMILY HISTORY: Positive for coronary artery disease. ALLERGIES: None reported. MEDICATIONS: Medical therapy currently includes aspirin 81 mg once a day, Neurontin 400 mg 3 times a day, intravenous heparin, potassium chloride 40 mEq once a day, thiamine 100 mg once a day. REVIEW OF SYSTEMS: Head and neck: Denies headache, photophobia, blurring of vision. Respiratory: No cough or sputum production. Cardiovascular: As noted above. Gastrointestinal: Denies nausea, vomiting, diarrhea, abdominal discomfort. Genitourinary: No symptoms reported. PHYSICAL EXAMINATION: Vital signs: Blood pressure 126/84 mmHg, pulse rate is 79 beats per minute. Head and neck: Pupils are equally reactive to light and accommodation. External ocular muscles are intact. Anicteric sclerae. Negative JVD. No bruit appreciated. Chest: Clear to auscultation and percussion. Cardiovascular: S1, S2 regular. No murmurs, clicks, or gallops. Abdomen: Soft, benign. Normoactive bowel sounds. Extremities: Varicosities were noted, left greater than right, trace to 1+ bilateral edema, left greater than right, no calf tenderness, intact distal pulses. STUDIES: Electrocardiogram reveals sinus rhythm with no ST segment abnormality. CBC revealed white cell count of 6.5, hemoglobin of 10.7, platelet count 231. INR 1.0. Basic metabolic profile revealed sodium of 141, potassium 3.1, BUN 4, creatinine 0.8, glucose 97. Lipid profile is pending. CPK 53 with a troponin less than 0.02. ASSESSMENT: 1. Chest pain syndrome, atypical for coronary artery disease, angina pectoris, pleuritic versus musculoskeletal discomfort. 2. Coronary artery disease with history of demand ischemic injury related to pulmonary thromboembolism, angina pectoris. . 3. Probable diastolic left ventricular dysfunction with chronic class 0-1 [place] [employer] classification left ventricular congestive heart failure, compensated/euvolemic. 4. Hypertensive cardiovascular disease. 5. History of recent pulmonary thromboembolism, saddle embolus, poor compliance with therapy administration. 6. History of hepatic cirrhosis/alcoholism/hepatitis C. 7. Poor compliance with medical therapy administration. 8. History of tobacco abuse. RECOMMENDATIONS: 1. Continuation of anticoagulation with heparin and long-term anticoagulation is recommended unless it is absolutely contraindicated, Coumadin versus new oral anticoagulant agent, issue is patient compliance and underlying chronic liver disease. 2. No clear indication for aspirin therapy considering demand ischemia was in conjunction with pulmonary thromboembolism. 3. Additional beta-blockers. 4. Patient was strongly counseled for smoking cessation and abstinence. Above was discussed in detail with the patient. Thank you for the kind referral. TYE HARPER M.D. [id number]
[2017-02-01] MEDS ORDERED: traMADol HCL 50 MG TABLET PO PRN (11:56)
[2017-02-01] MEDS ORDERED: chlordiazePOXIDE HCL 25 MG CAPSULE PO ONE (14:07)
--- NOTE | 2017-02-01 16:54 | PN ---
Physical Exam: SUBJECTIVE: Patient seen and examined in ICU/4S. He is ambulating without resp distress however states his legs are in pain and he wants tramadol. OBJECTIVE: Vital Signs Period Temp Pulse Resp BP Sys/Haney Pulse Ox Last 24 Hr 97.5 F-98.7 F 74-99 16-20 112-143/74-92 95-100 PE Neuro: alert, awake, cn 2-12intact easily forgetful HEENT: R neck dressing cdi Pulm: CTAB CV: s1 s2 rrr no mrg Abd: s nt nd +bs Ext: LLE +2 edema >right Laboratory Results - last 24 hr 01/31/17 01/31/17 02/01/17 23:10 23:50 00:00 PTT (Actin FS) Sodium 141 Potassium 3.1 L Chloride 103 Carbon Dioxide 29 Anion Gap 9 BUN 4 L D Creatinine 0.8 Random Glucose 97 Hemoglobin A1c % Calcium 8.1 L Creatine Kinase 82 Troponin I < 0.02 Stool Occult Blood Opiates Screen Negative Methadone Screen Negative Barbiturate Screen Negative Phencyclidine Screen Negative Ur Amphetamines Screen Negative MDMA (Ecstasy) Screen Negative Benzodiazepines Screen Positive Cocaine Screen Negative U Marijuana (THC) Screen Negative 02/01/17 02/01/17 02/01/17 05:00 05:00 07:30 PTT (Actin FS) 53.2 H D Sodium Potassium Chloride Carbon Dioxide Anion Gap BUN Creatinine Random Glucose Hemoglobin A1c % 5.6 D Calcium Creatine Kinase 53 Troponin I < 0.02 Stool Occult Blood Opiates Screen Methadone Screen Barbiturate Screen Phencyclidine Screen Ur Amphetamines Screen MDMA (Ecstasy) Screen Benzodiazepines Screen Cocaine Screen U Marijuana (THC) Screen 02/01/17 10:15 Stool Occult Blood Negative Active Medications Generic Name Dose Route Start Last Admin Trade Name Freq PRN Reason Stop Dose Admin Aspirin 81 mg 02/01/17 10:00 02/01/17 10:11 Asa - PO 81 mg DAILY POLO Administration Gabapentin 400 mg 02/01/17 06:00 02/01/17 13:03 Neurontin - PO 400 mg TID POLO Administration Heparin Sodium (Porcine) 5,000 unit 01/31/17 21:37 Heparin - IVPUSH PRN PRN Heparin Heparin Sodium (Porcine) 1,000 unit 01/31/17 22:05 Heparin - IVPUSH PRN PRN Heparin Heparin Sodium/Dextrose 500 mls @ 20 mls/hr 01/31/17 21:45 01/31/17 22:38 Heparin Infusion - IVPB 20 mls/hr TITR POLO Administration Protocol 1,000 UNITS/HR Thiamine HCl 100 mg 02/01/17 10:00 02/01/17 10:11 Vitamin B1 - PO 100 mg DAILY POLO Administration Tramadol HCl 50 mg 02/01/17 11:56 02/01/17 13:02 Ultram - PO 50 mg Q8H PRN Administration PAIN Assessment: 61 year old male with a past medical history of HTN, Chronic Alcoholism, Hepatitis C, Saddle PE (01/18/17, non complaint with ACs), Neuropathy admitted intermittent chest pain x 2 weeks. Plan: 1. Bilateral PE - CTA shows clot burden has lessened, new 4mm MABLE nodule f/u 3 months - IVC filter placed today - DVT dopplers negative for DVT, + bakers cyst L popliteal - Continue Heparin gtt - PT is now aware importance of AC adherence, he previously admits he was not 2. Esophageal varices - Start nadolol 20mg daily 3. Peripheral neuropathy - Continue neurontin 400mg TID - Add Tramadol prn 4. ETOH abuse - No active withdrawals noted - PRN librium Visit type - Emergency Visit Emergency Visit: Yes ED Registration Date: 01/31/17 Care time: The patient presented to the Emergency Department on the above date and was hospitalized for further evaluation of their emergent condition. - New Patient This patient is new to me today: Yes Date on this admission: 02/01/17 - Critical Care Critical Care patient: No
[2017-02-01] MEDS ORDERED: chlordiazePOXIDE HCL 25 MG CAPSULE PO PRN (17:15)
--- NOTE | 2017-02-01 18:00 | EKG ---
Test Reason : Blood Pressure : / mmHG Vent. Rate : 085 BPM Atrial Rate : 085 BPM P-R Int : 208 ms QRS Dur : 084 ms QT Int : 376 ms P-R-T Axes : 024 016 031 degrees QTc Int : 447 ms NORMAL SINUS RHYTHM CANNOT RULE OUT INFERIOR INFARCT , AGE UNDETERMINED DIFFUSE ST-T ABNORMALITIES ABNORMAL ECG WHEN COMPARED WITH ECG OF 11-JAN-2017 22:03, REPEAT EKG IF CLINICALLY INDICATED Confirmed by MESERET NICHOLAS MD ([id number]) on 02/01/2017 5:59:34 PM Referred By: Confirmed By:MESERET NICHOLAS MD
[2017-02-01] MEDS: traMADol HCL 50 MG TABLET PO PRN (18:03)
[2017-02-01] MEDS: HEPARIN INFUSION - 500 ML IVPB SCH (21:11)
[2017-02-02] MEDS: traMADol HCL 50 MG TABLET PO PRN ×3 (01:05→18:57)
[2017-02-02 06:14] LABS: MCH 30.8 pg (25.7-33.7); MCHC 33.2 g/dl (32.0-35.9); MEAN CELL VOLUME 92.8 fl (80-96); WHITE BLOOD COUNT 6.5 K/mm3 (4.0-10.0)
[2017-02-02 06:35] LABS: ANION GAP 9 (8-16); CALCIUM 8.1 mg/dL (8.5-10.1); CO2 29 mmol/L (21-32); CREATININE 0.7 mg/dL (0.7-1.3); GLUCOSE,RANDOM 97 mg/dL (74-106); MAGNESIUM 1.7 mg/dL (1.8-2.4)
[2017-02-02] MEDS: GABAPENTIN 400 MG CAPSULE (FP) PO SCH ×3 (06:58→18:58)
--- NOTE | 2017-02-02 07:08 | PN ---
Progress Note (short form) - Note Progress Note: Chief Complaint: Events noted, notes reviewed, continues to report persistent chest discomfort which is exacerbated by respiration and movement, denies any rest dyspnea but continues to report exertional dyspnea History of Present Illness: Seen and examined on ICU/4S/telemetry. Events noted, notes reviewed, continues to report persistent chest discomfort which is exacerbated by respiration and movement, denies any rest dyspnea but continues to report exertional dyspnea Initiated on Nadolol for portal HTN Repeat chest CTA report noted Echocardiography dated 01/12/2017 revealed normal LV size and function, normal RV size and function, mild TR with RVSP of 26.5 - Current Medication List Current Medications Aspirin (Asa -) 81 mg PO DAILY [facility] Last Admin: 02/01/17 10:11 Dose: 81 mg Chlordiazepoxide HCl (Librium -) 25 mg PO Q6H PRN PRN Reason: WITHDRAWAL(CONT SUBST) Last Admin: 02/01/17 21:11 Dose: 25 mg Gabapentin (Neurontin -) 400 mg PO TID@0600,1400,1800 [facility] Last Admin: 02/02/17 06:58 Dose: 400 mg Heparin Sodium (Porcine) (Heparin -) 5,000 unit IVPUSH PRN PRN PRN Reason: Heparin Heparin Sodium (Porcine) (Heparin -) 1,000 unit IVPUSH PRN PRN PRN Reason: Heparin Heparin Sodium/Dextrose (Heparin Infusion -) 500 mls @ 20 mls/hr IVPB TITR POLO ; 1,000 UNITS/HR PRN Reason: Protocol Last Admin: 02/01/17 21:11 Dose: 20 mls/hr Nadolol (Corgard -) 20 mg PO DAILY [facility] Thiamine HCl (Vitamin B1 -) 100 mg PO DAILY [facility] Last Admin: 02/01/17 10:11 Dose: 100 mg Tramadol HCl (Ultram -) 50 mg PO Q8H PRN PRN Reason: PAIN Last Admin: 02/02/17 01:05 Dose: 50 mg Review of Systems Constitutional: denies: Chills Cardiovascular: As noted above Respiratory: denies: Cough or Sputum Production Gastrointestinal: denies: Nausea, Vomiting, Diarrhea, Constipation or Abdominal Pain Musculoskeletal: No symptoms Reported Neurological: denies: Dizziness or Headache - Objective Vital Signs: Last Vital Signs Temp Pulse Resp BP Pulse Ox 98.8 F 73 16 138/92 97 02/02/17 02:00 02/02/17 02:00 02/02/17 02:00 02/02/17 02:00 02/01/17 21:00 Intake & Output 01/30/17 01/31/17 02/01/17 02/02/17 23:59 23:59 23:59 23:59 Intake Total 220 3030 Output Total 800 Balance -580 3030 Weight 185 lb 1 oz Neck: Supple Negative JVD No Bruit Cardiovascular: S1 S2 Regular Rate Rhythm No Murmurs Chest: Clear to A&P Bilaterally Gastrointestinal: Soft Benign Normal Bowel Sounds Ext: No Edema Labs: CBC, BMP 02/02/17 05:15 02/02/17 05:15 INR, PTT INR 1.00 (0.82-1.09) 01/31/17 16:30 Assessment/Plan ASSESSMENT: 1. Chest pain syndrome atypical for CAD angina pectoris, pleuretic vs. musculo- skeletal, resolving 2. CAD with history of demand ischemic injury related to PTE, angina pectoris 3. Probable diastolic LV dysfunction with chronic class 0-I NYHA classification LV congestive heart failure, compensated/euvolemic 4. HTN 5. History of recent PTE/saddle embolus 6. History of hepatic cirrhosis/alcoholism/hepatitis C 7. Poor compliance with medical therapy administration 8. Tobacco abuse PLAN: 1. 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 NOAC's (issue is patient compliance and underlying chronic liver disease) 2. outlined no clear indications for ASA therapy considering demand ischemia was in conjunction with PTE 3. Continue Nadolol and titrate dosage as tolerated and hemodynamics permitting 4. Counselled smoking cessation and abstinence Discussed in detail with the patient Alexa Gunter MD
[2017-02-02 07:33] LABS: MEAN PLT VOLUME 11.8 fl (7.5-11.1); PLATELET COUNT 169 K/MM3 (134-434)
[2017-02-02] MEDS ORDERED: PT OWN MED DRAWER 7, Y5N ONE (08:19)
[2017-02-02] MEDS: THIAMINE HCL 100 MG TABLET (FP) PO SCH (09:01)
[2017-02-02] MEDS: ASPIRIN 81 MG CHEWABLE TABLETS PO SCH (09:01)
[2017-02-02] MEDS ORDERED: POTASSIUM CHLORIDE ORAL LIQUID 20 MEQ/15 ML PO ONE (09:45)
[2017-02-02] MEDS ORDERED: MAGNESIUM SULF 50% (8.12 MEQ/2 ML-1 GM VIAL) IVPB ONE (10:30)
[2017-02-02] MEDS: NADOLOL 20 MG TABLET (FP) PO SCH (11:01)
--- NOTE | 2017-02-02 12:09 | PN ---
Physical Exam: SUBJECTIVE: Patient seen and examined. He says he needs a cane to walk, he is ambulating the room and doing wall push ups. Denies chest pain, sob. He would like to return to Rehab however has maxed out his days, cannot return until February. OBJECTIVE: Vital Signs Period Temp Pulse Resp BP Sys/Haney Pulse Ox Last 24 Hr 98.3 F 86 16 PE Neuro: alert, awake, cn 2-12intact HEENT: R neck dressing cdi Pulm: CTAB CV: s1 s2 rrr no mrg Abd: s nt nd +bs Ext: LLE +2 edema >right Active Medications Generic Name Dose Route Start Last Admin Trade Name Freq PRN Reason Stop Dose Admin Aspirin 81 mg 02/01/17 10:00 02/02/17 09:01 Asa - PO 81 mg DAILY POLO Administration Chlordiazepoxide HCl 25 mg 02/01/17 17:15 02/01/17 21:11 Librium - PO 25 mg Q6H PRN Administration WITHDRAWAL(CONT SUBST) Gabapentin 400 mg 02/01/17 18:00 02/02/17 06:58 Neurontin - PO 400 mg TID@0600,1400,1800 POLO Administration Nadolol 20 mg 02/02/17 10:00 02/02/17 11:01 Corgard - PO 20 mg DAILY POLO Administration Rivaroxaban 20 mg 02/02/17 13:30 Xarelto - PO DAILY POLO Thiamine HCl 100 mg 02/01/17 10:00 02/02/17 09:01 Vitamin B1 - PO 100 mg DAILY POLO Administration Tramadol HCl 50 mg 02/01/17 16:55 02/02/17 09:01 Ultram - PO 50 mg Q8H PRN Administration PAIN Imaging: - DVT dopplers negative for DVT, + bakers cyst L popliteal Assessment: 61 year old male with a past medical history of HTN, Chronic Alcoholism, Hepatitis C, Saddle PE (01/18/17, non complaint with ACs), Neuropathy admitted intermittent chest pain x 2 weeks. Plan: 1. Bilateral PE - CTA shows clot burden has lessened, new 4mm MABLE nodule f/u 3 months - IVC filter placed 02/01 - Stop heparin gtt - Restart xaralto 20mg daily 2 hrs after stopping heparin 2. Esophageal varices - Continue Nadolol 20mg daily 3. Peripheral neuropathy - Continue neurontin 400mg TID - Tramadol prn 4. ETOH abuse - No active withdrawals noted - PRN librium - Pt would like to return to rehab, however has run out of available days, d/w social work, pt will need to go to [facility]. - Will need physical therapy to eval for unsteady gait and ambulation aid Visit type - Emergency Visit Emergency Visit: Yes ED Registration Date: 02/02/17 Care time: The patient presented to the Emergency Department on the above date and was hospitalized for further evaluation of their emergent condition. - New Patient This patient is new to me today: No - Critical Care Critical Care patient: No
[2017-02-02] MEDS: RIVAROXABAN 20 MG TABLET PO SCH (13:28)
[2017-02-03 06:02] LABS: MCH 30.8 pg (25.7-33.7); MCHC 33.4 g/dl (32.0-35.9); MEAN CELL VOLUME 92.1 fl (80-96); MEAN PLT VOLUME 11.6 fl (7.5-11.1); PLATELET COUNT 150 K/MM3 (134-434); RDW 18.4 % (11.9-15.9); WHITE BLOOD COUNT 6.7 K/mm3 (4.0-10.0)
[2017-02-03] MEDS: GABAPENTIN 400 MG CAPSULE (FP) PO SCH ×2 (06:59→13:01)
[2017-02-03] MEDS: traMADol HCL 50 MG TABLET PO PRN (07:33)
[2017-02-03 07:52] LABS: CHOLESTEROL 143 mg/dL (50-200)
[2017-02-03 08:39] VITALS: BP 131/64; PULSE 68; TEMP 98.6
[2017-02-03] MEDS ORDERED: PT OWN MED DRAWER 7, Y5N ONE (09:07)
[2017-02-03] MEDS: ASPIRIN 81 MG CHEWABLE TABLETS PO SCH (09:15)
[2017-02-03] MEDS: THIAMINE HCL 100 MG TABLET (FP) PO SCH (09:15)
[2017-02-03] MEDS: RIVAROXABAN 20 MG TABLET PO SCH (09:15)
[2017-02-03] MEDS: NADOLOL 20 MG TABLET (FP) PO SCH (09:15)
--- NOTE | 2017-02-03 09:48 | PN ---
Progress Note, Physician Chief Complaint: Events noted Appears comfortable History of Present Illness: Patient was seen and examined. Awake and alert. Chart was reviewed Denies chest pain or palpitations States intermittent shortness of breath but appears comfortable today - Current Medication List Current Medications: Active Medications Aspirin (Asa -) 81 mg PO DAILY [facility] Last Admin: 02/03/17 09:15 Dose: 81 mg Chlordiazepoxide HCl (Librium -) 25 mg PO Q6H PRN PRN Reason: WITHDRAWAL(CONT SUBST) Last Admin: 02/01/17 21:11 Dose: 25 mg Gabapentin (Neurontin -) 400 mg PO TID@0600,1400,1800 [facility] Last Admin: 02/03/17 06:59 Dose: 400 mg Nadolol (Corgard -) 20 mg PO DAILY [facility] Last Admin: 02/03/17 09:15 Dose: 20 mg Rivaroxaban (Xarelto -) 20 mg PO DAILY [facility] Last Admin: 02/03/17 09:15 Dose: 20 mg Thiamine HCl (Vitamin B1 -) 100 mg PO DAILY [facility] Last Admin: 02/03/17 09:15 Dose: 100 mg Tramadol HCl (Ultram -) 50 mg PO Q8H PRN PRN Reason: PAIN Last Admin: 02/03/17 07:33 Dose: 50 mg - Objective Vital Signs: Vital Signs Temperature 98.6 F 02/03/17 08:38 Pulse Rate 68 02/03/17 08:38 Respiratory Rate 18 02/03/17 08:38 Blood Pressure 131/64 02/03/17 08:38 O2 Sat by Pulse Oximetry (%) 98 02/03/17 08:38 Neck: Yes: Supple Cardiovascular: Yes: Regular Rate and Rhythm, S1, S2 Respiratory: Yes: CTA Bilaterally Gastrointestinal: Yes: Normal Bowel Sounds, Soft. No: Tenderness Edema: No Additional Findings/Remarks: Review of Systems Constitutional: denies: Chills Cardiovascular: As noted above Respiratory: denies: Cough or Sputum Production Gastrointestinal: denies: Nausea, Vomiting, Diarrhea, Constipation or Abdominal Pain Musculoskeletal: No symptoms Reported Neurological: denies: Dizziness or Headache Labs: CBC, BMP 02/03/17 05:00 INR, PTT INR 1.00 (0.82-1.09) 01/31/17 16:30 Assessment/Plan 1. Chest pain syndrome atypical for CAD angina pectoris, pleuretic vs. musculo- skeletal, resolving 2. CAD with history of demand ischemic injury related to PTE, angina pectoris 3. Probable diastolic LV dysfunction with chronic class 0-I NYHA classification LV congestive heart failure, compensated 4. HTN 5. History of recent PTE/saddle embolus 6. History of hepatic cirrhosis/alcoholism/hepatitis C 7. Poor compliance with medical therapy administration 8. Tobacco abuse PLAN: 1. Currently on Xarelto. Compliance might be an issue, but patient was informed of the importance of compliance with medications 2. Continue Nadolol and titrate dosage as tolerated and hemodynamics permitting 3. Counselled smoking cessation and abstinence from ETOH 4. Monitor LFTs Further plans are to follow Camilo Lyons MD
--- NOTE | 2017-02-03 12:27 | PN ---
Problem List - Problems (1) Chest pain Code(s): R07.9 - CHEST PAIN, UNSPECIFIED Qualifiers: Chest pain type: unspecified Qualified Code(s): R07.9 - Chest pain, unspecified (2) Nonadherence to medical treatment Code(s): Z91.19 - PATIENT'S NONCOMPLIANCE W OTH MEDICAL TREATMENT AND REGIMEN (3) Pulmonary embolism Code(s): I26.99 - OTHER PULMONARY EMBOLISM WITHOUT ACUTE COR PULMONALE Qualifiers: Pulmonary embolism type: saddle Chronicity: unspecified Acute cor pulmonale presence: without acute cor pulmonale Qualified Code(s): I26.92 - Saddle embolus of pulmonary artery without acute cor pulmonale (4) Cirrhosis of liver Code(s): K74.60 - UNSPECIFIED CIRRHOSIS OF LIVER Qualifiers: Hepatic cirrhosis type: alcoholic cirrhosis Ascites presence: without ascites Qualified Code(s): K70.30 - Alcoholic cirrhosis of liver without ascites (5) ETOH abuse Code(s): F10.10 - ALCOHOL ABUSE, UNCOMPLICATED (6) GERD (gastroesophageal reflux disease) Code(s): K21.9 - GASTRO-ESOPHAGEAL REFLUX DISEASE WITHOUT ESOPHAGITIS Qualifiers: Qualified Code(s): K21.9 - Gastro-esophageal reflux disease without esophagitis
--- NOTE | 2017-02-03 13:14 | DS ---
Physical Exam: SUBJECTIVE: Patient seen and examined. He is ambulating without distress and denies active sob or chest pain . OBJECTIVE: Vital Signs Period Temp Pulse Resp BP Sys/Haney Pulse Ox Last 24 Hr 98.1 F-98.6 F 61-74 16-20 122-134/59-66 98-98 PE Neuro: alert, awake, cn 2-12intact HEENT: R neck dressing cdi Pulm: CTAB CV: s1 s2 rrr no mrg Abd: s nt nd +bs Ext: LLE +2 edema >right Laboratory Results - last 24 hr 02/03/17 02/03/17 05:00 05:00 WBC 6.7 RBC 3.24 L Hgb 10.0 L Hct 29.8 L MCV 92.1 MCH 30.8 MCHC 33.4 RDW 18.4 H Plt Count 150 MPV 11.6 H PTT (Actin FS) 29.4 D HOSPITAL COURSE: Date of Admission:02/02/17 Date of Discharge: 02/03/17 Minutes to complete discharge: 36 Discharge Summary Reason For Visit: ALCOHOL ABUSE,PULMONARY EMBOLISM,CHEST PAIN, Current Active Problems Alcoholism (Acute) Chest pain (Acute) DVT prophylaxis (Acute) Hypokalemia (Acute) Hypomagnesemia (Acute) Nonadherence to medical treatment (Acute) Pulmonary embolism (Acute) Hospital Course: Initial Hospital Course: Briefly, this 61 year old male with a past medical history of Hypertension, Chronic Alcoholism, Hepatitis C, Saddle PE (01/18/17, non complaint with ACs), Neuropathy admitted with intermittent chest pain x 2 weeks. Pain quality was sharp and stabbing from midsternum. Patient reported having episodes of SOB and bilateral foot, and left leg pain. Patient reported not taking the Xarelto because he was not given a prescription on discharge. Pt drinks 1 24oz wine cooler daily he just completed rehab at [facility] on 11/04 Subsequent Hospital Course/Progress Note/Discharge Summary: Assessment: 61 year old male with a past medical history of HTN, Chronic Alcoholism, Hepatitis C, Saddle PE (01/18/17, non complaint with ACs), Neuropathy admitted intermittent chest pain x 2 weeks. Plan: 1. Bilateral PE - CTA shows clot burden has lessened, new 4mm MABLE nodule f/u 3 months - IVC filter placed 02/01 - Stop heparin gtt - Restart xaralto 20mg daily - Unable to get override for refill from insurance, sent home with 12 tabs of xaralto, pt instructed to refill prescription in 10 days 2. Esophageal varices - Started and to continue Nadolol 20mg daily 3. Peripheral neuropathy - Continue neurontin 400mg TID - Tramadol prn 4. ETOH abuse - Pt would like to return to rehab, however has run out of available days, d/w social work, pt will go to [facility]. Dispo: - For [facility] - Heme and [facility] referral enclosed - pt aware and agrees to above plan Condition: Stable - Instructions Diet, Activity, Other Instructions: Please return to the ED for any new, persistent, or worsening symptoms. 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 There is a [facility] hematology clinic you can follow up with for outpt work up if referral cannot take your insurance [phone] Referrals: Kyra Dahl [Primary Care Provider] - Emily Scott MD [Staff Physician] - Disposition: HOME - Home Medications Comprehensive Discharge Medication List: Ambulatory Orders Gabapentin [Neurontin -] 400 mg PO TID@0600,1400,1800 #90 tab 02/03/17 Nadolol [Corgard -] 20 mg PO DAILY #30 tablet 02/03/17 Rivaroxaban [Xarelto -] 20 mg PO DAILY #30 tablet 02/03/17 Tramadol HCl [Ultram -] 50 mg PO Q8H PRN #60 tablet MDD 3 02/03/17 This patient is new to me today: No Emergency Visit: Yes ED Registration Date: 02/02/17 Care time: The patient presented to the Emergency Department on the above date and was hospitalized for further evaluation of their emergent condition. Critical Care patient: No - Discharge Referral Referred to [facility] Med P.C.: No
== END 2017-02-03 14:31 | disposition home or self-care (01) | DRG 134 ==
LOC: JER 14:31 → JERBED 18:40 → J2W 21:28 → OBSVTOIN 02-02 09:56
PROVIDERS: ADMIT Internal Medicine; ATTEND Nurse Practitioner Acute Care
PROC: 06H03DZ Insertion of Intraluminal Device into Inferior Vena Cava, Percutaneous Approach (ICD-10-PCS; principal; 2017-02-01)
DX: I26.99 Other pulmonary embolism without acute cor pulmonale (principal); E83.42 Hypomagnesemia; I50.32 Chronic diastolic (congestive) heart failure; G62.9 Polyneuropathy, unspecified; I85.00 Esophageal varices without bleeding; I11.0 Hypertensive heart disease with heart failure; K70.30 Alcoholic cirrhosis of liver without ascites; K76.6 Portal hypertension; E87.6 Hypokalemia; Z91.14 Patient's other noncompliance with medication regimen; B19.20 Unspecified viral hepatitis C without hepatic coma; F17.210 Nicotine dependence, cigarettes, uncomplicated; F10.20 Alcohol dependence, uncomplicated; I25.10 Atherosclerotic heart disease of native coronary artery without angina pectoris; K21.9 Gastro-esophageal reflux disease without esophagitis
CPT/HCPCS: 36415; 37191; 71010-TC; 71275-TC; 80048; 80053; 80061; 80307; 82272; 83036; 83690; 83721; 83735; 83880; 84100; 84484; 85025; 85027; 85610; 85730; 93005; 93010; 93970-TC; 97116-GP; 97161-GP; 99283-25; C1769; C1880; G0378; J1644

== ENCOUNTER 2017-02-14 13:37 | Emergency (ER) | payer OTHER ==
--- NOTE | 2017-02-14 13:49 | PDOC ---
History of Present Illness - General Chief Complaint: Alcohol intoxication Stated Complaint: DETOX Time Seen by Provider: 02/14/17 13:46 History Source: Patient Exam Limitations: No Limitations - History of Present Illness Initial Comments: 02/14/17 13:48 Pt. is a 61 y/o male with PMH of neuropathy, hx of PE on anticoagulation, who presents to the ED stating that he would like to go to alcohol detox. Pt. states that he drinks approximately 4 25oz wine coolers daily. He also smokes approximately 3-5 cigarettes per day. He does not have any complaints at this time, other than he states that he thinks his drinking is a problem and would like to go to rehab. Denies fevers, chills, head trauma, falling, chest pain, cough, shortness of breath, nausea, vomiting, diarrhea, frequency, urgency, and hematuria. Past History - Travel Traveled outside of the country in the last 30 days: No Close contact w/someone who was outside of country & ill: No - Past Medical History Allergies/Adverse Reactions: Allergies Allergy/AdvReac Type Severity Reaction Status Date / Time No Known Allergies Allergy Verified 02/14/17 14:11 Home Medications: Ambulatory Orders Gabapentin [Neurontin -] 400 mg PO TID@0600,1400,1800 #90 tab 02/03/17 Nadolol [Corgard -] 20 mg PO DAILY #30 tablet 02/03/17 Rivaroxaban [Xarelto -] 20 mg PO DAILY #30 tablet 02/03/17 Tramadol HCl [Ultram -] 50 mg PO Q8H PRN #60 tablet MDD 3 02/03/17 Anemia: No Asthma: No Cancer: No Cardiac Disorders: No CVA: No COPD: No CHF: No Dementia: No Diabetes: No GI Disorders: No Disorders: No HTN: No Hypercholesterolemia: No Kidney Stones: No Liver Disease: Yes (Reports recently being diagnosed with hep. C and cirrhosis ) Seizures: No Thyroid Disease: No - Surgical History Abdominal Surgery: No Appendectomy: No Cardiac Surgery: No Cholecystectomy: No Lung Surgery: No Neurologic Surgery: No Orthopedic Surgery: Yes (right 5th digit tendon repair 11/14/14) - Reproductive History Testicular Surgery: No - Suicide/Smoking/Psychosocial Hx Smoking Status: Yes Smoking History: Current every day smoker Have you smoked in the past 12 months: Yes Number of Cigarettes Smoked Daily: 5 If you are a former smoker, when did you quit?: 1 months Cigars Per Day: 0 'Breaking Loose' booklet given: 10/14/16 Hx Alcohol Use: Yes Drug/Substance Use Hx: No Substance Use Type: Alcohol Hx Substance Use Treatment: Yes Review of Systems - Review of Systems Able to Perform ROS?: Yes Comments:: 02/14/17 14:02 CONSTITUTIONAL: Absent: fever, chills, diaphoresis, generalized weakness, malaise, loss of appetite HEENT: Absent: rhinorrhea, nasal congestion, throat pain, throat swelling, difficulty swallowing, mouth swelling, ear pain, eye pain, visual Changes CARDIOVASCULAR: Absent: chest pain, loss of consciousness, palpitations, irregular heart rate, peripheral edema RESPIRATORY: Absent: cough, shortness of breath, dyspnea with exertion, orthopnea, wheezing, stridor, hemoptysis GASTROINTESTINAL: Absent: abdominal pain, abdominal distension, nausea, vomiting, diarrhea, constipation, melena, hematochezia GENITOURINARY: Absent: dysuria, frequency, urgency, hesitancy, hematuria, flank pain, genital pain MUSCULOSKELETAL: Absent: myalgia, arthralgia, joint swelling SKIN: Absent: rash, itching, pallor HEMATOLOGIC/IMMUNOLOGIC: Absent: easy bleeding, easy bruising, lymphadenopathy, frequent infections ENDOCRINE: Absent: unexplained weight gain, unexplained weight loss, heat intolerance, cold intolerance NEUROLOGIC: Absent: headache, focal weakness or paresthesias, dizziness, unsteady gait, seizure, mental status changes, bladder or bowel incontinence PSYCHIATRIC: Absent: anxiety, depression, suicidal or homicidal ideation, hallucinations. Is the patient limited Citizen [place] proficient: No *Physical Exam - Physical Exam Comments: 02/14/17 14:03 GENERAL: Well developed, well nourished, disheveled with alcohol on the breath. Awake and alert. No acute distress. HEENT: Normocephalic, atraumatic. PERRLA, EOMI. No conjunctival pallor. Sclera are non -icteric. Moist mucous membranes. Oropharynx is clear. NECK: Supple. Full ROM. No JVD. Carotid pulses 2+ and symmetric, without bruits. No thyromegaly. No lymphadenopathy. CARDIOVASCULAR: Regular rate and rhythm. No murmurs, rubs, or gallops. Distal pulses are 2+ and symmetric. PULMONARY: No evidence of respiratory distress. Lungs clear to auscultation bilaterally. No wheezing, rales or rhonchi. ABDOMINAL: Soft. Non-tender. Non-distended. No rebound or guarding. No organomegaly. Normoactive bowel sounds. MUSCULOSKELETAL Normal range of motion at all joints. No bony deformities or tenderness. No CVA tenderness. EXTREMITIES: No cyanosis. No clubbing. No edema. No calf tenderness. SKIN: Warm and dry. Normal capillary refill. No rashes. No jaundice. NEUROLOGICAL: Alert, awake, appropriate. Cranial nerves 2-12 intact. No deficits to light touch and temperature in face, upper extremities and lower extremities. No motor deficits in the in face, upper extremities and lower extremities. Normoreflexic in the upper and lower extremities. Normal speech. Toes are down- going bilaterally. Gait is normal without ataxia. PSYCHIATRIC: Cooperative. Good eye contact. Appropriate mood and affect. ED Treatment Course - LABORATORY CBC & Chemistry Diagram: 02/14/17 14:45 02/14/17 14:45 Medical Decision Making - Medical Decision Making 02/14/17 14:32 Pt. is a 61 y/o male with PMH of neuropathy, hx of PE on anticoagulation, who presents to the ED stating that he would like to go to alcohol detox. Given PMH will make sure pt is clinically stable for detox 1. CBC, CMP, Cardiac Profile, UA, Urine drug screen 2. CXR, EKG 3. Re-evaluate 02/14/17 15:36 Lab work notable for anemia, otherwise, clinically stable. CXR is unchanged from 02/01/17 Pt. still requesting rehab. manager [employer]ien was able to arrange bed at [facility] for detox. Dr. Keon Jones accepts the pt. Pt. to be discharged at this time to go to [facility]. *DC/Admit/Observation/Transfer Diagnosis at time of Disposition: ETOH abuse Alcohol dependence Qualifiers: Substance use status: uncomplicated Qualified Code(s): F10.20 - Alcohol dependence, uncomplicated - Discharge Dispostion Disposition: HOME Condition at time of disposition: Stable Admit: No - Patient Instructions Printed Discharge Instructions: DI for Alcohol Abuse Additional Instructions: You are medically cleared for alcohol detox. [facility] has a bed for you. Please go to [facility] now. Return to the ED if you have fevers, chills, seizures, or worsening of your symptoms
[2017-02-14 14:12] VITALS: BP 116/68; PULSE 90; TEMP 97.9; BMI 32.3
[2017-02-14 14:58] LABS: BASOPHIL 1.1 % (0-2.0); EOSINOPHIL 1.2 % (0-4.5); MCH 29.2 pg (25.7-33.7); MCHC 31.9 g/dl (32.0-35.9); MEAN CELL VOLUME 91.4 fl (80-96); MEAN PLT VOLUME 9.6 fl (7.5-11.1); NEUTROPHILS 37.3 % (42.8-82.8); PLATELET COUNT 216 K/MM3 (134-434); RDW 19.9 % (11.9-15.9); WHITE BLOOD COUNT 5.7 K/mm3 (4.0-10.0)
[2017-02-14 15:14] LABS: INR 0.94 (0.82-1.09); PROTHROMBIN TIME (PATIENT) 10.3 SEC (9.98-11.88)
[2017-02-14 15:21] LABS: ALBUMIN 3.5 g/dl (3.4-5.0); ANION GAP 13 (8-16); BILIRUBIN,TOTAL 0.3 mg/dL (0.2-1.0); CO2 25 mmol/L (21-32); CREATININE 0.7 mg/dL (0.7-1.3); GLUCOSE,RANDOM 102 mg/dL (74-106); MAGNESIUM 1.8 mg/dL (1.8-2.4); PHOSPHOROUS 3.2 mg/dL (2.5-4.9); SGOT/AST 50 U/L (15-37); SGPT/ALT 38 U/L (12-78); TOT PROT 7.2 g/dl (6.4-8.2)
[2017-02-14 15:22] LABS: ALK PHOS 151 U/L (45-117)
[2017-02-14 15:26] LABS: CPK 73 IU/L (39-308); TROPONIN I < 0.02 ng/ml (0.00-0.05)
[2017-02-14 15:33] LABS: URINE APPEARANCE CLEAR; URINE BILIRUBIN NEGATIVE (NEGATIVE); URINE BLOOD NEGATIVE (NEGATIVE); URINE COLOR STRAW; URINE GLUCOSE (UA) NEGATIVE (NEGATIVE); URINE KETONE NEGATIVE (NEGATIVE); URINE LEUK ESTERASE NEGATIVE (NEGATIVE); URINE NITRITE NEGATIVE (NEGATIVE); URINE PROTEIN NEGATIVE (NEGATIVE); URINE UROBILINOGEN NEGATIVE mg/dL (0.2-1.0)
[2017-02-14 15:36] LABS: URINE MARIJUANA THC NEGATIVE ng/ml (CUTOFF=50)
--- NOTE | 2017-02-15 21:40 | EKG ---
Test Reason : Blood Pressure : / mmHG Vent. Rate : 085 BPM Atrial Rate : 085 BPM P-R Int : 208 ms QRS Dur : 084 ms QT Int : 362 ms P-R-T Axes : 050 033 053 degrees QTc Int : 430 ms NORMAL SINUS RHYTHM NONSPECIFIC ST AND T WAVE ABNORMALITY WHEN COMPARED WITH ECG OF 31-JAN-2017 15:15, T WAVE INVERSION NO LONGER EVIDENT IN ANTERIOR LEADS REPEAT EKG IF CLINICALLY INDICATED Confirmed by MESERET NICHOLAS MD ([id number]) on 02/15/2017 9:39:32 PM Referred By: Confirmed By:MESERET NICHOLAS MD
== END 2017-02-14 16:08 | disposition home or self-care (01) ==
LOC: JER 13:37
DX: K74.69 Other cirrhosis of liver (principal); B19.20 Unspecified viral hepatitis C without hepatic coma; F17.210 Nicotine dependence, cigarettes, uncomplicated
CPT/HCPCS: 36415; 71010-TC; 80053; 80307; 81003; 83735; 84100; 84484; 85025; 85610; 93005; 93010; 99283-25

== ENCOUNTER 2017-02-23 07:34 | Emergency (ER) | payer OTHER ==
[2017-02-23 07:50] VITALS: BP 125/81; PULSE 75; TEMP 98.3; BMI 28.7
--- NOTE | 2017-02-23 09:45 | PDOC ---
History of Present Illness - General History Source: Patient - History of Present Illness Associated Symptoms: denies: chest pain, fever/chills, nausea/vomiting, shortness of breath, weakness <Susana Gonzales - Last Filed: 02/23/17 08:12> <Deyanira Ortiz - Last Filed: 02/25/17 08:19> - General Chief Complaint: Pain Stated Complaint: LEG PAIN Time Seen by Provider: 02/23/17 07:45 Past History - Past Medical History Anemia: No Asthma: No Cancer: No Cardiac Disorders: No CVA: No COPD: No CHF: No Dementia: No Diabetes: No GI Disorders: No Disorders: No HTN: No Hypercholesterolemia: No Kidney Stones: No Liver Disease: Yes (Reports recently being diagnosed with hep. C and cirrhosis ) Seizures: No Thyroid Disease: No - Surgical History Abdominal Surgery: No Appendectomy: No Cardiac Surgery: No Cholecystectomy: No Lung Surgery: No Neurologic Surgery: No Orthopedic Surgery: Yes (right 5th digit tendon repair 11/14/14) - Reproductive History Testicular Surgery: No - Suicide/Smoking/Psychosocial Hx Smoking Status: Yes Smoking History: Current every day smoker Have you smoked in the past 12 months: Yes Number of Cigarettes Smoked Daily: 5 If you are a former smoker, when did you quit?: 1 months Cigars Per Day: 0 Information on smoking cessation initiated: No 'Breaking Loose' booklet given: 02/14/17 Hx Alcohol Use: Yes Drug/Substance Use Hx: No Substance Use Type: Alcohol Hx Substance Use Treatment: Yes <Susana Gonzales - Last Filed: 02/23/17 08:12> <Deyanira Ortiz - Last Filed: 02/25/17 08:19> - Past Medical History Allergies/Adverse Reactions: Allergies Allergy/AdvReac Type Severity Reaction Status Date / Time No Known Allergies Allergy Verified 02/23/17 07:41 Home Medications: Ambulatory Orders Gabapentin [Neurontin -] 400 mg PO TID@0600,1400,1800 #90 tab 02/03/17 Nadolol [Corgard -] 20 mg PO DAILY #30 tablet 02/03/17 Rivaroxaban [Xarelto -] 20 mg PO DAILY #30 tablet 02/03/17 Tramadol HCl [Ultram -] 50 mg PO Q8H PRN #60 tablet MDD 3 02/03/17 Review of Systems - Review of Systems Constitutional: No: Chills, Fever Respiratory: No: Shortness of Breath Cardiac (ROS): No: Chest Pain, Lightheadedness, Palpitations, Syncope ABD/GI: No: Constipated, Diarrhea, Nausea, Vomiting Neurological: No: Headache, Dizziness <Susana Gonzales - Last Filed: 02/23/17 08:12> *Physical Exam - Vital Signs Last Vital Signs Temp Pulse Resp BP Pulse Ox 98.3 F 75 20 125/81 96 02/23/17 07:43 02/23/17 07:43 02/23/17 07:43 02/23/17 07:43 02/23/17 07:43 - Physical Exam General Appearance: Yes: Appropriately Dressed. No: Apparent Distress HEENT: positive: Normal Voice Neck: positive: Supple Respiratory/Chest: positive: Lungs Clear, Normal Breath Sounds. negative: Respiratory Distress Gastrointestinal/Abdominal: positive: Soft. negative: Tender Neurologic: positive: Fully Oriented, Alert, Normal Mood/Affect <Susana Gonzales - Last Filed: 02/23/17 08:12> - Vital Signs Last Vital Signs Temp Pulse Resp BP Pulse Ox 98.3 F 75 20 125/81 96 02/23/17 07:43 02/23/17 07:43 02/23/17 07:43 02/23/17 07:43 02/23/17 07:43 <Deyanira Ortiz - Last Filed: 02/25/17 08:19> Medical Decision Making - Medical Decision Making 02/23/17 09:45 61 yo male, h/o ETOH abuse, here in ED for unclear reasons. States a neighbor called EMS to report that pt was "not walking right". As per pt, when EMT showed up, they told him to "hop in" and he decided to. Patient states he is walking at baseline with his cane and not sure why EMS were called. Denies any acute medical complaints at this time and requests to be discharged. Pt well zahida w/ ETOH on breath but does not appear acutely intoxicated at this time. Ambulating throughout ED w/ cane. Stable for discharge 02/23/17 09:53 <Susana Gonzales - Last Filed: 02/23/17 08:12> *DC/Admit/Observation/Transfer <GeorgianCandySteven - Last Filed: 02/23/17 08:12> - Attestations Physician Attestion: I reviewed the case with the mid-level practitioner and agree with the mid- level practitioner's assessment, diagnosis and disposition. <Deyanira Ortiz - Last Filed: 02/25/17 08:19> Diagnosis at time of Disposition: Alcohol dependence Qualifiers: Substance use status: unspecified alcohol-induced disorder Qualified Code(s): F10.29 - Alcohol dependence with unspecified alcohol-induced disorder - Discharge Dispostion Disposition: HOME Condition at time of disposition: Good - Referrals Referrals: Kyra Dahl [Primary Care Provider] - - Patient Instructions Additional Instructions: Return to the ER for any acute medical complaints
== END 2017-02-23 09:04 | disposition home or self-care (01) ==
LOC: JER 07:34
DX: B18.2 Chronic viral hepatitis C (principal); F10.29 Alcohol dependence with unspecified alcohol-induced disorder; K74.69 Other cirrhosis of liver; B19.20 Unspecified viral hepatitis C without hepatic coma; F17.210 Nicotine dependence, cigarettes, uncomplicated
CPT/HCPCS: 99283-25

== ENCOUNTER 2017-02-26 14:14 | Emergency (ER) | payer OTHER ==
[2017-02-26 14:37] VITALS: BP 129/82; PULSE 63; TEMP 98; BMI 29.3
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
== END 2017-02-26 17:15 | disposition home or self-care (01) ==
LOC: JER 14:14
DX: G62.9 Polyneuropathy, unspecified (principal); F10.10 Alcohol abuse, uncomplicated; F17.210 Nicotine dependence, cigarettes, uncomplicated; B18.2 Chronic viral hepatitis C; K74.69 Other cirrhosis of liver; Z59.0 Homelessness; Z99.89 Dependence on other enabling machines and devices
CPT/HCPCS: 99281-25; 99282-25

== ENCOUNTER 2017-02-27 00:27 | Emergency (ER) | payer OTHER ==
--- NOTE | 2017-02-27 00:34 | PDOC ---
History of Present Illness - General Stated Complaint: INTOX Time Seen by Provider: 02/27/17 00:33 History Source: Patient Past History - Past Medical History Allergies/Adverse Reactions: Allergies Allergy/AdvReac Type Severity Reaction Status Date / Time No Known Allergies Allergy Verified 02/26/17 14:33 Home Medications: Ambulatory Orders NK [No Known Home Medication] 02/26/17 Anemia: No Asthma: No Cancer: No Cardiac Disorders: No CVA: No COPD: No CHF: No Dementia: No Diabetes: No GI Disorders: No Disorders: No HTN: No Hypercholesterolemia: No Kidney Stones: No Liver Disease: Yes (Reports recently being diagnosed with hep. C and cirrhosis ) Seizures: No Thyroid Disease: No - Surgical History Abdominal Surgery: No Appendectomy: No Cardiac Surgery: No Cholecystectomy: No Lung Surgery: No Neurologic Surgery: No Orthopedic Surgery: Yes (right 5th digit tendon repair 11/14/14) - Reproductive History Testicular Surgery: No - Immunization History Immunization Up to Date: Yes - Suicide/Smoking/Psychosocial Hx Smoking Status: Yes Smoking History: Current every day smoker Have you smoked in the past 12 months: Yes Number of Cigarettes Smoked Daily: 3 If you are a former smoker, when did you quit?: 1 months Cigars Per Day: 0 'Breaking Loose' booklet given: 02/14/17 Hx Alcohol Use: Yes Drug/Substance Use Hx: No Substance Use Type: Alcohol Hx Substance Use Treatment: Yes
[2017-02-27 00:52] VITALS: BP 140/70; PULSE 66; TEMP 97.7; BMI 27.4
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
== END 2017-02-27 04:25 | disposition home or self-care (01) ==
LOC: JER 00:27
DX: F10.220 Alcohol dependence with intoxication, uncomplicated (principal); R26.89 Other abnormalities of gait and mobility; Z99.89 Dependence on other enabling machines and devices; Z59.0 Homelessness
CPT/HCPCS: 99281-25

== ENCOUNTER 2017-02-27 04:39 | Inpatient (IN) | payer OTHER ==
--- NOTE | 2017-02-27 04:58 | HP ---
CIWA Score - CIWA Score Nausea/Vomitin-Mild Nausea/No Vomiting Muscle Tremors: 3 Anxiety: 4-Mod. Anxious/Guarded Agitation: 4-Moderately Restless Paroxysmal Sweats: 2 Orientation: 0-Oriented Tacttile Disturbances: 3-Moderate Itch/Numb/Burn Auditory Disturbances: 0-None Visual Disturbances: 0-None Headache: 0-None Present CIWA-Ar Total Score: 17 Admission ROS [facility] - HPI Chief Complaint: WITHDRAWAL SYMPTOMS Allergies/Adverse Reactions: Allergies Allergy/AdvReac Type Severity Reaction Status Date / Time No Known Allergies Allergy Verified 02/26/17 14:33 History of Present Illness: 61 Y.O. MAN WITH A HISTORY OF ALCOHOL DEPENDENCE IS HERE SEEKING DETOX. HE HAS HAD MULTIPLE ADMISSIONS HERE FOR DETOX AND REHAB. HE DOES NOT HAVE A SIGNIFICANT PERIOD OF SOBRIETY. Exam Limitations: Intoxication - Review of Systems Constitutional: Chills EENT: reports: Hearing Loss, Nose Congestion Respiratory: reports: No Symptoms reported Cardiac: reports: No Symptoms Reported GI: reports: No Symptoms Reported : reports: No Symptoms Reported Musculoskeletal: reports: No Symptoms Reported Integumentary: reports: No Symptoms Reported Neuro: reports: Numbness, Tingling, Tremors Endocrine: reports: No Symptoms Reported Hematology: reports: No Symptoms Reported Psychiatric: reports: Orientated x3 Other Systems: Reviewed and Negative Patient History - Patient Medical History Hx Anemia: No Hx Asthma: No Hx Chronic Obstructive Pulmonary Disease (COPD): No Hx Cancer: No Hx Cardiac Disorders: No Hx Congestive Heart Failure: No Hx Hypertension: No Hx Hypercholesterolemia: No Hx Pacemaker: No HX Cerebrovascular Accident: No Hx Seizures: No Hx Dementia: No Hx Diabetes: No Hx Gastrointestinal Disorders: No Hx Liver Disease: Yes (Reports recently being diagnosed with hep. C and cirrhosis ) Hx Genitourinary Disorders: No Hx Sexually Transmitted Disorders: No Hx Renal Disease (ESRD): No Hx Thyroid Disease: No Hx Human Immunodeficiency Virus (HIV): No Hx Hepatitis C: Yes Hx Depression: No Hx Suicide Attempt: No Hx Bipolar Disorder: No Hx Schizophrenia: No - Patient Surgical History Past Surgical History: Yes Hx Neurologic Surgery: No Hx Cataract Extraction: No Hx Cardiac Surgery: No Hx Lung Surgery: No Hx Breast Surgery: No Hx Breast Biopsy: No Hx Abdominal Surgery: No Hx Appendectomy: No Hx Cholecystectomy: No Hx Genitourinary Surgery: No Hx Section: No Hx Orthopedic Surgery: Yes (right 5th digit tendon repair 11/14/14) Hx Hysterectomy: No Other Surgical History: Pt. fell down stairs face first, 23 sutures-removed already Anesthesia Reaction: No - PPD History Previous Implant?: Yes Documented Results: Negative w/o proof Implanted On Prior [facility] Admission?: Yes Date: 07/28/16 Results: 0mm PPD to be Administered?: No - Reproductive History Patient is a Female of Child Bearing Age (11 -55 yrs old): No - Smoking Cessation Smoking history: Current some day smoker Have you smoked in the past 12 months: Yes Aproximately how many cigarettes per day: 3 Cigars Per Day: 0 Hx Chewing Tobacco Use: No Initiated information on smoking cessation: Yes 'Breaking Loose' booklet given: 02/27/17 - Substance & Tx. History Hx Alcohol Use: Yes Hx Substance Use: No Substance Use Type: Alcohol Hx Substance Use Treatment: Yes (REHAB & DETOX: 09/2016) - Substances Abused Alcohol Route: Oral Frequency: Daily Amount used: 1-2 PINTS OF LIQUOR, 4-5 BOTTLES OF 24 OZ OF WINE Age of first use: 17 Date of Last Use: 02/27/17 Family Disease History - Family Disease History Family Disease History: Other: Father (Uses Alcohol.), Mother (Uses Alcohol.), Brother (Uses Alcohol.), Sister (LSD related schizophrenia) Admission Physical Exam S - Vital Signs Vital Signs: Last Vital Signs Temp Pulse Resp BP Pulse Ox 96.2 F L 70 16 137/72 02/27/17 05:21 02/27/17 05:21 02/27/17 05:21 02/27/17 05:21 - Physical General Appearance: Yes: Disheveled, Intoxicated, Irritable HEENTM: Yes: Hearing grossly Normal, Normocephalic, Normal Voice Respiratory: Yes: Chest Non-Tender, Lungs Clear, Normal Breath Sounds, No Respiratory Distress, No Accessory Muscle Use Neck: Yes: No masses,lesions,Nodules, Trachea in good position Breast: Yes: Breast Exam Deferred Cardiology: Yes: Regular Rhythm, Regular Rate Abdominal: Yes: Normal Bowel Sounds, Non Tender, Flat Genitourinary: Yes: Other (NO COMPLAINTS REPORTED) Back: Yes: Normal Inspection Musculoskeletal: Yes: Other (UNSTEADY GAIT-AMBULATES WITH THE USE OF ASSISTIVE DEVICES) Extremities: Yes: Normal Range of Motion, Non-Tender Neurological: Yes: Fully Oriented, Alert, Normal Mood/Affect, Normal Response Integumentary: Yes: Normal Color, Dry, Warm Lymphatic: Yes: Within Normal Limits - Diagnostic (1) Cirrhosis of liver Current Visit: Yes Status: Chronic Qualifiers: Hepatic cirrhosis type: alcoholic cirrhosis Ascites presence: without ascites Qualified Code(s): K70.30 - Alcoholic cirrhosis of liver without ascites; K70.30 - Alcoholic cirrhosis of liver without ascites; K70.30 - Alcoholic cirrhosis of liver without ascites (2) Alcohol dependence with uncomplicated withdrawal Current Visit: Yes Status: Chronic (3) GERD (gastroesophageal reflux disease) Current Visit: Yes Status: Chronic Qualifiers: (4) Hepatitis C Current Visit: Yes Status: Chronic Qualifiers: Viral hepatitis chronicity: chronic Hepatic coma status: without hepatic coma Qualified Code(s): B18.2 - Chronic viral hepatitis C; B18.2 - Chronic viral hepatitis C; B18.2 - Chronic viral hepatitis C; B18.2 - Chronic viral hepatitis C (5) Neuropathy Current Visit: No Status: Chronic Comment: neurontine 400 mg bid (6) Nicotine dependence Current Visit: No Status: Chronic Qualifiers: Nicotine product type: cigarettes Substance use status: in withdrawal Qualified Code(s): F17.213 - Nicotine dependence, cigarettes, with withdrawal; F17.213 - Nicotine dependence, cigarettes, with withdrawal Comment: counseled cessation - not ready (7) Use of cane as ambulatory aid Current Visit: Yes Status: Acute Comment: x 2 years neuropathy related alcohol comsumption Cleared for Admission [facility] - Detox or Rehab [facility] Level of Care: Medically Managed Detox Regimen/Protocol: Librium [facility] Breath Alcohol Content Breath Alcohol Content: 0.269 Vital Signs - Vital Signs Vital Signs Refused: No Temperature: 96.2 F Temperature Source: Oral Pulse Rate: 70 Respiratory Rate: 16 Blood Pressure: 137/72 BP Location: Left Arm Blood Pressure Position: Sitting - Height Height: 5 ft 6 in - Weight Weight: 182 lb Weight Measurement Method: Stated by Patient Body Mass Index (BMI): 29.3 Urine Drug Screen - Control Is Test Valid: Yes - Results Drug Screen Negative: No Urine Drug Screen Results: BZO-Benzodiazepines
[2017-02-27] MEDS ORDERED: MENTHOL/PHENOL 1 EACH UD MM PRN (05:16)
[2017-02-27] MEDS ORDERED: diphenhydrAMINE HCL 50 MG CAPSULE PO PRN (05:16)
[2017-02-27] MEDS ORDERED: P-EPHED 60MG/TRIPROLIDI 2.5MG TABLET PO PRN (05:16)
[2017-02-27] MEDS ORDERED: MAGNESIUM CITRATE 300 ML BOTTLE PO PRN (05:16)
[2017-02-27] MEDS ORDERED: LOPERAMIDE HCL 2 MG CAPSULE PO PRN (05:16)
[2017-02-27] MEDS ORDERED: ACETAMINOPHEN 325 MG TABLET (FP) PO PRN (05:16)
[2017-02-27] MEDS ORDERED: chlordiazePOXIDE HCL 25 MG CAPSULE PO PRN (05:16)
[2017-02-27] MEDS ORDERED: IBUPROFEN 400 MG TABLET (FP) PO PRN (05:16)
[2017-02-27] MEDS ORDERED: MAGNESIUM HYDROX 2400MG/30ML ORAL SUSPENSION 30 ML CUP PO PRN (05:16)
[2017-02-27] MEDS ORDERED: hydrOXYzine PAMOATE 50 MG CAPSULE (FP) PO PRN (05:16)
[2017-02-27] MEDS ORDERED: MAG HYDROX/AL HYDROX/SIMETH 30 ML UNIT-DOSE CUP PO PRN (05:16)
[2017-02-27] MEDS ORDERED: chlordiazePOXIDE HCL 25 MG CAPSULE PO ONE (05:16)
[2017-02-27 05:23] VITALS: BMI 29.3
[2017-02-27] MEDS: chlordiazePOXIDE HCL 25 MG CAPSULE PO SCH ×4 (07:16→22:25)
--- NOTE | 2017-02-27 09:58 | EKG ---
Test Reason : Blood Pressure : / mmHG Vent. Rate : 072 BPM Atrial Rate : 072 BPM P-R Int : 192 ms QRS Dur : 088 ms QT Int : 396 ms P-R-T Axes : 042 035 054 degrees QTc Int : 433 ms NORMAL SINUS RHYTHM NORMAL ECG WHEN COMPARED WITH ECG OF 14-FEB-2017 15:12, NO SIGNIFICANT CHANGE WAS FOUND Confirmed by VELMA SORIANO MD ([id number]) on 02/27/2017 9:58:01 AM Referred By: Confirmed By:VELMA SORIANO MD
[2017-02-27] MEDS: PRENATAL VITAMINS W/ FOLIC ACID TABLET (FP) PO SCH (10:38)
[2017-02-27] MEDS: guaiFENesin/D-METHORPHAN HB 10 ML UNIT-DOSE CUPS PO PRN (10:40)
--- NOTE | 2017-02-27 13:53 | PN ---
[facility] Progress Note Note: Patient seen ambulating on unit with a cane. He reports history of chronic neuropathy and requesting to resume neurontin 400mg PO TID. Patient stated he also takes tramadol for pain and that he fills his Rx here at [place] [facility]. Patient also c/o coughing and requesting cough syrup. Ordered for robitussin DM 10ml PO q6hr prn, encouraged to drink lots of water. Continue detox protocol.
[2017-02-27] MEDS ORDERED: guaiFENesin/D-METHORPHAN HB 10 ML UNIT-DOSE CUPS PO PRN (13:57)
[2017-02-27] MEDS: GABAPENTIN 400 MG CAPSULE (FP) PO SCH ×2 (15:19→22:25)
[2017-02-27] MEDS: THIAMINE HCL 100 MG TABLET (FP) PO SCH (22:25)
[2017-02-28] MEDS: GABAPENTIN 400 MG CAPSULE (FP) PO SCH ×3 (05:43→22:06)
[2017-02-28] MEDS: chlordiazePOXIDE HCL 25 MG CAPSULE PO SCH ×4 (05:43→22:06)
[2017-02-28 10:10] LABS: MCH 29.6 pg (25.7-33.7); MCHC 32.4 g/dl (32.0-35.9); MEAN CELL VOLUME 91.4 fl (80-96); MEAN PLT VOLUME 10.7 fl (7.5-11.1); PLATELET COUNT 114 K/MM3 (134-434); RDW 21.1 % (11.9-15.9)
[2017-02-28] MEDS: PRENATAL VITAMINS W/ FOLIC ACID TABLET (FP) PO SCH (10:14)
[2017-02-28 10:28] LABS: ALBUMIN 2.8 g/dl (3.4-5.0); ALK PHOS 195 U/L (45-117); ANION GAP 6 (8-16); CALCIUM 9.1 mg/dL (8.5-10.1); CO2 31 mmol/L (21-32); CREATININE 0.8 mg/dL (0.7-1.3); GLUCOSE,RANDOM 97 mg/dL (74-106); SGOT/AST 35 U/L (15-37); SGPT/ALT 26 U/L (12-78); TOT PROT 6.4 g/dl (6.4-8.2)
--- NOTE | 2017-02-28 10:33 | PN ---
[facility] CIWA - CIWA Score Nausea/Vomitin-No Nausea/No Vomiting Muscle Tremors: 4-Moderate,w/Arms Extend Anxiety: 4-Mod. Anxious/Guarded Agitation: 4-Moderately Restless Paroxysmal Sweats: 1-Minimal Palms Moist Orientation: 0-Oriented Tacttile Disturbances: 3-Moderate Itch/Numb/Burn Auditory Disturbances: 0-None Visual Disturbances: 0-None Headache: 0-None Present CIWA-Ar Total Score: 16 S Progress Note (SOAP) Subjective: ANXIETY,SWEATS, MUSCLE AND BONE ACHES, INTERMITTENT SLEEP. Objective: 02/28/17 10:32 Vital Signs Temperature 96.8 F L 02/28/17 08:51 Pulse Rate 101 H 02/28/17 08:51 Respiratory Rate 20 02/28/17 08:51 Blood Pressure 151/76 02/28/17 08:51 O2 Sat by Pulse Oximetry (%) Laboratory Last Values WBC 6.0 K/mm3 (4.0-10.0) 02/28/17 07:30 RBC 3.44 M/mm3 (4.00-5.60) L 02/28/17 07:30 Hgb 10.2 GM/dL (11.7-16.9) L 02/28/17 07:30 Hct 31.5 % (35.4-49) L 02/28/17 07:30 MCV 91.4 fl (80-96) 02/28/17 07:30 MCH 29.6 pg (25.7-33.7) 02/28/17 07:30 MCHC 32.4 g/dl (32.0-35.9) 02/28/17 07:30 RDW 21.1 % (11.9-15.9) H 02/28/17 07:30 Plt Count 114 K/MM3 (134-434) L D 02/28/17 07:30 MPV 10.7 fl (7.5-11.1) D 02/28/17 07:30 Sodium 138 mmol/L (136-145) 02/28/17 07:30 Potassium 3.1 mmol/L (3.5-5.1) L 02/28/17 07:30 Chloride 101 mmol/L (98-107) 02/28/17 07:30 Carbon Dioxide 31 mmol/L (21-32) D 02/28/17 07:30 Anion Gap 6 (8-16) L 02/28/17 07:30 BUN 8 mg/dL (7-18) D 02/28/17 07:30 Creatinine 0.8 mg/dL (0.7-1.3) 02/28/17 07:30 Creat Clearance w eGFR > 60 (>60) 02/28/17 07:30 Random Glucose 97 mg/dL (74-106) 02/28/17 07:30 Calcium 9.1 mg/dL (8.5-10.1) 02/28/17 07:30 Total Bilirubin 1.0 mg/dL (0.2-1.0) D 02/28/17 07:30 AST 35 U/L (15-37) D 02/28/17 07:30 ALT 26 U/L (12-78) D 02/28/17 07:30 Alkaline Phosphatase 195 U/L (45-117) H D 02/28/17 07:30 Total Protein 6.4 g/dl (6.4-8.2) 02/28/17 07:30 Albumin 2.8 g/dl (3.4-5.0) L 02/28/17 07:30 Assessment: 02/28/17 10:33 WITHDRAWAL SX Plan: CONTININUE DETOX
[2017-02-28] MEDS ORDERED: chlordiazePOXIDE HCL 25 MG CAPSULE PO ONE (14:00)
[2017-02-28] MEDS ORDERED: POTASSIUM CHLORIDE TABS 20 MEQ TABLET.ER (FP) PO ONE (17:38)
[2017-02-28] MEDS: THIAMINE HCL 100 MG TABLET (FP) PO SCH (22:06)
[2017-02-28] MEDS: POTASSIUM CHLORIDE TABS 20 MEQ TABLET.ER (FP) PO SCH (22:07)
[2017-02-28 22:13] LABS: URINE APPEARANCE CLEAR; URINE BILIRUBIN NEGATIVE (NEGATIVE); URINE BLOOD NEGATIVE (NEGATIVE); URINE COLOR LTYELLOW; URINE GLUCOSE (UA) NEGATIVE (NEGATIVE); URINE KETONE NEGATIVE (NEGATIVE); URINE LEUK ESTERASE NEGATIVE (NEGATIVE); URINE NITRITE NEGATIVE (NEGATIVE); URINE PROTEIN NEGATIVE (NEGATIVE); URINE UROBILINOGEN NEGATIVE mg/dL (0.2-1.0)
[2017-03-01] MEDS: chlordiazePOXIDE 5 MG CAPSULE PO SCH ×4 (05:50→22:17)
[2017-03-01] MEDS: GABAPENTIN 400 MG CAPSULE (FP) PO SCH ×3 (05:51→22:17)
[2017-03-01] MEDS: PRENATAL VITAMINS W/ FOLIC ACID TABLET (FP) PO SCH (10:13)
[2017-03-01] MEDS: POTASSIUM CHLORIDE TABS 20 MEQ TABLET.ER (FP) PO SCH ×2 (10:13→22:17)
--- NOTE | 2017-03-01 12:32 | PN ---
[facility] Progress Note (SOAP) Subjective: ANXIETY,TREMORS,SWEATS. ALERT O X 3. OOB ON HALLWAYS. Objective: 03/01/17 12:31 Vital Signs Temperature 96.4 F L 03/01/17 09:11 Pulse Rate 99 H 03/01/17 09:11 Respiratory Rate 20 03/01/17 09:11 Blood Pressure 145/87 03/01/17 09:11 O2 Sat by Pulse Oximetry (%) Laboratory Last Values WBC 6.0 K/mm3 (4.0-10.0) 02/28/17 07:30 RBC 3.44 M/mm3 (4.00-5.60) L 02/28/17 07:30 Hgb 10.2 GM/dL (11.7-16.9) L 02/28/17 07:30 Hct 31.5 % (35.4-49) L 02/28/17 07:30 MCV 91.4 fl (80-96) 02/28/17 07:30 MCH 29.6 pg (25.7-33.7) 02/28/17 07:30 MCHC 32.4 g/dl (32.0-35.9) 02/28/17 07:30 RDW 21.1 % (11.9-15.9) H 02/28/17 07:30 Plt Count 114 K/MM3 (134-434) L D 02/28/17 07:30 MPV 10.7 fl (7.5-11.1) D 02/28/17 07:30 Sodium 138 mmol/L (136-145) 02/28/17 07:30 Potassium 3.1 mmol/L (3.5-5.1) L 02/28/17 07:30 Chloride 101 mmol/L (98-107) 02/28/17 07:30 Carbon Dioxide 31 mmol/L (21-32) D 02/28/17 07:30 Anion Gap 6 (8-16) L 02/28/17 07:30 BUN 8 mg/dL (7-18) D 02/28/17 07:30 Creatinine 0.8 mg/dL (0.7-1.3) 02/28/17 07:30 Creat Clearance w eGFR > 60 (>60) 02/28/17 07:30 Random Glucose 97 mg/dL (74-106) 02/28/17 07:30 Calcium 9.1 mg/dL (8.5-10.1) 02/28/17 07:30 Total Bilirubin 1.0 mg/dL (0.2-1.0) D 02/28/17 07:30 AST 35 U/L (15-37) D 02/28/17 07:30 ALT 26 U/L (12-78) D 02/28/17 07:30 Alkaline Phosphatase 195 U/L (45-117) H D 02/28/17 07:30 Total Protein 6.4 g/dl (6.4-8.2) 02/28/17 07:30 Albumin 2.8 g/dl (3.4-5.0) L 02/28/17 07:30 Urine Color Ltyellow 02/28/17 20:25 Urine Appearance Clear 02/28/17 20:25 Urine pH 8.0 (5.0-8.0) 02/28/17 20:25 Ur Specific [place] 1.015 (1.005-1.025) 02/28/17 20:25 Urine Protein Negative (NEGATIVE) 02/28/17 20:25 Urine Glucose (UA) Negative (NEGATIVE) 02/28/17 20:25 Urine Ketones Negative (NEGATIVE) 02/28/17 20:25 Urine Blood Negative (NEGATIVE) 02/28/17 20:25 Urine Nitrite Negative (NEGATIVE) 02/28/17 20:25 Urine Bilirubin Negative (NEGATIVE) 02/28/17 20:25 Urine Urobilinogen Negative mg/dL (0.2-1.0) 02/28/17 20:25 RPR Titer Nonreactive (NONREACTIVE) 02/28/17 07:30 LOW K+ ON KDUR Assessment: 03/01/17 12:31 WITHDRAWAL SX Plan: CONTINUE DETOX
[2017-03-01] MEDS ORDERED: chlordiazePOXIDE HCL 25 MG CAPSULE PO ONE (14:00)
[2017-03-01] MEDS: THIAMINE HCL 100 MG TABLET (FP) PO SCH (22:17)
[2017-03-01] MEDS: guaiFENesin/D-METHORPHAN HB 10 ML UNIT-DOSE CUPS PO PRN (22:19)
[2017-03-02] MEDS: GABAPENTIN 400 MG CAPSULE (FP) PO SCH (05:51)
[2017-03-02] MEDS: chlordiazePOXIDE HCL 10 MG CAPSULE PO SCH ×2 (05:51→10:23)
[2017-03-02 06:27] VITALS: PULSE 104
[2017-03-02 09:22] VITALS: BP 142/88; TEMP 97.6
[2017-03-02] MEDS: PRENATAL VITAMINS W/ FOLIC ACID TABLET (FP) PO SCH (10:23)
[2017-03-02] MEDS: POTASSIUM CHLORIDE TABS 20 MEQ TABLET.ER (FP) PO SCH (10:23)
--- NOTE | 2017-03-02 11:54 | DS ---
[facility] Detox Discharge Summary Admission Date: 02/27/17 Discharge Date: 03/02/17 - History Present History: Alcohol Dependence Additional Comments: PT COMPLETED DETOX. ALERT O X 3. NAD. PT INSTRUCTED TO FOLLOW UP WITH HIS MEDICAL MANAGEMENT AT [facility]. 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 Pertinent Past History: HX LIVER CIRRHOSIS HYPOKALEMIA GERD HX PE HX DVT PROPHYLAXIS HX PSORIASIS HX HEP C HX PERIPHERAL NEUROPATHY HX IMPAIRED MEMORY HX FALLS - Physical Exam Results Vital Signs: Vital Signs Temperature 97.6 F 03/02/17 09:22 Pulse Rate 104 H 03/02/17 09:22 Respiratory Rate 20 03/02/17 09:22 Blood Pressure 142/88 03/02/17 09:22 O2 Sat by Pulse Oximetry (%) Pertinent Admission Physical Exam Findings: WITHDRAWAL SX Vital Signs 03/02/17 03/02/17 06:27 09:22 Temperature 96.6 F L 97.6 F Pulse Rate 104 H 104 H Respiratory 18 20 Rate Blood Pressure 148/82 142/88 Laboratory Last Values WBC 6.0 K/mm3 (4.0-10.0) 02/28/17 07:30 RBC 3.44 M/mm3 (4.00-5.60) L 02/28/17 07:30 Hgb 10.2 GM/dL (11.7-16.9) L 02/28/17 07:30 Hct 31.5 % (35.4-49) L 02/28/17 07:30 MCV 91.4 fl (80-96) 02/28/17 07:30 MCH 29.6 pg (25.7-33.7) 02/28/17 07:30 MCHC 32.4 g/dl (32.0-35.9) 02/28/17 07:30 RDW 21.1 % (11.9-15.9) H 02/28/17 07:30 Plt Count 114 K/MM3 (134-434) L D 02/28/17 07:30 MPV 10.7 fl (7.5-11.1) D 02/28/17 07:30 Sodium 138 mmol/L (136-145) 02/28/17 07:30 Potassium 3.1 mmol/L (3.5-5.1) L 02/28/17 07:30 Chloride 101 mmol/L (98-107) 02/28/17 07:30 Carbon Dioxide 31 mmol/L (21-32) D 02/28/17 07:30 Anion Gap 6 (8-16) L 02/28/17 07:30 BUN 8 mg/dL (7-18) D 02/28/17 07:30 Creatinine 0.8 mg/dL (0.7-1.3) 02/28/17 07:30 Creat Clearance w eGFR > 60 (>60) 02/28/17 07:30 Random Glucose 97 mg/dL (74-106) 02/28/17 07:30 Calcium 9.1 mg/dL (8.5-10.1) 02/28/17 07:30 Total Bilirubin 1.0 mg/dL (0.2-1.0) D 02/28/17 07:30 AST 35 U/L (15-37) D 02/28/17 07:30 ALT 26 U/L (12-78) D 02/28/17 07:30 Alkaline Phosphatase 195 U/L (45-117) H D 02/28/17 07:30 Total Protein 6.4 g/dl (6.4-8.2) 02/28/17 07:30 Albumin 2.8 g/dl (3.4-5.0) L 02/28/17 07:30 Urine Color Ltyellow 02/28/17 20:25 Urine Appearance Clear 02/28/17 20:25 Urine pH 8.0 (5.0-8.0) 02/28/17 20:25 Ur Specific [place] 1.015 (1.005-1.025) 02/28/17 20:25 Urine Protein Negative (NEGATIVE) 02/28/17 20:25 Urine Glucose (UA) Negative (NEGATIVE) 02/28/17 20:25 Urine Ketones Negative (NEGATIVE) 02/28/17 20:25 Urine Blood Negative (NEGATIVE) 02/28/17 20:25 Urine Nitrite Negative (NEGATIVE) 02/28/17 20:25 Urine Bilirubin Negative (NEGATIVE) 02/28/17 20:25 Urine Urobilinogen Negative mg/dL (0.2-1.0) 02/28/17 20:25 RPR Titer Nonreactive (NONREACTIVE) 02/28/17 07:30 - Treatment Hospital Course: Detox Protocol Followed, Detoxed Safely, Responded well, Discharged Condition Good, Rehab Referral Accepted Patient has Accepted a Rehab Referral to: PT REFERRED TO [facility] - Medication Discharge Medications: Ambulatory Orders NK [No Known Home Medication] 02/26/17 - Diagnosis (1) Use of cane as ambulatory aid Current Visit: Yes Status: Chronic (2) Alcohol dependence with uncomplicated withdrawal Current Visit: Yes Status: Acute (3) Cirrhosis of liver not due to alcohol Current Visit: Yes Status: Chronic (4) Peripheral neuropathy Current Visit: Yes Status: Chronic Qualifiers: Peripheral neuropathy type: polyneuropathy, unspecified Qualified Code( s): G62.9 - Polyneuropathy, unspecified; G62.9 - Polyneuropathy, unspecified (5) Psoriasis Current Visit: Yes Status: Chronic - AMA Did Patient Leave Against Medical Advice: No
== END 2017-03-02 11:18 | disposition home or self-care (01) | DRG 776 ==
LOC: YASAS 04:39 → Y3N 04:40
PROVIDERS: ADMIT Internal Medicine; ATTEND Internal Medicine Addiction Medicine
PROC: HZ2ZZZZ Detoxification Services for Substance Abuse Treatment (ICD-10-PCS; principal; 2017-02-27)
DX: F17.213 Nicotine dependence, cigarettes, with withdrawal (principal); G62.9 Polyneuropathy, unspecified; L40.9 Psoriasis, unspecified; K21.9 Gastro-esophageal reflux disease without esophagitis; K70.30 Alcoholic cirrhosis of liver without ascites; B18.2 Chronic viral hepatitis C; R26.2 Difficulty in walking, not elsewhere classified; Z99.89 Dependence on other enabling machines and devices
CPT/HCPCS: 36415; 80053; 81003; 85027; 86593; 93005; 93010

== ENCOUNTER 2017-03-04 19:55 | Emergency (ER) | payer OTHER ==
[2017-03-04 20:15] VITALS: BP 111/72; PULSE 97; TEMP 98.1; BMI 29.3
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
--- NOTE | 2017-03-05 06:36 | PDOC ---
Attending Attestation - Resident Resident Name: Flaquito Mullins - ED Attending Attestation I have performed the following: I have examined & evaluated the patient, The case was reviewed & discussed with the resident, I agree w/resident's findings & plan, Exceptions are as noted - HPI HPI: 03/05/17 06:34 61 yo male wiith h/o etoh abuse, here because somebody called the ambulance. was recently admitted for for detox from alcohol, jut dc from hospital , h/o pe dvt, ivc filter, htn . pt states no current complaints. was wanting to eat something and leave - Physicial Exam PE: 03/05/17 06:35 awake alert lungs clear heart rrr no mrg. abd soft obese nt. ext wwp. mild nonpitting edema. ambulates with cane. speech clear. - Medical Decision Making 03/05/17 06:36 plan pt no current complaints. no active sign of withdrawal. dc home.
== END 2017-03-04 22:45 | disposition home or self-care (01) ==
LOC: JER 19:55
DX: F10.10 Alcohol abuse, uncomplicated (principal); I85.00 Esophageal varices without bleeding; I26.99 Other pulmonary embolism without acute cor pulmonale; Z95.828 Presence of other vascular implants and grafts
CPT/HCPCS: 99281-25

== ENCOUNTER 2017-03-07 12:57 | Emergency (ER) | payer OTHER ==
[2017-03-07 13:26] VITALS: BP 146/89; PULSE 77; TEMP 97.4; BMI 29.0
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
== END 2017-03-07 14:36 | disposition home or self-care (01) ==
LOC: JER 12:57
DX: F10.920 Alcohol use, unspecified with intoxication, uncomplicated (principal); G62.9 Polyneuropathy, unspecified; F17.210 Nicotine dependence, cigarettes, uncomplicated
CPT/HCPCS: 99281-25

== ENCOUNTER 2017-03-29 07:29 | Emergency (ER) | payer OTHER ==
--- NOTE | 2017-03-29 07:54 | PDOC ---
History of Present Illness - General Chief Complaint: Weakness Stated Complaint: WEAKNESS IN LEGS Time Seen by Provider: 03/29/17 07:37 History Source: Patient - History of Present Illness Initial Comments: 03/29/17 08:11 Patient is a 61 y.o. male with a PMH of esophageal varices 2/2 to chronic alcohol abuse, PE (s/p IVC placement, scan 02/01 showing decreased clot burden) , PVD and multiple visits to our ED who presents c/o difficulty ambulating as well as a fall early this a.m.. Patient notes he was sitting on [place] in the [place] near [facility] when he fell over and hit the front of his head. Patient denies any pre-fall chest pain, shortness of breath, lightheadedness and states he pulled himself back on to the bench. Patient notes he has chronic pain and swelling in his LE B/L however today he has been unable to ambulate, though he later notes he did ambulate to a [facility] in [place] this morning when he flagged down an EMS truck and requested they bring him to the hospital. Patient denies recent trauma, bowel/bladder incontinence since his evaluation here on 03/27 for similar complaints at which time he was evaluated with a head CT that as per EMR was negative. NKDA Surgical: denies, however as per EMR, IVC placement PMD: Dr. Sari Rich Social: 4-5 cigarettes daily, 1-2 pints daily, denies recreational drugs Past History - Past Medical History Allergies/Adverse Reactions: Allergies Allergy/AdvReac Type Severity Reaction Status Date / Time No Known Allergies Allergy Verified 03/27/17 04:06 Home Medications: Ambulatory Orders Gabapentin [Neurontin -] 400 mg PO Q8H 03/04/17 Anemia: No Asthma: No Cancer: No Cardiac Disorders: No CVA: No COPD: No CHF: No Dementia: No Diabetes: No GI Disorders: No Disorders: No HTN: No Hypercholesterolemia: No Kidney Stones: No Liver Disease: Yes (Reports recently being diagnosed with hep. C and cirrhosis ) Seizures: No Thyroid Disease: No - Surgical History Abdominal Surgery: No Appendectomy: No Cardiac Surgery: No Cholecystectomy: No Lung Surgery: No Neurologic Surgery: No Orthopedic Surgery: Yes (right 5th digit tendon repair 11/14/14) - Reproductive History Testicular Surgery: No - Immunization History Immunization Up to Date: Yes - Suicide/Smoking/Psychosocial Hx Smoking Status: Yes Smoking History: Current every day smoker Have you smoked in the past 12 months: Yes Number of Cigarettes Smoked Daily: 5 If you are a former smoker, when did you quit?: 1 months Cigars Per Day: 0 'Breaking Loose' booklet given: 02/27/17 Hx Alcohol Use: Yes (WINE COOLERS) Drug/Substance Use Hx: No Substance Use Type: Alcohol Hx Substance Use Treatment: Yes (REHAB & DETOX: 09/2016) Review of Systems - Review of Systems Constitutional: No: Chills, Fever HEENTM: No: Blurred Vision, Double Vision Respiratory: No: Orthopnea Cardiac (ROS): No: Chest Pain All Other Systems: Reviewed and Negative *Physical Exam - Physical Exam General Appearance: Yes: Nourished, Alcohol on Breath, Obese Respiratory/Chest: positive: Lungs Clear Cardiovascular: positive: S1, S2, Other (B/L pedal pulses 3+) Gastrointestinal/Abdominal: positive: Soft Extremity: positive: Pedal Edema (2-3+ pedal edema from feet to mid thighs; signficant xerostosis and erythema B/L), Other. negative: Coldness Neurologic: positive: pharmacy cashier II-XII NML intact, Fully Oriented, Alert Deep Tendon Reflexes: Knee (L): 3+, Knee (R): 3+ ED Treatment Course - LABORATORY CBC & Chemistry Diagram: 03/29/17 09:20 03/29/17 09:20 Medical Decision Making - Medical Decision Making 03/29/17 09:13 Patient is a 61 y.o. male who presents with difficulty ambulating that as per patient is chronic and both EMS and nursing staff note patient ambulatory at presentation. On PE, patient is hemodynamically stable weight bearing B/L, has intact pulses B/L, and significant chronic B/L edema. On repeat exam patient c /o of fall with head trauma to the frontal lobe - patient is neurologically intact w/GCS of 15. [place] Head CT Score 2. PLAN: 1. CT Head w/o contrast 1. consult for intermediate manager placement - possibly [facility] 03/29/17 12:50 CT head shows no acute intracranial hemorrhage; Pain control with ambulatory meds - Tramadol, Gabapentin; Librium + Ativan for possible DT - though patient denies any h/o DT, patient shivering on PE. Patient to be discharged with transport to [facility]. At time of discharge patient improved, ambulatory with cane and tolerating PO intake. *DC/Admit/Observation/Transfer Diagnosis at time of Disposition: Fall - Discharge Dispostion Disposition: HOME Condition at time of disposition: Good Admit: No - Referrals Referrals: Sari Rich NP [Primary Care Provider] - - Patient Instructions Additional Instructions: Patient transferred to [facility] for evaluation for intermediate manager Alcohol Detoxification
[2017-03-29 07:58] VITALS: TEMP 97.8; BMI 29.3
[2017-03-29] MEDS ORDERED: GABAPENTIN 100 MG CAPSULE (FP) PO ONE (09:56)
[2017-03-29] MEDS ORDERED: traMADol HCL 50 MG TABLET PO ONE (09:56)
[2017-03-29] MEDS ORDERED: chlordiazePOXIDE HCL 25 MG CAPSULE PO ONE (09:56)
[2017-03-29] MEDS ORDERED: diazePAM 5 MG TABLET PO ONE (09:57)
[2017-03-29] MEDS ORDERED: GABAPENTIN 400 MG CAPSULE (FP) PO ONE (09:58)
--- NOTE | 2017-03-29 10:02 | PDOC ---
Attending Attestation - Resident Resident Name: JosRita - ED Attending Attestation I have performed the following: I have examined & evaluated the patient, The case was reviewed & discussed with the resident, I agree w/resident's findings & plan, Exceptions are as noted - HPI HPI: 03/29/17 09:58 61y/o M with chronic alcoholism and neuropathy, well known to this institution for frequent visits in the setting of alcohol intoxication and gait instability/ homelessness now presents with alcohol intoxication and report of fall. Patient was seen here a few days ago with fall, CT head was unremarkable for TBI. Patient states he did fall again overnight, striking the back of his head. Denies any LOC, states his last alcohol intake was last night, he drinks wine coolers. Cannot recall his last detox, but at the time of this history is interested. - Physicial Exam PE: 03/29/17 09:59 heart rate 100, otherwise afebrile and well-appearing. Subtle tremors, otherwise speaking full sentences and in no acute distress S1-S2, slight tachycardia Lungs are clear Abdomen is benign Neurological exam is nonfocal, chronic and symmetric lower extremity weakness bilaterally. There is a healing abrasion to his forehead, there is also a small very superficial ecchymosis to the occiput. No lacerations. - Medical Decision Making 03/29/17 10:00 Patient seen and evaluated with the resident. I agree with the overall evaluation, assessment, and management with the following summary of visit: 61-year-old male with chronic alcoholism and gait instability secondary to neuropathy with multiple ED visits in the past presents with alcohol intoxication and reports of fall with posterior head injury. Neurologically intact, hemodynamically stable, generally well-appearing but may be showing early signs of some withdrawal. Labs and EKG ordered Check CT head We'll give gabapentin and tramadol, his usual medications, for his leg pains/ neuropathy Valium and Librium for withdrawal prophylaxis Reassess. Involved case management. May be willing to be transferred to [facility] for detox. 03/29/17 10:58 labs at baseline, no leukocytosis. CXR and CT head pending. Plan with CM is for patient to be transferred to [facility]. Heart Score/ECG Review #1 ECG reviewed & interpreted by me at: 09:40 General ECG Interpretation: Sinus Rhythm (artifact in leads V1V2), Normal Rate ( 104), Normal Intervals (qtc 460, qrs 74), No acute ischemic changes
[2017-03-29 10:10] LABS: BASOPHIL 1.2 % (0-2.0); MCH 29.3 pg (25.7-33.7); MCHC 32.4 g/dl (32.0-35.9); MEAN CELL VOLUME 90.6 fl (80-96); MEAN PLT VOLUME 10.2 fl (7.5-11.1); PLATELET COUNT 105 K/MM3 (134-434); WHITE BLOOD COUNT 7.2 K/mm3 (4.0-10.0)
[2017-03-29 10:27] LABS: ALBUMIN 3.4 g/dl (3.4-5.0); ANION GAP 14 (8-16); BILIRUBIN,TOTAL 0.6 mg/dL (0.2-1.0); CALCIUM 8.5 mg/dL (8.5-10.1); CO2 24 mmol/L (21-32); CREATININE 0.8 mg/dL (0.7-1.3); GLUCOSE,RANDOM 101 mg/dL (74-106); SGPT/ALT 37 U/L (12-78); TOT PROT 7.5 g/dl (6.4-8.2)
[2017-03-29 10:28] LABS: ALK PHOS 158 U/L (45-117)
[2017-03-29 10:29] LABS: SGOT/AST 85 U/L (15-37)
--- NOTE | 2017-03-29 10:58 | EKG ---
Test Reason : Blood Pressure : / mmHG Vent. Rate : 104 BPM Atrial Rate : 104 BPM P-R Int : 196 ms QRS Dur : 080 ms QT Int : 346 ms P-R-T Axes : 076 035 034 degrees QTc Int : 454 ms POOR DATA QUALITY, INTERPRETATION MAY BE ADVERSELY AFFECTED SINUS TACHYCARDIA ST SEGMENT DEPRESSION IN INFEROLATERAL LEADS WHEN COMPARED WITH ECG OF 27-FEB-2017 07:45, CHANGES MENTIONED ABOVE CLINICAL CORRELATION IS RECOMMENDED AND REPEAT TRACING Confirmed by MESERET NICHOLAS MD ([id number]) on 03/29/2017 10:58:14 AM Referred By: Confirmed By:MESERET NICHOLAS MD
[2017-03-29 14:10] VITALS: BP 146/88; PULSE 105
== END 2017-03-29 14:30 | disposition home or self-care (01) ==
LOC: JER 07:29
DX: S09.8XXA Other specified injuries of head, initial encounter (principal); R60.0 Localized edema; F10.20 Alcohol dependence, uncomplicated; W08.XXXA Fall from other furniture, initial encounter; Y93.89 Activity, other specified; Y92.830 Public park as the place of occurrence of the external cause; Y99.8 Other external cause status; I73.89 Other specified peripheral vascular diseases; Z91.81 History of falling
CPT/HCPCS: 36415; 70450-TC; 71020-TC; 80053; 85025; 93005; 93010; 99282-25

== ENCOUNTER 2017-04-07 10:53 | Inpatient (IN) | payer OTHER ==
--- NOTE | 2017-04-07 15:19 | HP ---
Admission [facility] Allergies/Adverse Reactions: Allergies Allergy/AdvReac Type Severity Reaction Status Date / Time No Known Allergies Allergy Verified 04/07/17 14:03 - Ebola screening Have you been sick,other than usual withdrawal symptoms: No Patient History - Patient Medical History Hx Anemia: No Hx Asthma: No Hx Chronic Obstructive Pulmonary Disease (COPD): No Hx Cancer: No Hx Cardiac Disorders: No Hx Congestive Heart Failure: No Hx Hypertension: No Hx Hypercholesterolemia: No Hx Pacemaker: No HX Cerebrovascular Accident: No Hx Seizures: No Hx Dementia: No Hx Diabetes: No Hx Gastrointestinal Disorders: No Hx Liver Disease: Yes (Reports recently being diagnosed with hep. C and cirrhosis ) Hx Genitourinary Disorders: No Hx Sexually Transmitted Disorders: No Hx Renal Disease (ESRD): No Hx Thyroid Disease: No Hx Human Immunodeficiency Virus (HIV): No Hx Hepatitis C: Yes Hx Depression: No Hx Suicide Attempt: No Hx Bipolar Disorder: No Hx Schizophrenia: No - Patient Surgical History Past Surgical History: Yes Hx Neurologic Surgery: No Hx Cataract Extraction: No Hx Cardiac Surgery: No Hx Lung Surgery: No Hx Breast Surgery: No Hx Breast Biopsy: No Hx Abdominal Surgery: No Hx Appendectomy: No Hx Cholecystectomy: No Hx Genitourinary Surgery: No Hx Section: No Hx Orthopedic Surgery: Yes (fx, small right finger (fall) in 2016) Hx Hysterectomy: No Other Surgical History: IVC filter placement in 02/01/2017 Anesthesia Reaction: No - PPD History Previous Implant?: Yes Documented Results: Negative w/proof Implanted On Prior [facility] Admission?: Yes Date: 07/28/16 Results: 0 mm - Smoking Cessation Smoking history: Current every day smoker Have you smoked in the past 12 months: Yes Aproximately how many cigarettes per day: 5 If you are a former smoker, when did you quit?: 1 months Cigars Per Day: 0 Hx Chewing Tobacco Use: No Initiated information on smoking cessation: Yes - Substances Abused Alcohol-winecoolers Route: Oral Frequency: Daily Amount used: 4-5 (24 oz.) Age of first use: 18 Date of Last Use: 04/06/17 Family Disease History - Family Disease History Family Disease History: Other: Father (Uses Alcohol.), Mother (Uses Alcohol.), Brother (Uses Alcohol.), Sister (LSD related schizophrenia) Admission Physical Exam [facility] - Vital Signs Vital Signs: Vital Signs - 24 hr 04/07/17 04/07/17 12:24 12:26 Temperature 96.2 F L 97.3 F L Pulse Rate 91 H 78 Respiratory 20 20 Rate Blood Pressure 157/74 127/81 Cleared for Admission [facility] - Detox or Rehab Claeared for Rehab Admission: Yes [facility] Breath Alcohol Content Breath Alcohol Content: 0 Urine Drug Screen - Results Drug Screen Negative: No Urine Drug Screen Results: OPI-Opiates, BZO-Benzodiazepines, MTD-Methadone, TCA- Tricyclic Antidepress Inpatient Rehab Admission - Initial Determination Are CD services needed?: Yes Free of communicable disease: Yes Not in need of hospitalization: Yes - Rehab Admission Criteria Comorbidities: Yes Patient is meeting Inpatient Rehab admission criteria:: Yes
[2017-04-07] MEDS ORDERED: NICOTINE POLACRILEX 2 MG GUM BC PRN (15:23)
[2017-04-07] MEDS ORDERED: P-EPHED 60MG/TRIPROLIDI 2.5MG TABLET PO PRN (15:23)
[2017-04-07] MEDS ORDERED: IBUPROFEN 400 MG TABLET (FP) PO PRN (15:23)
[2017-04-07] MEDS ORDERED: MAGNESIUM HYDROX 2400MG/30ML ORAL SUSPENSION 30 ML CUP PO PRN (15:23)
[2017-04-07] MEDS ORDERED: MAG HYDROX/AL HYDROX/SIMETH 30 ML UNIT-DOSE CUP PO PRN (15:23)
[2017-04-07] MEDS ORDERED: LOPERAMIDE HCL 2 MG CAPSULE PO PRN (15:23)
[2017-04-07] MEDS ORDERED: MENTHOL/PHENOL 1 EACH UD MM PRN (15:23)
[2017-04-07] MEDS ORDERED: MAGNESIUM CITRATE 300 ML BOTTLE PO PRN (15:23)
--- NOTE | 2017-04-07 15:23 | HP ---
Admission [facility] Chief Complaint: requesting rehab from alcohol after detox at [facility] 2 days ago Allergies/Adverse Reactions: Allergies Allergy/AdvReac Type Severity Reaction Status Date / Time No Known Allergies Allergy Verified 04/07/17 14:03 History of Present Illness: 61 yo m with h/o chronic alcoholism admitted for for inpatient rehab after detox at [facility] 2 days ago, has not had a drink since discharge, deniea all other illicit drug use. pmhx DVT, NEUROPATHY ON GABAPENTIN AND TRAMADOL. no suicidal ideation or psychiatric history, ambulates with crutches since discharge, lost cane, still having nausea, dry heaves, tremors from alcohol withdrawawl sx, moderately severe pain from bilateral peripheral neuropathy associated with numbness and tingling extermities. . Exam Limitations: No Limitations - Ebola screening Have you traveled outside of the country in the last 21 days: Yes Have you had contact with anyone from an Ebola affected area: Yes Have you been sick,other than usual withdrawal symptoms: Yes Do you have a fever: Yes - Review of Systems Constitutional: No Symptoms Reported EENT: reports: No Symptoms Reported Respiratory: reports: No Symptoms reported Cardiac: reports: No Symptoms Reported GI: reports: Nausea : reports: No Symptoms Reported Musculoskeletal: reports: No Symptoms Reported Integumentary: reports: No Symptoms Reported Neuro: reports: Numbness, Tingling, Tremors, Unsteady Gait (peripheral neuropathy ambulates with cane) Endocrine: reports: No Symptoms Reported Hematology: reports: No Symptoms Reported Psychiatric: reports: Judgement Intact, Mood/Affect Appropiate, Orientated x3, Anxious, Depressed Other Systems: Reviewed and Negative Patient History - Patient Medical History Hx Anemia: No Hx Asthma: No Hx Chronic Obstructive Pulmonary Disease (COPD): No Hx Cancer: No Hx Cardiac Disorders: No Hx Congestive Heart Failure: No Hx Hypertension: No Hx Hypercholesterolemia: No Hx Pacemaker: No HX Cerebrovascular Accident: No Hx Seizures: No Hx Dementia: No Hx Diabetes: No Hx Gastrointestinal Disorders: No Hx Liver Disease: Yes (Reports recently being diagnosed with hep. C and cirrhosis ) Hx Genitourinary Disorders: No Hx Sexually Transmitted Disorders: No Hx Renal Disease (ESRD): No Hx Thyroid Disease: No Hx Human Immunodeficiency Virus (HIV): No Hx Hepatitis C: Yes Hx Depression: No Hx Suicide Attempt: No Hx Bipolar Disorder: No Hx Schizophrenia: No - Patient Surgical History Past Surgical History: Yes Hx Neurologic Surgery: No Hx Cataract Extraction: No Hx Cardiac Surgery: No Hx Lung Surgery: No Hx Breast Surgery: No Hx Breast Biopsy: No Hx Abdominal Surgery: No Hx Appendectomy: No Hx Cholecystectomy: No Hx Genitourinary Surgery: No Hx Section: No Hx Orthopedic Surgery: Yes (fx, small right finger (fall) in 2016) Hx Hysterectomy: No Other Surgical History: IVC filter placement in 02/01/2017 Anesthesia Reaction: No - PPD History Previous Implant?: Yes Documented Results: Negative w/proof Implanted On Prior [facility] Admission?: Yes Date: 07/28/16 Results: 0 mm - Reproductive History Patient is a Female of Child Bearing Age (11 -55 yrs old): No Patient : No - Smoking Cessation Smoking history: Current every day smoker Have you smoked in the past 12 months: Yes Aproximately how many cigarettes per day: 5 If you are a former smoker, when did you quit?: 1 months Cigars Per Day: 0 Hx Chewing Tobacco Use: No Initiated information on smoking cessation: Yes 'Breaking Loose' booklet given: 04/07/17 - Substance & Tx. History Hx Alcohol Use: Yes Hx Substance Use: No Substance Use Type: Alcohol Hx Substance Use Treatment: [facility]) - Substances Abused Alcohol-winecoolers Route: Oral Frequency: Daily Amount used: 4-5 (24 oz.) Age of first use: 18 Date of Last Use: 04/06/17 Family Disease History - Family Disease History Family Disease History: Other: Father (Uses Alcohol.), Mother (Uses Alcohol.), Brother (Uses Alcohol.), Sister (LSD related schizophrenia) Admission Physical Exam S - Vital Signs Vital Signs: Vital Signs - 24 hr 04/07/17 04/07/17 12:24 12:26 Temperature 96.2 F L 97.3 F L Pulse Rate 91 H 78 Respiratory 20 20 Rate Blood Pressure 157/74 127/81 - Physical General Appearance: Yes: Nourished, Appropriately Dressed, Disheveled, Tremorous , Irritable, Sweating, Anxious HEENTM: Yes: Within Normal Limits, EOMI, Hearing grossly Normal, Normal ENT Inspection, Normocephalic, Normal Voice, YESSENIA, Pharynx Normal Respiratory: Yes: Within Normal Limits, Chest Non-Tender, Lungs Clear, Normal Breath Sounds, No Respiratory Distress, No Accessory Muscle Use Neck: Yes: Within Normal Limits, No masses,lesions,Nodules, Supple, Trachea in good position Breast: Yes: Breast Exam Deferred Cardiology: Yes: Within Normal Limits, Regular Rhythm, Regular Rate, S1, S2 Abdominal: Yes: Normal Bowel Sounds, Non Tender, Soft, Protuberent, Distended Genitourinary: Yes: Within Normal Limits Back: Yes: Within Normal Limits, Normal Inspection Musculoskeletal: Yes: full range of Motion, Pelvis Stable Extremities: Yes: Normal Capillary Refill, Normal Range of Motion, Non-Tender, Tremors Neurological: Yes: puzzle assembler II-XII NML intact, Fully Oriented, Alert, Motor Strength 5/5, Depressed Affect Integumentary: Yes: Normal Color, Warm Lymphatic: Yes: Within Normal Limits - Addiitonal Findings: ambulatign with crutches, slight tremor and nausea for alcohol withdrawal - Diagnostic (1) Alcohol dependence with uncomplicated withdrawal Current Visit: No Status: Acute (2) DVT prophylaxis Current Visit: No Status: Acute (3) Nicotine dependence Current Visit: No Status: Chronic Qualifiers: Nicotine product type: cigarettes Substance use status: in withdrawal Qualified Code(s): F17.213 - Nicotine dependence, cigarettes, with withdrawal Comment: counseled cessation - not ready (4) Peripheral neuropathy Current Visit: No Status: Chronic Qualifiers: Peripheral neuropathy type: polyneuropathy, unspecified Qualified Code(s): G62.9 - Polyneuropathy, unspecified (5) Use of cane as ambulatory aid Current Visit: No Status: Chronic Comment: x 2 years neuropathy related alcohol comsumption (6) Depression (emotion) Current Visit: No Status: Suspected Qualifiers: Depression Type: dysthymia Qualified Code(s): F34.1 - Dysthymic disorder (7) Hepatitis C Current Visit: No Status: Suspected Qualifiers: Viral hepatitis chronicity: chronic Hepatic coma status: without hepatic coma Qualified Code(s): B18.2 - Chronic viral hepatitis C Cleared for Admission [facility] - Detox or Rehab Claeared for Rehab Admission: Yes S Breath Alcohol Content Breath Alcohol Content: 0 Urine Drug Screen - Results Drug Screen Negative: No Urine Drug Screen Results: BZO-Benzodiazepines Inpatient Rehab Admission - Initial Determination Are CD services needed?: Yes Free of communicable disease: Yes Not in need of hospitalization: Yes - Rehab Admission Criteria Comorbidities: Yes Patient is meeting Inpatient Rehab admission criteria:: Yes
[2017-04-07] MEDS ORDERED: ONDANSETRON *ODT* 4 MG TABLET SL PRN (15:31)
[2017-04-07 15:47] VITALS: BMI 29.3
[2017-04-07] MEDS ORDERED: ONDANSETRON *ODT* 4 MG TABLET SL ONE (17:30)
[2017-04-07] MEDS ORDERED: NAPROXEN 500 MG TABLET (FP) PO ONE (17:30)
[2017-04-07] MEDS: NICOTINE 14 MG/24 HOURS TOPICAL PATCH TD SCH (17:49)
[2017-04-07] MEDS: PANTOPRAZOLE 40 MG TABLET (FP) PO SCH (17:49)
[2017-04-07] MEDS: GABAPENTIN 300 MG CAPSULE (FP) PO SCH ×2 (17:49→21:50)
[2017-04-07] MEDS: THIAMINE HCL 100 MG TABLET (FP) PO SCH (21:51)
[2017-04-07] MEDS ORDERED: NAPROXEN 500 MG TABLET (FP) PO SCH (22:00)
[2017-04-07 22:14] LABS: URINE APPEARANCE CLEAR; URINE BILIRUBIN NEGATIVE (NEGATIVE); URINE BLOOD NEGATIVE (NEGATIVE); URINE COLOR LTYELLOW; URINE GLUCOSE (UA) NEGATIVE (NEGATIVE); URINE KETONE NEGATIVE (NEGATIVE); URINE NITRITE NEGATIVE (NEGATIVE); URINE PROTEIN NEGATIVE (NEGATIVE); URINE UROBILINOGEN NEGATIVE mg/dL (0.2-1.0)
[2017-04-08] MEDS: GABAPENTIN 300 MG CAPSULE (FP) PO SCH ×3 (06:39→22:03)
[2017-04-08 09:49] LABS: MCH 29.7 pg (25.7-33.7); MCHC 31.5 g/dl (32.0-35.9); MEAN CELL VOLUME 94.1 fl (80-96); MEAN PLT VOLUME 10.9 fl (7.5-11.1); PLATELET COUNT 211 K/MM3 (134-434); RDW 20.5 % (11.9-15.9); WHITE BLOOD COUNT 7.7 K/mm3 (4.0-10.0)
[2017-04-08] MEDS: NICOTINE 14 MG/24 HOURS TOPICAL PATCH TD SCH (10:45)
[2017-04-08] MEDS: PRENATAL VITAMINS W/ FOLIC ACID TABLET (FP) PO SCH (10:46)
[2017-04-08] MEDS: PANTOPRAZOLE 40 MG TABLET (FP) PO SCH (10:46)
[2017-04-08 11:03] LABS: URINE LEUK ESTERASE Negative (NEGATIVE)
[2017-04-08 11:06] LABS: ALBUMIN 3.3 g/dl (3.4-5.0); ALK PHOS 119 U/L (45-117); ANION GAP 10 (8-16); BILIRUBIN,TOTAL 0.3 mg/dL (0.2-1.0); CALCIUM 8.8 mg/dL (8.5-10.1); CO2 25 mmol/L (21-32); GLUCOSE,RANDOM 114 mg/dL (74-106); SGOT/AST 18 U/L (15-37); SGPT/ALT 26 U/L (12-78); TOT PROT 6.8 g/dl (6.4-8.2)
[2017-04-08] MEDS: guaiFENesin/D-METHORPHAN HB 10 ML UNIT-DOSE CUPS PO PRN (13:21)
--- NOTE | 2017-04-08 14:26 | HP ---
Psychiatrist Admission - Data Date of interview: 04/08/17 Admission source: [facility] Identifying data: This is one of the several 5N inpatient rehabiliation admissions for this 61 year old single unmeployed and currently homeless male. Medical History: DVT, peripheral neuropathy in both feet and left leg, cirrhosis , Hep C(in remission) and an IVC filter placement on 02/01/17, smokes 5 cigarettes daily. Psychiatric History: Patient reports no history of psychiatric hospitalizations , seen by a psychiatrist while in detox or rehab. treatment to address insomnia , was treated with trazodone, at present time feels that he will try benadryl and see how it works. Physical/Sexual Abuse/Trauma History: Denies history of abuse Vital Signs: Vital Signs - 24 hr 04/07/17 04/08/17 04/08/17 19:00 00:30 03:30 Temperature 97.8 F Pulse Rate 87 Respiratory 18 18 18 Rate Blood Pressure 148/77 04/08/17 07:12 Temperature 97.9 F Pulse Rate 92 H Respiratory 18 Rate Blood Pressure 144/87 Allergies/Adverse Reactions: Allergies Allergy/AdvReac Type Severity Reaction Status Date / Time No Known Allergies Allergy Verified 04/07/17 14:03 Date of last physical exam: 04/07/17 Concur with the findings of this exam: Yes - Substance Abuse/Tx History Hx Alcohol Use: Yes (started at age of 18, daily 4-5 (24 oz) wine daily) Hx Substance Use: No Mental Status Exam - Mental Status Exam Alert and Oriented to: Time, Place, Person Cognitive Function: Good Patient Appearance: Unkempt Mood: Hopeful Affect: Appropriate, Mood Congruent, Normal Range Patient Behavior: Cooperative Speech Pattern: Clear, Appropriate Voice Loudness: Normal Thought Process: Intact, Goal Oriented Thought Disorder: Not Present Hallucinations: Denies Suicidal Ideation: Denies Homicidal Ideation: Denies Insight/Judgement: Fair Sleep: Poorly Appetite: Fair Muscle strength/Tone: Normal Gait/Station: Other (walks with a cane) Psychiatric Findings - Problem List (Amber 1, 2,3) (1) Alcohol dependence Current Visit: Yes Status: Acute (2) Nicotine dependence Current Visit: No Status: Chronic Qualifiers: Nicotine product type: cigarettes Substance use status: in withdrawal Qualified Code(s): F17.213 - Nicotine dependence, cigarettes, with withdrawal Comment: counseled cessation - not ready (3) Peripheral neuropathy Current Visit: No Status: Chronic Qualifiers: Peripheral neuropathy type: polyneuropathy, unspecified Qualified Code(s): G62.9 - Polyneuropathy, unspecified
[2017-04-08] MEDS: THIAMINE HCL 100 MG TABLET (FP) PO SCH (22:03)
[2017-04-08] MEDS: ACETAMINOPHEN 325 MG TABLET (FP) PO PRN (22:05)
[2017-04-08] MEDS: hydrOXYzine PAMOATE 50 MG CAPSULE (FP) PO PRN (22:06)
[2017-04-09] MEDS: GABAPENTIN 300 MG CAPSULE (FP) PO SCH ×3 (07:05→21:46)
[2017-04-09] MEDS: PANTOPRAZOLE 40 MG TABLET (FP) PO SCH (10:27)
[2017-04-09] MEDS: PRENATAL VITAMINS W/ FOLIC ACID TABLET (FP) PO SCH (10:27)
[2017-04-09] MEDS: NICOTINE 14 MG/24 HOURS TOPICAL PATCH TD SCH (10:28)
[2017-04-09] MEDS: AMMONIUM LACTATE 12% LOTION 225 GM BOTTLE TP PRN (11:10)
--- NOTE | 2017-04-09 16:45 | EKG ---
Test Reason : Blood Pressure : / mmHG Vent. Rate : 089 BPM Atrial Rate : 089 BPM P-R Int : 200 ms QRS Dur : 076 ms QT Int : 360 ms P-R-T Axes : 066 025 042 degrees QTc Int : 438 ms NORMAL SINUS RHYTHM NORMAL ECG WHEN COMPARED WITH ECG OF 07-APR-2017 02:12, NO SIGNIFICANT CHANGE WAS FOUND Confirmed by MESERET NICHOLAS MD ([id number]) on 04/09/2017 4:44:41 PM Referred By: BASILIA SCHERER Confirmed By:MESERET NICHOLAS MD
[2017-04-09] MEDS: THIAMINE HCL 100 MG TABLET (FP) PO SCH (21:46)
[2017-04-10] MEDS: GABAPENTIN 300 MG CAPSULE (FP) PO SCH ×3 (06:47→21:59)
[2017-04-10] MEDS: NICOTINE 14 MG/24 HOURS TOPICAL PATCH TD SCH (10:34)
[2017-04-10] MEDS: PANTOPRAZOLE 40 MG TABLET (FP) PO SCH (10:34)
[2017-04-10] MEDS: PRENATAL VITAMINS W/ FOLIC ACID TABLET (FP) PO SCH (10:34)
[2017-04-10] MEDS: guaiFENesin/D-METHORPHAN HB 10 ML UNIT-DOSE CUPS PO PRN (17:47)
[2017-04-10] MEDS: THIAMINE HCL 100 MG TABLET (FP) PO SCH (21:59)
[2017-04-10] MEDS: hydrOXYzine PAMOATE 50 MG CAPSULE (FP) PO PRN (21:59)
[2017-04-11] MEDS: ACETAMINOPHEN 325 MG TABLET (FP) PO PRN (06:42)
[2017-04-11] MEDS: GABAPENTIN 300 MG CAPSULE (FP) PO SCH ×3 (06:44→21:56)
[2017-04-11] MEDS: PANTOPRAZOLE 40 MG TABLET (FP) PO SCH (10:13)
[2017-04-11] MEDS: PRENATAL VITAMINS W/ FOLIC ACID TABLET (FP) PO SCH (10:13)
[2017-04-11] MEDS: NICOTINE 14 MG/24 HOURS TOPICAL PATCH TD SCH (10:14)
--- NOTE | 2017-04-11 11:06 | PN ---
[facility] Progress Note (SOAP) Subjective: c/o peripheral neuropathy only partially contorlled by increased neurontin dose , was on tramadol , also swollen ankels and rash Objective: 04/11/17 11:03 Vital Signs - 24 hr 04/11/17 04/11/17 04/11/17 00:30 03:30 06:00 Temperature 97.2 F L Pulse Rate 92 H Respiratory 18 18 18 Rate Blood Pressure 135/97 Laboratory Tests 04/07/17 04/08/17 04/08/17 21:50 07:30 07:30 WBC 7.7 RBC 3.63 L Hgb 10.8 L Hct 34.1 L MCV 94.1 MCH 29.7 MCHC 31.5 L RDW 20.5 H Plt Count 211 MPV 10.9 Sodium 142 Potassium 4.5 D Chloride 107 Carbon Dioxide 25 D Anion Gap 10 BUN 11 D Creatinine 1.0 D Creat Clearance w eGFR > 60 Random Glucose 114 H D Calcium 8.8 Total Bilirubin 0.3 D AST 18 D ALT 26 Alkaline Phosphatase 119 H Total Protein 6.8 Albumin 3.3 L Urine Color Ltyellow Urine Appearance Clear Urine pH 6.0 Ur Specific Brandywine 1.009 Urine Protein Negative Urine Glucose (UA) Negative Urine Ketones Negative Urine Blood Negative Urine Nitrite Negative Urine Bilirubin Negative Urine Urobilinogen Negative Ur Leukocyte Esterase Negative RPR Titer 04/08/17 07:30 WBC RBC Hgb Hct MCV MCH MCHC RDW Plt Count MPV Sodium Potassium Chloride Carbon Dioxide Anion Gap BUN Creatinine Creat Clearance w eGFR Random Glucose Calcium Total Bilirubin AST ALT Alkaline Phosphatase Total Protein Albumin Urine Color Urine Appearance Urine pH Ur Specific [place]andywine Urine Protein Urine Glucose (UA) Urine Ketones Urine Blood Urine Nitrite Urine Bilirubin Urine Urobilinogen Ur Leukocyte Esterase RPR Titer Nonreactive anemim bilateral 2+ pitting edema with induration and stais ulcer forminga, hypertensive Assessment: 04/11/17 11:05 peripheral neuropathy, bilateral ankle edema with indruation, ulcers Plan: add elavil and increase neurontindose for pain, eleavte legs, dietary advice, low sodium diet ordered, remove contricting clothing, hyrocortisone for rash
[2017-04-11] MEDS: HYDROCORTISONE 0.5% TOPICAL CREAM 30 GM TUBE TP SCH (12:03)
[2017-04-11] MEDS: THIAMINE HCL 100 MG TABLET (FP) PO SCH (21:56)
[2017-04-11] MEDS: AMITRIPTYLINE HCL 25 MG TABLET (FP) PO SCH (21:56)
[2017-04-12] MEDS: GABAPENTIN 300 MG CAPSULE (FP) PO SCH ×3 (06:25→21:31)
[2017-04-12] MEDS: HYDROCORTISONE 0.5% TOPICAL CREAM 30 GM TUBE TP SCH (10:17)
[2017-04-12] MEDS: PRENATAL VITAMINS W/ FOLIC ACID TABLET (FP) PO SCH (10:17)
[2017-04-12] MEDS: PANTOPRAZOLE 40 MG TABLET (FP) PO SCH (10:17)
[2017-04-12] MEDS: NICOTINE 14 MG/24 HOURS TOPICAL PATCH TD SCH (10:18)
[2017-04-12] MEDS: AMITRIPTYLINE HCL 25 MG TABLET (FP) PO SCH (21:31)
[2017-04-12] MEDS: THIAMINE HCL 100 MG TABLET (FP) PO SCH (21:31)
[2017-04-12] MEDS: AMMONIUM LACTATE 12% LOTION 225 GM BOTTLE TP PRN (21:32)
[2017-04-13] MEDS: GABAPENTIN 300 MG CAPSULE (FP) PO SCH ×3 (06:17→21:33)
[2017-04-13] MEDS: hydrOXYzine PAMOATE 50 MG CAPSULE (FP) PO PRN (10:32)
[2017-04-13] MEDS: PRENATAL VITAMINS W/ FOLIC ACID TABLET (FP) PO SCH (10:32)
[2017-04-13] MEDS: NICOTINE 14 MG/24 HOURS TOPICAL PATCH TD SCH (10:32)
[2017-04-13] MEDS: PANTOPRAZOLE 40 MG TABLET (FP) PO SCH (10:32)
[2017-04-13] MEDS: HYDROCORTISONE 0.5% TOPICAL CREAM 30 GM TUBE TP SCH (10:33)
[2017-04-13] MEDS: THIAMINE HCL 100 MG TABLET (FP) PO SCH (21:33)
[2017-04-13] MEDS: AMITRIPTYLINE HCL 25 MG TABLET (FP) PO SCH (21:33)
[2017-04-14] MEDS: GABAPENTIN 300 MG CAPSULE (FP) PO SCH ×3 (06:29→21:34)
[2017-04-14] MEDS: PANTOPRAZOLE 40 MG TABLET (FP) PO SCH (10:38)
[2017-04-14] MEDS: PRENATAL VITAMINS W/ FOLIC ACID TABLET (FP) PO SCH (10:38)
[2017-04-14] MEDS: HYDROCORTISONE 0.5% TOPICAL CREAM 30 GM TUBE TP SCH (10:38)
[2017-04-14] MEDS: NICOTINE 14 MG/24 HOURS TOPICAL PATCH TD SCH (10:38)
[2017-04-14] MEDS: hydrOXYzine PAMOATE 50 MG CAPSULE (FP) PO PRN (10:41)
[2017-04-14] MEDS: THIAMINE HCL 100 MG TABLET (FP) PO SCH (21:33)
[2017-04-14] MEDS: AMITRIPTYLINE HCL 25 MG TABLET (FP) PO SCH (21:34)
[2017-04-15] MEDS: GABAPENTIN 300 MG CAPSULE (FP) PO SCH ×3 (06:32→21:40)
[2017-04-15] MEDS: PANTOPRAZOLE 40 MG TABLET (FP) PO SCH (10:24)
[2017-04-15] MEDS: NICOTINE 14 MG/24 HOURS TOPICAL PATCH TD SCH (10:24)
[2017-04-15] MEDS: PRENATAL VITAMINS W/ FOLIC ACID TABLET (FP) PO SCH (10:24)
[2017-04-15] MEDS: HYDROCORTISONE 0.5% TOPICAL CREAM 30 GM TUBE TP SCH (10:24)
[2017-04-15] MEDS: hydrOXYzine PAMOATE 50 MG CAPSULE (FP) PO PRN ×2 (10:25→22:18)
[2017-04-15] MEDS: AMITRIPTYLINE HCL 25 MG TABLET (FP) PO SCH (21:40)
[2017-04-15] MEDS: THIAMINE HCL 100 MG TABLET (FP) PO SCH (21:40)
[2017-04-16] MEDS: GABAPENTIN 300 MG CAPSULE (FP) PO SCH ×3 (06:17→21:30)
[2017-04-16] MEDS: PANTOPRAZOLE 40 MG TABLET (FP) PO SCH (10:14)
[2017-04-16] MEDS: PRENATAL VITAMINS W/ FOLIC ACID TABLET (FP) PO SCH (10:14)
[2017-04-16] MEDS: hydrOXYzine PAMOATE 50 MG CAPSULE (FP) PO PRN ×2 (10:15→21:33)
[2017-04-16] MEDS: NICOTINE 14 MG/24 HOURS TOPICAL PATCH TD SCH (10:15)
[2017-04-16] MEDS: HYDROCORTISONE 0.5% TOPICAL CREAM 30 GM TUBE TP SCH (10:15)
[2017-04-16] MEDS: THIAMINE HCL 100 MG TABLET (FP) PO SCH (21:30)
[2017-04-16] MEDS: AMITRIPTYLINE HCL 25 MG TABLET (FP) PO SCH (21:30)
[2017-04-17] MEDS: GABAPENTIN 300 MG CAPSULE (FP) PO SCH ×3 (06:27→21:45)
[2017-04-17] MEDS: PANTOPRAZOLE 40 MG TABLET (FP) PO SCH (10:13)
[2017-04-17] MEDS: hydrOXYzine PAMOATE 50 MG CAPSULE (FP) PO PRN ×2 (10:13→21:47)
[2017-04-17] MEDS: PRENATAL VITAMINS W/ FOLIC ACID TABLET (FP) PO SCH (10:13)
[2017-04-17] MEDS: NICOTINE 14 MG/24 HOURS TOPICAL PATCH TD SCH (10:14)
[2017-04-17] MEDS: HYDROCORTISONE 0.5% TOPICAL CREAM 30 GM TUBE TP SCH (10:15)
[2017-04-17] MEDS: THIAMINE HCL 100 MG TABLET (FP) PO SCH (21:46)
[2017-04-17] MEDS: AMITRIPTYLINE HCL 25 MG TABLET (FP) PO SCH (21:46)
[2017-04-18] MEDS: GABAPENTIN 300 MG CAPSULE (FP) PO SCH ×3 (06:22→21:51)
[2017-04-18] MEDS: NICOTINE 14 MG/24 HOURS TOPICAL PATCH TD SCH (10:53)
[2017-04-18] MEDS: PRENATAL VITAMINS W/ FOLIC ACID TABLET (FP) PO SCH (10:53)
[2017-04-18] MEDS: PANTOPRAZOLE 40 MG TABLET (FP) PO SCH (10:53)
[2017-04-18] MEDS: HYDROCORTISONE 0.5% TOPICAL CREAM 30 GM TUBE TP SCH (10:54)
[2017-04-18] MEDS: hydrOXYzine PAMOATE 50 MG CAPSULE (FP) PO PRN ×2 (10:56→21:51)
[2017-04-18] MEDS: THIAMINE HCL 100 MG TABLET (FP) PO SCH (21:51)
[2017-04-18] MEDS: AMITRIPTYLINE HCL 25 MG TABLET (FP) PO SCH (21:51)
[2017-04-19] MEDS: GABAPENTIN 300 MG CAPSULE (FP) PO SCH ×3 (06:32→21:26)
[2017-04-19] MEDS: NICOTINE 14 MG/24 HOURS TOPICAL PATCH TD SCH (10:39)
[2017-04-19] MEDS: PRENATAL VITAMINS W/ FOLIC ACID TABLET (FP) PO SCH (10:39)
[2017-04-19] MEDS: PANTOPRAZOLE 40 MG TABLET (FP) PO SCH (10:39)
[2017-04-19] MEDS: HYDROCORTISONE 0.5% TOPICAL CREAM 30 GM TUBE TP SCH (10:39)
[2017-04-19] MEDS: AMITRIPTYLINE HCL 25 MG TABLET (FP) PO SCH (21:26)
[2017-04-19] MEDS: THIAMINE HCL 100 MG TABLET (FP) PO SCH (21:26)
[2017-04-19] MEDS: hydrOXYzine PAMOATE 50 MG CAPSULE (FP) PO PRN (21:28)
[2017-04-20] MEDS: GABAPENTIN 300 MG CAPSULE (FP) PO SCH ×3 (06:22→21:42)
[2017-04-20] MEDS: hydrOXYzine PAMOATE 50 MG CAPSULE (FP) PO PRN ×2 (10:13→21:42)
[2017-04-20] MEDS: PANTOPRAZOLE 40 MG TABLET (FP) PO SCH (10:13)
[2017-04-20] MEDS: PRENATAL VITAMINS W/ FOLIC ACID TABLET (FP) PO SCH (10:13)
[2017-04-20] MEDS: NICOTINE 14 MG/24 HOURS TOPICAL PATCH TD SCH (10:13)
[2017-04-20] MEDS: HYDROCORTISONE 0.5% TOPICAL CREAM 30 GM TUBE TP SCH (11:00)
[2017-04-20] MEDS: THIAMINE HCL 100 MG TABLET (FP) PO SCH (21:42)
[2017-04-20] MEDS: AMITRIPTYLINE HCL 25 MG TABLET (FP) PO SCH (21:42)
[2017-04-21] MEDS: GABAPENTIN 300 MG CAPSULE (FP) PO SCH ×3 (06:16→21:32)
[2017-04-21] MEDS: PANTOPRAZOLE 40 MG TABLET (FP) PO SCH (10:21)
[2017-04-21] MEDS: hydrOXYzine PAMOATE 50 MG CAPSULE (FP) PO PRN ×2 (10:21→21:33)
[2017-04-21] MEDS: PRENATAL VITAMINS W/ FOLIC ACID TABLET (FP) PO SCH (10:21)
[2017-04-21] MEDS: NICOTINE 14 MG/24 HOURS TOPICAL PATCH TD SCH (10:21)
[2017-04-21] MEDS: HYDROCORTISONE 0.5% TOPICAL CREAM 30 GM TUBE TP SCH (10:22)
[2017-04-21] MEDS: AMITRIPTYLINE HCL 25 MG TABLET (FP) PO SCH (21:32)
[2017-04-21] MEDS: THIAMINE HCL 100 MG TABLET (FP) PO SCH (21:32)
[2017-04-22] MEDS: GABAPENTIN 300 MG CAPSULE (FP) PO SCH (06:17)
[2017-04-22] MEDS: hydrOXYzine PAMOATE 50 MG CAPSULE (FP) PO PRN ×2 (06:19→10:00)
[2017-04-22 07:02] VITALS: BP 130/80; PULSE 89; TEMP 97.6
--- NOTE | 2017-04-22 09:53 | PN ---
Psychiatric Progress Note Vital Signs: Vital Signs Period Temp Pulse Resp BP Sys/Haney Pulse Ox Last 24 Hr 97.6 F 89 18-18 130/80 Date of Session: 04/22/17 Chief Complaint:: discharge visit HPI: Patient has addressed alcohol, nicotine dependence. ROS: DVT, peripheral neuropathy in both feet and left leg, cirrhosis, Hep C. Current Medications: Active Medications Generic Name Dose Route Start Last Admin Trade Name Freq PRN Reason Stop Dose Admin Acetaminophen 650 mg 04/07/17 15:23 04/11/17 06:42 Tylenol - PO 650 mg Q4H PRN Administration PAIN Al Hydroxide/Mg Hydroxide 30 ml 04/07/17 15:23 Mylanta Oral Suspension - PO Q6H PRN DYSPEPSIA Amitriptyline HCl 50 mg 04/11/17 22:00 04/21/17 21:32 Elavil - PO 50 mg HS POLO Administration Eucalyptus/Menthol/Phenol/Sorbitol 1 each 04/07/17 15:23 Cepastat Lozenge - MM Q4H PRN SORE THROAT Gabapentin 600 mg 04/07/17 17:15 04/22/17 06:17 Neurontin - PO 600 mg TID POLO Administration Guaifenesin 10 ml 04/07/17 15:23 04/10/17 17:47 Robitussin Dm - PO 10 ml Q6H PRN Administration COUGH Hydrocortisone 1 applic 04/11/17 11:15 04/21/17 10:22 Hytone 0.5% Cream - TP 1 applic DAILY POLO Administration Hydroxyzine Pamoate 50 mg 04/07/17 15:23 04/22/17 06:19 Vistaril - PO 50 mg Q4H PRN Administration AGITATION Lactic Acid 1 applic 04/08/17 10:44 04/12/17 21:32 Lac-Hydrin 12 TP 1 applic DAILY PRN Administration DRY SKIN Loperamide HCl 4 mg 04/07/17 15:23 Imodium - PO Q6H PRN DIARRHEA Magnesium Citrate 300 ml 04/07/17 15:23 Citroma - PO Q48H PRN CONSTIPATION Magnesium Hydroxide 30 ml 04/07/17 15:23 Milk Of Magnesia - PO DAILY PRN CONSTIPATION Nicotine 14 mg 04/07/17 15:30 04/21/17 10:21 Nicoderm Patch - TD 14 mg DAILY POLO Administration Nicotine Polacrilex 2 mg 04/07/17 15:23 Nicorette Gum - BC Q2H PRN NICOTINE REPLACEMENT RX Ondansetron HCl 8 mg 04/07/17 15:31 Zofran Odt - SL Q8H PRN NAUSEA AND/OR VOMITING Pantoprazole Sodium 40 mg 04/07/17 17:30 04/21/17 10:21 Protonix - PO 40 mg DAILY POLO Administration Multivit/Folic Acid/Iron 1 tab 04/08/17 10:00 04/21/17 10:21 Vitamins (Sjr) - PO 1 tab DAILY POLO Administration Pseudoephedrine/Triprolidine 1 combo 04/07/17 15:23 Actifed - PO TID PRN NASAL CONGESTION Thiamine HCl 100 mg 04/07/17 22:00 04/21/17 21:32 Vitamin B1 - PO 100 mg HS POLO Administration Current Side Effect: No Lab tests ordered: No Lab tests reviewed: Yes Provider note:: Patient has completed today and met his goals, will continue to address his issues at [facility], he gained insights into his addiction and motivated to continue maintain abstinence, patient was encouraged to utilaze all supports available to prevent relapses, he is stable for discharge today. Total face to face time:: 15 Mental Status Exam - Mental Status Exam Alert and Oriented to: Time, Place, Person Cognitive Function: Good Patient Appearance: Well Groomed Mood: Hopeful Affect: Appropriate, Mood Congruent Patient Behavior: Appropriate, Cooperative Speech Pattern: Clear, Appropriate Voice Loudness: Normal Thought Process: Intact, Goal Oriented Thought Disorder: Not Present Hallucinations: Denies Suicidal Ideation: Denies Homicidal Ideation: Denies Insight/Judgement: Fair Sleep: Fair Appetite: Fair Muscle strength/Tone: Normal Gait/Station: Normal Psychiatric Treatment Plan - Problem List (1) Alcohol dependence Current Visit: Yes (2) Nicotine dependence Current Visit: No Qualifiers: Nicotine product type: cigarettes Substance use status: in withdrawal Qualified Code(s): F17.213 - Nicotine dependence, cigarettes, with withdrawal Comment: counseled cessation - not ready (3) Peripheral neuropathy Current Visit: No Qualifiers: Peripheral neuropathy type: polyneuropathy, unspecified Qualified Code(s): G62.9 - Polyneuropathy, unspecified
[2017-04-22] MEDS: PRENATAL VITAMINS W/ FOLIC ACID TABLET (FP) PO SCH (09:59)
[2017-04-22] MEDS: HYDROCORTISONE 0.5% TOPICAL CREAM 30 GM TUBE TP SCH (09:59)
[2017-04-22] MEDS: PANTOPRAZOLE 40 MG TABLET (FP) PO SCH (09:59)
[2017-04-22] MEDS: NICOTINE 14 MG/24 HOURS TOPICAL PATCH TD SCH (10:01)
== END 2017-04-22 10:55 | disposition home or self-care (01) | DRG 772 ==
LOC: YASAS 10:53 → Y5N 15:41
PROVIDERS: ADMIT Internal Medicine; ATTEND Internal Medicine
PROC: HZ42ZZZ Group Counseling for Substance Abuse Treatment, Cognitive-Behavioral (ICD-10-PCS; principal; 2017-04-07)
DX: F10.20 Alcohol dependence, uncomplicated (principal); F17.213 Nicotine dependence, cigarettes, with withdrawal; F34.1 Dysthymic disorder; G62.9 Polyneuropathy, unspecified; B18.2 Chronic viral hepatitis C; L97.329 Non-pressure chronic ulcer of left ankle with unspecified severity; L97.319 Non-pressure chronic ulcer of right ankle with unspecified severity; R60.9 Edema, unspecified; R26.2 Difficulty in walking, not elsewhere classified; Z99.89 Dependence on other enabling machines and devices; Z86.718 Personal history of other venous thrombosis and embolism; Z95.828 Presence of other vascular implants and grafts
CPT/HCPCS: 36415; 80053; 81003; 85027; 86593; 93005; 93010

== ENCOUNTER 2017-05-16 14:58 | Emergency (ER) | payer OTHER ==
[2017-05-16 15:16] VITALS: TEMP 97.6; BMI 29.3
--- NOTE | 2017-05-16 16:13 | PDOC ---
Attending Attestation - Resident Resident Name: Petros Woods - ED Attending Attestation I have performed the following: I have examined & evaluated the patient, The case was reviewed & discussed with the resident, I agree w/resident's findings & plan, Exceptions are as noted - HPI HPI: 05/16/17 16:11 61y/o M chronic alcoholism bibems after reported fall, ? head injury. intoxicated here, not complaining of focal pain. - Physicial Exam PE: 05/16/17 16:12 VSS alert but intoxicated exam atraumatic - Medical Decision Making 05/16/17 16:12 Patient seen and evaluated with the resident. I agree with the overall evaluation, assessment, and management with the following summary of visit: 61y/o M well known to this department, alcoholism and frequent falls p/w fall while intoxicated. ? head injury --> CT head no other findings or complaints observe until sober
--- NOTE | 2017-05-16 17:44 | PDOC ---
History of Present Illness - General Chief Complaint: Injury Stated Complaint: INTOX Time Seen by Provider: 05/16/17 15:20 History Source: Patient Exam Limitations: Intoxication - History of Present Illness Initial Comments: 05/16/17 17:47 The patient is a 61M with a PMH of esophageal varices secondary to chronic alcohol abuse, PE (s/p IVC placement), PVD, Hep C, GERD, peripheral neuropathy, well known to the ED, who presents intoxicated stating that he fell and hit his back and head. He denies any CP, SOB, fever, chills, nausea, vomiting. Past History - Past Medical History Allergies/Adverse Reactions: Allergies Allergy/AdvReac Type Severity Reaction Status Date / Time No Known Allergies Allergy Verified 05/16/17 15:09 Home Medications: Ambulatory Orders NK [No Known Home Medication] 05/16/17 Anemia: No Asthma: No Cancer: No Cardiac Disorders: No CVA: No COPD: No CHF: No DVT: No Dementia: No Diabetes: No GI Disorders: No Disorders: No HTN: No Hypercholesterolemia: No Kidney Stones: No Liver Disease: Yes (Reports recently being diagnosed with hep. C and cirrhosis ) Seizures: No Thyroid Disease: No - Surgical History Abdominal Surgery: No Appendectomy: No Cardiac Surgery: No Cholecystectomy: No Lung Surgery: No Neurologic Surgery: No Orthopedic Surgery: Yes (fx, small right finger (fall) in 2016) - Reproductive History Testicular Surgery: No - Immunization History Immunization Up to Date: Yes - Suicide/Smoking/Psychosocial Hx Smoking Status: Yes Smoking History: Unknown if ever smoked Have you smoked in the past 12 months: No Number of Cigarettes Smoked Daily: 5 If you are a former smoker, when did you quit?: 1 months Cigars Per Day: 0 Information on smoking cessation initiated: No 'Breaking Loose' booklet given: 04/07/17 Hx Alcohol Use: No Drug/Substance Use Hx: No Substance Use Type: Alcohol Hx Substance Use Treatment: Yes ([facility] 2 days ago) Review of Systems - Review of Systems Able to Perform ROS?: Yes Is the patient limited Malian proficient: No Constitutional: No: Chills, Fever HEENTM: No: Eye Pain, Recent change in vision Respiratory: No: Cough, Shortness of Breath Cardiac (ROS): No: Chest Pain, Palpitations ABD/GI: No: Nausea, Vomiting : No: Burning, Dysuria Musculoskeletal: Yes: Back Pain. No: Muscle Pain Neurological: Yes: Other (fall on head). No: Headache, Tingling, Weakness *Physical Exam - Vital Signs Last Vital Signs Temp Pulse Resp BP Pulse Ox 97.6 F 87 16 130/83 95 05/16/17 15:07 05/16/17 15:07 05/16/17 15:07 05/16/17 15:07 05/16/17 15:07 - Physical Exam General Appearance: Yes: Disheveled, Alcohol on Breath HEENT: positive: Normal Voice, Hearing Grossly Normal Neck: negative: Lymphadenopathy (R), Lymphadenopathy (L) Respiratory/Chest: positive: Normal Breath Sounds. negative: Respiratory Distress, Accessory Muscle Use, Labored Respiration Cardiovascular: positive: Regular Rhythm, Regular Rate, S1, S2. negative: Diastolic Murmur, Systolic Murmur Gastrointestinal/Abdominal: positive: Flat, Soft. negative: Tender Musculoskeletal: positive: Other (No TTP over lower back) Extremity: positive: Swelling (1+ b/l LE) Integumentary: positive: Dry, Warm Neurologic: positive: Alert, Normal Mood/Affect ED Treatment Course - RADIOLOGY Radiology Studies Ordered: Category Date Time Status HEAD CT WITHOUT CONTRAST [CT] Stat CT Scan 05/16/17 15:46 Completed Medical Decision Making - Medical Decision Making 05/16/17 17:43 The patient is a 61M homeless man with a PMH of alcoholism who presents stating he fell and hit the back of his head. He is currently in and out of sleep. CT head is negative. Will d/c to [facility]. *DC/Admit/Observation/Transfer Diagnosis at time of Disposition: Alcohol abuse with intoxication, Alcohol abuse Alcohol intoxication Qualifiers: Complication of substance-induced condition: uncomplicated Qualified Code(s): F10.920 - Alcohol use, unspecified with intoxication, uncomplicated - Discharge Dispostion Disposition: HOME Condition at time of disposition: Stable Admit: No - Referrals - Patient Instructions Printed Discharge Instructions: Alcoholism (Alternative Therapy) Additional Instructions: Please return to the ER if symptoms persist, worsen, or new symptoms arise. Please follow up with your primary care physician in 2-3 days. Please return to the ER if you have any signs or symptoms of chest pain, shortness of breath, uncontrollable fever, chills, nausea, vomiting, numbness, tingling, or weakness in any part of your body, changes in vision, or slurred speech. - Post Discharge Activity
[2017-05-16 19:00] VITALS: BP 128/72; PULSE 75
== END 2017-05-16 19:00 | disposition home or self-care (01) ==
LOC: JER 14:58
DX: F10.920 Alcohol use, unspecified with intoxication, uncomplicated (principal); B19.20 Unspecified viral hepatitis C without hepatic coma
CPT/HCPCS: 70450-TC; 99283-25

== ENCOUNTER 2017-06-21 11:23 | Inpatient (IN) | payer OTHER ==
[2017-06-21 12:23] VITALS: BMI 29.3
--- NOTE | 2017-06-21 21:59 | HP ---
CIWA Score - CIWA Score Nausea/Vomitin-Mild Nausea/No Vomiting Muscle Tremors: 4-Moderate,w/Arms Extend Anxiety: 4-Mod. Anxious/Guarded Agitation: 4-Moderately Restless Paroxysmal Sweats: 1-Minimal Palms Moist Orientation: 0-Oriented Tacttile Disturbances: 0-None Auditory Disturbances: 0-None Visual Disturbances: 0-None Headache: 0-None Present CIWA-Ar Total Score: 14 Admission ROS [facility] - HPI Chief Complaint: patient was registered around 11 am walks in around 2100 reports itching skin x months erythema scaling appeared infested general body from arms legs trunk case discussed with pharmacist permethrin 5% will be delivered case discussed with nursing trust evaluation supervisor, no single room available at this time encourage the patient to have a shower at [facility] apply permethrin prior to be transport to the unit patient demand out for a cigarette unable to locate the patient at this time around 2300 pm patient in [facility] waiting room admitted to detox for alcohol withdrawal sx Allergies/Adverse Reactions: Allergies Allergy/AdvReac Type Severity Reaction Status Date / Time No Known Allergies Allergy Verified 05/16/17 15:09 History of Present Illness: withdrawal sx 61 years old male with long history of alcohol nicotine dependence has gerd neuropathy ambulate with cane, blood clots and depression is admitted to detox Exam Limitations: No Limitations - Ebola screening Have you traveled outside of the country in the last 21 days: No Have you had contact with anyone from an Ebola affected area: No Have you been sick,other than usual withdrawal symptoms: No Do you have a fever: No - Review of Systems Constitutional: Changes in sleep, Weight Stable EENT: reports: No Symptoms Reported Respiratory: reports: Cough, SOB with Exertion Cardiac: reports: No Symptoms Reported GI: reports: Nausea, Poor Fluid Intake, Indigestion, Abdominal cramping : reports: No Symptoms Reported Musculoskeletal: reports: Back Pain, Muscle Weakness (legs) Integumentary: reports: Erythema, Pruritus, Rash, Other (scaling treated with permethrin 5% x 1 at 06/21/17 around 2300) Neuro: reports: Tremors Endocrine: reports: No Symptoms Reported Hematology: reports: No Symptoms Reported Psychiatric: reports: Judgement Intact, Orientated x3, Depressed Other Systems: Reviewed and Negative Patient History - Patient Medical History Hx Anemia: No Hx Asthma: No Hx Chronic Obstructive Pulmonary Disease (COPD): No Hx Cancer: No Hx Cardiac Disorders: No Hx Congestive Heart Failure: No Hx Hypertension: No Hx Hypercholesterolemia: No Hx Pacemaker: No HX Cerebrovascular Accident: No Hx Seizures: No Hx Dementia: No Hx Diabetes: No Hx Gastrointestinal Disorders: No Hx Liver Disease: Yes (Reports recently being diagnosed with hep. C and cirrhosis ) Hx Genitourinary Disorders: No Hx Sexually Transmitted Disorders: No Hx Renal Disease (ESRD): No Hx Thyroid Disease: No Hx Human Immunodeficiency Virus (HIV): No Hx Hepatitis C: Yes Hx Depression: Yes Hx Suicide Attempt: No Hx Bipolar Disorder: No Hx Schizophrenia: No - Patient Surgical History Past Surgical History: Yes Hx Neurologic Surgery: No Hx Cataract Extraction: No Hx Cardiac Surgery: No Hx Lung Surgery: No Hx Breast Surgery: No Hx Breast Biopsy: No Hx Abdominal Surgery: No Hx Appendectomy: No Hx Cholecystectomy: No Hx Genitourinary Surgery: No Hx Orthopedic Surgery: Yes (fx, small right finger (fall) in 2015) Other Surgical History: IVC filter placement in 02/01/2017 Anesthesia Reaction: No - PPD History Previous Implant?: Yes Documented Results: Negative w/o proof Implanted On Prior R Admission?: Yes Date: 07/28/16 Results: 0 mm PPD to be Administered?: No - Smoking Cessation Smoking history: Current every day smoker Have you smoked in the past 12 months: Yes Aproximately how many cigarettes per day: 20 If you are a former smoker, when did you quit?: 1 months Cigars Per Day: 0 Hx Chewing Tobacco Use: No Initiated information on smoking cessation: Yes 'Breaking Loose' booklet given: 06/21/17 - Substance & Tx. History Hx Alcohol Use: Yes Hx Substance Use: No Substance Use Type: Alcohol Hx Substance Use Treatment: Yes (03/2017 [facility]) - Substances Abused Alcohol Route: Oral Frequency: Daily Amount used: 8x40oz beer Age of first use: 17 Date of Last Use: 06/21/17 Family Disease History - Family Disease History Family Disease History: Other: Father (Uses Alcohol.), Mother (Uses Alcohol.), Brother (Uses Alcohol.), Sister (LSD related schizophrenia) Admission Physical Exam [facility] - Vital Signs Vital Signs: Vital Signs - 24 hr 06/21/17 12:21 Temperature 97.1 F L Pulse Rate 91 H Respiratory 20 Rate Blood Pressure 123/79 - Physical General Appearance: Yes: Nourished, Appropriately Dressed, Mild Distress, Alcohol on Breath, Tremorous, Irritable, Sweating, Anxious HEENTM: Yes: Hearing grossly Normal, Normal ENT Inspection, Normocephalic, Normal Voice Respiratory: Yes: Chest Non-Tender, No Respiratory Distress, No Accessory Muscle Use, Wheezing, Hyperresonant Neck: Yes: Supple, Trachea in good position Breast: Yes: Breasts Symetrical Cardiology: Yes: Regular Rhythm, S1, S2, Tachycardia Abdominal: Yes: Normal Bowel Sounds, Non Tender, Soft Genitourinary: Yes: Within Normal Limits Back: Yes: Normal Inspection Musculoskeletal: Yes: full range of Motion, Gait Steady, Muscle weakness (legs) Extremities: Yes: Normal Inspection, Non-Tender, Tremors Neurological: Yes: Alert, Normal Response, Depressed Affect Integumentary: Yes: Warm, Erythema (scaling) Lymphatic: Yes: Within Normal Limits - Diagnostic (1) Alcohol dependence with uncomplicated withdrawal Current Visit: Yes Status: Acute (2) GERD (gastroesophageal reflux disease) Current Visit: Yes Status: Chronic Qualifiers: Esophagitis presence: without esophagitis Qualified Code(s): K21.9 - Gastro -esophageal reflux disease without esophagitis Comment: on protonix (3) Neuropathy Current Visit: Yes Status: Chronic Comment: neurontine 300 mg tid (4) Nicotine dependence Current Visit: Yes Status: Acute Qualifiers: Nicotine product type: cigarettes Substance use status: in withdrawal Qualified Code(s): F17.213 - Nicotine dependence, cigarettes, with withdrawal Comment: counseled cessation - not ready (5) Cirrhosis of liver not due to alcohol Current Visit: Yes Status: Chronic Comment: encourage abstinence - seen by MAUDE raman and needs f/u (6) Hepatitis C Current Visit: Yes Status: Resolved Qualifiers: Viral hepatitis chronicity: chronic Hepatic coma status: without hepatic coma Qualified Code(s): B18.2 - Chronic viral hepatitis C Cleared for Admission [facility] - Detox or Rehab [facility] Level of Care: Medically Managed Detox Regimen/Protocol: Librium [facility] Breath Alcohol Content Breath Alcohol Content: 0.161 Urine Drug Screen - Results Drug Screen Negative: Yes
[2017-06-21] MEDS ORDERED: PERMETHRIN 5% TOPICAL CREAM 60 GM TUBE TP ONE (22:13)
[2017-06-21] MEDS ORDERED: MAGNESIUM HYDROX 2400MG/30ML ORAL SUSPENSION 30 ML CUP PO PRN (23:10)
[2017-06-21] MEDS ORDERED: MAG HYDROX/AL HYDROX/SIMETH 30 ML UNIT-DOSE CUP PO PRN (23:10)
[2017-06-21] MEDS ORDERED: MAGNESIUM CITRATE 300 ML BOTTLE PO PRN (23:10)
[2017-06-21] MEDS ORDERED: NICOTINE POLACRILEX 4 MG GUM BC PRN (23:10)
[2017-06-21] MEDS ORDERED: ACETAMINOPHEN 325 MG TABLET (FP) PO PRN (23:10)
[2017-06-21] MEDS ORDERED: LOPERAMIDE HCL 2 MG CAPSULE PO PRN (23:10)
[2017-06-21] MEDS ORDERED: P-EPHED 60MG/TRIPROLIDI 2.5MG TABLET PO PRN (23:10)
[2017-06-21] MEDS ORDERED: MENTHOL/PHENOL 1 EACH UD MM PRN (23:10)
[2017-06-21] MEDS ORDERED: GABAPENTIN 300 MG CAPSULE (FP) PO SCH (23:15)
[2017-06-21] MEDS ORDERED: ALBUTEROL SO4 18 GM HFA INHALER IH PRN (23:35)
[2017-06-21] MEDS ORDERED: ALBUTEROL SO4 0.083% IH SOL 2.5 MG/3 ML VIAL.NEB. NEB PRN (23:36)
[2017-06-22] MEDS: chlordiazePOXIDE HCL 25 MG CAPSULE PO SCH ×5 (00:19→22:53)
[2017-06-22] MEDS: GABAPENTIN 300 MG CAPSULE (FP) PO SCH ×4 (00:19→22:52)
[2017-06-22] MEDS: chlordiazePOXIDE HCL 25 MG CAPSULE PO PRN ×3 (00:20→20:38)
[2017-06-22] MEDS: NICOTINE 21 MG/24 HOURS TOPICAL PATCH TD SCH (09:47)
[2017-06-22] MEDS: PRENATAL VITAMINS W/ FOLIC ACID TABLET (FP) PO SCH (09:47)
[2017-06-22] MEDS: RANITIDINE HCL 150 MG TABLET (FP) PO SCH ×2 (09:47→22:53)
[2017-06-22] MEDS ORDERED: RIVAROXABAN 20 MG TABLET PO SCH (10:00)
--- NOTE | 2017-06-22 10:22 | EKG ---
Test Reason : Blood Pressure : / mmHG Vent. Rate : 084 BPM Atrial Rate : 084 BPM P-R Int : 208 ms QRS Dur : 090 ms QT Int : 384 ms P-R-T Axes : 065 030 039 degrees QTc Int : 453 ms NORMAL SINUS RHYTHM NORMAL ECG WHEN COMPARED WITH ECG OF 07-APR-2017 22:43, NO SIGNIFICANT CHANGE WAS FOUND Confirmed by MARCO A HOPPER MD ([id number]) on 06/22/2017 10:22:27 AM Referred By: Confirmed By:MARCO A HOPPER MD
[2017-06-22] MEDS ORDERED: PERMETHRIN 5% TOPICAL CREAM 60 GM TUBE TP ONE (10:24)
[2017-06-22 10:27] LABS: ALBUMIN 3.4 g/dl (3.4-5.0); ANION GAP 14 (8-16); BLOOD UREA NITROGEN 13 mg/dL (7-18); CALCIUM 9.4 mg/dL (8.5-10.1); CHLORIDE 96 mmol/L (98-107); CO2 26 mmol/L (21-32); GLUCOSE,RANDOM 86 mg/dL (74-106); POTASSIUM 3.3 mmol/L (3.5-5.1); SODIUM 136 mmol/L (136-145)
[2017-06-22 10:37] LABS: MCH 28.6 pg (25.7-33.7); MCHC 30.8 g/dl (32.0-35.9); MEAN CELL VOLUME 92.9 fl (80-96); MEAN PLT VOLUME 12.2 fl (7.5-11.1); PLATELET COUNT 184 K/MM3 (134-434); WHITE BLOOD COUNT 13.1 K/mm3 (4.0-10.0)
[2017-06-22 11:37] LABS: ALK PHOS 107 U/L (45-117); BILIRUBIN,TOTAL 0.5 mg/dL (0.2-1.0); SGOT/AST 26 U/L (15-37); TOT PROT 7.3 g/dl (6.4-8.2)
[2017-06-22] MEDS ORDERED: diphenhydrAMINE HCL 25 MG CAPSULE (FP) PO ONE (12:48)
--- NOTE | 2017-06-22 12:57 | PN ---
S CIWA - CIWA Score Nausea/Vomitin Muscle Tremors: 3 Anxiety: 4-Mod. Anxious/Guarded Agitation: 3 Paroxysmal Sweats: 3 Orientation: 0-Oriented Tacttile Disturbances: 3-Moderate Itch/Numb/Burn Auditory Disturbances: 0-None Visual Disturbances: 0-None Headache: 0-None Present CIWA-Ar Total Score: 19 [facility] Progress Note (SOAP) Subjective: Anxious, Nausea, Tremors. Objective: PT. A & O X 3, OBSERVED AMBULATING ON UNIT. NO ACUTE DISTRESS. 06/22/17 12:52 Vital Signs Temperature 97 F L 06/22/17 06:05 Pulse Rate 88 06/22/17 06:05 Respiratory Rate 18 06/22/17 06:05 Blood Pressure 122/63 06/22/17 06:05 O2 Sat by Pulse Oximetry (%) Laboratory Tests 06/22/17 06/22/17 06/22/17 05:45 05:45 05:45 WBC 13.1 H D RBC 4.20 Hgb 12.0 D Hct 39.0 MCV 92.9 MCH 28.6 MCHC 30.8 L RDW 20.0 H Plt Count 184 MPV 12.2 H D Sodium 136 Potassium 3.3 L D Chloride 96 L D Carbon Dioxide 26 Anion Gap 14 BUN 13 Creatinine 1.0 Creat Clearance w eGFR > 60 Random Glucose 86 D Calcium 9.4 Total Bilirubin 0.5 D AST 26 D Alkaline Phosphatase 107 Total Protein 7.3 Albumin 3.4 RPR Titer Nonreactive LABS NOTED. UA RESULTS PENDING. 06/22/17 12:59 Assessment: 06/22/17 12:53 WITHDRAWAL SYMPTOMS. Plan: CONTINUE DETOX. K-DUR, 20 MEQ PO X 1 NOW, THEN 20 MEQ PO BID AFTER. DUE TO LIKELIHOOD OF PERSONAL INFESTION WITH SCABIES, PATIENT WAS PRESCRIBED TO TAKE SHOWER AND THEN APPLY ELIMITE TOPICAL CREAM TO BODY YESTERDAY AT TIME OF ADMISSION PRIOR TO COMING UP TO DETOX UNIT. HOWEVER, PATIENT REPORTS THAT HE "WASHED HIMSELF IN THE SINK IN THE BATHROOM" RATHER THAN TAKING SHOWER BEFORE APPLYING ELIMITE PRIOR TO COMING UP TO UNIT. A PRECAUTION, PATIENT ADVISED TO TAKE A THOROUGH SHOWER, THEN APPLY A SECOND DOSE OF ELIMITE. PATIENT THEN ADVISED TO REMAIN IN HIS ROOM AND NOT TO CLEAN HIS SKIN WITH WATER FOR AT LEAST EIGHT (8) HOURS AFTER. PATIENT VERBALIZED UNDERSTANDING OF INSTRUCTIONS. BENADRYL, 25 MG PO X 1 ORDERED FOR PRURITUS.
[2017-06-22] MEDS ORDERED: POTASSIUM CHLORIDE TABS 20 MEQ TABLET.ER (FP) PO ONE (12:58)
[2017-06-22 12:59] LABS: SGPT/ALT 21 U/L (12-78)
--- NOTE | 2017-06-22 15:53 | CONSULT ---
[facility] Psychiatric Consult - Data Date of interview: 06/22/17 Admission source: [facility] Identifying data: Another admission to [facility] for this 61 y/o male seeking detox treatment on for alcohol dependence.Patient is single without children,homeless,unemployed,disabled and supported on Social Security benefits. Substance Abuse History: Confirmed by patient in this session.See details in current [facility] report : Smoking history: Current every day smoker. Have you smoked in the past 12 months: Yes. Aproximately how many cigarettes per day: 20. If you are a former smoker, when did you quit?: 1 months. Cigars Per Day: 0. Hx Chewing Tobacco Use: No. Initiated information on smoking cessation: Yes. 'Breaking Loose' booklet given: 06/21/17. - Substance & Tx. History. Hx Alcohol Use: Yes. Hx Substance Use: No. Substance Use Type: Alcohol. Hx Substance Use Treatment: Yes (03/2017 [facility]). - Substances Abused. Alcohol. Route: Oral. Frequency: Daily. Amount used: 8x40oz beer. Age of first use: 17. Date of Last Use: 06/21/17 Medical History: Alcoholic peripheral neuropathy,GERD,hypertension,hepatitis C, obesity,psoriasis,low back pain and cirrhosis of liver.Noted history of orthosurgery for tendon repair (right 5th digit) in 2014. Psychiatric History: Patient denies. Physical/Sexual Abuse/Trauma History: Patient denies. Additional Comment: Drug Screen is negative. Mental Status Exam - Mental Status Exam Alert and Oriented to: Time, Place, Person Cognitive Function: Grossly Intact Patient Appearance: Unkempt, Disheveled (skin rash ) Mood: Withdrawn, Anxious, Hopeful Affect: Mood Congruent Patient Behavior: Fatigued, Cooperative Speech Pattern: Clear, Appropriate Voice Loudness: Normal Thought Process: Goal Oriented Thought Disorder: Not Present Hallucinations: Denies Suicidal Ideation: Denies Homicidal Ideation: Denies Insight/Judgement: Poor Sleep: Fair Appetite: Good Muscle strength/Tone: Normal Gait/Station: Other (ambulates with cane) Psychiatric Findings - Problem List ([place] 1, 2,3) (1) Alcohol dependence with uncomplicated withdrawal Current Visit: Yes Status: Acute (2) Nicotine dependence Current Visit: Yes Status: Acute Qualifiers: Nicotine product type: cigarettes Substance use status: in withdrawal Qualified Code(s): F17.213 - Nicotine dependence, cigarettes, with withdrawal Comment: counseled cessation - not ready - Initial Treatment Plan Initial Treatment Plan: Psychoeducation.Old records revisited.Detoxification in progress.Observation.Seen by medical [facility]ER to address skin rash.
[2017-06-22 17:18] LABS: URINE APPEARANCE CLEAR; URINE BILIRUBIN NEGATIVE (NEGATIVE); URINE BLOOD NEGATIVE (NEGATIVE); URINE COLOR STRAW; URINE GLUCOSE (UA) NEGATIVE (NEGATIVE); URINE KETONE NEGATIVE (NEGATIVE); URINE LEUK ESTERASE NEGATIVE (NEGATIVE); URINE NITRITE NEGATIVE (NEGATIVE); URINE PROTEIN NEGATIVE (NEGATIVE); URINE UROBILINOGEN NEGATIVE mg/dL (0.2-1.0)
[2017-06-22] MEDS: RIVAROXABAN 20 MG TABLET PO SCH (17:38)
[2017-06-22] MEDS ORDERED: POTASSIUM CHLORIDE TABS 20 MEQ TABLET.ER (FP) PO SCH (18:00)
[2017-06-22] MEDS: THIAMINE HCL 100 MG TABLET (FP) PO SCH (22:53)
[2017-06-22] MEDS: POTASSIUM CHLORIDE ORAL LIQUID 20 MEQ/15 ML PO SCH (22:55)
[2017-06-23] MEDS: GABAPENTIN 300 MG CAPSULE (FP) PO SCH ×3 (05:53→22:50)
[2017-06-23] MEDS: chlordiazePOXIDE HCL 25 MG CAPSULE PO SCH ×3 (05:53→17:50)
[2017-06-23] MEDS: NICOTINE 21 MG/24 HOURS TOPICAL PATCH TD SCH (10:36)
[2017-06-23] MEDS: PRENATAL VITAMINS W/ FOLIC ACID TABLET (FP) PO SCH (10:36)
[2017-06-23] MEDS: RANITIDINE HCL 150 MG TABLET (FP) PO SCH ×2 (10:36→22:49)
[2017-06-23] MEDS: POTASSIUM CHLORIDE ORAL LIQUID 20 MEQ/15 ML PO SCH ×2 (10:36→22:49)
[2017-06-23] MEDS: guaiFENesin/D-METHORPHAN HB 10 ML UNIT-DOSE CUPS PO PRN (11:32)
[2017-06-23] MEDS ORDERED: FLU VACCINE QUAD 60 MCG/0.5 ML (MDV 17-18) IM ONE (12:00)
--- NOTE | 2017-06-23 12:41 | PN ---
S CIWA - CIWA Score Nausea/Vomitin Muscle Tremors: 3 Anxiety: 4-Mod. Anxious/Guarded Agitation: 3 Paroxysmal Sweats: 2 Orientation: 0-Oriented Tacttile Disturbances: 3-Moderate Itch/Numb/Burn Auditory Disturbances: 0-None Visual Disturbances: 0-None Headache: 0-None Present CIWA-Ar Total Score: 17 [facility] Progress Note (SOAP) Subjective: Nausea, Tremors, Anxious, Interrupted Sleep. Objective: PT. A & O X 3, OBSERVED AMBULATING ON UNIT. NO ACUTE DISTRESS. 06/23/17 12:38 Vital Signs Temperature 95.5 F L 06/23/17 10:12 Pulse Rate 93 H 06/23/17 10:12 Respiratory Rate 19 06/23/17 10:12 Blood Pressure 155/89 06/23/17 10:12 O2 Sat by Pulse Oximetry (%) Laboratory Tests 06/22/17 06/22/17 06/22/17 05:45 05:45 05:45 WBC 13.1 H D RBC 4.20 Hgb 12.0 D Hct 39.0 MCV 92.9 MCH 28.6 MCHC 30.8 L RDW 20.0 H Plt Count 184 MPV 12.2 H D Sodium 136 Potassium 3.3 L D Chloride 96 L D Carbon Dioxide 26 Anion Gap 14 BUN 13 Creatinine 1.0 Creat Clearance w eGFR > 60 Random Glucose 86 D Calcium 9.4 Total Bilirubin 0.5 D AST 26 D ALT 21 Alkaline Phosphatase 107 Total Protein 7.3 Albumin 3.4 Urine Color Urine Appearance Urine pH Ur Specific [place] Urine Protein Urine Glucose (UA) Urine Ketones Urine Blood Urine Nitrite Urine Bilirubin Urine Urobilinogen Ur Leukocyte Esterase RPR Titer Nonreactive 06/22/17 14:40 WBC RBC Hgb Hct MCV MCH MCHC RDW Plt Count MPV Sodium Potassium Chloride Carbon Dioxide Anion Gap BUN Creatinine Creat Clearance w eGFR Random Glucose Calcium Total Bilirubin AST ALT Alkaline Phosphatase Total Protein Albumin Urine Color Straw Urine Appearance Clear Urine pH 6.0 Ur Specific [place] 1.006 Urine Protein Negative Urine Glucose (UA) Negative Urine Ketones Negative Urine Blood Negative Urine Nitrite Negative Urine Bilirubin Negative Urine Urobilinogen Negative Ur Leukocyte Esterase Negative RPR Titer LABS NOTED. Assessment: 06/23/17 12:38 WITHDRAWAL SYMPTOMS. HYPOKALEMIA. 06/23/17 12:40 Plan: CONTINUE DETOX.
[2017-06-23] MEDS ORDERED: diphenhydrAMINE HCL 50 MG CAPSULE PO ONE (14:43)
[2017-06-23] MEDS ORDERED: diphenhydrAMINE HCL 25 MG CAPSULE (FP) PO ONE (15:51)
[2017-06-23] MEDS: RIVAROXABAN 20 MG TABLET PO SCH (17:50)
[2017-06-23] MEDS: chlordiazePOXIDE 5 MG CAPSULE PO SCH (22:49)
[2017-06-23] MEDS: THIAMINE HCL 100 MG TABLET (FP) PO SCH (22:49)
[2017-06-24] MEDS: GABAPENTIN 300 MG CAPSULE (FP) PO SCH ×3 (06:18→22:29)
[2017-06-24] MEDS: chlordiazePOXIDE 5 MG CAPSULE PO SCH ×3 (06:18→17:04)
[2017-06-24] MEDS: RANITIDINE HCL 150 MG TABLET (FP) PO SCH ×2 (09:37→22:29)
[2017-06-24] MEDS: POTASSIUM CHLORIDE ORAL LIQUID 20 MEQ/15 ML PO SCH ×2 (09:37→22:29)
[2017-06-24] MEDS: PRENATAL VITAMINS W/ FOLIC ACID TABLET (FP) PO SCH (09:37)
[2017-06-24] MEDS: NICOTINE 21 MG/24 HOURS TOPICAL PATCH TD SCH (09:38)
[2017-06-24] MEDS ORDERED: COLLOIDAL OATMEAL 1 BAR EACH TP PRN (09:47)
[2017-06-24] MEDS ORDERED: diphenhydrAMINE HCL 50 MG CAPSULE PO ONE (09:47)
[2017-06-24] MEDS: guaiFENesin/D-METHORPHAN HB 10 ML UNIT-DOSE CUPS PO PRN (10:18)
[2017-06-24] MEDS: HYDROCORTISONE 0.5% TOPICAL OINTMENT TUBE TP SCH (10:19)
[2017-06-24] MEDS ORDERED: diphenhydrAMINE HCL 25 MG CAPSULE (FP) PO ONE (10:19)
--- NOTE | 2017-06-24 11:51 | PN ---
Psychiatric Progress Note Vital Signs: Vital Signs Period Temp Pulse Resp BP Sys/Haney Pulse Ox Last 24 Hr 95.5 F-99.0 F 74-105 18-20 141-158/72-92 Date of Session: 06/24/17 Chief Complaint:: " Can you give me tramadol or something for anxiety ? ". HPI: Day 4 of detox treatment for alcohol withdrawal.Benign hospital course.Medication-seeking : specific request for tramadol or a benzodiazepine. ROS: Unremarkable. Current Medications: Active Medications Generic Name Dose Route Start Last Admin Trade Name Freq PRN Reason Stop Dose Admin Acetaminophen 650 mg 06/21/17 23:10 Tylenol - PO Q4H PRN FEVER Al Hydroxide/Mg Hydroxide 30 ml 06/21/17 23:10 Mylanta Oral Suspension - PO Q6H PRN DYSPEPSIA Albuterol Sulfate 1 amp 06/21/17 23:36 06/22/17 22:53 Ventolin 0.083% Nebulizer Soln - NEB 1 amp Q6H PRN Administration SHORT OF BREATH/WHEEZING Albuterol Sulfate 2 puff 06/21/17 23:35 Ventolin Hfa Inhaler - IH Q4H PRN SHORT OF BREATH/WHEEZING Chlordiazepoxide HCl 15 mg 06/23/17 23:00 06/24/17 10:18 Librium - PO 06/24/17 17:01 15 mg [id number] POLO Administration Chlordiazepoxide HCl 25 mg 06/21/17 23:10 06/22/17 20:38 Librium - PO 06/24/17 23:09 25 mg Q4H PRN Administration WITHDRAWAL(CONT SUBST) Chlordiazepoxide HCl 10 mg 06/24/17 23:00 Librium - PO 06/25/17 17:01 [id number] POLO Colloidal Oatmeal 1 applic 06/24/17 09:47 Aveeno Soap - TP DAILY PRN HYGEINE Eucalyptus/Menthol/Phenol/Sorbitol 1 each 06/21/17 23:10 Cepastat Lozenge - MM Q4H PRN SORE THROAT Gabapentin 300 mg 06/21/17 23:45 06/24/17 06:18 Neurontin - PO 300 mg TID POLO Administration Guaifenesin 10 ml 06/21/17 23:10 06/24/17 10:18 Robitussin Dm - PO 10 ml Q6H PRN Administration COUGH Hydrocortisone 1 applic 06/24/17 10:00 06/24/17 10:19 Hytone 0.5% Ointment - TP 1 applic DAILY POLO Administration Loperamide HCl 4 mg 06/21/17 23:10 Imodium - PO Q6H PRN DIARRHEA Magnesium Citrate 300 ml 06/21/17 23:10 Citroma - PO Q48H PRN CONSTIPATION Magnesium Hydroxide 30 ml 06/21/17 23:10 Milk Of Magnesia - PO DAILY PRN CONSTIPATION Nicotine 21 mg 06/22/17 10:00 06/24/17 09:38 Nicoderm Patch - TD 21 mg DAILY POLO Administration Nicotine Polacrilex 4 mg 06/21/17 23:10 Nicorette Gum - BC Q2H PRN NICOTINE REPLACEMENT RX Potassium Chloride 20 meq 06/22/17 22:00 06/24/17 09:37 Potassium Chloride Oral Liquid PO 20 meq BID POLO Administration Multivit/Folic Acid/Iron 1 tab 06/22/17 10:00 06/24/17 09:37 Vitamins (Sjr) - PO 1 tab DAILY POLO Administration Pseudoephedrine/Triprolidine 1 combo 06/21/17 23:10 Actifed - PO TID PRN NASAL CONGESTION Ranitidine HCl 150 mg 06/22/17 10:00 06/24/17 09:37 Zantac - PO 150 mg BID POLO Administration Rivaroxaban 20 mg 06/22/17 17:00 06/23/17 17:50 Xarelto - PO 20 mg DAILY@1700 POLO Administration Thiamine HCl 100 mg 06/22/17 22:00 06/23/17 22:49 Vitamin B1 - PO 100 mg HS POLO Administration Medication(s) Change(s): None.Psychotherapy session provided. Current Side Effect: No Lab tests ordered: No Lab tests reviewed: Yes Provider note:: Asked to reassess this patient for complaint of anxiety.Chart reviewed.Met with the patient at bedside.Mr Schroeder is observed as calm,relaxed, appropriate and controlled.No evidence of acute signs of anxiety.Patient remains ambulatory and visible on the unit.Pleasant on approach.Considerably improved personal hygiene.Complaints of anxiety produced by patient are ill- defined,vague and non-specific.Clinically,Mr Schroeder has shown significant progress since admission.Psychoeducation provided : emphasis on the virtues of sobriety,daily exercise,adherence to AA meetings,sleep hygiene,adequate nutrition and spiritual attitudes.Patient is receptive to reaching.Mental status remains unremarkable.Mr Schroeder is at his baseline. Total face to face time:: 25 Mental Status Exam - Mental Status Exam Alert and Oriented to: Time, Place, Person Cognitive Function: Good Patient Appearance: Well Groomed Mood: Hopeful, Euthymic Affect: Appropriate, Normal Range Patient Behavior: Appropriate, Cooperative Speech Pattern: Clear Voice Loudness: Normal Thought Process: Intact, Goal Oriented Thought Disorder: Not Present Hallucinations: Denies Suicidal Ideation: Denies Homicidal Ideation: Denies Insight/Judgement: Fair Sleep: Well Appetite: Good Muscle strength/Tone: Normal Gait/Station: Normal Psychiatric Treatment Plan - Problem List (1) Alcohol dependence with uncomplicated withdrawal Current Visit: Yes (2) Nicotine dependence Current Visit: Yes Qualifiers: Nicotine product type: cigarettes Substance use status: in withdrawal Qualified Code(s): F17.213 - Nicotine dependence, cigarettes, with withdrawal Comment: counseled cessation - not ready
--- NOTE | 2017-06-24 12:24 | PN ---
[facility] Progress Note (SOAP) Subjective: Anxious, Interrupted Sleep, Sweating. Objective: PT. A & O X 3, OBSERVED AMBULATING ON UNIT. NO ACUTE DISTRESS. 06/24/17 12:21 Vital Signs Temperature 95.5 F L 06/24/17 09:37 Pulse Rate 93 H 06/24/17 09:37 Respiratory Rate 20 06/24/17 09:37 Blood Pressure 143/84 06/24/17 09:37 O2 Sat by Pulse Oximetry (%) Laboratory Tests 06/22/17 06/22/17 06/22/17 05:45 05:45 05:45 WBC 13.1 H D RBC 4.20 Hgb 12.0 D Hct 39.0 MCV 92.9 MCH 28.6 MCHC 30.8 L RDW 20.0 H Plt Count 184 MPV 12.2 H D Sodium 136 Potassium 3.3 L D Chloride 96 L D Carbon Dioxide 26 Anion Gap 14 BUN 13 Creatinine 1.0 Creat Clearance w eGFR > 60 Random Glucose 86 D Calcium 9.4 Total Bilirubin 0.5 D AST 26 D ALT 21 Alkaline Phosphatase 107 Total Protein 7.3 Albumin 3.4 Urine Color Urine Appearance Urine pH Ur Specific [place] Urine Protein Urine Glucose (UA) Urine Ketones Urine Blood Urine Nitrite Urine Bilirubin Urine Urobilinogen Ur Leukocyte Esterase RPR Titer Nonreactive 06/22/17 14:40 WBC RBC Hgb Hct MCV MCH MCHC RDW Plt Count MPV Sodium Potassium Chloride Carbon Dioxide Anion Gap BUN Creatinine Creat Clearance w eGFR Random Glucose Calcium Total Bilirubin AST ALT Alkaline Phosphatase Total Protein Albumin Urine Color Straw Urine Appearance Clear Urine pH 6.0 Ur Specific [place] 1.006 Urine Protein Negative Urine Glucose (UA) Negative Urine Ketones Negative Urine Blood Negative Urine Nitrite Negative Urine Bilirubin Negative Urine Urobilinogen Negative Ur Leukocyte Esterase Negative RPR Titer LABS NOTED. Assessment: 06/24/17 12:21 WITHDRAWAL SYMPTOMS. HYPOKALEMIA. 06/24/17 12:24 Plan: CONTINUE DETOX. CONTINUE K-DUR. BENADRYL, 50 MG PO X 1 FOR RESIDUAL ITCHING.
[2017-06-24] MEDS: RIVAROXABAN 20 MG TABLET PO SCH (17:05)
[2017-06-24] MEDS: chlordiazePOXIDE HCL 10 MG CAPSULE PO SCH (22:29)
[2017-06-24] MEDS: THIAMINE HCL 100 MG TABLET (FP) PO SCH (22:29)
[2017-06-25] MEDS: chlordiazePOXIDE HCL 10 MG CAPSULE PO SCH ×2 (05:53→10:32)
[2017-06-25] MEDS: GABAPENTIN 300 MG CAPSULE (FP) PO SCH ×2 (05:53→13:02)
[2017-06-25 06:31] VITALS: BP 126/78; PULSE 80; TEMP 97.4
[2017-06-25] MEDS: POTASSIUM CHLORIDE ORAL LIQUID 20 MEQ/15 ML PO SCH (10:32)
[2017-06-25] MEDS: PRENATAL VITAMINS W/ FOLIC ACID TABLET (FP) PO SCH (10:32)
[2017-06-25] MEDS: RANITIDINE HCL 150 MG TABLET (FP) PO SCH (10:32)
[2017-06-25] MEDS: NICOTINE 21 MG/24 HOURS TOPICAL PATCH TD SCH (10:33)
[2017-06-25] MEDS: HYDROCORTISONE 0.5% TOPICAL OINTMENT TUBE TP SCH (10:34)
[2017-06-25] MEDS ORDERED: diphenhydrAMINE HCL 25 MG CAPSULE (FP) PO ONE (12:00)
--- NOTE | 2017-06-25 14:09 | DS ---
[facility] Detox Discharge Summary Admission Date: 06/21/17 Discharge Date: 06/25/17 - History Present History: Alcohol Dependence Additional Comments: PATIENT GOING TO [facility] FOR AFTERCARE. PATIENT ADVISED TO FOLLOW -UP WITH [facility] DR. Tri ALTAMIRANO, [employer] AFTER DISCHARGE FROM REHAB FOR MEDICAL ASSESSMENT. PATIENT WAS DISCHARGED FROM DETOX UNIT TO BE TAKEN TO REHAB UNIT IN STABLE MEDICAL CONDITION. Pertinent Past History: Hep C, Cirrhosis of Liver, Neuropathy, Depression, Nicotine Dependence, GERD. - Physical Exam Results Vital Signs: Vital Signs Temperature 97.4 F L 06/25/17 06:31 Pulse Rate 80 06/25/17 06:31 Respiratory Rate 18 06/25/17 06:31 Blood Pressure 126/78 06/25/17 06:31 O2 Sat by Pulse Oximetry (%) Pertinent Admission Physical Exam Findings: WITHDRAWAL SYMPTOMS. Laboratory Tests 06/22/17 06/22/17 06/22/17 05:45 05:45 05:45 WBC 13.1 H D RBC 4.20 Hgb 12.0 D Hct 39.0 MCV 92.9 MCH 28.6 MCHC 30.8 L RDW 20.0 H Plt Count 184 MPV 12.2 H D Sodium 136 Potassium 3.3 L D Chloride 96 L D Carbon Dioxide 26 Anion Gap 14 BUN 13 Creatinine 1.0 Creat Clearance w eGFR > 60 Random Glucose 86 D Calcium 9.4 Total Bilirubin 0.5 D AST 26 D ALT 21 Alkaline Phosphatase 107 Total Protein 7.3 Albumin 3.4 Urine Color Urine Appearance Urine pH Ur Specific [place] Urine Protein Urine Glucose (UA) Urine Ketones Urine Blood Urine Nitrite Urine Bilirubin Urine Urobilinogen Ur Leukocyte Esterase RPR Titer Nonreactive 06/22/17 14:40 WBC RBC Hgb Hct MCV MCH MCHC RDW Plt Count MPV Sodium Potassium Chloride Carbon Dioxide Anion Gap BUN Creatinine Creat Clearance w eGFR Random Glucose Calcium Total Bilirubin AST ALT Alkaline Phosphatase Total Protein Albumin Urine Color Straw Urine Appearance Clear Urine pH 6.0 Ur Specific [place] 1.006 Urine Protein Negative Urine Glucose (UA) Negative Urine Ketones Negative Urine Blood Negative Urine Nitrite Negative Urine Bilirubin Negative Urine Urobilinogen Negative Ur Leukocyte Esterase Negative RPR Titer LABS NOTED. - Treatment Hospital Course: Detox Protocol Followed, Detoxed Safely, Responded well, Discharged Condition Good, Rehab Referral Accepted Patient has Accepted a Rehab Referral to: [facility] (Claudia [email or web address].Avis.) . - Medication Discharge Medications: Ambulatory Orders Gabapentin [Neurontin -] 300 mg PO Q8H #90 capsule MDD 3 06/21/17 Hydroxyzine HCl [Atarax -] 25 mg PO TID PRN #30 tablet 06/21/17 Pantoprazole Sodium [Protonix -] 40 mg PO DAILY #30 tablet.ec 06/21/17 Rivaroxaban [Xarelto -] 20 mg PO DAILY #30 tablet 06/24/17 - Diagnosis (1) Alcohol dependence with uncomplicated withdrawal Status: Acute (2) Nicotine dependence Status: Acute Qualifiers: Nicotine product type: cigarettes Substance use status: in withdrawal Qualified Code(s): F17.213 - Nicotine dependence, cigarettes, with withdrawal (3) GERD (gastroesophageal reflux disease) Status: Chronic Qualifiers: Esophagitis presence: without esophagitis Qualified Code(s): K21.9 - Gastro -esophageal reflux disease without esophagitis (4) Hepatitis C Status: Resolved Qualifiers: Viral hepatitis chronicity: chronic Hepatic coma status: without hepatic coma Qualified Code(s): B18.2 - Chronic viral hepatitis C (5) Cirrhosis of liver not due to alcohol Status: Chronic (6) Neuropathy Status: Chronic - AMA Did Patient Leave Against Medical Advice: No
== END 2017-06-25 13:03 | disposition other institution (70) | DRG 775 ==
LOC: YASAS 11:23 → Y3N 18:15
PROVIDERS: ADMIT Internal Medicine; ATTEND Internal Medicine
PROC: HZ2ZZZZ Detoxification Services for Substance Abuse Treatment (ICD-10-PCS; principal; 2017-06-21)
DX: F10.230 Alcohol dependence with withdrawal, uncomplicated (principal); F17.213 Nicotine dependence, cigarettes, with withdrawal; K21.9 Gastro-esophageal reflux disease without esophagitis; B18.2 Chronic viral hepatitis C; G62.9 Polyneuropathy, unspecified; K74.60 Unspecified cirrhosis of liver; R00.0 Tachycardia, unspecified; E87.6 Hypokalemia
CPT/HCPCS: 36415; 80053; 81003; 85027; 86593; 90688; 93005; 93010; 94640

== ENCOUNTER 2017-06-25 13:22 | Inpatient (IN) | payer OTHER ==
[2017-06-25] MEDS ORDERED: MAGNESIUM CITRATE 300 ML BOTTLE PO PRN (13:54)
[2017-06-25] MEDS ORDERED: P-EPHED 60MG/TRIPROLIDI 2.5MG TABLET PO PRN (13:54)
[2017-06-25] MEDS ORDERED: LOPERAMIDE HCL 2 MG CAPSULE PO PRN (13:54)
[2017-06-25] MEDS ORDERED: MAGNESIUM HYDROX 2400MG/30ML ORAL SUSPENSION 30 ML CUP PO PRN (13:54)
[2017-06-25] MEDS ORDERED: MAG HYDROX/AL HYDROX/SIMETH 30 ML UNIT-DOSE CUP PO PRN (13:54)
[2017-06-25] MEDS ORDERED: IBUPROFEN 400 MG TABLET (FP) PO PRN (13:54)
[2017-06-25] MEDS ORDERED: ACETAMINOPHEN 325 MG TABLET (FP) PO PRN (13:54)
[2017-06-25] MEDS ORDERED: MENTHOL/PHENOL 1 EACH UD MM PRN (13:54)
[2017-06-25] MEDS ORDERED: NICOTINE POLACRILEX 4 MG GUM BUC PRN (13:57)
[2017-06-25] MEDS ORDERED: diphenhydrAMINE HCL 25 MG CAPSULE (FP) PO PRN (13:59)
--- NOTE | 2017-06-25 14:02 | HP ---
[facility] Assess/Revision - Admission History Admitted to Rehab from: [facility] Date of Admission to Rehab: 06/25/2017 - Vital signs Vital Signs: Vital Signs Period Temp Pulse Resp BP Sys/Haney Pulse Ox Last 24 Hr 97.5 F 97 18 111/82 - Findings Detox History & Physical reviewed: Yes Concur with findings: Yes Comments/Additional Findings: PATIENT'S MEDICAL / MEDICATION HISTORY REVIEWED PRIOR TO DISCAHRGE FROM DETOX UNIT. PATIENT WAS DISCAHRGED FROM DETOX UNIT TO BE TAKEN TO REHAB UNIT IN STABLE MEDICAL CONDITION. Inpatient Rehab Admission - Initial Determination Are CD services needed?: Yes Free of communicable disease: Yes Not in need of hospitalization: Yes - Rehab Admission Criteria Previous failed treatment: Yes Poor recovery environment: Yes Comorbidities: Yes Patient is meeting Inpatient Rehab admission criteria:: Yes
[2017-06-25] MEDS: GABAPENTIN 300 MG CAPSULE (FP) PO SCH ×2 (14:35→21:06)
[2017-06-25] MEDS: guaiFENesin/D-METHORPHAN HB 10 ML UNIT-DOSE CUPS PO PRN ×2 (15:38→22:02)
[2017-06-25] MEDS: RIVAROXABAN 20 MG TABLET PO SCH (17:00)
[2017-06-25] MEDS: HYDROCORTISONE 0.5% TOPICAL OINTMENT TUBE TP SCH (21:06)
[2017-06-25] MEDS: THIAMINE HCL 100 MG TABLET (FP) PO SCH (21:06)
[2017-06-26] MEDS: guaiFENesin/D-METHORPHAN HB 10 ML UNIT-DOSE CUPS PO PRN (03:56)
[2017-06-26] MEDS: GABAPENTIN 300 MG CAPSULE (FP) PO SCH ×3 (06:48→21:02)
[2017-06-26] MEDS: NICOTINE 21 MG/24 HOURS TOPICAL PATCH TD SCH (09:44)
[2017-06-26] MEDS: PRENATAL VITAMINS W/ FOLIC ACID TABLET (FP) PO SCH (09:44)
[2017-06-26] MEDS: HYDROCORTISONE 0.5% TOPICAL OINTMENT TUBE TP SCH ×2 (09:46→21:04)
[2017-06-26] MEDS: hydrOXYzine PAMOATE 50 MG CAPSULE (FP) PO PRN ×3 (09:46→20:02)
[2017-06-26] MEDS: RIVAROXABAN 20 MG TABLET PO SCH (17:42)
[2017-06-26] MEDS: THIAMINE HCL 100 MG TABLET (FP) PO SCH (21:02)
[2017-06-27] MEDS: GABAPENTIN 300 MG CAPSULE (FP) PO SCH ×3 (06:19→21:09)
[2017-06-27] MEDS: hydrOXYzine PAMOATE 50 MG CAPSULE (FP) PO PRN ×3 (06:19→23:09)
[2017-06-27] MEDS: NICOTINE 21 MG/24 HOURS TOPICAL PATCH TD SCH (10:06)
[2017-06-27] MEDS: HYDROCORTISONE 0.5% TOPICAL OINTMENT TUBE TP SCH ×2 (10:06→21:10)
[2017-06-27] MEDS: PRENATAL VITAMINS W/ FOLIC ACID TABLET (FP) PO SCH (10:06)
--- NOTE | 2017-06-27 10:37 | HP ---
Psychiatrist Admission - Data Date of interview: 06/27/17 Identifying data: One of the several 5 inpatient rehabilitation admissions for this 61 year old male who is single without children, currently homeless and unemployed, and supported on Social Security benefits. Medical History: DVT, peripheral neuropathy in both feet and left leg, cirrhosis , Hep C, most recently diagnosed and treated for scabies 05/2017. Smokes cigarettes 3 day. Psychiatric History: Patient reports no history of psychiatric hospitalizations , denies history of psychiatric treatment besides with Trazodone for insomnia and reports he wants to restart medication at . C/o anxiety and states that Vistaril is effective. Physical/Sexual Abuse/Trauma History: Denies history of sexual, physical and verbal abuse. Vital Signs: Vital Signs - 24 hr 06/27/17 06/27/17 06/27/17 00:30 03:30 06:55 Temperature 98.4 F Pulse Rate 91 H Respiratory 18 18 18 Rate Blood Pressure 120/74 Allergies/Adverse Reactions: Allergies Allergy/AdvReac Type Severity Reaction Status Date / Time No Known Allergies Allergy Verified 05/16/17 15:09 Concur with the findings of this exam: Yes - Substance Abuse/Tx History Hx Alcohol Use: Yes Hx Substance Use: No Substance Use Type: Alcohol (vodka, wine coolers) Hx Substance Use Treatment: Yes (several detox/rehabs. at [facility].) Mental Status Exam - Mental Status Exam Alert and Oriented to: Time, Place, Person Cognitive Function: Good Patient Appearance: Well Groomed Mood: Sad, Anxious Affect: Appropriate, Mood Congruent Patient Behavior: Appropriate, Cooperative Speech Pattern: Clear, Appropriate Voice Loudness: Normal Thought Process: Goal Oriented Thought Disorder: Not Present Hallucinations: Denies Suicidal Ideation: Denies Homicidal Ideation: Denies Insight/Judgement: Fair Sleep: Poorly, Difficulty falling asleep Appetite: Good Muscle strength/Tone: Normal Gait/Station: Other (Ambulating with the assistance of a cane) Psychiatric Findings - Problem List ([place] 1, 2,3) (1) Alcohol dependence Current Visit: No Status: Acute (2) Alcohol-induced anxiety disorder Current Visit: No Status: Chronic (3) Cirrhosis of liver Current Visit: No Status: Chronic Qualifiers: Hepatic cirrhosis type: alcoholic cirrhosis Ascites presence: without ascites Qualified Code(s): K70.30 - Alcoholic cirrhosis of liver without ascites (4) GERD (gastroesophageal reflux disease) Current Visit: No Status: Chronic Qualifiers: Esophagitis presence: without esophagitis Qualified Code(s): K21.9 - Gastro -esophageal reflux disease without esophagitis Comment: on protonix (5) Neuropathy Current Visit: No Status: Chronic Comment: neurontine 300 mg tid (6) Hepatitis C Current Visit: No Status: Resolved Qualifiers: Viral hepatitis chronicity: chronic Hepatic coma status: without hepatic coma Qualified Code(s): B18.2 - Chronic viral hepatitis C - Initial Treatment Plan Initial Treatment Plan: Will add Trazodone 50 mg po hs, Vistaril 50 mg po q4h prn. Monitor progress as needed.
[2017-06-27] MEDS: guaiFENesin/D-METHORPHAN HB 10 ML UNIT-DOSE CUPS PO PRN ×2 (11:00→23:09)
[2017-06-27] MEDS ORDERED: AMMONIUM LACTATE 12% LOTION 225 GM BOTTLE TP PRN (13:54)
[2017-06-27] MEDS: RIVAROXABAN 20 MG TABLET PO SCH (16:58)
[2017-06-27] MEDS: traZODone HCL 50 MG TABLET (FP) PO SCH (21:09)
[2017-06-27] MEDS: THIAMINE HCL 100 MG TABLET (FP) PO SCH (21:10)
[2017-06-28] MEDS: GABAPENTIN 300 MG CAPSULE (FP) PO SCH ×3 (06:29→21:09)
[2017-06-28] MEDS: hydrOXYzine PAMOATE 50 MG CAPSULE (FP) PO PRN ×4 (06:30→18:44)
[2017-06-28] MEDS: HYDROCORTISONE 0.5% TOPICAL OINTMENT TUBE TP SCH (10:00)
[2017-06-28] MEDS: PRENATAL VITAMINS W/ FOLIC ACID TABLET (FP) PO SCH (10:00)
[2017-06-28] MEDS: NICOTINE 21 MG/24 HOURS TOPICAL PATCH TD SCH (10:00)
[2017-06-28] MEDS: RIVAROXABAN 20 MG TABLET PO SCH (17:17)
[2017-06-28] MEDS: traZODone HCL 50 MG TABLET (FP) PO SCH (21:09)
[2017-06-28] MEDS: CLOTRIMAZOLE/BETAMET DIPROP TOPICAL CREAM 45 GM TUBE TP SCH (21:09)
[2017-06-28] MEDS: THIAMINE HCL 100 MG TABLET (FP) PO SCH (21:09)
[2017-06-29] MEDS: GABAPENTIN 300 MG CAPSULE (FP) PO SCH ×3 (06:44→21:04)
[2017-06-29] MEDS: hydrOXYzine PAMOATE 50 MG CAPSULE (FP) PO PRN ×4 (06:45→23:16)
[2017-06-29] MEDS: PRENATAL VITAMINS W/ FOLIC ACID TABLET (FP) PO SCH (09:57)
[2017-06-29] MEDS: NICOTINE 21 MG/24 HOURS TOPICAL PATCH TD SCH (09:58)
[2017-06-29] MEDS: CLOTRIMAZOLE/BETAMET DIPROP TOPICAL CREAM 45 GM TUBE TP SCH ×2 (10:00→21:05)
[2017-06-29] MEDS: RIVAROXABAN 20 MG TABLET PO SCH (16:57)
[2017-06-29] MEDS: traZODone HCL 50 MG TABLET (FP) PO SCH (21:04)
[2017-06-29] MEDS: THIAMINE HCL 100 MG TABLET (FP) PO SCH (21:04)
[2017-06-29] MEDS: guaiFENesin/D-METHORPHAN HB 10 ML UNIT-DOSE CUPS PO PRN (23:51)
[2017-06-30] MEDS: GABAPENTIN 300 MG CAPSULE (FP) PO SCH ×3 (06:21→21:08)
[2017-06-30] MEDS: hydrOXYzine PAMOATE 50 MG CAPSULE (FP) PO PRN ×3 (06:22→20:20)
[2017-06-30] MEDS: NICOTINE 21 MG/24 HOURS TOPICAL PATCH TD SCH (09:46)
[2017-06-30] MEDS: CLOTRIMAZOLE/BETAMET DIPROP TOPICAL CREAM 45 GM TUBE TP SCH ×2 (09:46→21:09)
[2017-06-30] MEDS: PRENATAL VITAMINS W/ FOLIC ACID TABLET (FP) PO SCH (09:46)
[2017-06-30] MEDS: RIVAROXABAN 20 MG TABLET PO SCH (18:10)
[2017-06-30] MEDS: traZODone HCL 50 MG TABLET (FP) PO SCH (21:08)
[2017-06-30] MEDS: THIAMINE HCL 100 MG TABLET (FP) PO SCH (21:08)
[2017-07-01] MEDS: GABAPENTIN 300 MG CAPSULE (FP) PO SCH ×3 (06:13→21:06)
[2017-07-01] MEDS: hydrOXYzine PAMOATE 50 MG CAPSULE (FP) PO PRN ×3 (06:14→19:52)
[2017-07-01] MEDS: NICOTINE 21 MG/24 HOURS TOPICAL PATCH TD SCH (09:44)
[2017-07-01] MEDS: PRENATAL VITAMINS W/ FOLIC ACID TABLET (FP) PO SCH (09:44)
[2017-07-01] MEDS: CLOTRIMAZOLE/BETAMET DIPROP TOPICAL CREAM 45 GM TUBE TP SCH ×2 (09:47→23:52)
[2017-07-01] MEDS: RIVAROXABAN 20 MG TABLET PO SCH (16:51)
[2017-07-01] MEDS: traZODone HCL 50 MG TABLET (FP) PO SCH (21:06)
[2017-07-01] MEDS: THIAMINE HCL 100 MG TABLET (FP) PO SCH (21:06)
[2017-07-02] MEDS: hydrOXYzine PAMOATE 50 MG CAPSULE (FP) PO PRN ×4 (06:43→21:26)
[2017-07-02] MEDS: GABAPENTIN 300 MG CAPSULE (FP) PO SCH ×3 (06:43→21:23)
[2017-07-02] MEDS: PRENATAL VITAMINS W/ FOLIC ACID TABLET (FP) PO SCH (09:58)
[2017-07-02] MEDS: CLOTRIMAZOLE/BETAMET DIPROP TOPICAL CREAM 45 GM TUBE TP SCH ×2 (09:58→21:23)
[2017-07-02] MEDS: NICOTINE 21 MG/24 HOURS TOPICAL PATCH TD SCH (09:59)
[2017-07-02] MEDS: guaiFENesin/D-METHORPHAN HB 10 ML UNIT-DOSE CUPS PO PRN (12:55)
[2017-07-02] MEDS: RIVAROXABAN 20 MG TABLET PO SCH (16:39)
[2017-07-02] MEDS: THIAMINE HCL 100 MG TABLET (FP) PO SCH (21:23)
[2017-07-02] MEDS: traZODone HCL 50 MG TABLET (FP) PO SCH (21:23)
[2017-07-03] MEDS: hydrOXYzine PAMOATE 50 MG CAPSULE (FP) PO PRN ×6 (00:49→23:33)
[2017-07-03] MEDS: GABAPENTIN 300 MG CAPSULE (FP) PO SCH ×3 (06:35→21:47)
[2017-07-03] MEDS: PRENATAL VITAMINS W/ FOLIC ACID TABLET (FP) PO SCH (10:10)
[2017-07-03] MEDS: CLOTRIMAZOLE/BETAMET DIPROP TOPICAL CREAM 45 GM TUBE TP SCH ×2 (10:11→21:48)
[2017-07-03] MEDS: NICOTINE 21 MG/24 HOURS TOPICAL PATCH TD SCH (10:11)
[2017-07-03] MEDS: RIVAROXABAN 20 MG TABLET PO SCH (16:45)
[2017-07-03] MEDS: traZODone HCL 50 MG TABLET (FP) PO SCH (21:47)
[2017-07-03] MEDS: THIAMINE HCL 100 MG TABLET (FP) PO SCH (21:47)
[2017-07-04] MEDS: hydrOXYzine PAMOATE 50 MG CAPSULE (FP) PO PRN ×5 (06:20→23:42)
[2017-07-04] MEDS: GABAPENTIN 300 MG CAPSULE (FP) PO SCH ×3 (06:20→21:12)
[2017-07-04] MEDS: PRENATAL VITAMINS W/ FOLIC ACID TABLET (FP) PO SCH (10:14)
[2017-07-04] MEDS: NICOTINE 21 MG/24 HOURS TOPICAL PATCH TD SCH (10:15)
[2017-07-04] MEDS: CLOTRIMAZOLE/BETAMET DIPROP TOPICAL CREAM 45 GM TUBE TP SCH ×3 (10:17→21:13)
--- NOTE | 2017-07-04 12:18 | PN ---
[facility] Progress Note (SOAP) Subjective: medication effective for rash, would like tid Objective: 07/04/17 12:17 Vital Signs - 24 hr 07/04/17 07/04/17 03:30 06:38 Temperature 97.9 F Pulse Rate 74 Respiratory 18 18 Rate Blood Pressure 132/83 labs reveiwed Assessment: 07/04/17 12:17 increase rash cream, requesting doctors note
[2017-07-04] MEDS: RIVAROXABAN 20 MG TABLET PO SCH (17:01)
[2017-07-04] MEDS: THIAMINE HCL 100 MG TABLET (FP) PO SCH (21:12)
[2017-07-04] MEDS: traZODone HCL 50 MG TABLET (FP) PO SCH (21:12)
[2017-07-04] MEDS ORDERED: CLOTRIMAZOLE/BETAMET DIPROP TOPICAL CREAM 45 GM TUBE TP SCH (22:00)
[2017-07-05] MEDS: GABAPENTIN 300 MG CAPSULE (FP) PO SCH ×3 (06:15→21:03)
[2017-07-05] MEDS: hydrOXYzine PAMOATE 50 MG CAPSULE (FP) PO PRN ×4 (06:16→19:43)
[2017-07-05] MEDS: CLOTRIMAZOLE/BETAMET DIPROP TOPICAL CREAM 45 GM TUBE TP SCH ×3 (06:16→21:03)
[2017-07-05] MEDS: NICOTINE 21 MG/24 HOURS TOPICAL PATCH TD SCH (10:16)
[2017-07-05] MEDS: PRENATAL VITAMINS W/ FOLIC ACID TABLET (FP) PO SCH (10:16)
[2017-07-05] MEDS: guaiFENesin/D-METHORPHAN HB 10 ML UNIT-DOSE CUPS PO PRN (11:46)
[2017-07-05] MEDS: RIVAROXABAN 20 MG TABLET PO SCH (16:54)
[2017-07-05] MEDS: traZODone HCL 50 MG TABLET (FP) PO SCH (21:03)
[2017-07-05] MEDS: THIAMINE HCL 100 MG TABLET (FP) PO SCH (21:03)
[2017-07-06] MEDS: GABAPENTIN 300 MG CAPSULE (FP) PO SCH ×3 (06:24→21:14)
[2017-07-06] MEDS: CLOTRIMAZOLE/BETAMET DIPROP TOPICAL CREAM 45 GM TUBE TP SCH ×3 (06:24→21:14)
[2017-07-06] MEDS: hydrOXYzine PAMOATE 50 MG CAPSULE (FP) PO PRN ×4 (06:24→20:33)
[2017-07-06] MEDS: NICOTINE 21 MG/24 HOURS TOPICAL PATCH TD SCH (09:47)
[2017-07-06] MEDS: PRENATAL VITAMINS W/ FOLIC ACID TABLET (FP) PO SCH (09:48)
[2017-07-06] MEDS: RIVAROXABAN 20 MG TABLET PO SCH (16:45)
[2017-07-06] MEDS: THIAMINE HCL 100 MG TABLET (FP) PO SCH (21:14)
[2017-07-06] MEDS: traZODone HCL 50 MG TABLET (FP) PO SCH (21:14)
[2017-07-07] MEDS: CLOTRIMAZOLE/BETAMET DIPROP TOPICAL CREAM 45 GM TUBE TP SCH ×3 (06:17→21:14)
[2017-07-07] MEDS: GABAPENTIN 300 MG CAPSULE (FP) PO SCH ×3 (06:17→21:13)
[2017-07-07] MEDS: hydrOXYzine PAMOATE 50 MG CAPSULE (FP) PO PRN ×3 (06:18→15:36)
[2017-07-07] MEDS: PRENATAL VITAMINS W/ FOLIC ACID TABLET (FP) PO SCH (09:48)
[2017-07-07] MEDS: NICOTINE 21 MG/24 HOURS TOPICAL PATCH TD SCH (09:48)
[2017-07-07] MEDS ORDERED: PT OWN MED DRAWER 7, Y5N ONE (17:11)
[2017-07-07] MEDS: RIVAROXABAN 20 MG TABLET PO SCH (17:17)
[2017-07-07] MEDS: THIAMINE HCL 100 MG TABLET (FP) PO SCH (21:13)
[2017-07-07] MEDS: traZODone HCL 50 MG TABLET (FP) PO SCH (21:13)
[2017-07-08] MEDS ORDERED: GABAPENTIN 300 MG CAPSULE (FP) PO SCH
[2017-07-08] MEDS ORDERED: RIVAROXABAN 20 MG TABLET PO SCH
[2017-07-08] MEDS ORDERED: traZODone HCL 50 MG TABLET (FP) PO SCH
[2017-07-08] MEDS ORDERED: PANTOPRAZOLE 40 MG TABLET (FP) PO SCH
[2017-07-08] MEDS: GABAPENTIN 300 MG CAPSULE (FP) PO SCH (06:13)
[2017-07-08] MEDS: hydrOXYzine PAMOATE 50 MG CAPSULE (FP) PO PRN ×2 (06:13→10:51)
[2017-07-08] MEDS: CLOTRIMAZOLE/BETAMET DIPROP TOPICAL CREAM 45 GM TUBE TP SCH (06:14)
[2017-07-08 06:39] VITALS: BP 138/70; PULSE 75; TEMP 97.6
--- NOTE | 2017-07-08 07:58 | PN ---
Psychiatric Progress Note Vital Signs: Vital Signs Period Temp Pulse Resp BP Sys/Haney Pulse Ox Last 24 Hr 97.6 F 75 18-18 138/70 Date of Session: 07/08/17 Chief Complaint:: discharge visit HPI: Patient has addressed alohol dependence comorbid alcohol induced anxiety disorder. ROS: Neuropathy, GERD, Hep C, Cirrhosis of the liver medically managed. Current Medications: Active Medications Generic Name Dose Route Start Last Admin Trade Name Freq PRN Reason Stop Dose Admin Acetaminophen 650 mg 06/25/17 13:54 07/03/17 06:37 Tylenol - PO 650 mg Q4H PRN Administration FEVER Al Hydroxide/Mg Hydroxide 30 ml 06/25/17 13:54 Mylanta Oral Suspension - PO Q6H PRN DYSPEPSIA Clotrimazole 1 applic 07/04/17 14:00 07/08/17 06:14 Lotrisone Cream (Large Tube) - TP Not Given TID POLO Diphenhydramine HCl 25 mg 06/25/17 13:59 06/25/17 21:08 Benadryl - PO 25 mg Q6H PRN Administration FOR ITCHING Eucalyptus/Menthol/Phenol/Sorbitol 1 each 06/25/17 13:54 06/25/17 15:38 Cepastat Lozenge - MM 1 each Q4H PRN Administration SORE THROAT Gabapentin 300 mg 06/25/17 14:00 07/08/17 06:13 Neurontin - PO 300 mg Q8H POLO Administration Guaifenesin 10 ml 06/25/17 13:54 07/05/17 11:46 Robitussin Dm - PO 10 ml Q6H PRN Administration COUGH Hydroxyzine Pamoate 50 mg 06/27/17 11:38 07/08/17 06:13 Vistaril - PO 50 mg Q4H PRN Administration ANXIETY Lactic Acid 1 applic 06/27/17 13:54 06/30/17 09:49 Lac-Hydrin 12 TP 1 applic DAILY PRN Administration DRY SKIN Loperamide HCl 4 mg 06/25/17 13:54 Imodium - PO Q6H PRN DIARRHEA Magnesium Citrate 300 ml 06/25/17 13:54 Citroma - PO Q48H PRN CONSTIPATION Magnesium Hydroxide 30 ml 06/25/17 13:54 Milk Of Magnesia - PO DAILY PRN CONSTIPATION Nicotine 21 mg 06/26/17 10:00 07/07/17 09:48 Nicoderm Patch - TD 21 mg DAILY POLO Administration Nicotine Polacrilex 4 mg 06/25/17 13:57 Nicorette Gum - BUC Q2H PRN NICOTINE REPLACEMENT RX Multivit/Folic Acid/Iron 1 tab 06/26/17 10:00 07/07/17 09:48 Vitamins (Sjr) - PO 1 tab DAILY POLO Administration Pseudoephedrine/Triprolidine 1 combo 06/25/17 13:54 Actifed - PO TID PRN NASAL CONGESTION Rivaroxaban 20 mg 06/25/17 17:00 07/07/17 17:17 Xarelto - PO 20 mg DAILY@1700 POLO Administration Thiamine HCl 100 mg 06/25/17 22:00 07/07/17 21:13 Vitamin B1 - PO 100 mg HS POLO Administration Trazodone HCl 50 mg 06/27/17 22:00 07/07/17 21:13 Desyrel - PO 50 mg HS POLO Administration Current Side Effect: No Lab tests ordered: No Lab tests reviewed: Yes Provider note:: Patient has completed today his treatment and met his goals, will continue to address his issues at [facility] term inpatient rehabilitation treatment program. Patient admitted that he is powerless over his addiction and he needed this level of care to rebuild his life alcohol free. Patient is being educated on the importance to socialize with a sober support network for his recovery process and encouraged to utilize all supports available to prevent relapses. Trazodone well tolerated, no side-effects reported, scripts provided for 30 days, patient is stable to be discharge today. Total face to face time:: 30 Mental Status Exam - Mental Status Exam Alert and Oriented to: Time, Place, Person Cognitive Function: Good Patient Appearance: Well Groomed Mood: Hopeful Affect: Appropriate, Mood Congruent Patient Behavior: Cooperative Speech Pattern: Clear, Appropriate Voice Loudness: Normal Thought Process: Intact, Goal Oriented Thought Disorder: Not Present Hallucinations: Denies Suicidal Ideation: Denies Homicidal Ideation: Denies Insight/Judgement: Fair Sleep: Fair Appetite: Fair Muscle strength/Tone: Normal Gait/Station: Normal Psychiatric Treatment Plan - Problem List (1) Alcohol dependence Current Visit: No (2) Alcohol-induced anxiety disorder Current Visit: No (3) Cirrhosis of liver Current Visit: No Qualifiers: Hepatic cirrhosis type: alcoholic cirrhosis Ascites presence: without ascites Qualified Code(s): K70.30 - Alcoholic cirrhosis of liver without ascites (4) GERD (gastroesophageal reflux disease) Current Visit: No Qualifiers: Esophagitis presence: without esophagitis Qualified Code(s): K21.9 - Gastro -esophageal reflux disease without esophagitis Comment: on protonix (5) Neuropathy Current Visit: No Comment: neurontine 300 mg tid (6) Hepatitis C Current Visit: No Qualifiers: Viral hepatitis chronicity: chronic Hepatic coma status: without hepatic coma Qualified Code(s): B18.2 - Chronic viral hepatitis C
[2017-07-08] MEDS: PRENATAL VITAMINS W/ FOLIC ACID TABLET (FP) PO SCH (09:54)
[2017-07-08] MEDS: NICOTINE 21 MG/24 HOURS TOPICAL PATCH TD SCH (09:55)
== END 2017-07-08 13:38 | disposition home or self-care (01) | DRG 772 ==
LOC: YASAS 13:22 → Y5N 13:24
PROVIDERS: ADMIT Psychiatry & Neurology Psychiatry; ATTEND Psychiatry & Neurology Psychiatry
PROC: HZ42ZZZ Group Counseling for Substance Abuse Treatment, Cognitive-Behavioral (ICD-10-PCS; principal; 2017-06-25)
DX: F10.280 Alcohol dependence with alcohol-induced anxiety disorder (principal); K21.9 Gastro-esophageal reflux disease without esophagitis; K70.30 Alcoholic cirrhosis of liver without ascites; G62.9 Polyneuropathy, unspecified; B18.2 Chronic viral hepatitis C; R60.0 Localized edema; L40.9 Psoriasis, unspecified; Z79.01 Long term (current) use of anticoagulants; Z86.718 Personal history of other venous thrombosis and embolism

== ENCOUNTER 2017-07-15 10:41 | Inpatient (IN) | payer OTHER ==
[2017-07-15 14:16] VITALS: BMI 29.0
--- NOTE | 2017-07-15 16:50 | HP ---
CIWA Score - CIWA Score Nausea/Vomitin-Mild Nausea/No Vomiting Muscle Tremors: 3 Anxiety: 2 Agitation: 2 Paroxysmal Sweats: 1-Minimal Palms Moist Orientation: 3-Disoriented Date>2 days Tacttile Disturbances: 2-Mild Itch/Numbness/Burn Auditory Disturbances: 1-Very Mild Visual Disturbances: 1-Very Mild Sensitivity Headache: 2-Mild CIWA-Ar Total Score: 18 Admission ROS [facility] - HPI Chief Complaint: WITHDRAWAL SYMPTOMS Allergies/Adverse Reactions: Allergies Allergy/AdvReac Type Severity Reaction Status Date / Time No Known Allergies Allergy Verified 07/15/17 16:36 History of Present Illness: 61 Y.O. MAN WITH AN EXTENSIVE HISTORY OF ALCOHOL DEPENDENCE IS HERE FOR DETOX. HE HAS HAD FREQUENT ADMISSION HERE FOR DETOX AND REHAB. DOES NOT HAVE A SIGNIFICANT PERIOD OF SOBRIETY. Exam Limitations: Intoxication - Ebola screening Have you traveled outside of the country in the last 21 days: No Have you had contact with anyone from an Ebola affected area: No Have you been sick,other than usual withdrawal symptoms: No Do you have a fever: No - Review of Systems Constitutional: Chills, Night Sweats, Changes in sleep EENT: reports: Blurred Vision, Double Vision Respiratory: reports: No Symptoms reported Cardiac: reports: No Symptoms Reported GI: reports: No Symptoms Reported : reports: No Symptoms Reported Musculoskeletal: reports: No Symptoms Reported Integumentary: reports: No Symptoms Reported Neuro: reports: No Symptoms reported Endocrine: reports: No Symptoms Reported Hematology: reports: No Symptoms Reported Psychiatric: reports: Judgement Intact, Mood/Affect Appropiate Other Systems: Reviewed and Negative Patient History - Patient Medical History Hx Anemia: No Hx Asthma: No Hx Chronic Obstructive Pulmonary Disease (COPD): No Hx Cancer: No Hx Cardiac Disorders: No Hx Congestive Heart Failure: No Hx Hypertension: No Hx Hypercholesterolemia: No Hx Pacemaker: No HX Cerebrovascular Accident: No Hx Seizures: No Hx Dementia: No Hx Diabetes: No Hx Gastrointestinal Disorders: No Hx Liver Disease: Yes (Reports recently being diagnosed with hep. C and cirrhosis ) Hx Genitourinary Disorders: No Hx Sexually Transmitted Disorders: No (Denies) Hx Renal Disease (ESRD): No Hx Thyroid Disease: No Hx Human Immunodeficiency Virus (HIV): No Hx Hepatitis C: Yes Hx Depression: No Hx Suicide Attempt: No Hx Bipolar Disorder: No Hx Schizophrenia: No - Patient Surgical History Past Surgical History: Yes Hx Neurologic Surgery: No Hx Cataract Extraction: No Hx Cardiac Surgery: No Hx Lung Surgery: No Hx Breast Surgery: No Hx Breast Biopsy: No Hx Abdominal Surgery: No Hx Appendectomy: No Hx Cholecystectomy: No Hx Genitourinary Surgery: No Hx Section: No Hx Orthopedic Surgery: Yes (fx, small right finger (fall) in 2016) Hx Hysterectomy: No Other Surgical History: IVC filter placement in 02/01/2017 Anesthesia Reaction: No - PPD History Previous Implant?: Yes Documented Results: Positive w/proof Implanted On Prior [facility] Admission?: Yes Date: 07/28/16 Results: 0mm PPD to be Administered?: No - Reproductive History Patient is a Female of Child Bearing Age (11 -55 yrs old): No - Smoking Cessation Smoking history: Current every day smoker Have you smoked in the past 12 months: Yes Aproximately how many cigarettes per day: 3 If you are a former smoker, when did you quit?: 1 months Cigars Per Day: 0 Hx Chewing Tobacco Use: Yes Initiated information on smoking cessation: Yes 'Breaking Loose' booklet given: 07/15/17 - Substance & Tx. History Hx Alcohol Use: Yes Hx Substance Use: No Substance Use Type: Alcohol Hx Substance Use Treatment: Yes (DETOX AND REHAB: 05/2017) - Substances Abused Alcohol Route: Oral Frequency: Daily Amount used: 8-10 WINE COOLERS Age of first use: 17 Date of Last Use: 07/15/17 Family Disease History - Family Disease History Family Disease History: Other: Father (Uses Alcohol.), Mother (Uses Alcohol.), Brother (Uses Alcohol.), Sister (LSD related schizophrenia) Admission Physical Exam S - Vital Signs Vital Signs: Vital Signs - 24 hr 07/15/17 13:59 Temperature 98 F Pulse Rate 107 H Respiratory 20 Rate Blood Pressure 120/70 - Physical General Appearance: Yes: Intoxicated, Sweating HEENTM: Yes: Hearing grossly Normal, Normal ENT Inspection, Normocephalic, Normal Voice Respiratory: Yes: Chest Non-Tender, Lungs Clear, Normal Breath Sounds, No Respiratory Distress, No Accessory Muscle Use Neck: Yes: No masses,lesions,Nodules, Trachea in good position Breast: Yes: Breast Exam Deferred Cardiology: Yes: Regular Rhythm, Tachycardia Abdominal: Yes: Normal Bowel Sounds, Non Tender Genitourinary: Yes: Other (NO COMPLAINTS REPORTED) Back: Yes: Normal Inspection Musculoskeletal: Yes: Back pain Extremities: Yes: Tremors, Pedal Edema, Swelling Neurological: Yes: Alert, Normal Mood/Affect, Normal Response Integumentary: Yes: Normal Color, Dry, Warm, Pitting Edema Lymphatic: Yes: Within Normal Limits - Diagnostic (1) Alcohol dependence with uncomplicated withdrawal Current Visit: Yes Status: Resolved Comment: . (2) Ankle edema, bilateral Current Visit: Yes Status: Chronic (3) DVT prophylaxis Current Visit: Yes Status: Chronic (4) Nicotine dependence Current Visit: Yes Status: Chronic Qualifiers: Nicotine product type: cigarettes Substance use status: in withdrawal Qualified Code(s): F17.213 - Nicotine dependence, cigarettes, with withdrawal Comment: counseled cessation - not ready (5) GERD (gastroesophageal reflux disease) Current Visit: Yes Status: Chronic Qualifiers: Esophagitis presence: without esophagitis Qualified Code(s): K21.9 - Gastro -esophageal reflux disease without esophagitis Comment: on protonix (6) Peripheral neuropathy Current Visit: Yes Status: Chronic Qualifiers: Peripheral neuropathy type: polyneuropathy, unspecified Qualified Code(s): G62.9 - Polyneuropathy, unspecified (7) Swelling of lower extremity Current Visit: Yes Status: Chronic (8) Use of cane as ambulatory aid Current Visit: Yes Status: Chronic Comment: x 2 years neuropathy related alcohol comsumption (9) Hepatitis C Current Visit: Yes Status: Chronic Qualifiers: Viral hepatitis chronicity: chronic Hepatic coma status: without hepatic coma Qualified Code(s): B18.2 - Chronic viral hepatitis C Cleared for Admission [facility] - Detox or Rehab [facility] Level of Care: Medically Managed Detox Regimen/Protocol: Librium [facility] Breath Alcohol Content Breath Alcohol Content: 0.331 Urine Drug Screen - Results Drug Screen Negative: Yes
[2017-07-15] MEDS ORDERED: MAG HYDROX/AL HYDROX/SIMETH 30 ML UNIT-DOSE CUP PO PRN (17:00)
[2017-07-15] MEDS ORDERED: P-EPHED 60MG/TRIPROLIDI 2.5MG TABLET PO PRN (17:00)
[2017-07-15] MEDS ORDERED: LOPERAMIDE HCL 2 MG CAPSULE PO PRN (17:00)
[2017-07-15] MEDS ORDERED: MAGNESIUM HYDROX 2400MG/30ML ORAL SUSPENSION 30 ML CUP PO PRN (17:00)
[2017-07-15] MEDS ORDERED: MAGNESIUM CITRATE 300 ML BOTTLE PO PRN (17:00)
[2017-07-15] MEDS ORDERED: ACETAMINOPHEN 325 MG TABLET (FP) PO PRN (17:00)
[2017-07-15] MEDS ORDERED: NICOTINE POLACRILEX 2 MG GUM BC PRN (17:00)
[2017-07-15] MEDS ORDERED: chlordiazePOXIDE HCL 25 MG CAPSULE PO PRN (17:00)
[2017-07-15] MEDS ORDERED: MENTHOL/PHENOL 1 EACH UD MM PRN (17:00)
[2017-07-15] MEDS ORDERED: chlordiazePOXIDE HCL 25 MG CAPSULE PO ONE (17:30)
--- NOTE | 2017-07-15 22:51 | PN ---
[facility] Progress Note Note: PT. HAD A WITNESSED FALL IN THE WAITING AREA. HE DENIED HITTING HIS HEAD. HE ADMITTED TO CONTINUED ALCOHOL CONSUMPTION IN THE PARKING LOT. NO INJURIES NOTED OR REPORTED. FALL PROTOCOL # 2 INITIATED. Vitals: BRYAN WAS .285, BP 138/79, P: 107, T: 86.0
[2017-07-15 23:20] LABS: URINE APPEARANCE CLEAR; URINE BILIRUBIN NEGATIVE (NEGATIVE); URINE BLOOD NEGATIVE (NEGATIVE); URINE COLOR LTYELLOW; URINE GLUCOSE (UA) NEGATIVE (NEGATIVE); URINE KETONE NEGATIVE (NEGATIVE); URINE LEUK ESTERASE NEGATIVE (NEGATIVE); URINE NITRITE NEGATIVE (NEGATIVE); URINE UROBILINOGEN NEGATIVE mg/dL (0.2-1.0)
[2017-07-15 23:26] LABS: URINE PROTEIN 1+ (NEGATIVE)
[2017-07-15 23:30] LABS: URINE BACTERIA RARE /hpf (NONE SEEN); URINE MUCUS RARE
[2017-07-15] MEDS: GABAPENTIN 300 MG CAPSULE (FP) PO SCH (23:45)
[2017-07-15] MEDS: THIAMINE HCL 100 MG TABLET (FP) PO SCH (23:48)
[2017-07-15] MEDS: chlordiazePOXIDE HCL 25 MG CAPSULE PO SCH (23:55)
[2017-07-16] MEDS: GABAPENTIN 300 MG CAPSULE (FP) PO SCH ×3 (06:28→22:31)
[2017-07-16] MEDS: chlordiazePOXIDE HCL 25 MG CAPSULE PO SCH ×4 (06:28→22:31)
[2017-07-16] MEDS ORDERED: TRIMETHOBENZAMIDE HCL 200MG/2ML INJ IM PRN (10:23)
--- NOTE | 2017-07-16 11:12 | PN ---
S CIWA - CIWA Score Nausea/Vomitin Muscle Tremors: 3 Anxiety: 3 Agitation: 2 Paroxysmal Sweats: 1-Minimal Palms Moist Orientation: 0-Oriented Tacttile Disturbances: 1-Very Mild Itch/Numbness Auditory Disturbances: 1-Very Mild Visual Disturbances: 0-None Headache: 2-Mild CIWA-Ar Total Score: 16 [facility] Progress Note (SOAP) Subjective: ALERT,IRRITABLE,ANXIOUS,INTERRUPTED SLEEP,TREMOR,INTERRUPTED SLEEP,NAUSEA Objective: 07/16/17 11:09 Vital Signs Temperature 101.8 F H 07/16/17 09:52 Pulse Rate 99 H 07/16/17 09:52 Respiratory Rate 20 07/16/17 09:52 Blood Pressure 150/94 07/16/17 09:52 O2 Sat by Pulse Oximetry (%) EKG NSR 1ST GEGREE AV BLOCK NO CHEST PAIN,NO SOB,NO DIZZINESS ABRASION IN FORHEAD FROM SCRATCH 07/16/17 11:11 Laboratory Last Values Urine Color Ltyellow 07/15/17 21:13 Urine Appearance Clear 07/15/17 21:13 Urine pH 7.0 (5.0-8.0) 07/15/17 21:13 Ur Specific [place] 1.017 (1.001-1.035) 07/15/17 21:13 Urine Protein 1+ (NEGATIVE) H 07/15/17 21:13 Urine Glucose (UA) Negative (NEGATIVE) 07/15/17 21:13 Urine Ketones Negative (NEGATIVE) 07/15/17 21:13 Urine Blood Negative (NEGATIVE) 07/15/17 21:13 Urine Nitrite Negative (NEGATIVE) 07/15/17 21:13 Urine Bilirubin Negative (NEGATIVE) 07/15/17 21:13 Urine Urobilinogen Negative mg/dL (0.2-1.0) 07/15/17 21:13 Ur Leukocyte Esterase Negative (NEGATIVE) 07/15/17 21:13 Urine WBC (Auto) 1 /hpf (3-5) 07/15/17 21:13 Urine RBC (Auto) None /hpf (0-3) 07/15/17 21:13 Urine Bacteria Rare /hpf (NONE SEEN) 07/15/17 21:13 Urine Mucus Rare 07/15/17 21:13 LABS PENDING Assessment: 07/16/17 11:11 WITHDRAWAL SYMPTOM Plan: CONTINUE DETOX,ENCOURAGE ORAL FLUID
[2017-07-16] MEDS: PANTOPRAZOLE 40 MG TABLET (FP) PO SCH (11:34)
[2017-07-16] MEDS: PRENATAL VITAMINS W/ FOLIC ACID TABLET (FP) PO SCH (11:34)
[2017-07-16] MEDS: RIVAROXABAN 20 MG TABLET PO SCH (11:35)
[2017-07-16] MEDS: NICOTINE 14 MG/24 HOURS TOPICAL PATCH TD SCH (11:36)
--- NOTE | 2017-07-16 12:18 | EKG ---
Test Reason : Blood Pressure : / mmHG Vent. Rate : 094 BPM Atrial Rate : 094 BPM P-R Int : 210 ms QRS Dur : 078 ms QT Int : 338 ms P-R-T Axes : 057 034 047 degrees QTc Int : 422 ms SINUS RHYTHM WITH 1ST DEGREE A-V BLOCK LOW VOLTAGE QRS CANNOT RULE OUT ANTERIOR INFARCT , AGE UNDETERMINED ABNORMAL ECG WHEN COMPARED WITH ECG OF 22-JUN-2017 00:31, NO SIGNIFICANT CHANGE WAS FOUND Confirmed by PROSPER LR, MARY ([id number]) on 07/16/2017 12:18:34 PM Referred By: Confirmed By:MARY CHENG MD
[2017-07-16 12:28] LABS: HEMATOCRIT 38.7 % (35.4-49); HEMOGLOBIN 12.5 GM/dL (11.7-16.9); MCH 29.5 pg (25.7-33.7); MCHC 32.3 g/dl (32.0-35.9); MEAN CELL VOLUME 91.5 fl (80-96); MEAN PLT VOLUME 10.9 fl (7.5-11.1); PLATELET COUNT 249 K/MM3 (134-434); RBC 4.23 M/mm3 (4.00-5.60); RDW 20.1 % (11.9-15.9)
[2017-07-16 12:51] LABS: CHLORIDE 104 mmol/L (98-107); POTASSIUM 3.4 mmol/L (3.5-5.1); SODIUM 141 mmol/L (136-145)
[2017-07-16 13:02] LABS: ALBUMIN 3.3 g/dl (3.4-5.0); ALK PHOS 125 U/L (45-117); ANION GAP 15 (8-16); BILIRUBIN,TOTAL 0.3 mg/dL (0.2-1.0); BLOOD UREA NITROGEN 8 mg/dL (7-18); CO2 22 mmol/L (21-32); CREATININE 0.9 mg/dL (0.7-1.3); GLUCOSE,RANDOM 92 mg/dL (74-106); SGOT/AST 35 U/L (15-37); SGPT/ALT 30 U/L (12-78)
[2017-07-16] MEDS: BACITRACIN 0.9 GM PACKET TP SCH ×2 (14:08→22:31)
--- NOTE | 2017-07-16 18:39 | CONSULT ---
[facility] Psychiatric Consult - Data Date of interview: 07/16/17 Admission source: [facility] Identifying data: Readmission to [facility] for this 61 y/o male seeking detox treatment on for alcohol dependence.Patient is single without children,homeless,unemployed,disabled and supported on Social Security benefits. Substance Abuse History: Confirmed by patient in this session with scenario writer. Smoking history: Current every day smoker. Have you smoked in the past 12 months: Yes. Aproximately how many cigarettes per day: 3. If you are a former smoker, when did you quit?: 1 months. Cigars Per Day: 0. Hx Chewing Tobacco Use: Yes. Initiated information on smoking cessation: Yes. 'Breaking Loose' booklet given: 07/15/17. - Substance & Tx. History. Hx Alcohol Use: Yes. Hx Substance Use: No. Substance Use Type: Alcohol. Hx Substance Use Treatment: Yes (DETOX AND REHAB: 05/2017). - Substances Abused. Alcohol. Route: Oral. Frequency: Daily. Amount used: 8-10 WINE COOLERS. Age of first use: 17. Date of Last Use: 07/15/17 Medical History: History of inferior vena cava filter (2017),alcoholic peripheral neuropathy,GERD,hypertension,hepatitis C,obesity,psoriasis,low back pain and cirrhosis of liver.Noted history of orthosurgery for tendon repair ( right 5th digit) in 2014. Psychiatric History: Patient denies. Physical/Sexual Abuse/Trauma History: Patient denies. Additional Comment: Drug Screen is negative.Noted. Mental Status Exam - Mental Status Exam Alert and Oriented to: Time, Place, Person Cognitive Function: Grossly Intact Patient Appearance: Unkempt, Disheveled (flushed facial features) Mood: Nervous, Withdrawn Affect: Mood Congruent Patient Behavior: Fatigued, Appropriate, Cooperative Speech Pattern: Clear, Appropriate Voice Loudness: Normal Thought Process: Goal Oriented Thought Disorder: Not Present Hallucinations: Denies Suicidal Ideation: Denies Homicidal Ideation: Denies Insight/Judgement: Poor Sleep: Well Appetite: Good Muscle strength/Tone: Normal Gait/Station: Normal Psychiatric Findings - Problem List ([place] 1, 2,3) (1) Alcohol dependence with uncomplicated withdrawal Current Visit: Yes Status: Acute (2) Nicotine dependence Current Visit: Yes Status: Chronic Qualifiers: Nicotine product type: cigarettes Substance use status: in withdrawal Qualified Code(s): F17.213 - Nicotine dependence, cigarettes, with withdrawal Comment: counseled cessation - not ready (3) Alcohol-induced anxiety disorder Current Visit: Yes Status: Chronic - Initial Treatment Plan Initial Treatment Plan: Psychoeducation.Sleep hygiene.Detoxification protocol initiated.Observation.
[2017-07-16] MEDS: THIAMINE HCL 100 MG TABLET (FP) PO SCH (22:31)
[2017-07-17] MEDS: GABAPENTIN 300 MG CAPSULE (FP) PO SCH (06:06)
[2017-07-17] MEDS: chlordiazePOXIDE HCL 25 MG CAPSULE PO SCH ×3 (06:06→18:27)
[2017-07-17] MEDS: PRENATAL VITAMINS W/ FOLIC ACID TABLET (FP) PO SCH (10:34)
[2017-07-17] MEDS: PANTOPRAZOLE 40 MG TABLET (FP) PO SCH (10:34)
[2017-07-17] MEDS: BACITRACIN 0.9 GM PACKET TP SCH ×2 (10:34→22:46)
[2017-07-17] MEDS: hydrOXYzine PAMOATE 50 MG CAPSULE (FP) PO PRN (10:34)
[2017-07-17] MEDS: RIVAROXABAN 20 MG TABLET PO SCH (10:34)
[2017-07-17] MEDS: NICOTINE 14 MG/24 HOURS TOPICAL PATCH TD SCH (10:34)
--- NOTE | 2017-07-17 11:19 | EKG ---
Test Reason : Blood Pressure : / mmHG Vent. Rate : 089 BPM Atrial Rate : 089 BPM P-R Int : 198 ms QRS Dur : 080 ms QT Int : 356 ms P-R-T Axes : 034 041 050 degrees QTc Int : 433 ms NORMAL SINUS RHYTHM NORMAL ECG WHEN COMPARED WITH ECG OF 15-JUL-2017 23:53, T WAVE AMPLITUDE HAS INCREASED IN LATERAL LEADS Confirmed by MARY CHENG MD ([id number]) on 07/17/2017 11:19:14 AM Referred By: Confirmed By:MARY CHENG MD
--- NOTE | 2017-07-17 11:21 | PN ---
S CIWA - CIWA Score Nausea/Vomitin-No Nausea/No Vomiting Muscle Tremors: 4-Moderate,w/Arms Extend Anxiety: 3 Agitation: 3 Paroxysmal Sweats: 1-Minimal Palms Moist Orientation: 0-Oriented Tacttile Disturbances: 1-Very Mild Itch/Numbness Auditory Disturbances: 0-None Visual Disturbances: 0-None Headache: 1-Very Mild CIWA-Ar Total Score: 13 [facility] Progress Note (SOAP) Subjective: sweat tremor anxiety restlessness irritable Objective: 07/17/17 11:18 Vital Signs Temperature 98.4 F 07/17/17 11:15 Pulse Rate 93 H 07/17/17 11:15 Respiratory Rate 18 07/17/17 11:15 Blood Pressure 137/85 07/17/17 11:15 O2 Sat by Pulse Oximetry (%) Laboratory Last Values WBC 8.0 K/mm3 (4.0-10.0) D 07/16/17 06:00 RBC 4.23 M/mm3 (4.00-5.60) 07/16/17 06:00 Hgb 12.5 GM/dL (11.7-16.9) 07/16/17 06:00 Hct 38.7 % (35.4-49) 07/16/17 06:00 MCV 91.5 fl (80-96) 07/16/17 06:00 MCH 29.5 pg (25.7-33.7) 07/16/17 06:00 MCHC 32.3 g/dl (32.0-35.9) 07/16/17 06:00 RDW 20.1 % (11.9-15.9) H 07/16/17 06:00 Plt Count 249 K/MM3 (134-434) D 07/16/17 06:00 MPV 10.9 fl (7.5-11.1) D 07/16/17 06:00 Sodium 141 mmol/L (136-145) 07/16/17 06:00 Potassium 3.4 mmol/L (3.5-5.1) L 07/16/17 06:00 Chloride 104 mmol/L (98-107) 07/16/17 06:00 Carbon Dioxide 22 mmol/L (21-32) 07/16/17 06:00 Anion Gap 15 (8-16) 07/16/17 06:00 BUN 8 mg/dL (7-18) D 07/16/17 06:00 Creatinine 0.9 mg/dL (0.7-1.3) 07/16/17 06:00 Creat Clearance w eGFR > 60 (>60) 07/16/17 06:00 Random Glucose 92 mg/dL (74-106) 07/16/17 06:00 Calcium 8.0 mg/dL (8.5-10.1) L 07/16/17 06:00 Total Bilirubin 0.3 mg/dL (0.2-1.0) D 07/16/17 06:00 AST 35 U/L (15-37) D 07/16/17 06:00 ALT 30 U/L (12-78) D 07/16/17 06:00 Alkaline Phosphatase 125 U/L (45-117) H 07/16/17 06:00 Total Protein 7.0 g/dl (6.4-8.2) 07/16/17 06:00 Albumin 3.3 g/dl (3.4-5.0) L 07/16/17 06:00 Urine Color Ltyellow 07/15/17 21:13 Urine Appearance Clear 07/15/17 21:13 Urine pH 7.0 (5.0-8.0) 07/15/17 21:13 Ur Specific [place] 1.017 (1.001-1.035) 07/15/17 21:13 Urine Protein 1+ (NEGATIVE) H 07/15/17 21:13 Urine Glucose (UA) Negative (NEGATIVE) 07/15/17 21:13 Urine Ketones Negative (NEGATIVE) 07/15/17 21:13 Urine Blood Negative (NEGATIVE) 07/15/17 21:13 Urine Nitrite Negative (NEGATIVE) 07/15/17 21:13 Urine Bilirubin Negative (NEGATIVE) 07/15/17 21:13 Urine Urobilinogen Negative mg/dL (0.2-1.0) 07/15/17 21:13 Ur Leukocyte Esterase Negative (NEGATIVE) 07/15/17 21:13 Urine WBC (Auto) 1 /hpf (3-5) 07/15/17 21:13 Urine RBC (Auto) None /hpf (0-3) 07/15/17 21:13 Urine Bacteria Rare /hpf (NONE SEEN) 07/15/17 21:13 Urine Mucus Rare 07/15/17 21:13 RPR Titer Nonreactive (NONREACTIVE) 07/16/17 06:00 lab noted 07/17/17 11:20 begin potassium supplement Assessment: 07/17/17 11:21 withdrawal sx low potassium Plan: continue detox potassium supplement bid repeat K+ 07/18/17
[2017-07-17] MEDS ORDERED: GABAPENTIN 300 MG CAPSULE (FP) PO SCH ×2 (12:00→12:14)
[2017-07-17] MEDS: POTASSIUM CHLORIDE ORAL LIQUID 20 MEQ/15 ML PO SCH ×2 (13:35→22:47)
[2017-07-17] MEDS: GABAPENTIN 400 MG CAPSULE (FP) PO SCH (19:30)
[2017-07-17] MEDS: chlordiazePOXIDE 5 MG CAPSULE PO SCH (22:46)
[2017-07-17] MEDS: THIAMINE HCL 100 MG TABLET (FP) PO SCH (22:46)
[2017-07-18] MEDS: chlordiazePOXIDE 5 MG CAPSULE PO SCH ×3 (05:34→18:03)
[2017-07-18] MEDS: GABAPENTIN 400 MG CAPSULE (FP) PO SCH ×3 (05:34→18:03)
--- NOTE | 2017-07-18 10:15 | PN ---
S Progress Note (SOAP) Subjective: ALERT,IRRITABLE,ANXIOUS,INTERRUPTED SLEEP Objective: 07/18/17 10:13 Vital Signs Temperature 97.7 F 07/18/17 06:00 Pulse Rate 60 07/18/17 06:00 Respiratory Rate 18 07/18/17 06:00 Blood Pressure 141/86 07/18/17 06:00 O2 Sat by Pulse Oximetry (%) Assessment: 07/18/17 10:13 WITHDRAWAL SYMPTOM Plan: CONTINUE DETOX,REPEAT K PENDING,DISCHARGE IN AM
[2017-07-18] MEDS: PANTOPRAZOLE 40 MG TABLET (FP) PO SCH (10:58)
[2017-07-18] MEDS: BACITRACIN 0.9 GM PACKET TP SCH ×2 (10:58→22:15)
[2017-07-18] MEDS: hydrOXYzine PAMOATE 50 MG CAPSULE (FP) PO PRN (10:58)
[2017-07-18] MEDS: POTASSIUM CHLORIDE ORAL LIQUID 20 MEQ/15 ML PO SCH ×2 (10:58→22:16)
[2017-07-18] MEDS: RIVAROXABAN 20 MG TABLET PO SCH (10:58)
[2017-07-18] MEDS: PRENATAL VITAMINS W/ FOLIC ACID TABLET (FP) PO SCH (10:58)
[2017-07-18] MEDS: NICOTINE 14 MG/24 HOURS TOPICAL PATCH TD SCH (10:59)
[2017-07-18] MEDS: THIAMINE HCL 100 MG TABLET (FP) PO SCH (22:16)
[2017-07-18] MEDS: chlordiazePOXIDE HCL 10 MG CAPSULE PO SCH (22:16)
[2017-07-19] MEDS: chlordiazePOXIDE HCL 10 MG CAPSULE PO SCH ×3 (05:22→17:21)
[2017-07-19] MEDS: GABAPENTIN 400 MG CAPSULE (FP) PO SCH ×3 (05:22→17:21)
[2017-07-19] MEDS: POTASSIUM CHLORIDE ORAL LIQUID 20 MEQ/15 ML PO SCH ×2 (10:27→21:47)
[2017-07-19] MEDS: BACITRACIN 0.9 GM PACKET TP SCH ×2 (10:27→21:47)
[2017-07-19] MEDS: PANTOPRAZOLE 40 MG TABLET (FP) PO SCH (10:28)
[2017-07-19] MEDS: RIVAROXABAN 20 MG TABLET PO SCH (10:28)
[2017-07-19] MEDS: PRENATAL VITAMINS W/ FOLIC ACID TABLET (FP) PO SCH (10:28)
[2017-07-19] MEDS: NICOTINE 14 MG/24 HOURS TOPICAL PATCH TD SCH (10:31)
--- NOTE | 2017-07-19 11:20 | DS ---
[facility] Detox Discharge Summary Admission Date: 07/15/17 Discharge Date: 07/19/17 - History Present History: Alcohol Dependence Pertinent Past History: GERD PERIPHERAL NEUROPATHY HEPATITIS C - Physical Exam Results Vital Signs: Vital Signs Temperature 96.8 F L 07/19/17 10:19 Pulse Rate 105 H 07/19/17 10:19 Respiratory Rate 18 07/19/17 10:19 Blood Pressure 137/91 07/19/17 10:19 O2 Sat by Pulse Oximetry (%) - Treatment Hospital Course: Detox Protocol Followed, Detoxed Safely, Responded well, Discharged Condition Good - Medication Discharge Medications: Ambulatory Orders Gabapentin [Neurontin -] 300 mg PO Q8H #90 capsule 07/07/17 Pantoprazole Sodium [Protonix -] 40 mg PO DAILY #30 tablet.ec 07/07/17 Rivaroxaban [Xarelto -] 20 mg PO DAILY #30 tablet 07/07/17 Trazodone HCl 50 mg PO HS 7 Days #7 tablet 07/08/17 - Diagnosis (1) Alcohol dependence with uncomplicated withdrawal Current Visit: Yes Status: Acute (2) Hepatitis C Current Visit: Yes Status: Chronic Qualifiers: Viral hepatitis chronicity: chronic Hepatic coma status: without hepatic coma Qualified Code(s): B18.2 - Chronic viral hepatitis C (3) Nicotine dependence Current Visit: Yes Status: Chronic Qualifiers: Nicotine product type: cigarettes Substance use status: in withdrawal Qualified Code(s): F17.213 - Nicotine dependence, cigarettes, with withdrawal (4) Peripheral neuropathy Current Visit: Yes Status: Chronic Qualifiers: Peripheral neuropathy type: polyneuropathy, unspecified Qualified Code(s): G62.9 - Polyneuropathy, unspecified (5) Use of cane as ambulatory aid Current Visit: No Status: Chronic (6) Alcohol abuse with intoxication Current Visit: No Status: Acute (7) Hypokalemia Current Visit: Yes Status: Acute
[2017-07-19] MEDS: guaiFENesin/D-METHORPHAN HB 10 ML UNIT-DOSE CUPS PO PRN (14:10)
--- NOTE | 2017-07-19 14:41 | PN ---
[facility] Progress Note Note: patient is irritable,interrupted sleep,feel weak,will observe patient for 24 hrs , discharge in am to [facility] for further level of care
[2017-07-19] MEDS ORDERED: HYDROCORTISONE 1% TOPICAL LOTION 118 ML BOTTLE TP PRN (21:21)
[2017-07-19] MEDS ORDERED: COLLOIDAL OATMEAL 1 BAR EACH TP PRN (21:36)
[2017-07-19] MEDS: THIAMINE HCL 100 MG TABLET (FP) PO SCH (21:47)
[2017-07-19] MEDS: hydrOXYzine PAMOATE 50 MG CAPSULE (FP) PO PRN (22:31)
[2017-07-20] MEDS: GABAPENTIN 400 MG CAPSULE (FP) PO SCH (05:43)
--- NOTE | 2017-07-20 08:25 | DS ---
[facility] Detox Discharge Summary Admission Date: 07/15/17 Discharge Date: 07/20/17 - History Present History: Alcohol Dependence Pertinent Past History: GERD NICOTINE DEPENDENCE PERIPHERAL NEUROPATHY HEPATITIS C - Physical Exam Results Vital Signs: Vital Signs Temperature 96.8 F L 07/20/17 06:00 Pulse Rate 89 07/20/17 06:00 Respiratory Rate 18 07/20/17 06:00 Blood Pressure 131/70 07/20/17 06:00 O2 Sat by Pulse Oximetry (%) - Treatment Hospital Course: Detox Protocol Followed, Detoxed Safely, Responded well, Discharged Condition Good, Rehab Referral Accepted Patient has Accepted a Rehab Referral to: [facility] - Medication Discharge Medications: Ambulatory Orders Rivaroxaban [Xarelto -] 20 mg PO DAILY #30 tablet 07/07/17 Trazodone HCl 50 mg PO HS 7 Days #7 tablet 07/08/17 Gabapentin [Neurontin -] 300 mg PO Q8H #90 capsule 07/19/17 Pantoprazole Sodium [Protonix -] 40 mg PO DAILY #30 tablet.ec 07/19/17 Potassium Chloride [Potassium Chloride Oral Liquid] 20 meq PO BID #6 cup Rivaroxaban [Xarelto -] 20 mg PO DAILY #30 tablet 07/19/17 - Diagnosis (1) Alcohol dependence with uncomplicated withdrawal Current Visit: Yes Status: Acute (2) Hepatitis C Current Visit: Yes Status: Chronic Qualifiers: Viral hepatitis chronicity: chronic Hepatic coma status: without hepatic coma Qualified Code(s): B18.2 - Chronic viral hepatitis C (3) Nicotine dependence Current Visit: Yes Status: Chronic Qualifiers: Nicotine product type: cigarettes Substance use status: in withdrawal Qualified Code(s): F17.213 - Nicotine dependence, cigarettes, with withdrawal (4) Peripheral neuropathy Current Visit: Yes Status: Chronic Qualifiers: Peripheral neuropathy type: polyneuropathy, unspecified Qualified Code(s): G62.9 - Polyneuropathy, unspecified (5) Use of cane as ambulatory aid Current Visit: No Status: Chronic (6) Alcohol abuse with intoxication Current Visit: No Status: Acute (7) Hypokalemia Current Visit: Yes Status: Acute (8) Ambulates with cane Current Visit: Yes Status: Acute - AMA Did Patient Leave Against Medical Advice: No
[2017-07-20] MEDS: BACITRACIN 0.9 GM PACKET TP SCH (09:40)
[2017-07-20] MEDS: PRENATAL VITAMINS W/ FOLIC ACID TABLET (FP) PO SCH (09:40)
[2017-07-20] MEDS: PANTOPRAZOLE 40 MG TABLET (FP) PO SCH (09:41)
[2017-07-20] MEDS: RIVAROXABAN 20 MG TABLET PO SCH (09:41)
[2017-07-20] MEDS: NICOTINE 14 MG/24 HOURS TOPICAL PATCH TD SCH (09:41)
[2017-07-20] MEDS: POTASSIUM CHLORIDE ORAL LIQUID 20 MEQ/15 ML PO SCH (09:41)
[2017-07-20] MEDS: guaiFENesin/D-METHORPHAN HB 10 ML UNIT-DOSE CUPS PO PRN (09:45)
[2017-07-20 10:13] VITALS: BP 135/81; PULSE 88; TEMP 97.3
== END 2017-07-20 10:02 | disposition home or self-care (01) | DRG 775 ==
LOC: YASAS 10:41 → Y6N 16:51
PROVIDERS: ADMIT Internal Medicine; ATTEND Internal Medicine
PROC: HZ2ZZZZ Detoxification Services for Substance Abuse Treatment (ICD-10-PCS; principal; 2017-07-15)
DX: F10.230 Alcohol dependence with withdrawal, uncomplicated (principal); F17.210 Nicotine dependence, cigarettes, uncomplicated; F10.280 Alcohol dependence with alcohol-induced anxiety disorder; G62.9 Polyneuropathy, unspecified; B18.2 Chronic viral hepatitis C; K21.9 Gastro-esophageal reflux disease without esophagitis; E87.6 Hypokalemia; R26.89 Other abnormalities of gait and mobility; Z99.89 Dependence on other enabling machines and devices; M25.471 Effusion, right ankle; M25.472 Effusion, left ankle; Z79.01 Long term (current) use of anticoagulants; Z95.828 Presence of other vascular implants and grafts; L40.9 Psoriasis, unspecified
CPT/HCPCS: 36415; 80053; 81003; 81015; 84132; 85027; 86593; 93005; 93010